=== PATIENT | female | born 1985 | race Caucasian/White ===

== ENCOUNTER 2020-10-17 14:13 | Outpatient (REF) | payer MEDICARE, MEDICAID, SELFPAY | END 2020-10-17 14:14 | disposition home or self-care (01) | LOC: HO.LNP 14:13 | PROVIDERS: Visit Provider Nurse Practitioner Family | DX: Z20.822 Contact with and (suspected) exposure to COVID-19 (principal); R52 Pain, unspecified | CPT/HCPCS: U0003 ==

== ENCOUNTER 2020-11-23 19:14 | Outpatient (REF) | payer MEDICARE, MEDICAID, SELFPAY | END 2020-11-23 19:15 | disposition home or self-care (01) | LOC: HO.LNP 19:14 | PROVIDERS: Visit Provider Hospitalist | DX: Z20.822 Contact with and (suspected) exposure to COVID-19 (principal) | CPT/HCPCS: U0003; U0005 ==

== ENCOUNTER 2021-01-07 14:53 | Emergency (ER) | payer MEDICARE, MEDICAID, SELFPAY ==
[2021-01-07 14:59] VITALS: BP 140/77; PULSE 83; RESP 20; TEMP 37.2; O2SAT 99; BMI 48.1
--- NOTE | 2021-01-07 15:54 | ED.GENADULT ---
HPI - General Adult General Chief complaint: General Medical <CHARU Ferreira Last Filed: 01/12/21 13:56> Stated complaint: REACTION TO COVID VACCINE <CHARU Ferreira Last Filed: 01/12/21 13:56> Time Seen by Provider: 01/07/21 15:54 <CHARU Ferreira Last Filed: 01/12/21 13:56> History of Present Illness HPI narrative: Patient complains of tingling in throat and mouth after getting COVID vaccine today, she never had difficulty breathing or swallowing never felt faint never had any throat swelling, and only complaint now is feeling a mild tingling in the back of her throat <CHARU Ferreira Last Filed: 01/12/21 13:56> Related Data Home medications: Home Medications Medication Instructions Recorded Confirmed cariprazine 3 mg capsule 3 mg PO BEDTIME 10/17/20 01/04/21 clonazepam 0.5 mg tablet 0.5 mg PO DAILY PRN 10/17/20 01/04/21 Previous Rx's Medication Instructions Recorded loratadine [Claritin] 10 mg PO DAILY PRN #5 tab 01/07/21 <CHARU Ferreira Last Filed: 01/12/21 13:56> Allergies/adverse reactions: Allergies Allergy/AdvReac Type Severity Reaction Status Date / Time carrot [Carrot] Allergy Mild INDUCES Verified 01/07/21 15:03 ASTHMA, HIVES Sulfa (Sulfonamide Allergy Mild INDUCES Verified 01/07/21 15:03 Antibiotics) ASTHMA, [Sulfa (Sulfonamides)] HIVES, blotchy, asthma flare up ciprofloxacin [Cipro] AdvReac Unknown joint Verified 08/24/20 14:26 swelling <CHARU Ferreira Last Filed: 01/12/21 13:56> Review of Systems Review of Systems: Positive for tingling sensation in the back of her throat negatives are no fever no chills no dizziness no weakness no fainting no feeling faint no confusion no difficulty breathing or swallowing no swelling in the throat no chest pain no abdominal pain no nausea no vomiting no numbness or weakness <CHARU Ferreira Last Filed: 01/12/21 13:56> [facility] Past Medical History Source: nursing notes reviewed <CHARU Ferreira Last Filed: 01/12/21 13:56> Medical History: Medical History (Updated 01/08/21 @ 00:01 by Zachary Daley) Asthma CPAP (continuous positive airway pressure) dependence Endometriosis <CHARU Ferreira - Last Filed: 01/12/21 13:56> Social History Social History: Social History Advance Directives: No Advance Directives Information Provided: Yes <CHARU Ferreira - Last Filed: 01/12/21 13:56> Physical Exam Vital Signs: Vital Signs: Last Vital Signs Temp 99.0 F 01/07/21 14:59 Pulse 83 01/07/21 14:59 Resp 20 01/07/21 14:59 BP 140/77 H 01/07/21 14:59 Pulse Ox 99 01/07/21 14:59 Body Mass Index 48.1 <CHARU Ferreira - Last Filed: 01/12/21 13:56> Vital Signs: Last Vital Signs Temp 99.0 F 01/07/21 14:59 Pulse 83 01/07/21 14:59 Resp 20 01/07/21 14:59 BP 140/77 H 01/07/21 14:59 Pulse Ox 99 01/07/21 14:59 Body Mass Index 48.1 <Javier Scott MD - Last Filed: 01/25/21 13:48> General appearance is comfortable relax no acute distress A&O x3 The eyes are clear no redness or discharge The skin of the face no rashes The pharynx there is no swelling of tongue and uvula pharynx or lips, mucous membranes are moist and pharynx exam is normal The voice is normal No impairment of breathing and swallowing The neck is supple without stridor The chest is clear to auscultation with full symmetrical equal breath sounds without adventitious sound The heart rate and rhythm regular no murmur Abdomen soft nontender Full range of motion x4 in the extremities The skin no rash Neuro motor is 5/5 x4, gait and balance are normal, verbal interaction speech and comprehension are normal, sensation is intact and normal <CHARU Ferreira - Last Filed: 01/12/21 13:56> Course Course Course Narrative: Patient with normal physical exam was comfortable and only symptom is some tingling in the back of the throat is observed for half an hour with no worsening and is given an antihistamine and discharged <CHARU Ferreira - Last Filed: 01/12/21 13:56> I have reviewed the chart <Javier Scott MD - Last Filed: 01/25/21 13:48> Discharge Plan Discharge Clinical Impression: Medication reaction <CHARU Ferreira - Last Filed: 01/12/21 13:56> Patient Disposition: Home, Self-Care <CHARU Ferreira - Last Filed: 01/12/21 13:56> Additional Instructions: This was a mild reaction to the vaccine which should be better very soon There is no sign of any dangerous or serious reaction If needed you can take a Claritin tomorrow but if you are back to normal no need for any further medication Return any concerns <CHARU Ferreira - Last Filed: 01/12/21 13:56> Prescriptions: New loratadine [Claritin] 10 mg tablet 10 mg PO DAILY PRN (Reason: allergy symptoms) Qty: 5 RF: 0 No Action clonazepam 0.5 mg tablet 0.5 mg PO DAILY PRN (Reason: anxiety) RF: 0 Vraylar 3 mg capsule 3 mg PO BEDTIME RF: 0 <CHARU Ferreira - Last Filed: 01/12/21 13:56> Interventions: ED Discharge Assessment Last Done: 01/07/21 16:32 <CHARU Ferreira - Last Filed: 01/12/21 13:56> Discharge Date/Time: 01/07/21 16:33 <CHARU Ferreira - Last Filed: 01/12/21 13:56>
[2021-01-07] MEDS: Loratadine 10 MG TABLET PO (16:25)
--- NOTE | 2021-01-07 16:30 | PC.NURSE ---
no diff breathing, no cp, steady gait, moving all extremities.
== END 2021-01-07 16:33 | disposition home or self-care (01) ==
PROVIDERS: Emergency Provider Emergency Medicine; PCP Internal Medicine
DX: R09.89 Other specified symptoms and signs involving the circulatory and respiratory systems (principal); T50.Z95A Adverse effect of other vaccines and biological substances, initial encounter; Y92.019 Unspecified place in single-family (private) house as the place of occurrence of the external cause
CPT/HCPCS: 99283

== ENCOUNTER 2021-03-16 09:42 | Outpatient (REF) | payer MEDICARE, MEDICAID, SELFPAY ==
[2021-03-16 14:10] LABS: MANUAL DIFF FLAG NO
[2021-03-16 14:13] LABS: Basophils Absolute Auto 0.1 X10*3/uL (0.0-0.2); Basophils Percent Auto 0.7 % (0-2); Eosinophils Absolute Auto 0.7 X10*3/uL (0.0-0.4); Hematocrit 39.1 % (37-47); Imm Gran Abs Auto 0.05 X10*3/uL (0.00-0.03); Imm Gran Pct Auto 0.5 % (0.0-0.4); Lymphocytes Absolute Auto 2.9 X10*3/uL (1.2-4.9); Lymphocytes Percent Auto 31.6 % (20-40); Mean Corpuscular HGB Conc 33.2 g/dl (31.0-35.0); Mean Corpuscular Volume 90.1 fL (80-98); Mean Platelet Volume 10.5 fL (9.4-12.3); Monocytes Absolute Auto 0.6 X10*3/uL (0.1-1.2); Monocytes Percent Auto 6.3 % (2-11); Neutrophils Percent Auto 53.9 % (45-73); Platelet Count 322 X10*3/uL (160-400); Red Blood Count 4.34 X10*6/uL (4.20-5.50); Red Cell Distribution Width 13.9 % (11.0-16.0); White Blood Count 9.2 X10*3/uL (4.8-10.8)
[2021-03-16 14:25] LABS: Iron 58 mcg/dL (30-160); Percent Iron Saturation 15 % (15-50); Total Iron Binding Capacity 387 mcg/dL (228-428); Unsaturated Iron Binding 329 ug/dL
== END 2021-03-16 09:43 | disposition home or self-care (01) ==
LOC: HO.HMGCLDS 09:42
PROVIDERS: PCP Internal Medicine; Visit Provider Physician Assistant
DX: D64.9 Anemia, unspecified (principal)
CPT/HCPCS: 36415; 83540; 85025

== ENCOUNTER 2021-08-28 09:39 | Outpatient (REF) | payer MEDICARE, MEDICAID, SELFPAY ==
[2021-08-28 11:28] LABS: MANUAL DIFF FLAG NO
[2021-08-28 11:42] LABS: Basophils Percent Auto 0.5 % (0-2); Eosinophils Absolute Auto 0.6 X10*3/uL (0.0-0.4); Eosinophils Percent Auto 6.7 % (0-4); Hematocrit 41.1 % (37.0-47.0); Hemoglobin 13.7 g/dl (12.0-16.0); Imm Gran Abs Auto 0.04 X10*3/uL (0.00-0.03); Imm Gran Pct Auto 0.5 % (0.0-0.4); Lymphocytes Absolute Auto 2.4 X10*3/uL (1.2-4.9); Lymphocytes Percent Auto 27.8 % (20-40); Mean Corpuscular HGB Conc 33.3 g/dl (31.0-35.0); Mean Corpuscular Hemoglobin 30.2 pg (27.0-33.0); Mean Corpuscular Volume 90.5 fL (80.0-98.0); Mean Platelet Volume 10.2 fL (9.4-12.3); Monocytes Absolute Auto 0.6 X10*3/uL (0.1-1.2); Monocytes Percent Auto 6.4 % (2-11); Neutrophils Percent Auto 58.1 % (45-73); Platelet Count 321 X10*3/uL (160-400); Red Blood Count 4.54 X10*6/uL (4.20-5.50); Red Cell Distribution Width 13.3 % (11.0-16.0); White Blood Count 8.7 X10*3/uL (4.8-10.8)
[2021-08-28 11:57] LABS: Alanine Aminotransferase 203 U/L (0-31); Albumin Level 4.9 g/dL (3.5-5.0); Alkaline Phosphatase 98 U/L (39-117); Anion Gap 15 (12-20); Aspartate Amino Transferase 121 U/L (5-31); Bilirubin Total 0.5 mg/dL (0.0-1.0); Blood Urea Nitrogen 10 mg/dL (9-16); Carbon Dioxide 25 mmol/L (22-29); Chloride 103 mmol/L (96-108); Estimated Glomerular Filt Rate > 60; Glucose Random 81 mg/dL (60-115); Potassium 4.6 mmol/L (3.3-5.1); Sodium 138 mmol/L (135-145)
[2021-08-28 12:20] LABS: TSH reflex Free T4 2.53 uIU/mL (0.32-4.0)
[2021-08-30 13:30] LABS: LDL Cholesterol Direct 159 mg/dL (<100)
== END 2021-08-28 09:40 | disposition home or self-care (01) ==
LOC: HO.HMGCLDS 09:39
PROVIDERS: PCP Internal Medicine; Visit Provider Internal Medicine
DX: E66.01 Morbid (severe) obesity due to excess calories (principal); Z68.41 Body mass index [BMI] 40.0-44.9, adult; J45.20 Mild intermittent asthma, uncomplicated; I10 Essential (primary) hypertension
CPT/HCPCS: 36415; 80053; 83721; 84443; 85025

== ENCOUNTER 2021-09-14 04:52 | Emergency (ER) | payer MEDICARE, MEDICAID, SELFPAY ==
--- NOTE | ~2021-09-14 | CT_ITS ---
EXAMINATION: CT ABDOMEN AND PELVIS WITHOUT CONTRAST CLINICAL INFORMATION: Right-sided pain COMPARISON: None TECHNIQUE: Multidetector volumetric imaging was performed from the superior aspect of the liver through the pubic symphysis. Sagittal and coronal reformatted images were obtained on the technologist's workstation. This CT examination was performed using dose optimization techniques as appropriate, variously including the following: *Automated exposure control *Adjustment of mA and/or kV according to patient size (this includes techniques or standardized protocols for targeted exams where dose is matched to indication/reason for exam; i.e. extremities or head) *Use of iterative reconstruction technique DLP: 997 mGy-cm FINDINGS: LUNG BASES: The visualized lung bases are unremarkable. LIVER, GALLBLADDER, AND BILIARY TREE: Liver is enlarged and shows severe diffuse hepatic steatosis. No focal liver lesions. No intra or extrahepatic biliary dilatation. Gallbladder unremarkable. PANCREAS: Unremarkable. SPLEEN: Unremarkable. ADRENAL GLANDS: Unremarkable. KIDNEYS AND URETERS: The kidneys are normal in size, shape, and attenuation. No hydronephrosis, hydroureter, or calculi seen. No perinephric stranding. BLADDER: Unremarkable. GASTROINTESTINAL TRACT: Scattered colonic diverticula. No evidence of diverticulitis. Normal appendix. Stomach and small bowel unremarkable. ABDOMINAL WALL: No significant hernia is appreciated. LYMPH NODES: Normal. VASCULAR: Unremarkable. PELVIC VISCERA: IUD present within the uterus. Ovaries unremarkable. OSSEOUS STRUCTURES: No acute or suspicious osseous abnormalities. CT/CT abdomen pelvis wo con IMPRESSION: No acute findings within the abdomen or pelvis. Hepatomegaly and diffuse hepatic steatosis.
[2021-09-14 05:02] VITALS: BP 134/83; PULSE 81; RESP 18; TEMP 36.6; O2SAT 96; BMI 49.1
--- NOTE | 2021-09-14 05:17 | ED.ABDPAIN ---
HPI - Abdominal Pain General Chief Complaint: Abdominal Pain Stated Complaint: ovary/cyst pain Time Seen by Provider: 09/14/21 04:59 Source: patient Mode of arrival: ambulatory Limitations: no limitations History of Present Illness MD elicited complaint: abdominal pain Pertinent past history: other (ovarian cyst dx 09/09 L ovary 2.7cm cyst simple, R ovary normal) Onset (ago): hour(s) (several) Pain Consistency: constant Location: RLQ and pelvis Severity: moderate Quality: stabbing Radiation: none Migration to: no migration Exacerbating factors: movement Relieving factors: nothing Associated symptoms: nausea and dysuria Related Data Home Medications Medication Instructions Recorded Confirmed clonazepam 0.5 mg tablet 0.5 mg PO DAILY PRN 10/17/20 09/04/21 ibuprofen 800 mg tablet 800 mg PO TID PRN 03/16/21 09/04/21 cariprazine 4.5 mg capsule 4.5 mg PO DAILY 08/28/21 09/04/21 (Vraylar) Previous Rx's Medication Instructions Recorded loratadine 10 mg tablet (Claritin) 10 mg PO DAILY PRN #5 tab 01/07/21 albuterol sulfate 90 mcg/actuation 1 inh INHALATION QID PRN 30 Days 08/28/21 aerosol inhaler (ProAir HFA) #18 g chlorthalidone 25 mg tablet 25 mg PO DAILY 90 Days #90 tab 09/04/21 nitrofurantoin 100 mg PO BID 7 Days #14 cap 09/14/21 monohydrate/macrocrystals 100 mg capsule (Macrobid) ondansetron 4 mg disintegrating 4 mg PO Q8H PRN #20 tab 09/14/21 tablet tramadol 50 mg tablet 50 mg PO TID PRN #12 tab 09/14/21 Allergies Allergy/AdvReac Type Severity Reaction Status Date / Time carrot [Carrot] Allergy Mild INDUCES Verified 09/14/21 05:24 ASTHMA, HIVES Sulfa (Sulfonamide Allergy Mild INDUCES Verified 09/14/21 05:24 Antibiotics) ASTHMA, [Sulfa (Sulfonamides)] HIVES, blotchy, asthma flare up ciprofloxacin [Cipro] AdvReac Unknown joint Verified 09/14/21 05:24 swelling Review of Systems Review of Systems Constitutional : No Weight loss, No Fever, No Chills ENT/Mouth : No sore throat, No Rhinorrhea Eyes: No Swelling, No Redness Cardiovascular : No Chest Pain, No SOB, NoEdema Respiratory : No Cough, No Sputum, No Wheezing Gastrointestinal : Positive Nausea, no Vomiting, no Diarrhea, positive abdominal Pain, No Hematochezia, No Melena Genitourinary : pos Dysuria, No Urinary Frequency, No Hematuria, No Urgency Musculoskeletal : No joint pain, No Myalgias, No Joint Swelling Skin : No Skin Lesions, No rash Neuro : No Weakness, No Numbness, No Dizziness, No Headache Psych : No Anxiety/Panic, No Depression Heme/Lymph: No Bruising, No Lymphadenopathy Endocrine : No Polyuria, No Polydipsia All other systems reviewed and are negative. Physical Exam Vital Signs: Vital Signs: Last Vital Signs Temp 97.8 F 09/14/21 05:02 Pulse 81 09/14/21 05:02 Resp 18 09/14/21 05:02 BP 134/83 09/14/21 05:02 Pulse Ox 96 09/14/21 05:02 BMI result Body Mass Index 49.1 Appearance: Alert. Oriented X3. No acute distress. Eyes: Pupils equal, round and reactive to light. ENT: Pharynx normal. Neck: Normal inspection. Neck supple. CVS: Normal heart rate and rhythm. Pulses normal. Respiratory: No respiratory distress. Breath sounds normal. Abdomen: Soft and mild RLQ pain no rebound Skin: Skin warm and dry. Normal skin color. Normal skin turgor. Extremities: No lower extremity edema. No calf ttp Neuro: Oriented X 3. No motor deficit. No sensory deficit. Course Course Course Narrative: feels better no acute findings at this time can be DC, normal WBC count, chronically elevated LFTs, no cyst, no appendicitis, no renal colic, has endometriosis could be related to that I attest that I have reviewed patients MassPAT, and at the time prescribing the patient a controlled substance is appropriate based off of patients diagnosis and treatment plan MDM - Abdominal Pain MDM Narrative Medical decision making narrative: 36 yo female with hx of endometriosis, dx with L ovarian cyst on 09/09 comes in with abrupt onset RLQ and pelvis pain with dysuria after urinating - at this time she has no hx of kidney stones. Will obtain basic labs, UA, CT scan for renal colic. IV toradol and IV morphine for pain. Had no R ovarian cyst on US and she has no LLQ pain to suggest L ovarian pathology. Dispo per results and findings. Lab Data Result diagrams: 09/14/21 05:31 09/14/21 05:32 Labs: Lab Results 09/14/21 09/14/21 09/14/21 Range/Units 05:31 05:32 05:32 WBC 9.2 (4.8-10.8) X10*3/uL RBC 4.53 (4.20-5.50) X10*6/uL Hgb 13.5 (12.0-16.0) g/dl Hct 40.9 (37.0-47.0) % MCV 90.3 (80.0-98.0) fL MCH 29.8 (27.0-33.0) pg MCHC 33.0 (31.0-35.0) g/dl RDW 13.3 (11.0-16.0) % Plt Count 291 (160-400) X10*3/uL MPV 10.1 (9.4-12.3) fL Immature Gran % (Auto) 0.5 H (0.0-0.4) % Neut % (Auto) 63.4 (45-73) % Lymph % (Auto) 24.5 (20-40) % Ada % (Auto) 5.5 (2-11) % Eos % (Auto) 5.8 H (0-4) % Baso % (Auto) 0.3 (0-2) % Lymph # (Auto) 2.3 (1.2-4.9) X10*3/uL Ada # (Auto) 0.5 (0.1-1.2) X10*3/uL Eos # (Auto) 0.5 H (0.0-0.4) X10*3/uL Baso # (Auto) 0.0 (0.0-0.2) X10*3/uL Abs Immat Gran (auto) 0.05 H (0.00-0.03) X10*3/uL Absolute Neuts (auto) 5.8 (2.0-8.3) x10*3/uL Absolute Nucleated RBC 0.000 (0.0-0.012) X10*3/uL Nucleated RBC % (auto) 0.0 (0.0-0.2) /100WBC Sodium 138 (135-145) mmol/L Potassium 4.0 (3.3-5.1) mmol/L Chloride 101 (96-108) mmol/L Carbon Dioxide 26 (22-29) mmol/L Anion Gap 15 (12-20) BUN 15 (9-16) mg/dL Creatinine 0.97 (0.5-1.4) mg/dL Estim Creat Clear Calc 94.1 Estimated GFR > 60 Random Glucose 144 H (60-115) mg/dL Calcium 9.9 (8.4-10.2) mg/dL Magnesium 2.1 (1.6-2.6) mg/dL Total Bilirubin 0.5 (0.0-1.0) mg/dL Direct Bilirubin 0.3 (0.0-0.5) mg/dL AST 93 H (5-31) U/L ALT 177 H (0-31) U/L Alkaline Phosphatase 111 (39-117) U/L Total Protein 7.9 (6.5-8.0) g/dL Albumin 4.7 (3.5-5.0) g/dL Lipase 59 (8-78) U/L Urine Color Urine Appearance Urine pH (5.0-8.0) Ur Specific [place] (1.005-1.025) Urine Protein (NEG-TRACE) MG/DL Urine Glucose (UA) (NEG) MG/DL Urine Ketones (NEG) MG/DL Urine Blood (NEG) Urine Nitrite (NEG) Ur Leukocyte Esterase (NEG) Urine RBC (0) /HPF Urine WBC (0-4) /HPF Ur Squamous Epith Cells /LPF Urine Bacteria /LPF Urine Mucus /LPF Urine Test (NEGATIVE) COVID-19 (MOSES) Negative (Negative) COVID-19 Clin Com See Note 09/14/21 09/14/21 Range/Units 05:32 05:32 WBC (4.8-10.8) X10*3/uL RBC (4.20-5.50) X10*6/uL Hgb (12.0-16.0) g/dl Hct (37.0-47.0) % MCV (80.0-98.0) fL MCH (27.0-33.0) pg MCHC (31.0-35.0) g/dl RDW (11.0-16.0) % Plt Count (160-400) X10*3/uL MPV (9.4-12.3) fL Immature Gran % (Auto) (0.0-0.4) % Neut % (Auto) (45-73) % Lymph % (Auto) (20-40) % Ada % (Auto) (2-11) % Eos % (Auto) (0-4) % Baso % (Auto) (0-2) % Lymph # (Auto) (1.2-4.9) X10*3/uL Ada # (Auto) (0.1-1.2) X10*3/uL Eos # (Auto) (0.0-0.4) X10*3/uL Baso # (Auto) (0.0-0.2) X10*3/uL Abs Immat Gran (auto) (0.00-0.03) X10*3/uL Absolute Neuts (auto) (2.0-8.3) x10*3/uL Absolute Nucleated RBC (0.0-0.012) X10*3/uL Nucleated RBC % (auto) (0.0-0.2) /100WBC Sodium (135-145) mmol/L Potassium (3.3-5.1) mmol/L Chloride (96-108) mmol/L Carbon Dioxide (22-29) mmol/L Anion Gap (12-20) BUN (9-16) mg/dL Creatinine (0.5-1.4) mg/dL Estim Creat Clear Calc Estimated GFR Random Glucose (60-115) mg/dL Calcium (8.4-10.2) mg/dL Magnesium (1.6-2.6) mg/dL Total Bilirubin (0.0-1.0) mg/dL Direct Bilirubin (0.0-0.5) mg/dL AST (5-31) U/L ALT (0-31) U/L Alkaline Phosphatase (39-117) U/L Total Protein (6.5-8.0) g/dL Albumin (3.5-5.0) g/dL Lipase (8-78) U/L Urine Color YELLOW Urine Appearance CLOUDY Urine pH 6.0 (5.0-8.0) Ur Specific [place] 1.015 (1.005-1.025) Urine Protein NEG (NEG-TRACE) MG/DL Urine Glucose (UA) NEG (NEG) MG/DL Urine Ketones NEG (NEG) MG/DL Urine Blood NEG (NEG) Urine Nitrite NEG (NEG) Ur Leukocyte Esterase 1+ H (NEG) Urine RBC 0-2 (0) /HPF Urine WBC 5-9 H (0-4) /HPF Ur Squamous Epith Cells 3+ /LPF Urine Bacteria 1+ /LPF Urine Mucus 2+ /LPF Urine Test NEGATIVE (NEGATIVE) COVID-19 (MOSES) (Negative) COVID-19 Clin Com Discharge Plan Discharge Clinical Impression: Abdominal pain Qualifiers: Abdominal location: right lower quadrant Qualified Code(s): R10.31 - Right lower quadrant pain UTI (urinary tract infection) Qualifiers: Urinary tract infection type: acute cystitis Hematuria presence: without hematuria Qualified Code(s): N30.00 - Acute cystitis without hematuria Patient Disposition: Home, Self-Care Instructions: Urinary Tract Infection in Women (ED), Abdominal Pain (ED) Additional Instructions: return to ED for any worsening symptoms or concerns Prescriptions: New nitrofurantoin monohyd/m-cryst [Macrobid] 100 mg capsule 100 mg PO BID 7 Days Qty: 14 RF: 0 ondansetron 4 mg tablet,disintegrating 4 mg PO Q8H PRN (Reason: nausea and vomiting) Qty: 20 RF: 0 tramadol 50 mg tablet 50 mg PO TID PRN (Reason: pain) Qty: 12 RF: 0 No Action loratadine [Claritin] 10 mg tablet 10 mg PO DAILY PRN (Reason: allergy symptoms) Qty: 5 RF: 0 clonazepam 0.5 mg tablet 0.5 mg PO DAILY PRN (Reason: anxiety) RF: 0 ibuprofen 800 mg tablet 800 mg PO TID PRN (Reason: pain) RF: 0 chlorthalidone 25 mg tablet 25 mg PO DAILY 90 Days Qty: 90 RF: 1 Vraylar 4.5 mg capsule 4.5 mg PO DAILY RF: 0 albuterol sulfate [ProAir HFA] 90 mcg/actuation HFA aerosol inhaler 1 inh inhalation QID PRN (Reason: shortness of breath or wheezing) 30 Days Qty: 18 RF: 0 Referrals: Physician,Unknown J [Primary Care Provider] - 2 days (if not better) Stand Alone Forms: Work/School Release [facility] Past Medical History Attestation statement: The following information was validated with the patient. Medical History (Updated 09/14/21 @ 06:48 by Apurva Chase DO) Anemia Asthma CPAP (continuous positive airway pressure) dependence Endometriosis Surgical History History of delivery Family History Family History Other Mental health disorder Substance use disorder Social History Social History Housing: Condominium Patient Tobacco Use Status: Never used Tobacco Advance Directives: No Advance Directives Information Provided: Yes Patient : No Current occupational status: disabled
--- NOTE | 2021-09-14 05:23 | PC.NURSE ---
at bedside for primary eval.
[2021-09-14] MEDS: ondansetron HCL 4 MG/2 ML VIAL IVPUSH (05:40)
[2021-09-14] MEDS: 0.9 % Sodium Chloride 1,000 ML 999 ML IVCONT (05:40)
[2021-09-14] MEDS: Morphine Sulfate 4 MG/ML CARTRIDGE IVPUSH (05:40)
[2021-09-14] MEDS: Ketorolac Tromethamine 15 MG/ML VIAL 30 MG IVPUSH (05:40)
[2021-09-14 05:41] LABS: MANUAL DIFF FLAG NO
[2021-09-14 05:42] LABS: Basophils Percent Auto 0.3 % (0-2); Eosinophils Absolute Auto 0.5 X10*3/uL (0.0-0.4); Eosinophils Percent Auto 5.8 % (0-4); Hematocrit 40.9 % (37.0-47.0); Hemoglobin 13.5 g/dl (12.0-16.0); Imm Gran Abs Auto 0.05 X10*3/uL (0.00-0.03); Imm Gran Pct Auto 0.5 % (0.0-0.4); Lymphocytes Absolute Auto 2.3 X10*3/uL (1.2-4.9); Lymphocytes Percent Auto 24.5 % (20-40); Mean Corpuscular Hemoglobin 29.8 pg (27.0-33.0); Mean Corpuscular Volume 90.3 fL (80.0-98.0); Mean Platelet Volume 10.1 fL (9.4-12.3); Monocytes Absolute Auto 0.5 X10*3/uL (0.1-1.2); Monocytes Percent Auto 5.5 % (2-11); Neutrophils Absolute Auto 5.8 x10*3/uL (2.0-8.3); Neutrophils Percent Auto 63.4 % (45-73); Platelet Count 291 X10*3/uL (160-400); Red Blood Count 4.53 X10*6/uL (4.20-5.50); Red Cell Distribution Width 13.3 % (11.0-16.0); White Blood Count 9.2 X10*3/uL (4.8-10.8)
[2021-09-14 05:43] LABS: Appearance Urine CLOUDY; Color Urine YELLOW; Glucose Urine UA NEG (NEG); Leukocyte Esterase Urine 1+ (NEG); Nitrite Urine NEG (NEG); Specific Gravity - Urine 1.015 (1.005-1.025); UACC Culture Trigger YES; Urine Blood NEG (NEG); Urine Ketones NEG (NEG); Urine Protein NEG (NEG-TRACE)
--- NOTE | 2021-09-14 05:43 | PC.NURSE ---
IV established, labs and UA obtained. IVF infusing. Pt medicated per MAR. Awaiting CT.
[2021-09-14 05:45] LABS: UPreg QC Valid YES; Urine Pregnancy NEGATIVE (NEGATIVE)
[2021-09-14 05:56] LABS: Bacteria Urine 1+ /LPF; Mucus Urine 2+ /LPF; RBC Urine 0-2 /HPF (0); Squamous Epithelial Cell Urine 3+ /LPF
[2021-09-14 05:57] LABS: COVID-19 Test Negative (Negative)
[2021-09-14 06:00] LABS: Alanine Aminotransferase 177 U/L (0-31); Albumin Level 4.7 g/dL (3.5-5.0); Alkaline Phosphatase 111 U/L (39-117); Anion Gap 15 (12-20); Aspartate Amino Transferase 93 U/L (5-31); Bilirubin Direct 0.3 mg/dL (0.0-0.5); Bilirubin Total 0.5 mg/dL (0.0-1.0); Blood Urea Nitrogen 15 mg/dL (9-16); Calcium 9.9 mg/dL (8.4-10.2); Carbon Dioxide 26 mmol/L (22-29); Chloride 101 mmol/L (96-108); Creatinine Clr Calc Pharmacy 94.1; Estimated Glomerular Filt Rate > 60; Glucose Random 144 mg/dL (60-115); Lipase 59 U/L (8-78); Magnesium 2.1 mg/dL (1.6-2.6); Sodium 138 mmol/L (135-145); Total Protein 7.9 g/dL (6.5-8.0)
--- NOTE | 2021-09-14 06:43 | PC.NURSE ---
MD at bedside discussing results and plan for discharge.
[2021-09-14] MEDS: Nitrofurantoin Monohyd/M-Cryst 100 MG CAPSULE PO (06:46)
== END 2021-09-14 06:56 | disposition home or self-care (01) ==
PROVIDERS: Emergency Provider Emergency Medicine
DX: N30.00 Acute cystitis without hematuria (principal); R10.31 Right lower quadrant pain; Z20.822 Contact with and (suspected) exposure to COVID-19; R11.0 Nausea
CPT/HCPCS: 36415; 74176; 80048; 80076; 81001; 81025; 83690; 83735; 85025; 87086; 87635; 96361; 96374; 96375; 99284; J1885; J2270; J2405

== ENCOUNTER 2021-09-26 15:16 | Outpatient (REF) | payer MEDICARE, MEDICAID, SELFPAY | END 2021-09-26 15:17 | disposition home or self-care (01) | LOC: HO.HMGCX 15:16 | PROVIDERS: PCP Internal Medicine; Visit Provider Internal Medicine | DX: Z13.89 Encounter for screening for other disorder (principal) ==

== ENCOUNTER 2022-02-05 07:59 | Outpatient (RCR) | payer MEDICARE, MEDICAID, SELFPAY ==
--- NOTE | 2022-02-05 08:55 | MHC.PT.EP ---
[facility] [place] [facility] [place] Office [place] Office [address] Gopal Concepcion [address] [phone] F: [phone] F: [phone] F: [phone] F: [phone] Physical Therapy Plan of Care Date of Evaluation: Date of Surgery: n/a Diagnosis: cervicalgia Assessment: Patient is a 36 year old female presenting to PT with complaints of pain in her neck extending down her R arm. Pt reports onset of pain began 1 month ago due to either lifting her son wrong or sleeping wrong. She presents today with impairments in pain, shoulder strength, and posture. 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 Clinical presentation today is most consistent with signs and sx associated with neck and shoulder pain that is likely myofascial in nature with possible contribution from RC and pt will benefit from skilled PT to address the following problems and impairments noted upon evaluation: pain, shoulder strength, and posture. 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 The prescribed treatment plan of care is medically necessary. Co-morbidities of none were identified and taken into considerations of plan of care. Pt was educated on HEP, role of PT, prognosis, POC. Frequency and Duration: The patient will be seen 2 x week x 4 weeks Short Term Goals: Pt will demonstrate improved postural awareness by sitting with biomechanically correct posture without cues throughout session to improve overall postural function in 2 weeks. Pt will demonstrate pain at rest <4/10 in 2 weeks for improved QOL. Pt will demonstrate improved shoulder strength on R by 1/3 MMT for improved ability to lift her son. 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 Pt will demonstrate self reports of being able to pull with min to no pain in 4 weeks for improved ability to do laundry. Pt will demonstrate ability to lift with min to no pain in 4 weeks for improved ability to care for her son. Treatment Plan: Modalities to reduce pain, spasms and effusion. Manual therapy to restore motion and function. Therapeutic exercise to improve strength and flexibility. Neuromuscular re-education for posture and balance. Therapeutic activities to return to functional activities of daily living. Electronically signed by: Alisha Cisneros, PT, DPT, ATC Please sign and return to therapist. Thank you for your referral.
--- NOTE | 2022-02-19 09:47 | MHC.PT.DC ---
[facility] [place] Office [place] Office [place] Office [address] [phone] F: [phone] F: [phone] F: [phone] F: [phone] Physical Therapy Discharge Report Diagnosis: cervicalgia Date of Surgery: n/a Date of Evaluation: 02/05/22 Date of Discharge: 02/19/22 Treatments to Date: 1 Cancellations to Date: 0 No Shows to Date: 3 Discharge Status: Visit Non-compliance Discharge Summary: Pt has failed to comply with [facility] [place] and no showed her first 3 PT follow ups. Pt status unknown at this time. Electronically signed by: Alisha Cisneros, PT, DPT, ATC Please sign and return to therapist. Thank you for your referral.
== END 2022-02-19 09:47 | disposition home or self-care (01) ==
LOC: HO.PTCHIC 07:59
PROVIDERS: PCP Internal Medicine; Visit Provider Internal Medicine
DX: M54.2 Cervicalgia (principal)
CPT/HCPCS: 97110; 97161

== ENCOUNTER 2022-02-11 13:05 | Emergency (ER) | payer MEDICARE, MEDICAID, SELFPAY ==
[2022-02-11 13:49] VITALS: BP 132/93; PULSE 87; RESP 18; TEMP 36.8; O2SAT 100; BMI 49.3
[2022-02-11 14:01] LABS: MANUAL DIFF FLAG NO
[2022-02-11 14:04] LABS: Basophils Absolute Auto 0.1 X10*3/uL (0.0-0.2); Basophils Percent Auto 0.6 % (0-2); Eosinophils Absolute Auto 0.4 X10*3/uL (0.0-0.4); Eosinophils Percent Auto 3.7 % (0-4); Hemoglobin 13.7 g/dl (12.0-16.0); Imm Gran Abs Auto 0.08 X10*3/uL (0.00-0.03); Imm Gran Pct Auto 0.7 % (0.0-0.4); Lymphocytes Absolute Auto 2.9 X10*3/uL (1.2-4.9); Lymphocytes Percent Auto 26.6 % (20-40); Mean Corpuscular HGB Conc 33.4 g/dl (31.0-35.0); Mean Corpuscular Hemoglobin 30.1 pg (27.0-33.0); Mean Corpuscular Volume 90.1 fL (80.0-98.0); Mean Platelet Volume 9.7 fL (9.4-12.3); Monocytes Absolute Auto 0.4 X10*3/uL (0.1-1.2); Monocytes Percent Auto 3.5 % (2-11); Neutrophils Percent Auto 64.9 % (45-73); Platelet Count 297 X10*3/uL (160-400); Red Blood Count 4.55 X10*6/uL (4.20-5.50); Red Cell Distribution Width 13.3 % (11.0-16.0); White Blood Count 10.8 X10*3/uL (4.8-10.8)
[2022-02-11 14:20] LABS: Anion Gap 16 (12-20); Blood Urea Nitrogen 17 mg/dL (9-16); Calcium 10.7 mg/dL (8.4-10.2); Carbon Dioxide 28 mmol/L (22-29); Chloride 97 mmol/L (96-108); Creatinine Clr Calc Pharmacy 85.5; Estimated Glomerular Filt Rate 57; Glucose Random 128 mg/dL (60-115); Potassium 3.9 mmol/L (3.3-5.1); Sodium 137 mmol/L (135-145)
[2022-02-11 21:13] VITALS: BP 131/78; PULSE 88; RESP 20; TEMP 37.2; O2SAT 96
[2022-02-11 21:43] LABS: HCG Quantitative < 2 mIU/mL
--- NOTE | 2022-02-11 21:48 | ED.GENADULT ---
HPI - General Adult General Chief complaint: Headache Stated complaint: HBP/Headache Time Seen by Provider: 02/11/22 18:28 Source: patient Mode of arrival: ambulatory History of Present Illness HPI narrative: 36-year-old female with history of hypertension and is currently on chlorthalidone presents with complaints of headaches intermittently since yesterday as well as facial redness, she called her PCP who wanted to see patient again today for possible medication adjustment but patient states that as she was driving at 12:30 her face became red, she has a headache that wraps around the forehead area and is squeezing in nature she also described transient bilateral blurred vision. Patient states that pretty much everything is resolved except headache would still remains around the forehead is squeezing in nature. She denies any speech/auditory/unilateral numbness/tingling/weakness. Patient denies any fever, chills, shortness of breath, chest pain/palpitations. Related Data Home Medications Medication Instructions Recorded Confirmed clonazepam 0.5 mg tablet 0.5 mg PO DAILY PRN 10/17/20 01/31/22 cariprazine 4.5 mg capsule 4.5 mg PO DAILY 08/28/21 01/31/22 (Vraylar) milk thistle 150 mg capsule 300 mg PO DAILY 10/19/21 Previous Rx's Medication Instructions Recorded albuterol sulfate 90 mcg/actuation 1 inh INHALATION QID PRN 30 Days 08/28/21 aerosol inhaler (ProAir HFA) #18 g chlorthalidone 25 mg tablet 25 mg PO DAILY 90 Days #90 tab 09/04/21 ibuprofen 800 mg tablet 800 mg PO TID PRN #30 tab 10/19/21 Allergies Allergy/AdvReac Type Severity Reaction Status Date / Time carrot [Carrot] Allergy Mild INDUCES Verified 02/11/22 13:48 ASTHMA, HIVES Sulfa (Sulfonamide Allergy Mild INDUCES Verified 02/11/22 13:48 Antibiotics) ASTHMA, [Sulfa (Sulfonamides)] HIVES, blotchy, asthma flare up ciprofloxacin [Cipro] AdvReac Unknown joint Verified 02/11/22 13:48 swelling Review of Systems Review of Systems: Pertinent positives and negatives as stated in HPI 10 point review of systems is otherwise negative. PMFSH Past Medical History Source: nursing notes reviewed Medical History Anemia Asthma CPAP (continuous positive airway pressure) dependence Endometriosis Surgical History History of delivery Family History Family History Other Mental health disorder Substance use disorder Social History Social History Housing: Condominium Patient Tobacco Use Status: Never used Tobacco Advance Directives: No Advance Directives Information Provided: No Patient : No Current occupational status: disabled Cognitive needs: No Hearing needs: No Vision needs: No Physical Exam ED Vital Signs: Vital Signs - 24 hr 02/11/22 13:49 02/11/22 21:13 Temperature 98.2 F 99.0 F Pulse Rate 87 88 Respiratory Rate 18 20 Blood Pressure 132/93 H 131/78 Pulse Oximetry 100 96 BMI result Body Mass Index 49.3 VITAL SIGNS: Reviewed. GENERAL: Well developed, well nourished, in no acute distress. HEAD: Normocephalic/atraumatic EYES: PERRLA, EOMI, no nystagmus EARS: Ext canals without abnormality, TMs non-bulging and non-erythematous NOSE: Nares patent bilateral OROPHARYNX: no oral lesions noted, posterior pharynx clear LUNGS: Normal breath sounds. No adventitious sounds or accessory muscle use. SpO2<100> CARDIOVASCULAR: Regular rate and rhythm without noted murmurs, no JVD or lower extremity edema. ABDOMEN: Soft, non-tender, non-distended with bowel sounds. MUSCULOSKELETAL: No tenderness, deformities, or effusions noted on gross inspection. EXTREMITIES: No cyanosis, clubbing or edema. SKIN: Inspection of the skin reveals no rashes NEUROLOGIC: Alert and oriented x 4. Strength and sensation to light touch were grossly intact x 4, no facial asymmetry, no pronator drift, cranial nerves 2-12 grossly intact. Course Course Course Narrative: 36-year-old female with history and clinical presentation consistent with hypertension with associated headache, but patient still has headache and has been taking ibuprofen for a cervical radiculopathy that she is currently undergoing physical therapy for. In addition, patient describes stress with a small child at home. Review of all investigations otherwise negative for acute findings in after patient received lidocaine patch to the shoulder as well as combination analgesics for headache she reports complete resolution of the headache and has not had any further blurry vision. Low clinical suspicion for any intracranial abnormalities. Blood pressure has significantly improved and patient is otherwise discharged home in stable condition. Medical Decision Making Lab Data Result diagrams: 02/11/22 13:57 02/11/22 13:57 Labs: Lab Results 02/11/22 02/11/22 02/11/22 Range/Units 13:57 13:57 22:16 WBC 10.8 (4.8-10.8) X10*3/uL RBC 4.55 (4.20-5.50) X10*6/uL Hgb 13.7 (12.0-16.0) g/dl Hct 41.0 (37.0-47.0) % MCV 90.1 (80.0-98.0) fL MCH 30.1 (27.0-33.0) pg MCHC 33.4 (31.0-35.0) g/dl RDW 13.3 (11.0-16.0) % Plt Count 297 (160-400) X10*3/uL MPV 9.7 (9.4-12.3) fL Immature Gran % (Auto) 0.7 H (0.0-0.4) % Neut % (Auto) 64.9 (45-73) % Lymph % (Auto) 26.6 (20-40) % [place] % (Auto) 3.5 (2-11) % Eos % (Auto) 3.7 (0-4) % Baso % (Auto) 0.6 (0-2) % Lymph # (Auto) 2.9 (1.2-4.9) X10*3/uL [place] # (Auto) 0.4 (0.1-1.2) X10*3/uL Eos # (Auto) 0.4 (0.0-0.4) X10*3/uL Baso # (Auto) 0.1 (0.0-0.2) X10*3/uL Abs Immat Gran (auto) 0.08 H (0.00-0.03) X10*3/uL Absolute Neuts (auto) 7.0 (2.0-8.3) x10*3/uL Absolute Nucleated RBC 0.000 (0.0-0.012) X10*3/uL Nucleated RBC % (auto) 0.0 (0.0-0.2) /100WBC Sodium 137 (135-145) mmol/L Potassium 3.9 (3.3-5.1) mmol/L Chloride 97 (96-108) mmol/L Carbon Dioxide 28 (22-29) mmol/L Anion Gap 16 (12-20) BUN 17 H (9-16) mg/dL Creatinine 1.07 (0.5-1.4) mg/dL Estim Creat Clear Calc 85.5 Estimated GFR 57 Random Glucose 128 H (60-115) mg/dL Calcium 10.7 H D (8.4-10.2) mg/dL Beta HCG, Quant < 2 mIU/mL Urine Color YELLOW Urine Appearance CLEAR Urine pH 6.0 (5.0-8.0) Ur Specific [place] 1.020 (1.005-1.025) Urine Protein NEG (NEG-TRACE) MG/DL Urine Glucose (UA) NEG (NEG) MG/DL Urine Ketones NEG (NEG) MG/DL Urine Blood NEG (NEG) Urine Nitrite NEG (NEG) Ur Leukocyte Esterase TRACE H (NEG) Urine RBC 0 (0) /HPF Urine WBC 0-2 (0-4) /HPF Ur Squamous Epith Cells 1+ /LPF Urine Bacteria 1+ /LPF Discharge Plan Discharge Clinical Impression: Hypertension, Headache Patient Disposition: Home, Self-Care Instructions: Tension Headache (ED), DASH Eating Plan (ED), General Headache (ED) Additional Instructions: 1. Resume your home blood pressure medication and follow-up with your primary care provider for adjustment. 2. Recommend that you stop taking ibuprofen/Motrin products as this can additionally increase your blood pressure. 3. Recommend that you monitor your sodium intake as and additional blood pressure control measure. Recommend [id number] lidocaine patch for your musculoskeletal pain on the right shoulder. Also, recommend [id number] Voltaren or other anti-inflammatory cream instead of using oral anti-inflammatories such as ibuprofen/Motrin. Return to the ER for worsening symptoms. Prescriptions: No Action clonazepam 0.5 mg tablet 0.5 mg PO DAILY PRN (Reason: anxiety) 0RF chlorthalidone 25 mg tablet 25 mg PO DAILY 90 Days Qty: 90 1RF milk thistle 150 mg capsule 300 mg PO DAILY 0RF Rx Instructions: give with meal/snack ibuprofen 800 mg tablet 800 mg PO TID PRN (Reason: pain) Qty: 30 0RF Vraylar 4.5 mg capsule 4.5 mg PO DAILY 0RF albuterol sulfate [ProAir HFA] 90 mcg/actuation HFA aerosol inhaler 1 inh inhalation QID PRN (Reason: shortness of breath or wheezing) 30 Days Qty: 18 0RF
[2022-02-11] MEDS: Acetaminophen 325 MG TABLET 975 MG PO (22:07)
[2022-02-11] MEDS: Lidocaine 4 % Patch ADH..PATCH 1 PATCH TRANSDERMA (22:07)
[2022-02-11 22:22] LABS: Appearance Urine CLEAR; Color Urine YELLOW; Glucose Urine UA NEG (NEG); Leukocyte Esterase Urine TRACE (NEG); Nitrite Urine NEG (NEG); Urine Blood NEG (NEG); Urine Ketones NEG (NEG); Urine Protein NEG (NEG-TRACE)
[2022-02-11 22:35] LABS: Bacteria Urine 1+ /LPF; RBC Urine 0 /HPF (0); Squamous Epithelial Cell Urine 1+ /LPF; WBC Urine 0-2 /HPF (0-4)
[2022-02-11] MEDS: Ketorolac Tromethamine 15 MG/ML VIAL IM (23:00)
== END 2022-02-12 00:01 | disposition home or self-care (01) ==
PROVIDERS: Emergency Provider Student in an Organized Health Care Education/Training Program
DX: R51.9 Headache, unspecified (principal); I10 Essential (primary) hypertension; Z79.899 Other long term (current) drug therapy
CPT/HCPCS: 36415; 80048; 81001; 84702; 85025; 96372; 99283; 99284; J1885

== ENCOUNTER 2022-07-19 16:49 | Emergency (ER) | payer OTHER, SELFPAY ==
[2022-07-19 17:23] VITALS: BP 133/87; PULSE 76; RESP 18; TEMP 36.8; O2SAT 100; BMI 45.9
== END 2022-07-19 18:54 | disposition left against medical advice (07) ==
PROVIDERS: Emergency Provider Emergency Medicine
DX: U07.1 COVID-19 (principal)
CPT/HCPCS: 99281

== ENCOUNTER 2022-10-21 08:51 | Outpatient (REF) | payer OTHER, SELFPAY ==
[2022-10-21 11:19] LABS: MANUAL DIFF FLAG NO
[2022-10-21 11:32] LABS: Basophils Absolute Auto 0.1 X10*3/uL (0.0-0.2); Basophils Percent Auto 0.8 % (0-2); Eosinophils Absolute Auto 0.7 X10*3/uL (0.0-0.4); Eosinophils Percent Auto 6.6 % (0-4); Hemoglobin 12.9 g/dl (12.0-16.0); Imm Gran Abs Auto 0.05 X10*3/uL (0.00-0.03); Imm Gran Pct Auto 0.5 % (0.0-0.4); Lymphocytes Absolute Auto 2.9 X10*3/uL (1.2-4.9); Mean Corpuscular HGB Conc 33.1 g/dl (31.0-35.0); Mean Corpuscular Hemoglobin 28.8 pg (27.0-33.0); Mean Corpuscular Volume 87.1 fL (80.0-98.0); Mean Platelet Volume 10.5 fL (9.4-12.3); Monocytes Absolute Auto 0.4 X10*3/uL (0.1-1.2); Monocytes Percent Auto 4.1 % (2-11); Neutrophils Absolute Auto 6.2 x10*3/uL (2.0-8.3); Platelet Count 357 X10*3/uL (160-400); Red Blood Count 4.48 X10*6/uL (4.20-5.50); Red Cell Distribution Width 13.4 % (11.0-16.0); White Blood Count 10.4 X10*3/uL (4.8-10.8)
[2022-10-21 11:48] LABS: Alanine Aminotransferase 60 U/L (0-31); Albumin Level 4.8 g/dL (3.5-5.0); Alkaline Phosphatase 102 U/L (39-117); Anion Gap 15 (12-20); Aspartate Amino Transferase 37 U/L (5-31); Bilirubin Total 0.8 mg/dL (0.0-1.0); Blood Urea Nitrogen 14 mg/dL (9-16); Calcium 10.1 mg/dL (8.4-10.2); Carbon Dioxide 28 mmol/L (22-29); Chloride 98 mmol/L (96-108); Cholesterol 205 mg/dL; Estimated Glomerular Filt Rate 54; Glucose Fasting 114 mg/dL (60-99); HDL Cholesterol 42 mg/dL; LDL Cholesterol Calculated 136 mg/dl; Potassium 3.5 mmol/L (3.3-5.1); Sodium 137 mmol/L (135-145); Triglycerides 136 mg/dL
[2022-10-21 12:09] LABS: TSH reflex Free T4 1.51 uIU/mL (0.32-4.0)
== END 2022-10-21 08:52 | disposition home or self-care (01) ==
LOC: HO.HMGCLDS 08:51
PROVIDERS: PCP Internal Medicine; Visit Provider Internal Medicine
DX: Z00.01 Encounter for general adult medical examination with abnormal findings (principal); E66.01 Morbid (severe) obesity due to excess calories; Z68.41 Body mass index [BMI] 40.0-44.9, adult; R79.89 Other specified abnormal findings of blood chemistry; J45.20 Mild intermittent asthma, uncomplicated; I10 Essential (primary) hypertension
CPT/HCPCS: 36415; 80053; 80061; 84443; 85025

== ENCOUNTER 2022-11-06 17:01 | Outpatient (REF) | payer OTHER, SELFPAY ==
[2022-11-06 17:43] LABS: Influenza A PCR NEGATIVE (Negative); Influenza B PCR NEGATIVE (Negative); Resp Syncy Virus RNA Qual PCR NEGATIVE (Negative); SARS COV2 PCR INHOUSE NEGATIVE (Negative)
== END 2022-11-06 17:02 | disposition home or self-care (01) ==
LOC: HO.LNP 17:01
PROVIDERS: Visit Provider Physician Assistant Medical
DX: Z20.822 Contact with and (suspected) exposure to COVID-19 (principal); R05.9 Cough, unspecified
CPT/HCPCS: 0241U

== ENCOUNTER 2022-11-06 17:17 | Emergency (ER) | payer OTHER, SELFPAY ==
--- NOTE | ~2022-11-06 | CT_ITS ---
EXAMINATION: CT HEAD WITHOUT CONTRAST CLINICAL INFORMATION: Severe headache. Blurred vision. COMPARISON: None. TECHNIQUE: Contiguous axial imaging was performed from the skull base to vertex without intravenous administration of contrast. Coronal and sagittal reformatted images are performed at the CT scanner. [This CT examination was performed using dose optimization techniques as appropriate, variously including the following: *Automated exposure control *Adjustment of mA and/or kV according to patient size (this includes techniques or standardized protocols for targeted exams where dose is matched to indication/reason for exam; i.e. extremities or head) *Use of iterative reconstruction technique] DLP: 720. mGy-cm. FINDINGS: There is no evidence of acute intracranial hemorrhage or territorial infarction. No abnormal mass-effect or midline shift is seen. Che to white matter differentiation is well preserved. No extra-axial fluid collections are identified. The ventricles are normal in size. There is no abnormal attenuation within the brain parenchyma. There is no osseous abnormality. The mastoid air cells and visualized portions of the paranasal sinuses are well-aerated. CT/CT head/brain wo IV con IMPRESSION: No acute intracranial pathology.
[2022-11-06 17:52] VITALS: BP 145/87; PULSE 77; RESP 16; TEMP 36.3; O2SAT 98; BMI 45.7
--- NOTE | 2022-11-06 17:52 | ED_ITS ---
HPI - General Adult General Chief complaint: Headache Stated complaint: elevated blood pressure,h/a sent from Time Seen by Provider: 11/06/22 21:29 Related Data Home Medications Medication Instructions Recorded Confirmed clonazepam 0.5 mg tablet 0.5 mg PO DAILY PRN anxiety 10/17/20 10/22/22 cariprazine 4.5 mg capsule 4.5 mg PO DAILY 08/28/21 10/22/22 (Vraylar) acetaminophen 500 mg tablet 500 mg PO Q6H PRN 02/18/22 10/22/22 (Tylenol Extra Strength) buspirone 5 mg tablet 5 mg PO TID 10/22/22 10/22/22 clonidine HCl 0.1 mg tablet 0.1 mg PO TID PRN 10/22/22 10/22/22 Previous Rx's Medication Instructions Recorded albuterol sulfate 90 mcg/actuation 1 inh inhalation QID PRN shortness 08/28/21 aerosol inhaler (ProAir HFA) of breath or wheezing 30 days #18 grams chlorthalidone 25 mg tablet 25 mg PO DAILY 90 days #90 tabs 09/16/22 amoxicillin 875 mg-potassium 1 tab PO BID #14 tabs 11/06/22 clavulanate 125 mg tablet amoxicillin 875 mg-potassium 1 tab PO BID 10 days #20 tabs 11/06/22 clavulanate 125 mg tablet ketorolac 10 mg tablet 10 mg PO TID PRN pain 5 days #15 11/06/22 tabs prednisone 20 mg tablet 40 mg PO DAILY 5 days #10 tabs 11/06/22 Allergies Allergy/AdvReac Type Severity Reaction Status Date / Time carrot [Carrot] Allergy Mild INDUCES Verified 10/22/22 11:17 ASTHMA, HIVES Sulfa (Sulfonamide Allergy Mild INDUCES Verified 10/22/22 11:17 Antibiotics) ASTHMA, [Sulfa (Sulfonamides)] HIVES, blotchy, asthma flare up ciprofloxacin [Cipro] AdvReac Unknown joint Verified 10/22/22 11:17 swelling PMFSH Past Medical History Medical History Anemia Asthma CPAP (continuous positive airway pressure) dependence Endometriosis Surgical History History of delivery Family History Family History Other Mental health disorder Substance use disorder Social History Social History Housing: Condominium Patient Tobacco Use Status: Never used Tobacco e-Cigarette/Vaping Use: Never Used Advance Directives: No Advance Directives Information Provided: Yes service: No Current occupational status: disabled Cognitive needs: No Hearing needs: No Vision needs: No Physical Exam ED Vital Signs: Vital Signs - 24 hr 11/06/22 17:52 11/06/22 19:12 11/06/22 22:26 Temperature 97.4 F 97.8 F 97.9 F Pulse Rate 77 81 71 Respiratory Rate 16 16 22 H Blood Pressure 145/87 H 145/84 H 139/72 Pulse Oximetry 98 97 98 Oxygen Delivery Method Room Air Room Air Room Air BMI result Body Mass Index 45.7 Course Course Course Narrative: This is rapid medical exam. Deferred additional HPI, ROS, PE to primary provide r. 37 yo female with history of HTN, bipolar disorder here with complaints of sinus pain, headache, body aches. Went to walk in clinic and diagnosed with sinusitis and started on augmentin. Patient reports her blood pressures have been labile today and she was recommended by walk in clinic to seek care in the ER today for worsening symptoms (patient feels BROWN is worse). VSS. Medications Administered Discontinued Medications Generic Name Dose Route Start Last Admin Trade Name Freq PRN Reason Stop Dose Admin Ketorolac Tromethamine 30 mg 11/06/22 21:31 11/06/22 21:54 Ketorolac Tromethamine 30 Mg/Ml Vial IM 11/06/22 21:32 30 mg ONCE ONE Administration Potassium Chloride 20 meq 11/06/22 21:29 11/06/22 21:55 Potassium Chloride Packet 20 Meq Packet PO 11/06/22 21:30 20 meq ONCE ONE Administration Medical Decision Making Lab Data 11/06/22 19:46 11/06/22 19:46 Labs: Lab Results 11/06/22 11/06/22 11/06/22 Range/Units 19:46 19:46 19:46 WBC 9.6 (4.8-10.8) X10*3/uL RBC 4.50 (4.20-5.50) X10*6/uL Hgb 12.7 (12.0-16.0) g/dl Hct 38.4 (37.0-47.0) % MCV 85.3 (80.0-98.0) fL MCH 28.2 (27.0-33.0) pg MCHC 33.1 (31.0-35.0) g/dl RDW 13.7 (11.0-16.0) % Plt Count 333 (160-400) X10*3/uL MPV 9.3 L (9.4-12.3) fL Immature Gran % (Auto) 0.3 (0.0-0.4) % Neut % (Auto) 49.8 (45-73) % Lymph % (Auto) 37.0 (20-40) % [place] % (Auto) 4.5 (2-11) % Eos % (Auto) 7.8 H (0-4) % Baso % (Auto) 0.6 (0-2) % Lymph # (Auto) 3.6 (1.2-4.9) X10*3/uL [place] # (Auto) 0.4 (0.1-1.2) X10*3/uL Eos # (Auto) 0.8 H (0.0-0.4) X10*3/uL Baso # (Auto) 0.1 (0.0-0.2) X10*3/uL Abs Immat Gran (auto) 0.03 (0.00-0.03) X10*3/uL Absolute Neuts (auto) 4.8 (2.0-8.3) x10*3/uL Absolute Nucleated RBC 0.000 (0.0-0.012) X10*3/uL Nucleated RBC % (auto) 0.0 (0.0-0.2) /100WBC ESR (0-20) MM/HR Sodium 140 (135-145) mmol/L Potassium 3.2 L (3.3-5.1) mmol/L Chloride 101 (96-108) mmol/L Carbon Dioxide 28 (22-29) mmol/L Anion Gap 14 (12-20) BUN 17 H (9-16) mg/dL Creatinine 1.16 (0.5-1.4) mg/dL Estim Creat Clear Calc 74.5 Estimated GFR 52 Random Glucose 89 (60-115) mg/dL Calcium 9.5 (8.4-10.2) mg/dL Troponin I High Sens (<3.5-17.0) ng/L C-Reactive Protein 1.80 H (< or = 0.50) mg/dL Influenza Type A (PCR) NEGATIVE (Negative) Influenza Type B (PCR) NEGATIVE (Negative) RSV RNA Qual (PCR) NEGATIVE (Negative) SARS-CoV-2 RNA (RT-PCR) NEGATIVE (Negative) 11/06/22 11/06/22 Range/Units 19:46 22:16 WBC (4.8-10.8) X10*3/uL RBC (4.20-5.50) X10*6/uL Hgb (12.0-16.0) g/dl Hct (37.0-47.0) % MCV (80.0-98.0) fL MCH (27.0-33.0) pg MCHC (31.0-35.0) g/dl RDW (11.0-16.0) % Plt Count (160-400) X10*3/uL MPV (9.4-12.3) fL Immature Gran % (Auto) (0.0-0.4) % Neut % (Auto) (45-73) % Lymph % (Auto) (20-40) % [place] % (Auto) (2-11) % Eos % (Auto) (0-4) % Baso % (Auto) (0-2) % Lymph # (Auto) (1.2-4.9) X10*3/uL [place] # (Auto) (0.1-1.2) X10*3/uL Eos # (Auto) (0.0-0.4) X10*3/uL Baso # (Auto) (0.0-0.2) X10*3/uL Abs Immat Gran (auto) (0.00-0.03) X10*3/uL Absolute Neuts (auto) (2.0-8.3) x10*3/uL Absolute Nucleated RBC (0.0-0.012) X10*3/uL Nucleated RBC % (auto) (0.0-0.2) /100WBC ESR 28 H (0-20) MM/HR Sodium (135-145) mmol/L Potassium (3.3-5.1) mmol/L Chloride (96-108) mmol/L Carbon Dioxide (22-29) mmol/L Anion Gap (12-20) BUN (9-16) mg/dL Creatinine (0.5-1.4) mg/dL Estim Creat Clear Calc Estimated GFR Random Glucose (60-115) mg/dL Calcium (8.4-10.2) mg/dL Troponin I High Sens < 3.5 (<3.5-17.0) ng/L C-Reactive Protein (< or = 0.50) mg/dL Influenza Type A (PCR) (Negative) Influenza Type B (PCR) (Negative) RSV RNA Qual (PCR) (Negative) SARS-CoV-2 RNA (RT-PCR) (Negative) Discharge Plan Discharge Clinical Impression: Sinusitis, Hypokalemia, Headache Patient Disposition: Home, Self-Care Instructions: Sinusitis (ED), Hypokalemia (ED), Acute Headache (ED), General Headache (ED) Additional Instructions: Take your medications as prescribed. If you were prescribed antibiotics today, it is important that you take your medication to their entirety, do not skip any doses, do not finish them early. Follow-up with your primary care provider this week. Return to the emergency department with new or worsening symptoms. Such as fevers, chills, chest pain, shortness of breath, nausea, vomiting, dizziness, headache, vision changes, lethargy In case of emergency call 911 Toradol has been sent to your pharmacy, you tolerated this well in the department. Please take this as prescribed do not take this with ibuprofen, or other NSAIDs, do not mix this with alcohol. Side effects of this medication including increased risk for bleeding and possible kidney injury. Your potassium is slightly low today, your given oral potassium, please follow- up with your PCP for repeat laboratory studies to ensure your potassium has normalized. Your laboratory studies were unremarkable. CT/CT head/brain wo IV con IMPRESSION: No acute intracranial pathology. ? ? Prescriptions: New prednisone 20 mg tablet 40 mg PO DAILY 5 Days Qty: 10 0RF amoxicillin-pot clavulanate 875-125 mg tablet 1 tab PO BID 10 Days Qty: 20 0RF ketorolac 10 mg tablet 10 mg PO TID PRN (Reason: pain) 5 Days Qty: 15 0RF Rx Instructions: Tolerated IM in the department No Action chlorthalidone 25 mg tablet 25 mg PO DAILY 90 Days Qty: 90 0RF clonazepam 0.5 mg tablet 0.5 mg PO DAILY PRN (Reason: anxiety) buspirone 5 mg tablet 5 mg PO TID clonidine HCl 0.1 mg tablet 0.1 mg PO TID PRN Vraylar 4.5 mg capsule 4.5 mg PO DAILY albuterol sulfate [ProAir HFA] 90 mcg/actuation HFA aerosol inhaler 1 inh inhalation QID PRN (Reason: shortness of breath or wheezing) 30 Days Qty: 18 0RF acetaminophen [Tylenol Extra Strength] 500 mg tablet 500 mg PO Q6H PRN amoxicillin-pot clavulanate 875-125 mg tablet 1 tab PO BID Qty: 14 0RF Referrals: Adrianne Steward MD [Primary Care Provider] - 2 days Interventions: ED Discharge Assessment Last Done: 11/06/22 23:47 Discharge Date/Time: 11/06/22 23:48
--- OUTSIDE RECORDS SUMMARY | 2022-11-06 19:02 | XMS_ITS | Continuity of Care Document ---
:1985 Author Organization [facility] Address [address] [place] [id number]- Care Team Providers Name Role Phone Leonardo Mullen III, MD Primary Care Physician Encounter [facility] [place] Date(s): 01/31/20 - 03/07/[address] [address]- [facility] Attending Physician: Yudelka Saenz MD Admitting Physician: Yudelka Saenz MD Referring Physician: Yudelka Saenz MD Allergies, Adverse Reactions, Alerts Substance Reaction Severity Status sulfa drugs asthma attacks, hives, rash Acti ve Cipro swelling Active Immunizations Given and Recorded Vaccine Date Status Refusal Reason Measles/Mumps/Rubella Virus Vaccine 02/05/20 Given Medications cariprazine By Mouth, Daily, 0 Refills, Maintenance, 08/25/19 23:14:38 EST Start Date: 08/25/19 Status: OrderedColace sodium 100 mg oral capsule 100 mg, 1, capsule, By Mouth, 2 times a day, PRN, # 20 capsule, Refills 0, Tot. Refills 0, Maintenance, for constipation, 02/08/20 9:19:00 EDT, Route to Pharmacy Electronically, [facility]/pharmacy #[id number], 154, cm, 02/08/20 9:12:00 EDT, Height, 114.4, kg, ... Start Date: 02/08/20 Status: OrderedFerrous Sulfate EC Refills 0, Maintenance, 01/30/20 15:07:00 EDT Start Date: 01/30/20 Status: Orderedibuprofen 800 mg oral tablet See Instructions, TAKE 1 TABLET BY MOUTH EVERY 8 HOURS NEEDED FOR PAIN, # 60 tablet, Refills 0, Acute, Instructions Replace Required Details, Route to Pharmacy Electronically, [facility] ST[id number], 154, cm, 02/09/20 11:35:00 EDT, Height, 114.4, kg, 01/11... Start Date: 03/02/20 Status: OrderedoxyCODONE 5 mg oral tablet 5 mg, 1, tablet, By Mouth, Every 6 hours, PRN, # 10 tablet, Refills 0, Tot. Refills 0, Maintenance, Pain , Severe, 02/08/20 9:19:00 EDT, Route to Pharmacy Electronically, [facility]/pharmacy #[id number], Partial fill upon patient request, 154, cm, 02/08/20 9:12:00... Start Date: 02/08/20 Status: OrderedPrenatal Multivitamin Tablet 0 Refills, Maintenance, 08/25/19 22:45:02 EST Start Date: 08/25/19 Status: Orderedsenna - oral tablet 2 tablet, By Mouth, Daily at bedtime, PRN for constipation, # 60 tablet, 0 Refills, Maintenance, 02/08/20 9:23:00 EDT, Tablet, [facility]/pharmacy #[id number], 154, cm, 02/08/20 9:12:00 EDT, Height, 114.4, kg, 02/04/20 11:52:00 EDT, Dry Weight Start Date: 02/08/20 Status: OrderedTylenol 325 mg oral capsule 2 capsule = 650 mg, By Mouth, Every 6 hours, PRN Pain , Mild, # 60 capsule, 0 Refills, Maintenance, 02/08/20 9:19:00 EDT, [facility]/pharmacy #[id number], 154, cm, 02/08/20 9:12:00 EDT, Height, 114.4, kg, 02/04/20 11:52:00 EDT, Dry Weight Start Date: 02/08/20 Status: Ordered Problem List Condition Effective Dates Status Health Status Informant Anemia(Confirmed) Active Anxiety(Confirmed) Active Arthritis(Confirmed) Active Bipolar disorder(Confirmed) Active Heart murmur(Confirmed) Active 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
--- OUTSIDE RECORDS SUMMARY | 2022-11-06 19:02 | XMS_ITS | Continuity of Care Document ---
:1985 Author Organization [facility] Address [address] [place] [id number]- Care Team Providers Name Role Phone Sebas VACA MD, Leonardo Naranjo Primary Care Physician Encounter [place] Date(s): 12/07/19 - 12/07/[address] [address]- [facility] Discharge Disposition: A-D/C Home Attending Physician: Kulwant Hough MD Admitting Physician: Kulwant Hough MD Referring Physician: Not on Staff, Referring MD Allergies, Adverse Reactions, Alerts Substance Reaction Severity Status sulfa drugs asthma attacks, hives, rash Acti ve Cipro swelling Active Medications cariprazine By Mouth, Daily, 0 Refills, Maintenance, 08/25/19 23:14:38 EST Start Date: 08/25/19 Status: Orderedibuprofen 600 mg oral tablet 1 tablet = 600 mg, By Mouth, 4 times a day, PRN as needed for pain, # 30 tablet, 0 Refills, Maintenance Start Date: 07/19/10 Status: Orderedibuprofen 600 mg oral tablet 1 tablet = 600 mg, By Mouth, 4 times a day, PRN Pain, # 40 tablet, 0 Refills, Maintenance, Tablet Start Date: 11/08/10 Status: OrderedPercocet-5/325 325 mg-5 mg oral tablet 2 tablet, By Mouth, Every 6 hours, PRN Pain, # 12 tablet, 0 Refills, Maintenance, Tablet Start Date: 11/08/10 Status: OrderedPrenatal Multivitamin Tablet 0 Refills, Maintenance, 08/25/19 22:45:02 EST Start Date: 08/25/19 Status: Ordered Problem List Condition Effective Dates Status Health Status Informant Anxiety(Confirmed) Active Arthritis(Confirmed) Active Bipolar disorder(Confirmed) Active Heart murmur(Confirmed) Active 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 Rubella non-immune(Confirmed) Active Results Radiology Reports Exam Date Time Procedure Performing Provider Status 12/07/19 7:07 PM Chest 2 Views Frontal and Lat Rhina White; Bridgett (Verified) Notes:(Chest 2 Views Frontal and Lat) Reason For Exam: Shortness of Breath, Fever;Other:RESULT: Chest 2 Views Frontal and Lat Chest 2 Views Frontal and Lat Refer to EMR; Reason: Other:; Shortness of Breath, Fever; Clinical Question(s): Pneumonia; Special Instructions: ; Hx of Present Illness: pt reprot being 6 months reprot SOB when bending over and walking pt called OB sent to urgent call; Other Objective Findings: A+ O x 3 sepkaing in full sentences LS clear skin W D P unable to ausctate FHR but babay is active per PT A+ O x COMPARISON: None. FINDINGS: LINES AND TUBES: None. LUNGS AND PLEURA: Clear lungs. Normal pulmonary vascularity. No pleural effusion. No pneumothorax. HEART, MEDIASTINUM AND SANGITA: Heart is normal in size. Normal mediastinal and hilar contour. BONES AND SOFT TISSUES: No acute abnormality. IMPRESSION: Normal chest. WSN: [id number] Dictated By: Frandy Griffiths MD Dictated Date/Time: 12/07/19 7:11 pm Reviewed By: Frandy Griffiths MD Signed By: Frandy Griffiths MD Signed Date/Time: 12/07/19 7:11 pm Transcribed By: SOLIS Transcribed Date/Time: 12/07/19 7:11 pm Vital Signs Most recent to oldest 1 2 3 [Reference Range]: Oxygen Saturation [94-100 %] 98 % 99 % 100 % (12/07/19 6:00 PM) (12/07/19 5:17 PM) (12/07/19 5:0 7 PM) Pulse Rate [55-90 bpm] 90 bpm 93 bpm 102 bpm (12/07/19 6:00 PM) *H* *H* (12/07/19 5:17 PM) (12/07/19 5:07 PM) Blood Pressure [90-138/55-84 mm 122/60 mm Hg 125/67 mm Hg Hg] (2/26/20 6:00 PM) (12/07/19 5:17 PM) Respiratory Rate [16-30 br/min] 19 br/min 20 br/min 16 br/min (12/07/19 6:00 PM) (12/07/19 5:17 PM) (12/07/19 5:0 7 PM) Temperature [96.8-100.4 DegF] 98 DegF (12/07/19 5:17 PM) Mode of Delivery (Oxygen) Room air (12/07/19 6:00 PM) Temperature Route Oral (12/07/19 5:17 PM)
--- OUTSIDE RECORDS SUMMARY | 2022-11-06 19:02 | XMS_ITS | Continuity of Care Document ---
:1985 Author Organization [facility] Address [address] [place] [id number]- Care Team Providers Name Role Phone eLonardo Mullen III, MD Primary Care Physician Encounter [facility] [place] Date(s): 09/14/21 - 09/14/[address] [address]- Discharge Disposition: A-D/C Walkout Attending Physician: Not on Staff, Attending MD Admitting Physician: Not on Staff, Admitting MD Referring Physician: Not on Staff, Referring MD Allergies, Adverse Reactions, Alerts Substance Reaction Severity Status sulfa drugs asthma attacks, hives, rash Acti ve Cipro swelling Active Immunizations Given and Recorded Vaccine Date Status Refusal Reason SARS-CoV-2 (COVID-19) mRNA BNT-162b2 vac1 01/07/21 Record ed Measles/Mumps/Rubella Virus Vaccine 02/05/20 Given 1Result Comment: Records from [facility] pharmacy Medications cariprazine By Mouth, Daily, 0 Refills, Maintenance, 08/25/19 23:14:38 EST Start Date: 08/25/19 Status: OrderedColace sodium 100 mg oral capsule 100 mg, 1, capsule, By Mouth, 2 times a day, PRN, # 20 capsule, Refills 0, Tot. Refills 0, Maintenance, for constipation, 02/08/20 9:19:00 EDT, Route to Pharmacy Electronically, [facility]/pharmacy #[id number], 154, cm, 02/08/20 9:12:00 EDT, Height, 114.4, kg, 04/... Start Date: 02/08/20 Status: OrderedFerrous Sulfate EC Refills 0, Maintenance, 01/30/20 15:07:00 EDT Start Date: 01/30/20 Status: Orderedibuprofen 800 mg oral tablet See Instructions, TAKE 1 TABLET BY MOUTH EVERY 8 HOURS NEEDED FOR PAIN, # 60 tablet, Refills 0, Acute, Instructions Replace Required Details, Route to Pharmacy Electronically, [id number], 154, cm, 02/09/20 11:35:00 EDT, Height, 114.4, kg, 01/11... Start Date: 03/02/20 Status: Orderedibuprofen 800 mg oral tablet 1, tablet, By Mouth, Every 8 hours, PRN, # 30 tablet, Refills 0, Tot. Refills 0, Maintenance, NEEDED FOR PAIN, 03/26/20 12:09:00 EDT, Route to Pharmacy Electronically, [facility]/pharmacy #[id number], 154, cm, 02/09/20 11:35:00 EDT, Height, 114.4, kg, 02/04/20... Start Date: 03/26/20 Status: OrderedoxyCODONE 5 mg oral tablet 5 mg, 1, tablet, By Mouth, Every 6 hours, PRN, # 10 tablet, Refills 0, Tot. Refills 0, Maintenance, Pain , Severe, 02/08/20 9:19:00 EDT, [id number] fill upon patient request, 154, cm, 02/08/20 9:12:00... Start Date: 02/08/20 Status: OrderedPrenatal Multivitamin Tablet 0 Refills, Maintenance, 08/25/19 22:45:02 EST Start Date: 08/25/19 Status: Orderedsenna - oral tablet 2 tablet, By Mouth, Daily at bedtime, PRN for constipation, # 60 tablet, 0 Refills, Maintenance, 02/08/20 9:23:00 EDT, Tablet, [facility]/pharmacy #[id number], 154, cm, 02/08/20 9:12:00 EDT, Height, 114.4, kg, 02/04/20 11:52:00 EDT, Dry Weight Start Date: 02/08/20 Status: OrderedTylenol 325 mg oral capsule 2 capsule = 650 mg, By Mouth, Every 6 hours, PRN Pain , Mild, # 60 capsule, 0 Refills, Maintenance, 02/08/20 9:19:00 EDT, [facility]/pharmacy #[id number], 154, cm, 02/08/20 9:12:00 EDT, Height, 114.4, kg, 02/04/20 11:52:00 EDT, Dry Weight Start Date: 02/08/20 Status: Ordered Problem List Condition Effective Dates Status Health Status Informant Anemia(Confirmed) Active Anxiety(Confirmed) Active Arthritis(Confirmed) Active Bipolar disorder(Confirmed) Active Heart murmur(Confirmed) Active 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 Rubella non-immune(Confirmed) Active Vital Signs Most recent to oldest [Reference Range]: 1 Oxygen Saturation [94-100 %] 98 % (09/14/21 3:56 AM) Pulse Rate [55-90 bpm] 87 bpm (09/14/21 3:56 AM) Blood Pressure [90-138/55-84 mm Hg] 141/89 mm Hg *H* (09/14/21 3:56 AM) Respiratory Rate [16-30 br/min] 16 br/min (09/14/21 3:56 AM) Temperature [96.8-100.4 DegF] 97.4 DegF (09/14/21 3:56 AM) Mode of Delivery (Oxygen) Room air (09/14/21 3:56 AM) Temperature Route Oral (09/14/21 3:56 AM) Social History Social History Type Response Smoking Status Never (less than 100 in life time) entered on: 02/04/20 Sex
--- OUTSIDE RECORDS SUMMARY | 2022-11-06 19:02 | XMS_ITS | Continuity of Care Document ---
:1985 Author Organization [facility] Address [address] [place] [id number]- Care Team Providers Name Role Phone Sebas VACA MD, Leonardo Naranjo Primary Care Physician Encounter [facility] [place] Date(s): 11/30/19 - 11/30/[address] [address]- [facility] Attending Physician: Geneva Washington MD Allergies, Adverse Reactions, Alerts Substance Reaction [...]
--- OUTSIDE RECORDS SUMMARY | 2022-11-06 19:02 | XMS_ITS | Continuity of Care Document ---
:1985 Author Organization [facility] Address [address] [place] [id number]- Care Team Providers Name Role Phone Sebas VACA MD, Leonardo Naranjo Primary Care Physician Encounter [facility] [place] Date(s): 01/03/20 - 02/08/[address] [address]- [facility] Attending Physician: Yudelka Saenz MD Admitting Physician: Yudelka Saenz MD Referring Physician: Maggie Cope MD Allergies, Adverse Reactions, Alerts Substance Reaction Severity Status sulfa drugs asthma attacks, hives, rash Acti ve Cipro swelling Active Immunizations Given and Recorded Vaccine Date Status Refusal Reason Measles/Mumps/Rubella Virus Vaccine 02/05/20 Given Medications Acetaminophen 0 Refills, Maintenance, 02/04/20 10:15:00 EDT Start Date: 02/04/20 Status: Orderedcariprazine By Mouth, Daily, 0 Refills, Maintenance, 08/25/19 23:14:38 EST Start Date: 08/25/19 Status: OrderedColace sodium 100 mg oral capsule 100 mg, 1, capsule, By Mouth, 2 times a day, PRN, # 20 capsule, Refills 0, Tot. Refills 0, Maintenance, for constipation, 02/08/20 9:19:00 EDT, Route to Pharmacy Electronically, [facility]/pharmacy #[id number], 154, cm, 02/08/20 9:12:00 EDT, Height, 114.4, kg, 04/... Start Date: 02/08/20 Status: OrderedFerrous Sulfate EC Refills 0, Maintenance, 01/30/20 15:07:00 EDT Start Date: 01/30/20 Status: Orderedibuprofen 600 mg oral tablet 1 tablet = 600 mg, By Mouth, 4 times a day, PRN as needed for pain, # 30 tablet, 0 Refills, Maintenance Start Date: 07/19/10 Status: Orderedibuprofen 600 mg oral tablet 1 tablet = 600 mg, By Mouth, 4 times a day, PRN Pain, # 40 tablet, 0 Refills, Maintenance, Tablet Start Date: 11/08/10 Status: Orderedibuprofen 800 mg oral tablet 800 mg, 1, tablet, By Mouth, Every 8 hours, PRN, # 60 tablet, Refills 0, Tot. Refills 0, Maintenance, Pain , Mild, 02/08/20 9:19:00 EDT, Route to Pharmacy Electronically, [facility]/pharmacy #[id number], 154, cm, 02/08/20 9:12:00 EDT, Height, 114.4, kg, 02/04/20 1... Start Date: 02/08/20 Status: OrderedoxyCODONE 5 mg oral tablet 5 mg, 1, tablet, By Mouth, Every 6 hours, PRN, # 10 tablet, Refills 0, Tot. Refills 0, Maintenance, Pain , Severe, 02/08/20 9:19:00 EDT, Route to Pharmacy Electronically, [facility]/pharmacy #[id number], Partial fill upon patient request, 154, cm, 02/08/20 9:12:00... Start Date: 02/08/20 Status: OrderedPercocet-5/325 325 mg-5 mg oral tablet [...] 0 Refills, Maintenance, 02/08/20 9:23:00 EDT, Tablet, [facility]/pharmacy #[id number], 154, cm, 02/08/20 9:12:00 EDT, Height, 114.4, kg, 02/04/20 11:52:00 EDT, Dry Weight Start Date: 02/08/20 Status: OrderedTums 500 = 500 mg, Daily, 0 Refills, Maintenance, 02/04/20 10:15:00 EDT Start Date: 02/04/20 Status: OrderedTylenol 325 mg oral capsule 2 capsule = 650 mg, By Mouth, Every 6 hours, PRN Pain , Mild, # 60 capsule, 0 Refills, Maintenance, 02/08/20 9:19:00 EDT, [facility]/pharmacy #[id number], 154, cm, 02/08/20 9:12:00 EDT, Height, [...]
--- OUTSIDE RECORDS SUMMARY | 2022-11-06 19:02 | XMS_ITS | Continuity of Care Document ---
:1985 Author Organization [facility] Address [address] [place] [id number]- Care Team Providers Name Role Phone Leonardo Mullen III, MD Primary Care Physician Encounter [facility] [place] Date(s): 01/30/20 - 01/30/[address] [address]- [facility] Discharge Disposition: A-D/C Home Attending Physician: Geneva Washington MD Admitting Physician: Geneva Washington MD Referring Physician: Geneva Washington MD Allergies, Adverse Reactions, Alerts Substance Reaction Severity Status sulfa drugs asthma attacks, hives, rash Acti ve Cipro swelling Active Medications cariprazine By Mouth, Daily, 0 Refills, Maintenance, 08/25/19 23:14:38 EST Start Date: 08/25/19 Status: OrderedFerrous Sulfate EC Refills 0, Maintenance, [...] 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 Rubella non-immune(Confirmed) Active Procedures Procedure Date Related Diagnosis Body Site Status Diagnostic laparoscopy Compl eted History of nasal sinus surgery Completed Laser cervix lesion therapy Completed Laser cervix lesion therapy Completed Vital Signs Most recent to oldest [Reference Range]: 1 Height 154.94 cm (01/30/20 2:58 PM) Weight 114.4 kg (01/30/20 2:58 PM) Oxygen Saturation [94-100 %] 100 % (01/30/20 2:58 PM) Pulse Rate [55-90 bpm] 109 bpm *H* (01/30/20 2:58 PM) Body Mass Index [18.5-24.99] 47.65 *>HHI* (01/30/20 2:58 PM) Blood Pressure [90-138/55-84 mm Hg] 136/70 mm Hg (01/30/20 2:58 PM) Respiratory Rate [16-30 br/min] 20 br/min (01/30/20 2:58 PM) Temperature [96.8-100.4 DegF] 97.8 DegF (01/30/20 2:58 PM) Mode of Delivery (Oxygen) Room air (01/30/20 2:58 PM) Blood pressure sites Arm, right (01/30/20 2:58 PM) Temperature Route Oral (01/30/20 2:58 PM) Dry Weight 114.4 kg (01/30/20 2:58 PM)
--- OUTSIDE RECORDS SUMMARY | 2022-11-06 19:02 | XMS_ITS | Continuity of Care Document ---
:1985 Author Organization [facility] Address [address] [place] [address]- Care Team Providers Name Role Phone Sebas VACA MD, Leonardo Naranjo Primary Care Physician Encounter [facility] [place] Date(s): 09/22/19 - 09/22/[address] [address]- [facility] Attending Physician: Geneva Washington MD Allergies, Adverse [...]
--- OUTSIDE RECORDS SUMMARY | 2022-11-06 19:02 | XMS_ITS | Continuity of Care Document ---
:1985 Author Organization [facility] Address [address] [place] [address]- Care Team Providers Name Role Phone Sebas VACA MD, Leonardo Naranjo Primary Care Physician Encounter [facility] [place] Date(s): 11/30/19 - 11/30/[address] [address]- [facility] Attending Physician: Yudelka Saenz MD Allergies, Adverse Reactions, [...]
--- OUTSIDE RECORDS SUMMARY | 2022-11-06 19:02 | XMS_ITS | Continuity of Care Document ---
:1985 Author Organization [facility] Address [address] [place] [phone]- Care Team Providers Name Role Phone Leonardo Mullen III, MD Primary Care Physician Encounter [facility] Date(s): 02/04/20 - 02/09/[address] [address]- [facility] Discharge Disposition: A-D/C Home Attending Physician: Geneva [...] 02/08/20 9:19:00 EDT, Route to Pharmacy Electronically, [facility]/pharmacy #[id number], 154, cm, 02/08/20 9:12:00 EDT, Height, 114.4, kg, 04/... Start Date: 02/08/20 Status: OrderedFerrous Sulfate EC Refills 0, Maintenance, 01/30/20 15:07:00 EDT Start Date: 01/30/20 Status: Orderedibuprofen 800 mg oral tablet 800 mg, 1, tablet, By Mouth, Every 8 hours, PRN, # 60 tablet, Refills 0, Tot. Refills 0, Maintenance, Pain , Mild, 02/08/20 9:19:00 EDT, Route to Pharmacy Electronically, [facility]/pharmacy #[id number], 154, cm, 02/08/20 9:12:00 EDT, Height, 114.4, kg, 02/04/20 1... Start Date: 02/08/20 Status: OrderedoxyCODONE 5 mg oral tablet 5 mg, 1, tablet, By Mouth, Every 6 hours, PRN, # 10 tablet, Refills 0, Tot. Refills 0, Maintenance, Pain , Severe, 02/08/20 9:19:00 EDT, Route to Pharmacy Electronically, [facility]/pharmacy #[id number], Partial fill upon patient request, 154, cm, 02/08/20 9:12:00... Start Date: 02/08/20 Status: OrderedPrenatal Multivitamin Tablet 0 Refills, Maintenance, 08/25/19 22:45:02 EST Start Date: 08/25/19 Status: Orderedsenna - oral tablet 2 tablet, By Mouth, Daily at bedtime, PRN for constipation, # 60 tablet, 0 Refills, Maintenance, 02/08/20 9:23:00 EDT, Tablet, [facility]/pharmacy #[id number], 154, cm, 02/08/20 9:12:00 EDT, Height, 114.4, kg, 02/04/20 11:52:00 EDT, Dry Weight Start Date: 02/08/20 Status: OrderedTylenol 325 mg oral capsule 2 capsule = 650 mg, By Mouth, Every 6 hours, PRN Pain , Mild, # 60 capsule, 0 Refills, Maintenance, 02/08/20 9:19:00 EDT, [facility]/pharmacy #[id number], 154, cm, 02/08/20 9:12:00 EDT, Height, 114.4, kg, 02/04/20 11:52:00 EDT, Dry Weight Start Date: 02/08/20 Status: Ordered Problem List Condition Effective Dates Status Health Status Informant Anemia(Confirmed) Active Anxiety(Confirmed) Active Arthritis(Confirmed) Active Bipolar disorder(Confirmed) Active Heart murmur(Confirmed) Active 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 REPORT STATUS : FINAL 02/05/2020 Vital Signs Most recent to oldest 1 2 3 [Reference Range]: Height 154 cm 154 cm 154 cm (02/09/20 9:12 AM) (02/09/20 12:42 AM) (02/08/20 8: 00 AM) Weight 114.4 kg 113.7 kg (02/04/20 11:52 AM) (02/04/20 10:02 AM) Oxygen Saturation [94-100 %] 98 % 95 % 98 % (02/09/20 9:12 AM) (02/09/20 12:42 AM) (02/08/20 8: 00 AM) Pulse Rate [55-90 bpm] 90 bpm 95 bpm 77 bpm (02/09/20 9:12 AM) *H* (02/08/20 8:00 AM) (02/09/20 12:42 AM) Body Mass Index [18.5-24.99] 48.24 *>HHI* (02/04/20 11:52 AM) Blood Pressure [90-138/55-84 141/83 mm Hg 134/65 mm Hg 135 /78 mm Hg mm Hg] *H* (02/09/20 12:42 AM) (02/08/20 8:00 AM) (02/09/20 9:12 AM) Respiratory Rate [16-30 16 br/min 20 br/min 18 br/mi n br/min] (02/09/20 10:10 AM) (02/09/20 9:12 AM) (02/09/20 6: 35 AM) Temperature [96.8-100.4 97.5 DegF 98.1 DegF 99.4 Deg F DegF] (02/09/20 9:12 AM) (02/09/20 12:42 AM) (02/08/20 8: 00 AM) Mode of Delivery (Oxygen) Room air Room air Room a ir (02/09/20 12:42 AM) (02/08/20 8:00 AM) (02/08/20 12 :26 AM) Blood pressure sites Arm, right Arm, right Arm, right (02/09/20 12:42 AM) (02/08/20 8:00 AM) (02/08/20 12 :26 AM) Temperature Route Oral Oral Oral (02/09/20 9:12 AM) (02/09/20 12:42 AM) (02/08/20 8: 00 AM) Dry Weight 114.4 kg (02/04/20 11:52 AM) Weight Obtained Via Standing scale (02/04/20 10:02 AM) Social History Social History Type Response Smoking Status Never (less than 100 in life time) entered on: 02/04/20 Sex
[2022-11-06 19:12] VITALS: BP 145/84; PULSE 81; RESP 16; TEMP 36.6; O2SAT 97
[2022-11-06 19:50] LABS: MANUAL DIFF FLAG NO
[2022-11-06 19:52] LABS: Basophils Absolute Auto 0.1 X10*3/uL (0.0-0.2); Basophils Percent Auto 0.6 % (0-2); Eosinophils Absolute Auto 0.8 X10*3/uL (0.0-0.4); Eosinophils Percent Auto 7.8 % (0-4); Hematocrit 38.4 % (37.0-47.0); Hemoglobin 12.7 g/dl (12.0-16.0); Imm Gran Abs Auto 0.03 X10*3/uL (0.00-0.03); Imm Gran Pct Auto 0.3 % (0.0-0.4); Lymphocytes Absolute Auto 3.6 X10*3/uL (1.2-4.9); Mean Corpuscular HGB Conc 33.1 g/dl (31.0-35.0); Mean Corpuscular Hemoglobin 28.2 pg (27.0-33.0); Mean Corpuscular Volume 85.3 fL (80.0-98.0); Mean Platelet Volume 9.3 fL (9.4-12.3); Monocytes Absolute Auto 0.4 X10*3/uL (0.1-1.2); Monocytes Percent Auto 4.5 % (2-11); Neutrophils Absolute Auto 4.8 x10*3/uL (2.0-8.3); Neutrophils Percent Auto 49.8 % (45-73); Platelet Count 333 X10*3/uL (160-400); Red Cell Distribution Width 13.7 % (11.0-16.0); White Blood Count 9.6 X10*3/uL (4.8-10.8)
[2022-11-06 20:04] LABS: Anion Gap 14 (12-20); Blood Urea Nitrogen 17 mg/dL (9-16); Calcium 9.5 mg/dL (8.4-10.2); Carbon Dioxide 28 mmol/L (22-29); Chloride 101 mmol/L (96-108); Creatinine Clr Calc Pharmacy 74.5; Estimated Glomerular Filt Rate 52; Glucose Random 89 mg/dL (60-115); Potassium 3.2 mmol/L (3.3-5.1); Sodium 140 mmol/L (135-145)
[2022-11-06 20:28] LABS: Influenza A PCR NEGATIVE (Negative); Influenza B PCR NEGATIVE (Negative); Resp Syncy Virus RNA Qual PCR NEGATIVE (Negative); SARS COV2 PCR INHOUSE NEGATIVE (Negative)
--- NOTE | 2022-11-06 21:29 | ECG_ITS ---
Test Reason : HEADACHE Blood Pressure : / mmHG Vent. Rate : 072 BPM Atrial Rate : 072 BPM P-R Int : 182 ms QRS Dur : 088 ms QT Int : 374 ms P-R-T Axes : 051 027 019 degrees QTc Int : 409 ms Normal sinus rhythm Normal ECG When compared with ECG of 23-MAY-2020 22:38, T wave amplitude has decreased in Anterior leads Referred By: Misbah Rueda Electronically Signed By:ALE CERRATO
[2022-11-06] MEDS: Ketorolac Tromethamine 30 MG/ML VIAL IM (21:54)
[2022-11-06] MEDS: Potassium Chloride Packet 20 MEQ PACKET PO (21:55)
[2022-11-06 22:26] VITALS: BP 139/72; PULSE 71; RESP 22; TEMP 36.6; O2SAT 98
[2022-11-06 22:45] LABS: Troponin-I High Sensitivity < 3.5 ng/L (<3.5-17.0)
--- NOTE | 2022-11-06 22:46 | ED.HA ---
HPI - Headache General Chief Complaint: Headache Stated Complaint: elevated blood pressure,h/a sent from Time Seen by Provider: 11/06/22 21:29 Source: patient Mode of arrival: ambulatory Limitations: no limitations History of Present Illness HPI Narrative: This is a 37-year-old female history cervicalgia, obesity, nephropathy presenting to the emergency department with complaints of headache, facial pressure, left ear pain, fatigue, malaise since this morning. Patient tells me she went to urgent care earlier today was told she has otitis media to her left ear, and a viral infection, they were not able to explain to her why she had a headache and they told her she should come to the emergency department for further evaluation. Patient tells me her headache is more of a frontal pressure, she tells me she feels pain overlying her sinuses, she tells me she is not congested, she does report constant left ear pain, fatigue, malaise. Denies any recent sick contacts. Patient denies fevers, chills, chest pain, shortness of breath, nausea, vomiting, vision changes, weakness. Urgent care was requesting the patient got a CT scan. Related Data Home Medications Medication Instructions Recorded Confirmed clonazepam 0.5 mg tablet 0.5 mg PO DAILY PRN anxiety 10/17/20 10/22/22 cariprazine 4.5 mg capsule 4.5 mg PO DAILY 08/28/21 10/22/22 (Vraylar) acetaminophen 500 mg tablet 500 mg PO Q6H PRN 02/18/22 10/22/22 (Tylenol Extra Strength) buspirone 5 mg tablet 5 mg PO TID 10/22/22 10/22/22 clonidine HCl 0.1 mg tablet 0.1 mg PO TID PRN 10/22/22 10/22/22 Previous Rx's Medication Instructions Recorded albuterol sulfate 90 mcg/actuation 1 inh inhalation QID PRN shortness 08/28/21 aerosol inhaler (ProAir HFA) of breath or wheezing 30 days #18 grams chlorthalidone 25 mg tablet 25 mg PO DAILY 90 days #90 tabs 09/16/22 amoxicillin 875 mg-potassium 1 tab PO BID #14 tabs 11/06/22 clavulanate 125 mg tablet amoxicillin 875 mg-potassium 1 tab PO BID 10 days #20 tabs 01/26/23 clavulanate 125 mg tablet prednisone 20 mg tablet 40 mg PO DAILY 5 days #10 tabs 11/06/22 Allergies Allergy/AdvReac Type Severity Reaction Status Date / Time carrot [Carrot] Allergy Mild INDUCES Verified 10/22/22 11:17 ASTHMA, HIVES Sulfa (Sulfonamide Allergy Mild INDUCES Verified 10/22/22 11:17 Antibiotics) ASTHMA, [Sulfa (Sulfonamides)] HIVES, blotchy, asthma flare up ciprofloxacin [Cipro] AdvReac Unknown joint Verified 10/22/22 11:17 swelling Review of Systems Review of Systems: Constitutional : No Weight loss, No Fever, No Chills, + Fatigue, + Malaise ENT/Mouth : No sore throat, No Rhinorrhea, + ear pain Eyes: No Eye Pain, No Swelling, No Redness Cardiovascular : No Chest Pain, No SOB, No Dyspnea on Exertion, No Orthopnea, No Edema, No Palpitations Respiratory : No Cough, No Sputum, No Wheezing Gastrointestinal : No Nausea, No Vomiting, No Diarrhea, No Constipation, No abdominal Pain, No Hematochezia, No Melena Genitourinary : No Dysuria, No Urinary Frequency, No Hematuria, Musculoskeletal : No joint pain, No Myalgias, No Joint Swelling Skin : No Skin Lesions, No rash Neuro : No Weakness, No Numbness, No Dizziness, + Headache Psych : No Anxiety/Panic, No Depression All other systems reviewed and are negative Yes all other systems are reviewed and are negative [facility] Past Medical History Attestation statement: The following information was validated with the patient. Source: old records reviewed and nursing notes reviewed Medical History Anemia Asthma CPAP (continuous positive airway pressure) dependence Endometriosis Surgical History History of delivery Family History Family History Other Mental health disorder Substance use disorder Social History Social History Housing: Condominium Patient Tobacco Use Status: Never used Tobacco e-Cigarette/Vaping Use: Never Used Advance Directives: No Advance Directives Information Provided: Yes service: No Current occupational status: disabled Cognitive needs: No Hearing needs: No Vision needs: No Physical Exam Vital Signs: Vital Signs: Last Vital Signs Temp 97.9 F 11/06/22 22:26 Pulse 71 11/06/22 22:26 Resp 22 H 11/06/22 22:26 BP 139/72 11/06/22 22:26 Pulse Ox 98 11/06/22 22:26 O2 Del Method 11/06/22 22:26 BMI result Body Mass Index 45.7 vss Appearance: Alert.? Oriented X3.? No acute distress.? Head: Normocephalic, atraumatic, no step-offs or deformities. Facial pressure with forward bending. Discomfort with palpation of facial sinuses. Eyes: Pupils equal, round and reactive to light.? ENT: Pharynx normal.? Bilateral tympanic membranes and ear canals within normal limits. No mastoid tenderness. Neck: Normal inspection.? Neck supple.? Negative Kernig and Brudzinski. CVS: Normal heart rate and rhythm.? Pulses normal.? Respiratory: No respiratory distress.? Breath sounds normal.? Abdomen: Soft and nontender.? Skin: Skin warm and dry.? Normal skin color.? Normal skin turgor.? Extremities: No lower extremity edema.? No calf ttp. 5/5 strength to bilateral upper and lower extremities Neuro: Oriented X 3.? No motor deficit.? No sensory deficit. CN 2-12 intact . Normal [id number]-qa-gwoo, xysl-vh-ltoc, steady tandem gait with normal coordination. Course Reevaluation(s) Reevaluation #1: CBC appears to be within normal limits. Chemistry with slightly low potassium 3.2 will give oral potassium. Troponin negative, EKG nonischemic. CT of head with no acute intracranial pathology. Patient also complaining of back pain now, tells me it is to the lumbar region, to the midline she has had this kind of pain before, unsure with causing the pain she tells me. Denies saddle paresthesias, weakness, urinary/bowel incontinence/retention, fevers, chills, changes in gait. Unlikely that this is cauda equina, likely chronic back pain. Will have her follow up with PCP in regards to lower back pain. No need for emergent imaging at this time I do not suspect cauda equina or epidural abscess. Time: 22:35 Reevaluation #2: Plan at this time is for patient to be discharged home feeling slightly better. Will discharge her on Augmentin. I was not able to appreciate otitis media asked her to discontinue medications from Urgent Care will treat for sinusitis with antibiotics and prednisone. Educated patient on diagnosis and treatment plan, answered all question, patient verbalizes understanding. At this time patient will be discharged home, advised to return with new or worsening symptoms. Educated on worrisome signs and symptoms and when to return. At this time I feel comfortable discharge home. Time: 23:32 Medications Administered Discontinued Medications Generic Name Dose Route Start Last Admin Trade Name Freq PRN Reason Stop Dose Admin Ketorolac Tromethamine 30 mg 11/06/22 21:31 11/06/22 21:54 Ketorolac Tromethamine 30 Mg/Ml Vial IM 11/06/22 21:32 30 mg ONCE ONE Administration Potassium Chloride 20 meq 11/06/22 21:29 11/06/22 21:55 Potassium Chloride Packet 20 Meq Packet PO 11/06/22 21:30 20 meq ONCE ONE Administration Medical Decision Making Medical Decision Making [facility] Narrative: [id number] 37-year-old female presents with left ear pain, fatigue, malaise, frontal headache, sinus pressure was told to come in for evaluation of headache from urgent care they requested she get CT scan. Physical examination benign. History and physical exam likely sinusitis, unlikely intracranial hemorrhage, stroke, posterior stroke, cervical fracture dislocation, malignant otitis, meningitis, encephalitis, epidural abscess, aseptic meningitis. Plan at this time basic labs, imaging. Differential Diagnosis Differential Diagnoses: The differential diagnosis associated with the presentation includes History and physical exam likely sinusitis, unlikely intracranial hemorrhage, stroke, posterior stroke, cervical fracture dislocation, malignant otitis, meningitis, encephalitis, epidural abscess, aseptic meningitis. Admission/Observation Consideration of admission/observation: Escalation of care including admission/observation considered Lab Data [facility] Lab Attestation statement: I reviewed the patient's lab results. 11/06/22 19:46 11/06/22 19:46 Labs: Lab Results 11/06/22 11/06/22 11/06/22 Range/Units 19:46 19:46 19:46 WBC 9.6 (4.8-10.8) X10*3/uL RBC 4.50 (4.20-5.50) X10*6/uL Hgb 12.7 (12.0-16.0) g/dl Hct 38.4 (37.0-47.0) % MCV 85.3 (80.0-98.0) fL MCH 28.2 (27.0-33.0) pg MCHC 33.1 (31.0-35.0) g/dl RDW 13.7 (11.0-16.0) % Plt Count 333 (160-400) X10*3/uL MPV 9.3 L (9.4-12.3) fL Immature Gran % (Auto) 0.3 (0.0-0.4) % Neut % (Auto) 49.8 (45-73) % Lymph % (Auto) 37.0 (20-40) % Carter % (Auto) 4.5 (2-11) % Eos % (Auto) 7.8 H (0-4) % Baso % (Auto) 0.6 (0-2) % Lymph # (Auto) 3.6 (1.2-4.9) X10*3/uL Carter # (Auto) 0.4 (0.1-1.2) X10*3/uL Eos # (Auto) 0.8 H (0.0-0.4) X10*3/uL Baso # (Auto) 0.1 (0.0-0.2) X10*3/uL Abs Immat Gran (auto) 0.03 (0.00-0.03) X10*3/uL Absolute Neuts (auto) 4.8 (2.0-8.3) x10*3/uL Absolute Nucleated RBC 0.000 (0.0-0.012) X10*3/uL Nucleated RBC % (auto) 0.0 (0.0-0.2) /100WBC Sodium 140 (135-145) mmol/L Potassium 3.2 L (3.3-5.1) mmol/L Chloride 101 (96-108) mmol/L Carbon Dioxide 28 (22-29) mmol/L Anion Gap 14 (12-20) BUN 17 H (9-16) mg/dL Creatinine 1.16 (0.5-1.4) mg/dL Estim Creat Clear Calc 74.5 Estimated GFR 52 Random Glucose 89 (60-115) mg/dL Calcium 9.5 (8.4-10.2) mg/dL Troponin I High Sens (<3.5-17.0) ng/L Influenza Type A (PCR) NEGATIVE (Negative) Influenza Type B (PCR) NEGATIVE (Negative) RSV RNA Qual (PCR) NEGATIVE (Negative) SARS-CoV-2 RNA (RT-PCR) NEGATIVE (Negative) 11/06/22 Range/Units 22:16 WBC (4.8-10.8) X10*3/uL RBC (4.20-5.50) X10*6/uL Hgb (12.0-16.0) g/dl Hct (37.0-47.0) % MCV (80.0-98.0) fL MCH (27.0-33.0) pg MCHC (31.0-35.0) g/dl RDW (11.0-16.0) % Plt Count (160-400) X10*3/uL MPV (9.4-12.3) fL Immature Gran % (Auto) (0.0-0.4) % Neut % (Auto) (45-73) % Lymph % (Auto) (20-40) % Carter % (Auto) (2-11) % Eos % (Auto) (0-4) % Baso % (Auto) (0-2) % Lymph # (Auto) (1.2-4.9) X10*3/uL Carter # (Auto) (0.1-1.2) X10*3/uL Eos # (Auto) (0.0-0.4) X10*3/uL Baso # (Auto) (0.0-0.2) X10*3/uL Abs Immat Gran (auto) (0.00-0.03) X10*3/uL Absolute Neuts (auto) (2.0-8.3) x10*3/uL Absolute Nucleated RBC (0.0-0.012) X10*3/uL Nucleated RBC % (auto) (0.0-0.2) /100WBC Sodium (135-145) mmol/L Potassium (3.3-5.1) mmol/L Chloride (96-108) mmol/L Carbon Dioxide (22-29) mmol/L Anion Gap (12-20) BUN (9-16) mg/dL Creatinine (0.5-1.4) mg/dL Estim Creat Clear Calc Estimated GFR Random Glucose (60-115) mg/dL Calcium (8.4-10.2) mg/dL Troponin I High Sens < 3.5 (<3.5-17.0) ng/L Influenza Type A (PCR) (Negative) Influenza Type B (PCR) (Negative) RSV RNA Qual (PCR) (Negative) SARS-CoV-2 RNA (RT-PCR) (Negative) Prescription Management I considered prescription management with: Pain Medication Core Measures AMI core measures followed: Yes Measure exclusions: not indicated Discharge Plan Discharge Clinical Impression: Sinusitis, Hypokalemia, Headache Patient Disposition: Home, Self-Care Instructions: Sinusitis (ED), Hypokalemia (ED), Acute Headache (ED), General Headache (ED) Additional Instructions: Take your medications as prescribed. If you were prescribed antibiotics today, it is important that you take your medication to their entirety, do not skip any doses, do not finish them early. Follow-up with your primary care provider this week. Return to the emergency department with new or worsening symptoms. Such as fevers, chills, chest pain, shortness of breath, nausea, vomiting, dizziness, headache, vision changes, lethargy In case of emergency call 911 Toradol has been sent to your pharmacy, you tolerated this well in the department. Please take this as prescribed do not take this with ibuprofen, or other NSAIDs, do not mix this with alcohol. Side effects of this medication including increased risk for bleeding and possible kidney injury. Your potassium is slightly low today, your given oral potassium, please follow-up with your PCP for repeat laboratory studies to ensure your potassium has normalized. Your laboratory studies were unremarkable. CT/CT head/brain wo IV con IMPRESSION: No acute intracranial pathology. ? ? Prescriptions: New prednisone 20 mg tablet 40 mg PO DAILY 5 Days Qty: 10 0RF amoxicillin-pot clavulanate 875-125 mg tablet 1 tab PO BID 10 Days Qty: 20 0RF No Action chlorthalidone 25 mg tablet 25 mg PO DAILY 90 Days Qty: 90 0RF clonazepam 0.5 mg tablet 0.5 mg PO DAILY PRN (Reason: anxiety) buspirone 5 mg tablet 5 mg PO TID clonidine HCl 0.1 mg tablet 0.1 mg PO TID PRN Vraylar 4.5 mg capsule 4.5 mg PO DAILY albuterol sulfate [ProAir HFA] 90 mcg/actuation HFA aerosol inhaler 1 inh inhalation QID PRN (Reason: shortness of breath or wheezing) 30 Days Qty: 18 0RF acetaminophen [Tylenol Extra Strength] 500 mg tablet 500 mg PO Q6H PRN amoxicillin-pot clavulanate 875-125 mg tablet 1 tab PO BID Qty: 14 0RF Referrals: Adrianne Steward MD [Primary Care Provider] - 2 days
[2022-11-07 00:09] LABS: Erythrocyte Sedimentation Rate 28 MM/HR (0-20)
== END 2022-11-06 23:48 | disposition home or self-care (01) ==
PROVIDERS: Physician Assistant; Emergency Provider Internal Medicine; PCP Internal Medicine
DX: R51.9 Headache, unspecified (principal); J32.9 Chronic sinusitis, unspecified; E87.6 Hypokalemia; R07.89 Other chest pain; Z20.822 Contact with and (suspected) exposure to COVID-19; Z20.828 Contact with and (suspected) exposure to other viral communicable diseases; Z79.899 Other long term (current) drug therapy
CPT/HCPCS: 0241U; 36415; 70450; 80048; 84484; 85025; 85652; 86140; 93005; 96372; 99284; J1885

== ENCOUNTER 2023-01-21 17:11 | Outpatient (REF) | payer OTHER, SELFPAY ==
[2023-01-21 18:00] LABS: Influenza A PCR NEGATIVE (Negative); Influenza B PCR NEGATIVE (Negative); Resp Syncy Virus RNA Qual PCR NEGATIVE (Negative); SARS COV2 PCR INHOUSE NEGATIVE (Negative)
== END 2023-01-21 17:12 | disposition home or self-care (01) ==
LOC: HO.LNP 17:11
PROVIDERS: Visit Provider Internal Medicine
DX: R09.89 Other specified symptoms and signs involving the circulatory and respiratory systems (principal); Z20.822 Contact with and (suspected) exposure to COVID-19
CPT/HCPCS: 0241U

== ENCOUNTER 2023-04-17 14:17 | Outpatient (REF) | payer OTHER, SELFPAY ==
--- NOTE | ~2023-04-17 | XR_ITS ---
EXAMINATION: XR LUMBOSACRAL SPINE CLINICAL INFORMATION: Reason for Exam M54.16 - Radiculopathy, lumbar region COMPARISON: Lumbar spine radiographs 07/21/2007 TECHNIQUE: 3 views of the lumbar spine FINDINGS: 5 nonrib-bearing lumbar-type vertebral bodies. Vertebral body heights are maintained. Alignment is maintained. Mild degenerative disc disease at L1-L2 with small disc osteophyte complex new from prior. L5-S1 facet arthropathy. Intrauterine device in the central pelvis. XR/XR lumbar spine 2-3V IMPRESSION: 1. Mild degenerative disc disease at L1-L2 with small disc osteophyte complex. 2. L5-S1 facet arthropathy.
== END 2023-04-17 14:18 | disposition home or self-care (01) ==
LOC: HO.HMGCX 14:17
PROVIDERS: PCP Internal Medicine; Visit Provider Internal Medicine
DX: D64.9 Anemia, unspecified (principal); I10 Essential (primary) hypertension; N28.9 Disorder of kidney and ureter, unspecified; R73.01 Impaired fasting glucose; R79.89 Other specified abnormal findings of blood chemistry; M54.16 Radiculopathy, lumbar region
CPT/HCPCS: 36415; 72100; 80053; 83036; 85025

== ENCOUNTER 2023-06-04 13:19 | Outpatient (AMB) | payer OTHER, SELFPAY ==
--- NOTE | 2023-06-04 13:25 | AM.OFFWIN_ITS ---
Intake Vital Signs 06/04/23 13:27 Weight 246 lb BP 118/82 Blood Pressure Location Rt brachial Position Sitting Pulse 88 Pulse Source Pulse Oximeter Temp 97.4 F Temp Source Temporal Artery Scan Pulse Oximetry (%) 97 Oxygen Delivery Method Room Air Intake Visit Reasons: EP, Low back pain Intake Note: Patient here for lower spine pain which has been present for about 4 days. pt has arthritis pain and suppose to get a injection today and had to reschedule it because she is on antibiotics for an ear infection. Patient Tobacco Use Status: Never used Tobacco Allergies carrot [Carrot] Allergy (Mild, Verified 06/04/23 13:27) INDUCES ASTHMA, HIVES Sulfa (Sulfonamide Antibiotics) [Sulfa (Sulfonamides)] Allergy (Mild, Verified 06/04/23 13:27) INDUCES ASTHMA, HIVES, blotchy, asthma flare up ciprofloxacin [Cipro] Adverse Reaction (Unknown, Verified 06/04/23 13:27) joint swelling Medication List - Last Reconciled 06/04/23 by Denise Ayala PA-C acetaminophen (Tylenol Extra Strength) 500 mg PO Q6H PRN albuterol sulfate 90 mcg/actuation (ProAir HFA) 1 inh inhalation QID PRN 30 days buspirone 5 mg PO TID cariprazine (Vraylar) 4.5 mg PO DAILY chlorthalidone 25 mg PO DAILY 90 days clonazepam 0.5 mg PO DAILY PRN clonidine HCl 0.1 mg PO TID PRN meloxicam 15 mg PO DAILY 14 days methocarbamol 750 mg PO QID naproxen 500 mg PO BID prednisone 50 mg PO DAILY 5 days Do you need a note to return to daycare/school/sports/work: No HPI HPI Comments History of Present Illness Details This is a 37-year-old female with a past medical history of hypertension and obstructive sleep apnea presenting for evaluation of low back pain that she has had for the past 4 days. Patient states that she is followed by the [facility] pain management clinic for arthritis in her back however this is a new pain that she has never experienced before. Patient states 4 days ago her 3-year-old son kicked on the right side of her low back. Since that time the patient has had a constant 8/10 sharp pain in her central and left lower back that does not radiate. The pain in her right low back resolved 2 days ago and it is now in her left low back. Patient has used Voltaren gel, ibuprofen and lidocaine patches without relief her discomfort. [facility] Medical History Anemia Asthma CPAP (continuous positive airway pressure) dependence Endometriosis Surgical History History of delivery Family History Other Mental health disorder Substance use disorder Social History Housing: Condominium Patient Tobacco Use Status: Never used Tobacco e-Cigarette/Vaping Use: Never Used service: No Current occupational status: disabled Cognitive needs: No Hearing needs: No Vision needs: No Review of Systems Const All systems reviewed & are unremarkable except as noted in HPI and below Denies fatigue, Denies malaise and Denies weakness GI Denies abdominal pain Musc Reports as per HPI, Reports back pain (low back), Denies joint swelling, Denies numbness and Denies radiating pain into limb Neuro Reports no additional complaints, Denies numbness, Denies radicular pain and Denies weakness Psych Reports no additional complaints Endo Denies fatigue Physical Exam Vital Signs: Last Vital Signs Temp 97.4 F 06/04/23 13:27 Pulse 88 06/04/23 13:27 BP 118/82 06/04/23 13:27 Pulse Ox 97 06/04/23 13:27 Oxygen Delivery Method Room Air 06/04/23 13:27 Const General: cooperative, no acute distress and well developed Nutritional Appearance: overweight Orientation/consciousness: patient oriented x3 Limitations: no limitations and No physical limitations General: Yes no CVA tenderness Back/Spine/Pelvis Back: no CVA tenderness Thoracic/Lumbar Spine: thoracic and lumbar spine normal to inspection, thoraco- lumbar ROM normal, straight leg raise negative bilaterally, paraspinal muscle tenderness on the left (lumbar) in the mid lumbar, No thoracic spinal tenderness and No lumbar spinal tenderness Pelvis: no sciatic notch tenderness Skin General skin exam: no rashes or lesions noted Neuro General: patient oriented x3 Cognition (Neuro): normal cognition Gait exam (Neuro): Normal gait present Motor exam (neuro): 5/5 motor strength present throughout (lower extremities bilaterally), Normal motor muscle tone present throughout and Motor ab normalities not present Extrem General: Yes normal to inspection Psych Appearance: grossly normal Mental Status: mental status grossly normal Speech and movement: Normal speech and movement present Attitude: cooperative Thought process: Normal thought process present Insight: Good insight present (Psych) Judgement: Good judgement present (Psych) Assessment & Plan Assessment & Plan (1) Acute low back pain: Code(s): M54.50 - Low back pain, unspecified Plan Patient seen and evaluated.. Her medical history is reviewed. The patient's symptoms are not consistent with sciatic pain or a radiculopathy. Patient will be discharged home with Naprosyn and Robaxin for initial management of this acute low back pain. Patient is instructed to follow up with her primary care provider within 7-10 days if her symptoms do not resolve. Medications: New methocarbamol 750 mg PO QID 20 tabs 0RF Z09 - Encounter for follow-up examination after completed treatment for conditions other than malignant neoplasm naproxen 500 mg PO BID 20 tabs 0RF Z09 - Encounter for follow-up examination after completed treatment for conditions other than malignant neoplasm Coding Level of Care Code Est Pt Level 3 (68222) History Problem Focused Exam Problem Focused Medical Decision Making Moderate Complexity Diagnoses Acute low back pain M54.50
[2023-06-04 13:27] VITALS: BP 118/82; PULSE 88; TEMP 36.3; O2SAT 97
== END 2023-06-04 14:10 | disposition home or self-care (01) ==
PROVIDERS: PCP Internal Medicine; Visit Provider Physician Assistant
DX: M54.50 Low back pain, unspecified (principal)
CPT/HCPCS: 99213

== ENCOUNTER 2023-07-09 12:38 | Emergency (ER) | payer OTHER, SELFPAY ==
--- NOTE | ~2023-07-09 | XR_ITS ---
EXAMINATION: XR CHEST CLINICAL INFORMATION: Cough. COMPARISON: None available. TECHNIQUE: Frontal view of the chest was obtained. FINDINGS: The cardiomediastinal silhouette is within normal limits. There is right lower lung field consolidation. The left lung is clear. There is no evidence for significant pleural effusion. The bony structures and soft tissues are unremarkable. XR/XR chest 1V IMPRESSION: Right lower lung field opacity likely pneumonia. Consider follow-up posttreatment.
[2023-07-09 13:54] VITALS: BP 137/88; PULSE 76; RESP 16; TEMP 36.3; O2SAT 95; BMI 44.8
--- NOTE | 2023-07-09 13:57 | ED_ITS ---
HPI - General Adult General Chief complaint: General Medical Stated complaint: kidney pain/ fever Time Seen by Provider: 07/09/23 16:16 Source: patient Limitations: no limitations History of Present Illness HPI narrative: 37-year-old female with no major med with sore throat and cough. The symptoms are getting worse over the last week. She describes's the cough has been productive of yellow mucus. There is no blood in her mucus. She has had fever and chills and sweats. She denies any nausea, vomiting or diet [place]. She does also have a sore throat which is recently occurred over the past week. She has difficulty swelling. She admits to having some weight loss. She has tried Tylenol and ibuprofen without relief. She has tried addition [id number] remedies without improvement. She also complains of left lower thoracic back pain. This is worse with coughing movement. It does not radiate. She denies any urinary frequency, urgency or dysuria Related Data Home Medications Medication Instructions Recorded Confirmed clonazepam 0.5 mg tablet 0.5 mg PO DAILY PRN anxiety 10/17/20 04/17/23 cariprazine 4.5 mg capsule 4.5 mg PO DAILY 08/28/21 04/17/23 (Vraylar) acetaminophen 500 mg tablet 500 mg PO Q6H PRN 02/18/22 04/17/23 (Tylenol Extra Strength) buspirone 5 mg tablet 5 mg PO TID 10/22/22 04/17/23 clonidine HCl 0.1 mg tablet 0.1 mg PO TID PRN 10/22/22 04/17/23 Previous Rx's Medication Instructions Recorded albuterol sulfate 90 mcg/actuation 1 inh inhalation QID PRN shortness 08/28/21 aerosol inhaler (ProAir HFA) of breath or wheezing 30 days #18 grams meloxicam 15 mg tablet 15 mg PO DAILY 14 days #14 tabs 04/17/23 prednisone 50 mg tablet 50 mg PO DAILY 5 days #5 tabs 04/17/23 chlorthalidone 25 mg tablet 25 mg PO DAILY 90 days #90 tabs 06/03/23 methocarbamol 750 mg tablet 750 mg PO QID #20 tabs 06/04/23 naproxen 500 mg tablet 500 mg PO BID #20 tabs 06/04/23 amoxicillin 875 mg-potassium 1 tab PO BID #20 tabs 07/09/23 clavulanate 125 mg tablet benzonatate 200 mg capsule 200 mg PO TID PRN cough #14 caps 07/09/23 dextromethorphan-guaifenesin 10 10 ml PO Q4-6H PRN cough #500 mL 07/09/23 mg-100 mg/5 mL oral liquid potassium chloride 20 mEq 20 meq PO DAILY #7 tabs 07/09/23 tablet,extended release Allergies Allergy/AdvReac Type Severity Reaction Status Date / Time carrot [Carrot] Allergy Mild INDUCES Verified 07/09/23 13:53 ASTHMA, HIVES Sulfa (Sulfonamide Allergy Mild INDUCES Verified 07/09/23 13:53 Antibiotics) ASTHMA, [Sulfa (Sulfonamides)] HIVES, blotchy, asthma flare up ciprofloxacin [Cipro] AdvReac Unknown joint Verified 07/09/23 13:53 swelling Review of Systems 2 Review of Systems: CONSTITUTIONAL: + weight loss, fever and chills. HEENT: Denies changes in vision and hearing. RESPIRATORY: + SOB and cough. CV: Denies palpitations + CP. GI: Denies abdominal pain, nausea, vomiting and diarrhea. : Denies dysuria and urinary frequency. MSK: Denies myalgia and joint pain. SKIN: Denies rash and pruritus. NEUROLOGICAL: Denies headache and syncope. PSYCHIATRIC: Denies recent changes in mood. Denies anxiety and depression. All other ROS are negative unless in HPI PMFSH Past Medical History Medical History Anemia Asthma CPAP (continuous positive airway pressure) dependence Endometriosis Surgical History History of delivery Family History Family History Other Mental health disorder Substance use disorder Social History Social History Housing: Condominium Alcohol intake: current Alcohol intake frequency: a few times a month Patient Tobacco Use Status: Never used Tobacco Smoked in Last 30 Days: No e-Cigarette/Vaping Use: Never Used Use of substances other than those prescribed or required for medical reasons: No Advance Directives: No Advance Directives Information Provided: No service: No Current occupational status: disabled Cognitive needs: No Hearing needs: No Vision needs: No Physical Exam ED Vital Signs: Vital Signs - 24 hr 07/09/23 13:54 07/09/23 15:56 Temperature 97.4 F 98.0 F Pulse Rate 76 79 Respiratory Rate 16 18 Blood Pressure 137/88 144/85 H Pulse Oximetry 95 100 Oxygen Delivery Method Room Air Room Air BMI result Body Mass Index 44.8 GEN: Well developed, no acute distress, alert, oriented HEENT: Normocephalic, atraumatic, normal external ears, nose appears normal, no oropharyngeal erythema and enlarged tonsils, no exudate Eyes: Normal to appearance Neck: Supple, no lymphadenopathy Respiratory: Bibasilar crackles, no wheezes or prolonged expiration Cardiovascular: Regular rate and rhythm, no murmurs rubs or gallops Abdomen: Soft, nontender, nondistended, no guarding, no rebound Back: No CVA tenderness Extremities: No clubbing cyanosis or edema Neurologic: No focal neurologic deficits, cranial nerves 2-12 intact, strength is 5/5 bilaterally Skin: No rash Course Course Course Narrative: RME: 37 yold female presents to the ED coughing for one month, sore throat, kidney pain, increase urinary frequeqncy and weight loss. patient states she has been sick since coming off a cruise on june 12. labs and chest xray, and swabs ordered Reevaluation(s) Reevaluation #1: The patient's workup is complete at this time. She has right lower lobe pneumonia. She has musculoskeletal lower thoracic left back pain. She also has an erythematous throat and positive strep test consistent with acute strep pharyngitis. Patient will start Augmentin. I will give her a dose of dexamethasone orally prior to discharge. I do not believe additional steroids will be helpful at this time. I will prescribe the patient additional cough medications. Patient also has an elevated blood pressure reading. She has been recommended follow-up with her primary care doctor when feeling better in order to recheck. Additional findings identified no elevated white blood cell count which will need to be rechecked in a week to 2 weeks. And finally, patient has low potassium levels which were repleted orally. Will prescribe approximately 1 week of potassium 20 mEq orally. Per review of the records, her potassium levels have been low in the past and does not appear that they have been treated Time: 16:46 Medications Administered Discontinued Medications Generic Name Dose Route Start Last Admin Trade Name Shivam PRN Reason Stop Dose Admin Amoxicillin/Clavulanate Potassium 875 mg 07/09/23 16:34 07/09/23 16:46 Amoxicillin/Potassium Clav 875 Mg Tablet PO 07/09/23 16:35 875 mg ONCE ONE Administration Dexamethasone 10 mg 07/09/23 16:34 07/09/23 16:46 Dexamethasone 2 Mg Tablet PO 07/09/23 16:35 10 mg ONCE ONE Administration Potassium Chloride 40 meq 07/09/23 16:34 07/09/23 16:46 Potassium Chloride Er 20 Meq Tab.Er.Prt PO 07/09/23 16:35 40 meq ONCE ONE Administration Medical Decision Making Medical Decision Making MDM Narrative: Patient presents with sore throat, cough, fever, chills over the past 3 weeks. Examination revealed bibasilar crackles. She also has an erythematous oropharynx. She has no wheezing or stridor. Differential diagnosis includes viral syndrome, COVID, flu, strep throat, pneumonia, bronchitis, other bacterial infection. My plan will be to obtain an chest x-ray, laboratory analysis re- evaluate the patient. Differential Diagnosis Differential Diagnoses: The differential diagnosis associated with the presentation includes (See above) Admission/Observation Consideration of admission/observation: Escalation of care including admission/observation considered Lab Data [facility] Lab Attestation statement: I reviewed the patient's lab results. 07/09/23 14:04 07/09/23 14:04 Labs: Lab Results 07/09/23 07/09/23 Range/Units 14:04 14:15 WBC 24.2 H (4.8-10.8) X10*3/uL RBC 4.13 L (4.20-5.50) X10*6/uL Hgb 11.9 L (12.0-16.0) g/dl Hct 34.7 L (37.0-47.0) % MCV 84.0 (80.0-98.0) fL MCH 28.8 (27.0-33.0) pg MCHC 34.3 (31.0-35.0) g/dl RDW 13.4 (11.0-16.0) % Plt Count 408 H D (160-400) X10*3/uL MPV 9.7 (9.4-12.3) fL Immature Gran % (Auto) 2.0 H (0.0-0.4) % Neut % (Auto) 79.4 H (45-73) % Lymph % (Auto) 12.7 L (20-40) % [place] % (Auto) 3.4 (2-11) % Eos % (Auto) 2.1 (0-4) % Baso % (Auto) 0.4 (0-2) % Lymph # (Auto) 3.1 (1.2-4.9) X10*3/uL [place] # (Auto) 0.8 (0.1-1.2) X10*3/uL Eos # (Auto) 0.5 H (0.0-0.4) X10*3/uL Baso # (Auto) 0.1 (0.0-0.2) X10*3/uL Abs Immat Gran (auto) 0.49 H (0.00-0.03) X10*3/uL Absolute Neuts (auto) 19.2 H (2.0-8.3) x10*3/uL Absolute Nucleated RBC 0.000 (0.0-0.012) X10*3/uL Nucleated RBC % (auto) 0.0 (0.0-0.2) /100WBC Sodium 134 L (135-145) mmol/L Potassium 2.7 L (3.3-5.1) mmol/L Chloride 92 L (96-108) mmol/L Carbon Dioxide 25 (22-29) mmol/L Anion Gap 20 (12-20) BUN 13 (9-16) mg/dL Creatinine 0.95 (0.5-1.4) mg/dL Estim Creat Clear Calc 89.9 Estimated GFR > 60 Random Glucose 118 H (60-115) mg/dL Calcium 10.2 D (8.4-10.2) mg/dL Total Bilirubin 0.5 (0.0-1.0) mg/dL AST 32 H (5-31) U/L ALT 57 H (0-31) U/L Alkaline Phosphatase 151 H (39-117) U/L Total Protein 8.8 H (6.5-8.0) g/dL Albumin 4.1 (3.5-5.0) g/dL Urine Color Yellow Urine Appearance Cloudy Urine pH 6.0 (5.0-9.0) Ur Specific [place] 1.010 (1.005-1.025) Urine Protein Negative (Neg-Trace) mg/dL Urine Glucose (UA) Negative (Negative) mg/dL Urine Ketones Negative (Negative) mg/dL Urine Blood Negative (Negative) Urine Nitrite Negative (Negative) Ur Leukocyte Esterase Trace H (Negative) Urine RBC 0-2 (0-2) /HPF Urine WBC 0-5 (0-5) /HPF Ur Squamous Epith Cells 11-20 (0-2) /HPF Urine Bacteria Trace (None Seen) Hyaline Casts 0-2 (0-2) /LPF Urine Yeast Present Urine Test NEGATIVE (NEGATIVE) Influenza Type A (PCR) NEGATIVE (Negative) Influenza Type B (PCR) NEGATIVE (Negative) RSV RNA Qual (PCR) NEGATIVE (Negative) SARS-CoV-2 RNA (RT-PCR) NEGATIVE (Negative) S. pyogenes GrpA BERNICE Positive A (Negative) Independent Interpretation I performed an independent interpretation of an: Plain X-Ray (Chest: Right lower lobe infiltrate) Radiology Impression Discussion of test interpretation with radiology: I have reviewed the radiologist's reading. External Record Review External record reviewed: Outpatient record and Prior outpatient labs Prescription Management I considered prescription management with: Pain Medication, Antiviral and Antibiotic Discharge Plan Discharge Clinical Impression: Community acquired pneumonia, Strep throat, Hypokalemia, Elevated blood pressure reading, Leukocytosis Patient Disposition: Home, Self-Care Instructions: Strep Throat (DC), Hypokalemia (ED), Community Acquired Pneumonia (DC), Leukocytosis (ED) Additional Instructions: Take augmentin twice a day for 10 days Follow up with your PMD in 1 week for repeat BP check, potassium lab test and a CBC to make sure your white blood cell count improves You received steroids today your potassium level was low and you should supplement for a few days which was prescribed for you Prescriptions: New amoxicillin-pot clavulanate 875-125 mg tablet 1 tab PO BID Qty: 20 0RF potassium chloride 20 mEq tablet extended release 20 meq PO DAILY Qty: 7 0RF benzonatate 200 mg capsule 200 mg PO TID PRN (Reason: cough) Qty: 14 0RF dextromethorphan-guaifenesin 10-100 mg/5 mL liquid 10 ml PO Q4-6H PRN (Reason: cough) Qty: 500 0RF No Action chlorthalidone 25 mg tablet 25 mg PO DAILY 90 Days Qty: 90 0RF clonazepam 0.5 mg tablet 0.5 mg PO DAILY PRN (Reason: anxiety) buspirone 5 mg tablet 5 mg PO TID clonidine HCl 0.1 mg tablet 0.1 mg PO TID PRN meloxicam 15 mg tablet 15 mg PO DAILY 14 Days Qty: 14 0RF prednisone 50 mg tablet 50 mg PO DAILY 5 Days Qty: 5 0RF methocarbamol 750 mg tablet 750 mg PO QID Qty: 20 0RF naproxen 500 mg tablet 500 mg PO BID Qty: 20 0RF Vraylar 4.5 mg capsule 4.5 mg PO DAILY albuterol sulfate [ProAir HFA] 90 mcg/actuation HFA aerosol inhaler 1 inh inhalation QID PRN (Reason: shortness of breath or wheezing) 30 Days Qty: 18 0RF acetaminophen [Tylenol Extra Strength] 500 mg tablet 500 mg PO Q6H PRN Referrals: Adrianne Steward MD [Primary Care Provider] - 5 days Stand Alone Forms: Work/School Release Interventions: ED Discharge Assessment Last Done: 07/09/23 16:55 Discharge Date/Time: 07/09/23 16:55
[2023-07-09 14:11] LABS: MANUAL DIFF FLAG NO
[2023-07-09 14:13] LABS: Basophils Absolute Auto 0.1 X10*3/uL (0.0-0.2); Basophils Percent Auto 0.4 % (0-2); Eosinophils Absolute Auto 0.5 X10*3/uL (0.0-0.4); Eosinophils Percent Auto 2.1 % (0-4); Hematocrit 34.7 % (37.0-47.0); Hemoglobin 11.9 g/dl (12.0-16.0); Imm Gran Abs Auto 0.49 X10*3/uL (0.00-0.03); Lymphocytes Absolute Auto 3.1 X10*3/uL (1.2-4.9); Lymphocytes Percent Auto 12.7 % (20-40); Mean Corpuscular HGB Conc 34.3 g/dl (31.0-35.0); Mean Corpuscular Hemoglobin 28.8 pg (27.0-33.0); Mean Platelet Volume 9.7 fL (9.4-12.3); Monocytes Absolute Auto 0.8 X10*3/uL (0.1-1.2); Monocytes Percent Auto 3.4 % (2-11); Neutrophils Absolute Auto 19.2 x10*3/uL (2.0-8.3); Neutrophils Percent Auto 79.4 % (45-73); Platelet Count 408 X10*3/uL (160-400); Red Blood Count 4.13 X10*6/uL (4.20-5.50); Red Cell Distribution Width 13.4 % (11.0-16.0); White Blood Count 24.2 X10*3/uL (4.8-10.8)
[2023-07-09 14:26] LABS: Appearance Urine Cloudy; Color Urine Yellow; Glucose Urine UA Negative (Negative); Leukocyte Esterase Urine Trace (Negative); Nitrite Urine Negative (Negative); UMIC TRIGGER UACC YES; Urine Blood Negative (Negative); Urine Ketones Negative (Negative); Urine Protein Negative (Neg-Trace)
[2023-07-09 14:30] LABS: UPreg QC Valid YES; Urine Pregnancy NEGATIVE (NEGATIVE)
[2023-07-09 14:33] LABS: Alanine Aminotransferase 57 U/L (0-31); Albumin Level 4.1 g/dL (3.5-5.0); Alkaline Phosphatase 151 U/L (39-117); Anion Gap 20 (12-20); Aspartate Amino Transferase 32 U/L (5-31); Bilirubin Total 0.5 mg/dL (0.0-1.0); Blood Urea Nitrogen 13 mg/dL (9-16); Calcium 10.2 mg/dL (8.4-10.2); Carbon Dioxide 25 mmol/L (22-29); Chloride 92 mmol/L (96-108); Creatinine Clr Calc Pharmacy 89.9; Estimated Glomerular Filt Rate > 60; Glucose Random 118 mg/dL (60-115); Potassium 2.7 mmol/L (3.3-5.1); Sodium 134 mmol/L (135-145); Total Protein 8.8 g/dL (6.5-8.0)
[2023-07-09 14:35] LABS: IDNOW Serial# 08D9AD1C; Strep A Nucleic Acid Positive (Negative)
[2023-07-09 14:38] LABS: Bacteria Urine Trace (None Seen); Hyaline Casts Urine 0-2 /LPF (0-2); RBC Urine 0-2 /HPF (0-2); WBC Urine 0-5 /HPF (0-5)
[2023-07-09 14:52] LABS: Influenza A PCR NEGATIVE (Negative); Influenza B PCR NEGATIVE (Negative); Resp Syncy Virus RNA Qual PCR NEGATIVE (Negative); SARS COV2 PCR INHOUSE NEGATIVE (Negative)
[2023-07-09 15:56] VITALS: BP 144/85; PULSE 79; RESP 18; TEMP 36.7; O2SAT 100
--- NOTE | 2023-07-09 16:08 | PC.NURSE ---
pt a&ox3. respirations even and unlabored, pt has bilateral expiratory wheezes noted. pt reports not feeling well for one month, reports a cough that has not subsided. pt reports a sore throat for 3 days. pt throat red with white patches noted. pt has productive cough noted. pt denies nausea, vomiting, SOB and chest pain.
[2023-07-09] MEDS: Potassium Chloride ER 20 MEQ TAB.ER.PRT 40 MEQ PO (16:46)
[2023-07-09] MEDS: Amoxicillin/Potassium Clav 875 MG TABLET PO (16:46)
[2023-07-09] MEDS: dexAMETHasone 2 MG TABLET 10 MG PO (16:46)
== END 2023-07-09 16:55 | disposition home or self-care (01) ==
PROVIDERS: Physician Assistant; Emergency Provider Emergency Medicine; PCP Internal Medicine
DX: J18.8 Other pneumonia, unspecified organism (principal); J02.0 Streptococcal pharyngitis; E87.6 Hypokalemia; R06.02 Shortness of breath; R03.0 Elevated blood-pressure reading, without diagnosis of hypertension; Z20.822 Contact with and (suspected) exposure to COVID-19; Z20.828 Contact with and (suspected) exposure to other viral communicable diseases
CPT/HCPCS: 0241U; 36415; 71045; 80053; 81001; 81025; 85025; 87651; 99283; 99284; J8540

== ENCOUNTER 2023-07-22 13:51 | Outpatient (AMB) | payer OTHER, SELFPAY ==
[2023-07-22 13:52] VITALS: BP 124/68; PULSE 68; O2SAT 96; BMI 43.3
--- NOTE | 2023-07-22 13:52 | MHC.PC.OV ---
Vital Signs 07/22/23 13:52 Height 5 ft 1 in Weight 229 lb 6 oz BMI 43.3 BP 124/68 Blood Pressure Location Rt brachial Position Sitting Pulse 68 Pulse Source Pulse Oximeter Pulse Oximetry (%) 96 Oxygen Delivery Method Room Air Intake Visit Reasons: Discuss Sap Basis Referral Allergies carrot [Carrot] Allergy (Mild, Verified 07/22/23 13:52) INDUCES ASTHMA, HIVES Sulfa (Sulfonamide Antibiotics) [Sulfa (Sulfonamides)] Allergy (Mild, Verified 07/22/23 13:52) INDUCES ASTHMA, HIVES, blotchy, asthma flare up ciprofloxacin [Cipro] Adverse Reaction (Unknown, Verified 07/22/23 13:52) joint swelling Medication List - Last Reconciled 07/22/23 by Adrianne Steward MD acetaminophen (Tylenol Extra Strength) 500 mg PO Q6H PRN albuterol sulfate 90 mcg/actuation (ProAir HFA) 1 inh inhalation QID PRN 30 days cariprazine (Vraylar) 4.5 mg PO DAILY chlorthalidone 25 mg PO DAILY 90 days clonidine HCl 0.1 mg PO TID PRN naproxen 500 mg PO BID potassium chloride ER 20 mEq PO DAILY Tobacco use date assessed: 07/22/23 Dental Screening Dental Screen Date: 07/22/23 Did you have a dental visit in the last 12 months?: Yes Did you have a dental problem in the last 6 months where you did not have access to dental care?: No Was dental information given to patient?: Patient has dentist HPI Discuss Sap Basis Referral HPI Details Patient is 37-year-old female came in today for hospital discharge follow-up Patient was at [facility] July 09 with cough and congestion and was diagnosed with pneumonia right side She was treated with antibiotic and is feeling better However she is still wheezing both side of her lungs Patient albuterol inhaler at home I have told her to start using that every 8 hour it will help her cough up the mucus. Labs done in emergency room showed potassium of 2.9 and slightly low sodium She was given supplement for low potassium that she finished 4 days ago new Patient need repeated labs. I also noticed that her LFTs for worse we will monitor that. Patient have a sleep apnea and is in need of new equipment, she has not seen net application support specialist in 3 years Patient says that she saw Dr. Canada 3 years ago and she need of new referral. Patient is also on a blood pressure medication blood pressure is stable We will be repeating chest x-ray again end of this month She will come in for follow-up mid August PENDING SALE TO [facility] Medical History Anemia CPAP (continuous positive airway pressure) dependence Endometriosis Asthma Surgical History History of delivery Family History Other Mental health disorder Substance use disorder Social History Housing: Condominium Alcohol intake: current Alcohol intake frequency: a few times a month Patient Tobacco Use Status: Never used Tobacco e-Cigarette/Vaping Use: Never Used service: No Current occupational status: disabled Cognitive needs: No Hearing needs: No Vision needs: No Questionnaire PHQ-9 Over the last 2 weeks, how often have you been bothered by any of the following problems? 1. Little interest or pleasure in doing things: nearly every day 2. Feeling down, depressed, or hopeless: not at all 3. Trouble falling or staying asleep, or sleeping too much: not at all 4. Feeling tired or having little energy: several days 5. Poor appetite or overeating: not at all 6. Feeling bad about yourself - or that you are a failure or have let yourself or your family down: several days 7. Trouble concentrating on things, such as reading the newspaper or watching television: not at all 8. Moving or speaking so slowly that other people could have noticed. Or the opposite - being so fidgety or restless that you have been moving around a lot more than usual: not at all 9. Thoughts that you would be better off or of hurting yourself in some way: not at all Total score: 5 Depression Screening Interpretation: Negative Depression Screening Done: Yes 98322 - PHQ-9 Billing: Yes Source: Developed by Drs. Deshaun Hassan, Lucie Hinkle, Mart Carlson and colleagues, with an educational jesus from [employer]. Thrive Questionnaire Date Thrive assessed: 07/22/23 I am a: Patient What is your living situation today?: I have a steady place to live Within the past 12 months, did the food you bought not last and you didn't have the money to get more?: Never true Within the past 12 months, did you worry whether your food would run out before you got money to buy more?: Never true Do you have trouble paying for medicines?: No Do you have trouble getting transportation to medical appointments?: No Do you have trouble paying your heating and electricity bill?: No Do you have trouble taking care of your child, family member or friend?: No Do you have trouble with day-to-day activities such as bathing, preparing meals, shopping, managing finances, etc.?: Yes Are you currently unemployed and looking for a job?: No Are you interested in more education?: No AUDIT C Alcohol Use Questionnaire (AUDIT-C) 1. How often do you have a drink containing alcohol?: Never 3. How often do you have six or more drinks on one occasion?: Never Total Score: 0 Score Reviewed/Action Taken: Yes ELLIS-7 AMB Questionnaire ELLIS-7 Date ELLIS - 7 assessed: 07/22/23 Feeling nervous, anxious, or on edge: 2 = More than half the days Not being able to stop or control worryin = Several days Worrying too much about different things: 0 = Not at all Trouble relaxin = Not at all Being so restless that it is hard to sit still: 0 = Not at all Becoming easily annoyed or irritable: 1 = Several days Feeling afraid as if something awful might happen: 0 = Not at all Total ELLIS-7 score (0-4 normal; 5-9 mild; 10-14 moderate; 15-21 severe): 4 Source: Developed by Drs. Deshaun Hassan, Lucie Hinkle, Mart Carlson and colleagues, with an educational jesus from [employer]. ELLIS-7 Assessment Billing ELLIS-7 Assessment Tool: ELLIS-7 Assessment 39918 Review of Systems Const Denies chills and Denies fever(s) ENT Denies epistaxis and Denies nasal discharge Card Denies chest pain Resp Denies hemoptysis GI Denies diarrhea and Denies nausea Skin/Breast Denies rash Neuro Reports no additional complaints Psych Reports no additional complaints Endo Reports no additional complaints Physical exam (Primary Care) Vital Signs: Last Vital Signs Pulse 68 07/22/23 13:52 BP 124/68 07/22/23 13:52 Pulse Ox 96 07/22/23 13:52 Oxygen Delivery Method Room Air 07/22/23 13:52 BMI result Body Mass Index 43.3 Tobacco/Smoking Status: Tobacco use Status Tobacco use date assessed 07/22/23 07/22/23 13:58 Patient Tobacco Use Status Never used Tobacco 07/22/23 13:58 e-Cigarette/Vaping Use Never Used 07/22/23 13:58 PHQ-9: PHQ-9 Score PHQ-9: Total score 5 07/22/23 14:24 Depression Screening Interpretation: Negative Thrive Assessment: Date of Thrive Assessment Date Thrive assessed 07/22/23 07/22/23 14:24 Const General: cooperative, comfortable and no acute distress Orientation/consciousness: patient oriented x3 HENMT Head: Yes normocephalic Eyes General: appearance normal, both eyes and all related structures Neck Neck: Yes supple Resp Other: Wheezing bilateral basal posterior Effort & Inspection: normal respiratory effort, able to speak in complete sentences and no stridor Cardio Rhythm: regular rhythm Heart sounds: S1 normal heart sound present and S2 normal heart sound present Skin General skin exam: turgor normal Neuro General: patient oriented x3, tone normal and moves all extremities Extrem Right lower extremity: no edema Left lower extremity: no edema Assessment and Plan Assessment & Plan (1) Hospital discharge follow-up: Code(s): Z09 - Encounter for follow-up examination after completed treatment for conditions other than malignant neoplasm (2) Pneumonia: Code(s): J18.9 - Pneumonia, unspecified organism Qualifiers: Pneumonia type: due to unspecified organism Laterality: right Lung location: lower lobe of lung Qualified Code(s): J18.9 - Pneumonia, unspecified organism (3) Hypokalemia: Code(s): E87.6 - Hypokalemia (4) LFT elevation: Code(s): R79.89 - Other specified abnormal findings of blood chemistry (5) Obstructive sleep apnea on CPAP: Code(s): G47.33 - Obstructive sleep apnea (adult) (pediatric) (6) Low sodium levels: Code(s): E87.1 - Hypo-osmolality and hyponatremia (7) Hypertension, essential: Code(s): I10 - Essential (primary) hypertension (8) Wheezing on both sides of chest: Code(s): R06.2 - Wheezing Plan Patient is 37-year-old female came in today for hospital discharge follow-up Patient was at [facility] July 09 with cough and congestion and was diagnosed with pneumonia right side She was treated with antibiotic and is feeling better However she is still wheezing both side of her lungs Patient albuterol inhaler at home I have told her to start using that every 8 hour it will help her cough up the mucus. Labs done in emergency room showed potassium of 2.9 and slightly low sodium She was given supplement for low potassium that she finished 4 days ago new Patient need repeated labs. I also noticed that her LFTs for worse we will monitor that. Patient have a sleep apnea and is in need of new equipment, she has not seen net application support specialist in 3 years Patient says that she saw Dr. [place] 3 years ago and she need of new referral. Patient is also on a blood pressure medication blood pressure is stable We will be repeating chest x-ray again end of this month She will come in for follow-up mid August Orders: Orders Comprehensive Met. Panel Today E87.1 - Hypo-osmolality and hyponatremia, E87.6 - Hypokalemia, R79.89 - Other specified abnormal findings of blood chemistry Complete Blood Count Auto Diff Today E87.1 - Hypo-osmolality and hyponatremia, E87.6 - Hypokalemia, R79.89 - Other specified abnormal findings of blood chemistry XR chest 2V Today J18.9 - Pneumonia, unspecified organism Referrals Pulmonary Medicine Referral G47.33 - Obstructive sleep apnea (adult) (pediatric) Coding Level of Care Code Est Pt Level 4 (41363) Diagnoses Hospital discharge follow-up Z09 Pneumonia of right lower lobe due to infectious organism J18.9 Pneumonia type: due to unspecified organism Laterality: right Lung location: lower lobe of lung Hypokalemia E87.6 LFT elevation R79.89 Obstructive sleep apnea on CPAP G47.33 Low sodium levels E87.1 Hypertension, essential I10 Wheezing on both sides of chest R06.2 Additional Codes ELLIS-7 Assessment Billing - ELLIS-7 Assessment Tool: ELLIS-7 Assessment 22161 ([id number])
== END 2023-07-22 15:34 | disposition home or self-care (01) ==
PROVIDERS: PCP Internal Medicine; Visit Provider Internal Medicine
DX: Z09 Encounter for follow-up examination after completed treatment for conditions other than malignant neoplasm (principal); J18.9 Pneumonia, unspecified organism; E87.6 Hypokalemia; R79.89 Other specified abnormal findings of blood chemistry; G47.33 Obstructive sleep apnea (adult) (pediatric); E87.1 Hypo-osmolality and hyponatremia; I10 Essential (primary) hypertension; R06.2 Wheezing
CPT/HCPCS: 99214

== ENCOUNTER 2023-07-22 14:18 | Outpatient (REF) | payer OTHER, SELFPAY ==
[2023-07-22 17:14] LABS: Alanine Aminotransferase 49 U/L (0-31); Albumin Level 4.4 g/dL (3.5-5.0); Alkaline Phosphatase 96 U/L (39-117); Anion Gap 18 (12-20); Aspartate Amino Transferase 34 U/L (5-31); Bilirubin Total 0.7 mg/dL (0.0-1.0); Blood Urea Nitrogen 15 mg/dL (9-16); Calcium 10.6 mg/dL (8.4-10.2); Carbon Dioxide 26 mmol/L (22-29); Chloride 98 mmol/L (96-108); Estimated Glomerular Filt Rate 54; Glucose Random 101 mg/dL (60-115); Potassium 3.5 mmol/L (3.3-5.1); Sodium 138 mmol/L (135-145); Total Protein 8.6 g/dL (6.5-8.0)
== END 2023-07-22 14:19 | disposition home or self-care (01) ==
LOC: HO.HMGCLDS 14:18
PROVIDERS: PCP Internal Medicine; Visit Provider Internal Medicine
DX: E87.6 Hypokalemia (principal); E87.1 Hypo-osmolality and hyponatremia; R79.89 Other specified abnormal findings of blood chemistry
CPT/HCPCS: 36415; 80053; 85025

== ENCOUNTER 2023-08-18 13:56 | Outpatient (AMB) | payer OTHER, SELFPAY ==
--- NOTE | 2023-08-18 14:33 | MHC.OFFVIS ---
Intake Vital Signs 08/18/23 14:34 Height 5 ft 1 in Weight 231 lb BMI 43.6 BP 120/82 Blood Pressure Location Lt brachial Position Sitting Pulse 90 Pulse Source Pulse Oximeter Pulse Oximetry (%) 98 Oxygen Delivery Method Room Air Intake Visit Reasons: Obstructive sleep apnea Intake Note: pt is here for lisbet, and her machine is saying end of life, and water chamber is not working correctly, new DME is requested due to [employer] not in area, her breathing is also not good, she has had double pneumonia a few months ago, (here at ). and still coughing, and son was just dx with RSV last week. Allergies carrot [Carrot] Allergy (Mild, Verified 08/18/23 14:58) INDUCES ASTHMA, HIVES Sulfa (Sulfonamide Antibiotics) [Sulfa (Sulfonamides)] Allergy (Mild, Verified 08/18/23 14:58) INDUCES ASTHMA, HIVES, blotchy, asthma flare up ciprofloxacin [Cipro] Adverse Reaction (Unknown, Verified 08/18/23 14:58) joint swelling Medication List - Last Reconciled 08/18/23 by Darek Canada MD acetaminophen (Tylenol Extra Strength) 500 mg PO Q6H PRN albuterol sulfate 90 mcg/actuation (ProAir HFA) 1 inh inhalation QID PRN 30 days cariprazine (Vraylar) 4.5 mg PO DAILY chlorthalidone 25 mg PO DAILY 90 days clonidine HCl 0.1 mg PO TID PRN naproxen 500 mg PO BID potassium chloride ER 20 mEq PO DAILY Do you need a note to return to daycare/school/sports/work: No HPI Obstructive sleep apnea HPI Details Jody is 37 years old very pleasant female, who is morbidly obese, and is a known case of obstructive sleep apnea since her sleep study in 2017. She she had a polysomnogram study in the sleep lab, and found to have rather severe degree of obstructive sleep apnea, She had CPAP titration on the same night and, was started on CPAP with pressure of 12 cm using full face mask. This patient has been using the CPAP regularly, and the his machine is indicating that it is at the end of life. So she has come back for follow-up here with us. Her weight. Has not changed She has only mild shortness of breath when she walks around which is more likely due to restrictive lung disease. She denies any wheezing attacks. A few weeks ago seen in the emergency room because of acute respiratory infection, and found to have a patch of pneumonia in the right lower lobe. She was treated with a course of Augmentin. He she still has minimal residual cough and still gets short of breath on walking around. [facility] Medical History (Updated 08/18/23 @ 15:23 by Darek Canada MD) Pneumonia Dyspnea on exertion Anemia CPAP (continuous positive airway pressure) dependence Endometriosis Asthma Surgical History History of delivery Family History Other Mental health disorder Substance use disorder Social [facility] Alcohol intake: current Alcohol intake frequency: a few times a month Patient Tobacco Use Status: Never used Tobacco e-Cigarette/Vaping Use: Never Used service: No Current occupational status: disabled Cognitive needs: No Hearing needs: No Vision needs: No Review of Systems Const All systems reviewed & are unremarkable except as noted in HPI and below Denies body aches, Denies chills, Denies fatigue, Denies fever(s) and Denies headache(s) Eyes Denies blurry vision, Denies irritation, Denies itchy eyes and Denies loss of vision ENT Denies dysphagia, Denies vertigo, Denies headache(s), Denies epistaxis, Reports nasal congestion (Mild intermittent), Denies nasal discharge, Denies nasal obstruction and Denies sinus pain Card Denies chest pain, Denies rapid heart rate, Denies irregular heart rhythm and Reports dyspnea on exertion (Mild to moderate) Resp Reports as per HPI and Reports dyspnea on exertion (Mild to moderate) GI Denies bloating, Denies change in bowel habits, Denies change in stool character, Denies dysphagia, Denies heartburn, Denies nausea and Denies vomiting Denies difficulty voiding and Denies urinary incontinence Musc Denies abnormal gait, Denies back pain, Denies myalgias, Denies arthralgias, Denies muscle weakness and Denies stiffness Neuro Denies abnormal gait, Denies vertigo, Denies headache(s), Denies focal weakness, Denies loss of vision, Denies memory loss, Denies restless legs and Denies tremor(s) Psych Denies anxiety, Denies depression, Denies difficulty concentrating, Denies irritability, Denies memory loss and Denies mood swings Endo Reports no additional complaints and Denies fatigue [place]/Lymph Reports no additional complaints Aller/Immun Reports no additional complaints and Denies itchy eyes Physical Exam Vital Signs: Last Vital Signs Pulse 90 08/18/23 14:34 BP 120/82 08/18/23 14:34 Pulse Ox 98 08/18/23 14:34 Oxygen Delivery Method Room Air 08/18/23 14:34 BMI result Body Mass Index 43.6 This 37 years old female is grossly obese, with a round face, short and obese neck, Physical features are typical of a patient with obstructive sleep apnea. Const General: comfortable, no acute distress, alert and awake Orientation/consciousness: patient oriented x3 HEENT Head: Yes normal to inspection General nose exam: No nasal polyps present and No nasal discharge present Face and sinus: Yes sinuses nontender Mouth: oropharynx abnormals (Oropharynx is narrow and crowded, Mallampati scale 4) Throat: Yes posterior oropharynx normal Eyes General: appearance normal, both eyes and all related structures Neck Neck: Yes normal visual inspection, Yes no lymphadenopathy, Yes trachea midline, Yes no JVD and Yes other (Neck circumference 19 in) Thyroid: Thyroid normal Chest Chest palpation & inspection: normal inspection of the chest, normal palpation of entire chest wall and no tenderness Resp Other: Percussion nose is not perceivable because of the thick chest wall. Breath sounds are somewhat decreased over. The basilar areas But no wheezes rhonchi or crepitations are heard. Especially the right base is clear. Cardio Palpation: PMI not normal (Not palpable) Rate: regular rate Rhythm: regular rhythm Heart sounds: no gallops and no murmurs Peripheral pulses: Peripheral pulses 2+ throughout GI Palpation (GI): Soft to palpation, Tenderness to palpation present (GI), No hepatosplenomegaly present, Palpable mass present and Other GI palpation findings present (Abdomen is obese and protuberant) Auscultation: normal bowel sounds Back/Spine/Pelvis Thoracic/Lumbar Spine: thoracic and lumbar spine normal to inspection Skin General skin exam: no rashes or lesions noted Neuro General: patient oriented x3 and no focal motor deficits Cranial nerves: Yes CN's II-XII intact bilaterally Extrem General: Yes normal to inspection, Yes no clubbing, cyanosis or edema and Yes no calf tenderness Psych Appearance: grossly normal and well kempt Speech and movement: Normal speech and movement present Results Reviewed Results Reviewed: REVIEWED THE RESULTS OF HER SLEEP STUDY IN 2017 SHE HAD VERY SEVERE OBSTRUCTIVE SLEEP APNEA WITH TOTAL SLEEP TIME RDI 124. SHE RESPONDED TO CPAP TITRATION WELL WITH AND NEEDED PRESSURE OF 12 CM Assessment & Plan Assessment & Plan (1) Morbid obesity with BMI of 40.0-44.9, adult: Comment: THE PATIENT REMAINS MORBIDLY OBESE, SHE DOES NEED TO LOSE SOME WEIGHT, SHE IS NOT IN ANY ACTIVE WEIGHT REDUCTION PROGRAM. I TALKED TO HER ABOUT REDUCING THE CALORIES INTAKE AND DOING SOME EXERCISE DAILY. Code(s): E66.01 - Morbid (severe) obesity due to excess calories; Z68.41 - Body mass index [BMI] 40.0-44.9, adult (2) Obstructive sleep apnea on CPAP: Comment: PATIENT IS KNOWN CASE OF RATHER SEVERE DEGREE OF OBSTRUCTIVE SLEEP APNEA. SHE DOES NEED TO CONTINUE USING THE CPAP. I AM GOING TO ORDER FOR A NEW CPAP MACHINE, WITH FULL FACE MASK AND PRESSURE SETTING OF 12 CMs. Code(s): G47.33 - Obstructive sleep apnea (adult) (pediatric) (3) Dyspnea on exertion: Comment: DYSPNEA ON EXERTION, IS PROBABLY DUE TO GROSS OBESITY AND RESTRICTIVE LUNG DISORDER. SHE MAY HAVE A MILD DEGREE OF BRONCHIAL ASTHMA. SHE NEEDS COMPLETE PULMONARY FUNCTION TEST FOR EVALUATION. Code(s): R06.09 - Other forms of dyspnea (4) Pneumonia: Comment: PATIENT WAS SEEN IN THE EMERGENCY ROOM 2 WEEKS AGO AND DIAGNOSED TO CA PE RIGHT LOWER LOBE. HAS BEEN TREATED WITH A COURSE OF AUGMENTIN. . CLINICALLY PNEUMONIA HAS RESOLVED SHE NEEDS A REPEAT CHEST X-RAY FOR FOLLOW-UP, WHICH HAS BEEN ORDERED BY HER PCP. Code(s): J18.9 - Pneumonia, unspecified organism Orders: Orders PFT pulmonary function test Today E66.01 - Morbid (severe) obesity due to excess calories, G47.33 - Obstructive sleep apnea (adult) (pediatric), R06.09 - Other forms of dyspnea, Z68.41 - Body mass index [BMI] 40.0-44.9, adult Coding Level of Care Code Est Pt Level 4 (39502) Diagnoses Morbid obesity with BMI of 40.0-44.9, adult E66.01; Z68.41 Obstructive sleep apnea on CPAP G47.33 Dyspnea on exertion R06.09 Pneumonia J18.9
[2023-08-18 14:34] VITALS: BP 120/82; PULSE 90; O2SAT 98; BMI 43.6
== END 2023-08-18 15:09 | disposition home or self-care (01) ==
PROVIDERS: PCP Internal Medicine; Referring Provider Internal Medicine; Visit Provider Internal Medicine
DX: E66.01 Morbid (severe) obesity due to excess calories (principal); Z68.41 Body mass index [BMI] 40.0-44.9, adult; G47.33 Obstructive sleep apnea (adult) (pediatric); R06.09 Other forms of dyspnea; J18.9 Pneumonia, unspecified organism
CPT/HCPCS: 99214

== ENCOUNTER → 2023-08-18 13:56 | Outpatient (BNVA) | payer OTHER, SELFPAY | PROVIDERS: PCP Internal Medicine; Referring Provider Internal Medicine; Visit Provider Internal Medicine | DX: G47.33 Obstructive sleep apnea (adult) (pediatric) (principal); R06.09 Other forms of dyspnea; J18.9 Pneumonia, unspecified organism; E66.01 Morbid (severe) obesity due to excess calories; Z68.41 Body mass index [BMI] 40.0-44.9, adult | CPT/HCPCS: 99212 ==

== ENCOUNTER 2023-09-02 09:42 | Outpatient (AMB) | payer OTHER, SELFPAY ==
[2023-09-02 09:51] VITALS: BP 116/66; PULSE 73; O2SAT 97; BMI 43.3
--- NOTE | 2023-09-02 09:51 | MHC.PC.OV ---
Vital Signs 09/02/23 09:51 Height 5 ft 1 in Weight 229 lb BMI 43.3 BP 116/66 Blood Pressure Location Rt brachial Position Sitting Pulse 73 Pulse Source Pulse Oximeter Pulse Oximetry (%) 97 Oxygen Delivery Method Room Air Intake Visit Reasons: one month fu Allergies carrot [Carrot] Allergy (Mild, Verified 09/02/23 09:52) INDUCES ASTHMA, HIVES Sulfa (Sulfonamide Antibiotics) [Sulfa (Sulfonamides)] Allergy (Mild, Verified 09/02/23 09:52) INDUCES ASTHMA, HIVES, blotchy, asthma flare up ciprofloxacin [Cipro] Adverse Reaction (Unknown, Verified 09/02/23 09:52) joint swelling Medication List - Last Reconciled 09/02/23 by Adrianne Steward MD acetaminophen (Tylenol Extra Strength) 500 mg PO Q6H PRN albuterol sulfate 90 mcg/actuation (ProAir HFA) 1 inh inhalation QID PRN 30 days cariprazine (Vraylar) 4.5 mg PO DAILY chlorthalidone 25 mg PO DAILY 90 days clonidine HCl 0.1 mg PO TID PRN naproxen 500 mg PO BID potassium chloride ER 20 mEq PO DAILY Tobacco use date assessed: 09/02/23 Dental Screening Dental Screen Date: 09/02/23 Did you have a dental visit in the last 12 months?: Yes Did you have a dental problem in the last 6 months where you did not have access to dental care?: No Was dental information given to patient?: Patient has dentist HPI one month fu HPI Details Patient is 37-year-old female came in today for follow-up appointment Patient had right lower lobe pneumonia in June, and need a repeat chest x-ray She has seen Dr. [place] insurance law specialist this month and pulmonary function test were ordered She has no cough or shortness of breath today She is also complaining of dark yellow urine, on examination she has slight discomfort suprapubic I have ordered urinalysis Patient continued to drop potassium, last potassium was normal, however it need to be monitored she will have labs done today. Patient will return in 3 months to have follow-up on LFTs, she will have labs done before visit. [facility] Medical History (Updated 09/02/23 @ 10:07 by Adrianne Steward MD) Pneumonia Dyspnea on exertion Anemia CPAP (continuous positive airway pressure) dependence Endometriosis Asthma Surgical History History of delivery Family History Other Mental health disorder Substance use disorder [facility] Alcohol intake: current Alcohol intake frequency: a few times a month Patient Tobacco Use Status: Never used Tobacco e-Cigarette/Vaping Use: Never Used service: No Current occupational status: disabled Cognitive needs: No Hearing needs: No Vision needs: No Questionnaire PHQ-9 Over the last 2 weeks, how often have you been bothered by any of the following problems? 1. Little interest or pleasure in doing things: not at all 2. Feeling down, depressed, or hopeless: not at all 3. Trouble falling or staying asleep, or sleeping too much: several days 4. Feeling tired or having little energy: several days 5. Poor appetite or overeating: not at all 6. Feeling bad about yourself - or that you are a failure or have let yourself or your family down: not at all 7. Trouble concentrating on things, such as reading the newspaper or watching television: not at all 8. Moving or speaking so slowly that other people could have noticed. Or the opposite - being so fidgety or restless that you have been moving around a lot more than usual: not at all 9. Thoughts that you would be better off or of hurting yourself in some way: not at all Total score: 2 Depression Screening Interpretation: Negative Depression Screening Done: Yes 27059 - PHQ-9 Billing: Yes Source: Developed by Drs. Deshaun Hassan, Lucie Hinkle, Mart Carlson and colleagues, with an educational jesus from [employer]. Thrive Questionnaire Date Thrive assessed: 07/22/23 AUDIT C Alcohol Use Questionnaire (AUDIT-C) 1. How often do you have a drink containing alcohol?: Never 3. How often do you have six or more drinks on one occasion?: Never Total Score: 0 Score Reviewed/Action Taken: No ELLIS-7 AMB Questionnaire ELLIS-7 Date ELLIS - 7 assessed: 07/22/23 Source: Developed by Drs. Deshaun Hassan, Lucie Hinkle, Mart Carlson and colleagues, with an educational jesus from [employer]. ACT Questionnaire In the past 4 weeks, how much of the time did your asthma keep you from getting as much done at work, school or at home?: None of the time During the past 4 weeks, how often have you had shortness of breath?: 3-6 times a week During the past 4 weeks, how often did your asthma symptoms wake you up at night or earlier than usual in the morning?: Once or twice per week During the past 4 weeks, how often have you had to use your rescue inhaler or nebulizer medication?: Not at all How would you rate your asthma control during the past 4 weeks?: Well controlled ACT Interpretation: Negative Score: 21 Review of Systems Const Denies chills and Denies fever(s) ENT Denies epistaxis and Denies nasal discharge Card Denies chest pain Resp Denies chest congestion, Denies cough and Denies hemoptysis GI Denies diarrhea and Denies nausea Skin/Breast Denies rash Neuro Reports no additional complaints Psych Reports no additional complaints Endo Reports no additional complaints Physical exam (Primary Care) Vital Signs: Last Vital Signs Pulse 73 09/02/23 09:51 BP 116/66 09/02/23 09:51 Pulse Ox 97 09/02/23 09:51 Oxygen Delivery Method Room Air 09/02/23 09:51 BMI result Body Mass Index 43.3 Tobacco/Smoking Status: Tobacco use Status Tobacco use date assessed 09/02/23 09/02/23 09:52 Patient Tobacco Use Status Never used Tobacco 09/02/23 09:52 e-Cigarette/Vaping Use Never Used 09/02/23 09:52 PHQ-9: PHQ-9 Score PHQ-9: Total score 2 09/02/23 10:16 Depression Screening Interpretation: Negative Thrive Assessment: Date of Thrive Assessment Date Thrive assessed 07/22/23 09/02/23 09:52 Const General: cooperative, comfortable and no acute distress Orientation/consciousness: patient oriented x3 HENMT Head: Yes normocephalic Eyes General: appearance normal, both eyes and all related structures Neck Neck: Yes supple Resp Other: No wheezing, no rhonchi, no rales, however breath sounds slightly dull right lower lobe on auscultation Effort & Inspection: normal respiratory effort, no cough and no stridor Cardio Rhythm: regular rhythm Heart sounds: S1 normal heart sound present and S2 normal heart sound present Skin General skin exam: turgor normal Neuro General: patient oriented x3, tone normal and moves all extremities Extrem Right lower extremity: no edema Left lower extremity: no edema Office Procedures Flu Questionnaire Does the patient have a severe egg allergy?: No Does the patient have severe life threatening allergies?: No Does the patient have a fever or illness today?: No Has the patient ever had Guillain-Grifton Syndrome?: No Has the patient ever had any past reaction to a flu shot?: No Immunizations flu vacc [id number] 6mos up(PF) 60 mcg(15 mcgx4)/0.5 mL IM syringe Performing Provider: Adrianne Steward MD Performing Location: [facility] Administered by: Mary Ewing CMA on 09/02/23 10:13 Dose Route Admin Location Dispensed Lot Number Expiration Date NDC Imaging Manager 0.5 mL IM Right Deltoid 0.5 mL [id number] 04/10/24 60276-933-09 [employer]anno VIS Given Date VIS Provided VIS Publication Date 09/02/23 Single Vaccine 21 Eligibility Eligibility Date Funding Source Not [facility] Eligible 09/02/23 Private Assessment and Plan Assessment & Plan (1) Pneumonia: Comment: PATIENT WAS SEEN IN THE EMERGENCY ROOM 2 WEEKS AGO AND DIAGNOSED TO CA PE RIGHT LOWER LOBE. HAS BEEN TREATED WITH A COURSE OF AUGMENTIN. . CLINICALLY PNEUMONIA HAS RESOLVED SHE NEEDS A REPEAT CHEST X-RAY FOR FOLLOW-UP, WHICH HAS BEEN ORDERED BY HER PCP. Code(s): J18.9 - Pneumonia, unspecified organism Qualifiers: Laterality: right Lung location: lower lobe of lung Pneumonia type: due to unspecified organism Qualified Code(s): J18.9 - Pneumonia, unspecified organism (2) Dark yellow-colored urine: Code(s): R39.89 - Other symptoms and signs involving the genitourinary system (3) Electrolyte abnormality: Code(s): E87.8 - Other disorders of electrolyte and fluid balance, not elsewhere classified (4) LFT elevation: Code(s): R79.89 - Other specified abnormal findings of blood chemistry (5) Hypertension, essential: Code(s): I10 - Essential (primary) hypertension Plan Patient is 37-year-old female came in today for follow-up appointment Patient had right lower lobe pneumonia in June, and need a repeat chest x-ray She has seen Dr. [place] insurance law specialist this month and pulmonary function test were ordered She has no cough or shortness of breath today She is also complaining of dark yellow urine, on examination she has slight discomfort suprapubic I have ordered urinalysis Patient continued to drop potassium, last potassium was normal, however it need to be monitored she will have labs done today. Patient will return in 3 months to have follow-up on LFTs, she will have labs done before visit. Orders: Orders XR chest 2V Today J18.9 - Pneumonia, unspecified organism Complete Blood Count Auto Diff 3 Months I10 - Essential (primary) hypertension, R79.89 - Other specified abnormal findings of blood chemistry UA CC w/rflx Micro + Cult Today R39.89 - Other symptoms and signs involving the genitourinary system Comprehensive Met. Panel Today E87.8 - Other disorders of electrolyte and fluid balance, not elsewhere classified Comprehensive Met. Panel 3 Months I10 - Essential (primary) hypertension, R79.89 - Other specified abnormal findings of blood chemistry Influenza [id number] Immunization Today Z23 - Encounter for immunization Coding Level of Care Code Est Pt Level 4 (38460) Diagnoses Pneumonia of right lower lobe due to infectious organism J18.9 Laterality: right Lung location: lower lobe of lung Pneumonia type: due to unspecified organism Dark yellow-colored urine R39.89 Electrolyte abnormality E87.8 LFT elevation R79.89 Hypertension, essential I10
== END 2023-09-02 11:53 | disposition home or self-care (01) ==
PROVIDERS: PCP Internal Medicine; Visit Provider Internal Medicine
DX: J18.9 Pneumonia, unspecified organism (principal); R39.89 Other symptoms and signs involving the genitourinary system; E87.8 Other disorders of electrolyte and fluid balance, not elsewhere classified; R79.89 Other specified abnormal findings of blood chemistry; I10 Essential (primary) hypertension; Z23 Encounter for immunization
CPT/HCPCS: 90471; 90686; 99214

== ENCOUNTER 2023-12-09 08:44 | Outpatient (AMB) | payer OTHER, SELFPAY ==
[2023-12-09 08:47] VITALS: BP 132/86; PULSE 77; TEMP 36.5; O2SAT 97; BMI 44.1
--- NOTE | 2023-12-09 08:47 | MHC.PC.OV ---
Vital Signs 12/09/23 08:47 Height 5 ft 1 in Weight 233 lb 8 oz BMI 44.1 BP 132/86 Blood Pressure Location Rt brachial Position Sitting Pulse 77 Pulse Source Pulse Oximeter Temp 97.7 F Temp Source Oral Pulse Oximetry (%) 97 Oxygen Delivery Method Room Air Intake Visit Reasons: 3 month follow up Allergies carrot [Carrot] Allergy (Mild, Verified 12/09/23 08:48) INDUCES ASTHMA, HIVES Sulfa (Sulfonamide Antibiotics) [Sulfa (Sulfonamides)] Allergy (Mild, Verified 12/09/23 08:48) INDUCES ASTHMA, HIVES, blotchy, asthma flare up ciprofloxacin [Cipro] Adverse Reaction (Unknown, Verified 12/09/23 08:48) joint swelling Medication List - Last Reviewed 12/09/23 by Dasia Oliveira MA albuterol sulfate 90 mcg/actuation (ProAir HFA) 1 inh inhalation QID PRN 30 days cariprazine (Vraylar) 4.5 mg PO DAILY chlorthalidone 25 mg PO DAILY 90 days clonidine HCl 0.1 mg PO TID PRN ibuprofen 600 mg PO Q8H PRN Tobacco use date assessed: 12/09/23 Dental Screening Dental Screen Date: 12/09/23 Did you have a dental visit in the last 12 months?: No Did you have a dental problem in the last 6 months where you did not have access to dental care?: No Was dental information given to patient?: Patient has dentist HPI 3 month follow up HPI Details Patient is a 38-year-old female came in today for her regular follow-up appointment Patient is not feeling well today, patient says that she is feeling pressure over her sinuses and have a clear nasal discharge She also have mild sore throat and is feeling tired Patient is taking ibuprofen regularly for her back pain and last dose was this morning She is afebrile but that also can be because of ibuprofen Blood pressure is stable patient is on chlorthalidone She is due for labs order is already in the system patient notified to do it by the end of next month I have taken RSV COVID and flu test Meanwhile patient is to continue with symptomatic treatment She will give me a call if her symptoms get worse. Patient is morbidly obese and is trying to lose weight She also suffers from bipolar disorder, managed by Psychiatry Follow-up 3 months PFSH Medical History Pneumonia Dyspnea on exertion Anemia CPAP (continuous positive airway pressure) dependence Endometriosis Asthma Surgical History History of delivery Family History Other Mental health disorder Substance use disorder Social History Housing: Condominium Alcohol intake: current Alcohol intake frequency: a few times a month Patient Tobacco Use Status: Never used Tobacco e-Cigarette/Vaping Use: Never Used service: No Current occupational status: disabled Cognitive needs: No Hearing needs: No Vision needs: No Questionnaire Thrive Questionnaire Date Thrive assessed: 07/22/23 AUDIT C Alcohol Use Questionnaire (AUDIT-C) 1. How often do you have a drink containing alcohol?: Never 3. How often do you have six or more drinks on one occasion?: Never Total Score: 0 Score Reviewed/Action Taken: Yes ELLIS-7 AMB Questionnaire ELLIS-7 Date ELLIS - 7 assessed: 07/22/23 Source: Developed by Drs. Deshaun Hassan, Lucie Hinkle, Mart Carlson and colleagues, with an educational jesus from [employer]. Review of Systems Const Denies fever(s) ENT Denies epistaxis and Denies nasal discharge Card Denies chest pain Resp Denies chest congestion and Denies hemoptysis GI Denies diarrhea and Denies nausea Skin/Breast Denies rash Neuro Reports no additional complaints Psych Reports no additional complaints Endo Reports no additional complaints Physical exam (Primary Care) Vital Signs: Last Vital Signs Temp 97.7 F 12/09/23 08:47 Pulse 77 12/09/23 08:47 BP 132/86 12/09/23 08:47 Pulse Ox 97 12/09/23 08:47 Oxygen Delivery Method Room Air 12/09/23 08:47 BMI result Body Mass Index 44.1 Tobacco/Smoking Status: Tobacco use Status Tobacco use date assessed 12/09/23 12/09/23 08:49 Patient Tobacco Use Status Never used Tobacco 12/09/23 08:49 e-Cigarette/Vaping Use Never Used 12/09/23 08:49 Thrive Assessment: Date of Thrive Assessment Date Thrive assessed 07/22/23 12/09/23 08:49 Const General: cooperative, comfortable and no acute distress Orientation/consciousness: patient oriented x3 HENMT Head: Yes normocephalic Eyes General: appearance normal, both eyes and all related structures Neck Neck: Yes supple Resp Effort & Inspection: normal respiratory effort, no cough and no stridor Cardio Rhythm: regular rhythm Heart sounds: S1 normal heart sound present and S2 normal heart sound present Skin General skin exam: turgor normal Neuro General: patient oriented x3, tone normal and moves all extremities Extrem Right lower extremity: no edema Left lower extremity: no edema Assessment and Plan Assessment & Plan (1) Hypertension, essential: Code(s): I10 - Essential (primary) hypertension (2) Sinus pressure: Code(s): J34.89 - Other specified disorders of nose and nasal sinuses (3) Impaired fasting blood sugar: Code(s): R73.01 - Impaired fasting glucose (4) Shortness of breath: Code(s): R06.02 - Shortness of breath (5) Morbid obesity with BMI of 40.0-44.9, adult: Comment: THE PATIENT REMAINS MORBIDLY OBESE, SHE DOES NEED TO LOSE SOME WEIGHT, SHE IS NOT IN ANY ACTIVE WEIGHT REDUCTION PROGRAM. I TALKED TO HER ABOUT REDUCING THE CALORIES INTAKE AND DOING SOME EXERCISE DAILY. Code(s): E66.01 - Morbid (severe) obesity due to excess calories; Z68.41 - Body mass index [BMI] 40.0-44.9, adult (6) LFT elevation: Code(s): R79.89 - Other specified abnormal findings of blood chemistry Plan Patient is a 38-year-old female came in today for her regular follow-up appointment Patient is not feeling well today, patient says that she is feeling pressure over her sinuses and have a clear nasal discharge She also have mild sore throat and is feeling tired Patient is taking ibuprofen regularly for her back pain and last dose was this morning She is afebrile but that also can be because of ibuprofen Complaining of shortness a breath off and on, currently patient is only taking albuterol inhaler I have sent Symbicort patient is to start taking that 1 or 2 puffs b.i.d. Blood pressure is stable patient is on chlorthalidone She is due for labs order is already in the system patient notified to do it by the end of next month I have taken RSV COVID and flu test Meanwhile patient is to continue with symptomatic treatment She will give me a call if her symptoms get worse. Patient is morbidly obese and is trying to lose weight She also suffers from bipolar disorder, managed by Psychiatry Follow-up 3 months Orders: Orders SARS-CoV2/FLU/RSV Today R09.89 - Other specified symptoms and signs involving the circulatory and respiratory systems Medications: New budesonide-formoterol 160-4.5 mcg/actuation (Symbicort) 2 puffs inhalation BID 10.2 grams 3RF 30 days J45.909 - Unspecified asthma, uncomplicated Coding Level of Care Code Est Pt Level 4 (61340) Diagnoses Hypertension, essential I10 Sinus pressure J34.89 Impaired fasting blood sugar R73.01 Shortness of breath R06.02 Morbid obesity with BMI of 40.0-44.9, adult E66.01; Z68.41 LFT elevation R79.89
== END 2023-12-09 09:15 | disposition home or self-care (01) ==
PROVIDERS: PCP Internal Medicine; Visit Provider Internal Medicine
DX: I10 Essential (primary) hypertension (principal); E66.01 Morbid (severe) obesity due to excess calories; Z68.41 Body mass index [BMI] 40.0-44.9, adult; J34.89 Other specified disorders of nose and nasal sinuses; R73.01 Impaired fasting glucose; R06.02 Shortness of breath; R79.89 Other specified abnormal findings of blood chemistry
CPT/HCPCS: 99214

== ENCOUNTER 2023-12-09 11:06 | Outpatient (REF) | payer OTHER, SELFPAY ==
[2023-12-09 12:20] LABS: Influenza A PCR NEGATIVE (Negative); Influenza B PCR NEGATIVE (Negative); Resp Syncy Virus RNA Qual PCR NEGATIVE (Negative); SARS COV2 PCR INHOUSE NEGATIVE (Negative)
== END 2023-12-09 11:07 | disposition home or self-care (01) ==
LOC: HO.HMGCLNP 11:06
PROVIDERS: Visit Provider Internal Medicine
DX: R09.89 Other specified symptoms and signs involving the circulatory and respiratory systems (principal); Z11.52 Encounter for screening for COVID-19; Z20.828 Contact with and (suspected) exposure to other viral communicable diseases
CPT/HCPCS: 0241U

== ENCOUNTER 2023-12-12 13:16 | Outpatient (AMB) | payer OTHER, SELFPAY ==
[2023-12-12 13:17] VITALS: BP 132/80; PULSE 86; TEMP 36.4; O2SAT 96; BMI 44.4
--- NOTE | 2023-12-12 13:17 | AM.OFFWIN_ITS ---
Intake Vital Signs 12/12/23 13:17 Height 5 ft 1 in Weight 235 lb BMI 44.4 BP 132/80 Blood Pressure Location Lt brachial Position Sitting Pulse 86 Pulse Source Pulse Oximeter Temp 97.5 F Temp Source Oral Pulse Oximetry (%) 96 Oxygen Delivery Method Room Air Intake Visit Reasons: EP Sinus Stuffy, diff breathing Intake Note: Pt is here today for Sinus, stuffy nose and also difficulty breathing, Pt states started Thursday. Patient Tobacco Use Status: Never used Tobacco Allergies carrot [Carrot] Allergy (Mild, Verified 12/12/23 13:18) INDUCES ASTHMA, HIVES Sulfa (Sulfonamide Antibiotics) [Sulfa (Sulfonamides)] Allergy (Mild, Verified 12/12/23 13:18) INDUCES ASTHMA, HIVES, blotchy, asthma flare up ciprofloxacin [Cipro] Adverse Reaction (Unknown, Verified 12/12/23 13:18) joint swelling HPI HPI Comments History of Present Illness Details This is a 38-year-old female with a past medical history of hypertension, bipolar disorder, asthma and obstructive sleep apnea presenting for evaluation of sinus congestion and cough that she has had for the past 4 days. Patient does report some shortness of breath exertion as well as rhinorrhea. Patient states that she tested negative for COVID-19 on . She denies having any fevers or chills, chest pain, hemoptysis or wheezing and has not taken any medication for treatment of her symptoms. [facility] Medical History Pneumonia Dyspnea on exertion Anemia CPAP (continuous positive airway pressure) dependence Endometriosis Asthma Surgical History History of delivery Family History Other Mental health disorder Substance use disorder Social History Housing: Condominium Alcohol intake: current Alcohol intake frequency: a few times a month Patient Tobacco Use Status: Never used Tobacco e-Cigarette/Vaping Use: Never Used service: No Current occupational status: disabled Cognitive needs: No Hearing needs: No Vision needs: No Review of Systems Const All systems reviewed & are unremarkable except as noted in HPI and below Denies headache(s) Eyes Reports no additional complaints ENT Denies otalgia, Denies headache(s), Reports nasal congestion, Reports nasal discharge, Reports sinus pressure and Denies sore throat Card Reports no additional complaints and Reports dyspnea on exertion Resp Denies cough, Denies hemoptysis, Denies pain with cough, Reports dyspnea on exertion and Denies wheezing Skin/Breast Reports system reviewed and no additional complaints, except as documented Neuro Denies headache(s) Aller/Immun Denies wheezing Physical Exam Const General: cooperative, no acute distress, well developed, alert, awake and tired appearing Nutritional Appearance: obese Orientation/consciousness: patient oriented x3 Limitations: no limitations HEENT Head: Yes normal to inspection and Yes atraumatic Ears: hearing grossly normal bilaterally, external ears normal, TM's normal bilaterally and EAC's normal General nose exam: Normal external nose present and Normal nares present Face and sinus: Yes normal facial exam and Yes sinuses nontender Mouth: Normal oral and palatal mucosa present and moist mucous membranes Teeth and gingiva: dentition normal Throat: Yes posterior oropharynx normal (There is no edema, erythema or exudates of the posterior oropharynx) and Yes postnasal drainage Eyes Eyelids: Yes eyelids normal Conjunctivae: conjunctival abnormal (Injected bilaterally) Sclerae: sclerae normal Pupils: Equal, round and reactive pupils present EOM: EOMs intact bilaterally Neck Lymphatic: no lymphadenopathy noted Resp Effort & Inspection: normal respiratory effort, able to speak in complete sentences, no audible wheezes, no cough, no respiratory distress, not tachypneic and no tripod positioning Auscultation: clear to auscultation bilaterally, no crackles, no wheezes and diminished lung sounds Cardio Rate: regular rate and not tachycardic Rhythm: regular rhythm Skin General skin exam: no rashes or lesions noted Neuro General: patient oriented x3 Cranial nerves: Yes Equal, round and reactive pupils present Psych Appearance: grossly normal Mental Status: mental status grossly normal Insight: Good insight present (Psych) Judgement: Good judgement present (Psych) Assessment & Plan Assessment & Plan (1) Cough: Comment: There is no clinical evidence of a bacterial sinusitis; SARS panel is ordered and pending. Code(s): R05.9 - Cough, unspecified Qualifiers: Cough type: acute Qualified Code(s): R05.1 - Acute cough Plan: Mucinex OTC with increase clear fluids daily; respiratory panel is pending. Patient will follow up with her primary care provider or go to the emergency department if her dyspnea on exertion worsens. Orders: Orders SARS-CoV2/FLU/RSV Today R05.9 - Cough, unspecified Coding Level of Care Code Est Pt Level 3 (28390) Diagnoses Acute cough R05.1 Cough type: acute Time Spent (min) 20
== END 2023-12-12 14:07 | disposition home or self-care (01) ==
PROVIDERS: PCP Internal Medicine; Visit Provider Physician Assistant
DX: R05.1 Acute cough (principal)
CPT/HCPCS: 99213

== ENCOUNTER 2023-12-12 15:26 | Outpatient (REF) | payer OTHER, SELFPAY ==
[2023-12-12 16:53] LABS: Influenza A PCR NEGATIVE (Negative); Influenza B PCR NEGATIVE (Negative); Resp Syncy Virus RNA Qual PCR NEGATIVE (Negative); SARS COV2 PCR INHOUSE NEGATIVE (Negative)
== END 2023-12-12 15:27 | disposition home or self-care (01) ==
LOC: HO.LNP 15:26
PROVIDERS: Visit Provider Physician Assistant
DX: Z11.52 Encounter for screening for COVID-19 (principal); Z20.822 Contact with and (suspected) exposure to COVID-19; R05.9 Cough, unspecified
CPT/HCPCS: 0241U

== ENCOUNTER 2024-02-26 09:11 | Outpatient (AMB) | payer OTHER, SELFPAY ==
--- NOTE | 2024-02-26 09:16 | A.OFFPC_ITS ---
Vital Signs 02/26/24 09:17 Height 5 ft 1 in Weight 228 lb 4 oz BMI 43.1 BP 120/84 Blood Pressure Location Rt brachial Position Sitting Pulse 71 Pulse Source Pulse Oximeter Pulse Oximetry (%) 96 Oxygen Delivery Method Room Air Intake Visit Reasons: follow up on weight Allergies carrot [Carrot] Allergy (Mild, Verified 02/26/24 09:17) INDUCES ASTHMA, HIVES Sulfa (Sulfonamide Antibiotics) [Sulfa (Sulfonamides)] Allergy (Mild, Verified 02/26/24 09:17) INDUCES ASTHMA, HIVES, blotchy, asthma flare up ciprofloxacin [Cipro] Adverse Reaction (Unknown, Verified 02/26/24 09:17) joint swelling Medication List - Last Reconciled 02/26/24 by Adrianne Steward MD albuterol sulfate 90 mcg/actuation (ProAir HFA) 1 inh inhalation QID PRN 30 days budesonide-formoterol 160-4.5 mcg/actuation (Symbicort) 2 puffs inhalation BID 30 days cariprazine (Vraylar) 4.5 mg PO DAILY chlorthalidone 25 mg PO DAILY 90 days clonidine HCl 0.1 mg PO TID PRN ibuprofen 600 mg PO Q8H PRN Tobacco use date assessed: 02/26/24 Dental Screening Dental Screen Date: 02/26/24 Did you have a dental visit in the last 12 months?: Yes Did you have a dental problem in the last 6 months where you did not have access to dental care?: No Was dental information given to patient?: Patient has dentist HPI follow up on weight HPI Details Patient is a 38-year-old female Came in today to have her weight checked, patient says that she is trying to lose weight eating healthy She does now have a weighing scale at home so she wanted to come in and see if she is losing any weight Patient has lost 6 lb since December Her weight does fluctuate up and down. Her blood pressure is stable, she is on chlorthalidone 25 mg and clonidine 0.1 mg t.i.d. Asthma is stable with Symbicort Patient have an appointment coming up for physical examination end of this month Order placed for labs to be done before visit [facility] Medical History Pneumonia Dyspnea on exertion Anemia CPAP (continuous positive airway pressure) dependence Endometriosis Asthma Surgical History History of delivery Family History Other Mental health disorder Substance use disorder Social History [facility] Alcohol intake: current Alcohol intake frequency: a few times a month Patient Tobacco Use Status: Never used Tobacco e-Cigarette/Vaping Use: Never Used service: No Current occupational status: disabled Cognitive needs: No Hearing needs: No Vision needs: No Questionnaire Thrive Questionnaire Date Thrive assessed: 07/22/23 AUDIT C Alcohol Use Questionnaire (AUDIT-C) 1. How often do you have a drink containing alcohol?: Never 3. How often do you have six or more drinks on one occasion?: Never Total Score: 0 Score Reviewed/Action Taken: Yes ELLIS-7 AMB Questionnaire ELLIS-7 Date ELLIS - 7 assessed: 07/22/23 Source: Developed by Drs. Deshaun Hassan, Lucie Hinkle, Mart Carlson and colleagues, with an educational jesus from [employer]. Review of Systems Const Denies chills and Denies fever(s) ENT Denies epistaxis and Denies nasal discharge Card Denies chest pain Resp Denies chest congestion, Denies cough and Denies hemoptysis GI Denies diarrhea and Denies nausea Skin/Breast Denies rash Neuro Reports no additional complaints Psych Reports no additional complaints Endo Reports no additional complaints Physical exam (Primary Care) Vital Signs: Last Vital Signs Pulse 71 02/26/24 09:17 BP 120/84 02/26/24 09:17 Pulse Ox 96 02/26/24 09:17 Oxygen Delivery Method Room Air 02/26/24 09:17 BMI result Body Mass Index 43.1 Tobacco/Smoking Status: Tobacco use Status Tobacco use date assessed 02/26/24 02/26/24 09:18 Patient Tobacco Use Status Never used Tobacco 02/26/24 09:18 e-Cigarette/Vaping Use Never Used 02/26/24 09:18 Thrive Assessment: Date of Thrive Assessment Date Thrive assessed 07/22/23 02/26/24 09:18 Const General: cooperative, comfortable and no acute distress Orientation/consciousness: patient oriented x3 HENMT Head: Yes normocephalic Eyes General: appearance normal, both eyes and all related structures Neck Neck: Yes supple Resp Effort & Inspection: normal respiratory effort, no cough and no stridor Cardio Rhythm: regular rhythm Heart sounds: S1 normal heart sound present and S2 normal heart sound present Skin General skin exam: turgor normal Neuro General: patient oriented x3, tone normal and moves all extremities Extrem Right lower extremity: no edema Left lower extremity: no edema Assessment and Plan Assessment & Plan (1) Hypertension, essential: Code(s): I10 - Essential (primary) hypertension (2) Morbid obesity with BMI of 40.0-44.9, adult: Comment: THE PATIENT REMAINS MORBIDLY OBESE, SHE DOES NEED TO LOSE SOME WEIGHT, SHE IS NOT IN ANY ACTIVE WEIGHT REDUCTION PROGRAM. I TALKED TO HER ABOUT REDUCING THE CALORIES INTAKE AND DOING SOME EXERCISE DAILY. Code(s): E66.01 - Morbid (severe) obesity due to excess calories; Z68.41 - Body mass index [BMI] 40.0-44.9, adult (3) Asthma, moderate persistent: Code(s): J45.40 - Moderate persistent asthma, uncomplicated Qualifiers: Asthma complication type: uncomplicated Qualified Code(s): J45.40 - Moderate persistent asthma, uncomplicated (4) Impaired fasting blood sugar: Code(s): R73.01 - Impaired fasting glucose (5) Nephropathy: Code(s): N28.9 - Disorder of kidney and ureter, unspecified Plan Patient is a 38-year-old female , with a history of hypertension, asthma, impaired fasting sugar, nephropathy and morbid obesity Came in today to have her weight checked, patient says that she is trying to lose weight eating healthy She does now have a weighing scale at home so she wanted to come in and see if she is losing any weight Patient has lost 6 lb since December Her weight does fluctuate up and down. Her blood pressure is stable, she is on chlorthalidone 25 mg and clonidine 0.1 mg t.i.d. Asthma is stable with Symbicort Patient have an appointment coming up for physical examination end of this month Order placed for labs to be done before visit Orders: Orders Complete Blood Count Auto Diff Today E66.01 - Morbid (severe) obesity due to excess calories, I10 - Essential (primary) hypertension, J45.40 - Moderate persistent asthma, uncomplicated, N28.9 - Disorder of kidney and ureter, unspecified, R73.01 - Impaired fasting glucose, Z68.41 - Body mass index [BMI] 40.0-44.9, adult Comprehensive Met. Panel Today E66.01 - Morbid (severe) obesity due to excess calories, I10 - Essential (primary) hypertension, J45.40 - Moderate persistent asthma, uncomplicated, N28.9 - Disorder of kidney and ureter, unspecified, R73.01 - Impaired fasting glucose, Z68.41 - Body mass index [BMI] 40.0-44.9, adult TSH reflex Free T4 Today E66.01 - Morbid (severe) obesity due to excess calories, I10 - Essential (primary) hypertension, J45.40 - Moderate persistent asthma, uncomplicated, N28.9 - Disorder of kidney and ureter, unspecified, R73.01 - Impaired fasting glucose, Z68.41 - Body mass index [BMI] 40.0-44.9, adult Hemoglobin A1c Today E66.01 - Morbid (severe) obesity due to excess calories, I10 - Essential (primary) hypertension, J45.40 - Moderate persistent asthma, uncomplicated, N28.9 - Disorder of kidney and ureter, unspecified, R73.01 - Impaired fasting glucose, Z68.41 - Body mass index [BMI] 40.0-44.9, adult LDL Cholesterol Direct Today E66.01 - Morbid (severe) obesity due to excess calories, I10 - Essential (primary) hypertension, J45.40 - Moderate persistent asthma, uncomplicated, N28.9 - Disorder of kidney and ureter, unspecified, R73.01 - Impaired fasting glucose, Z68.41 - Body mass index [BMI] 40.0-44.9, adult Coding Level of Care Code Est Pt Level 4 (11595) Diagnoses Hypertension, essential I10 Morbid obesity with BMI of 40.0-44.9, adult E66.01; Z68.41 Moderate persistent asthma without complication J45.40 Asthma complication type: uncomplicated Impaired fasting blood sugar R73.01 Nephropathy N28.9
[2024-02-26 09:17] VITALS: BP 120/84; PULSE 71; O2SAT 96; BMI 43.1
== END 2024-02-26 09:49 | disposition home or self-care (01) ==
PROVIDERS: PCP Internal Medicine; Visit Provider Internal Medicine
DX: I10 Essential (primary) hypertension (principal); E66.01 Morbid (severe) obesity due to excess calories; Z68.41 Body mass index [BMI] 40.0-44.9, adult; J45.40 Moderate persistent asthma, uncomplicated; R73.01 Impaired fasting glucose; N28.9 Disorder of kidney and ureter, unspecified
CPT/HCPCS: 99214

== ENCOUNTER 2024-03-01 13:09 | Outpatient (AMB) | payer OTHER, SELFPAY ==
[2024-03-01 13:15] VITALS: BP 128/80; PULSE 82; O2SAT 96; BMI 44.2
--- NOTE | 2024-03-01 13:15 | MHC.PC.OV ---
Vital Signs 03/01/24 13:15 Height 5 ft 1 in Weight 234 lb 2 oz BMI 44.2 BP 128/80 Blood Pressure Location Lt brachial Position Sitting Pulse 82 Pulse Source Pulse Oximeter Pulse Oximetry (%) 96 Oxygen Delivery Method Room Air Intake [place] Re[place] [facility] [place] Allergies carrot [Carrot] Allergy (Mild, Verified 03/01/24 13:18) INDUCES ASTHMA, HIVES Sulfa (Sulfonamide Antibiotics) [Sulfa (Sulfonamides)] Allergy (Mild, Verified 03/01/24 13:18) INDUCES ASTHMA, HIVES, blotchy, asthma flare up ciprofloxacin [Cipro] Adverse Reaction (Unknown, Verified 03/01/24 13:18) joint swelling Medication List - Last Reconciled 03/01/24 by Adrianne Steward MD albuterol sulfate 90 mcg/actuation (ProAir HFA) 1 inh inhalation QID PRN 30 days budesonide-formoterol 160-4.5 mcg/actuation (Symbicort) 2 puffs inhalation BID 30 days cariprazine (Vraylar) 4.5 mg PO DAILY chlorthalidone 25 mg PO DAILY 90 days clonidine HCl 0.1 mg PO TID PRN ibuprofen 600 mg PO Q8H PRN Tobacco use date assessed: 03/01/24 Dental Screening Dental Screen Date: 03/01/24 Did you have a dental visit in the last 12 months?: Yes Did you have a dental problem in the last 6 months where you did not have access to dental care?: No Was dental information given to patient?: Patient has dentist [place] [facility] [place] HPI Details Patient is a 38-year-old female came in today to have a visit after been evaluated in emergency room [facility] She presented on 02/29/2024 with a chief complaint of pain left foot Patient had ultrasound of her lower leg to rule out DVT Which was negative Patient says that she is having pain since Thursday that is since 4 days Before she started having pain patient fell from treadmill and bend her left foot Her pain is located dorsum of foot in the middle going up the ankle Active flexion foot elicit pain, she is having putting pressure on the foot while walking Patient says that she was only given ibuprofen 600 which is not helping We have provided ankle boot for the patient, I have sent Percocet 1 tablet Q 8 p.r.n. 21 tablets Patient is to return in 1 week for follow-up appointment [facility] Medical History Pneumonia Dyspnea on exertion Anemia CPAP (continuous positive airway pressure) dependence Endometriosis Asthma Surgical History History of delivery Family History Other Mental health disorder Substance use disorder Social History [facility] Alcohol intake: current Alcohol intake frequency: a few times a month Patient Tobacco Use Status: Never used Tobacco e-Cigarette/Vaping Use: Never Used service: No Current occupational status: disabled Cognitive needs: No Hearing needs: No Vision needs: No Questionnaire Thrive Questionnaire Date Thrive assessed: 07/22/23 AUDIT C Alcohol Use Questionnaire (AUDIT-C) 1. How often do you have a drink containing alcohol?: Never 3. How often do you have six or more drinks on one occasion?: Never Total Score: 0 Score Reviewed/Action Taken: Yes ELLIS-7 AMB Questionnaire ELLIS-7 Date ELLIS - 7 assessed: 07/22/23 Source: Developed by Drs. Deshaun Hassan, Lucie Hinkle, Mart Carlson and colleagues, with an educational jesus from [employer]. Review of Systems Const Denies chills and Denies fever(s) ENT Denies epistaxis and Denies nasal discharge Card Denies chest pain Resp Denies chest congestion, Denies cough and Denies hemoptysis GI Denies diarrhea and Denies nausea Skin/Breast Denies rash Neuro Reports no additional complaints Psych Reports no additional complaints Endo Reports no additional complaints Physical exam (Primary Care) Vital Signs: Last Vital Signs Pulse 82 03/01/24 13:15 BP 128/80 03/01/24 13:15 Pulse Ox 96 03/01/24 13:15 Oxygen Delivery Method Room Air 03/01/24 13:15 BMI result Body Mass Index 44.2 Tobacco/Smoking Status: Tobacco use Status Tobacco use date assessed 03/01/24 03/01/24 13:18 Patient Tobacco Use Status Never used Tobacco 03/01/24 13:18 e-Cigarette/Vaping Use Never Used 03/01/24 13:18 Thrive Assessment: Date of Thrive Assessment Date Thrive assessed 07/22/23 03/01/24 13:18 Const General: cooperative, comfortable and no acute distress Orientation/consciousness: patient oriented x3 HENMT Head: Yes normocephalic Eyes General: appearance normal, both eyes and all related structures Neck Neck: Yes supple Resp Effort & Inspection: normal respiratory effort, no cough and no stridor Skin General skin exam: turgor normal Neuro General: patient oriented x3, tone normal and moves all extremities Extrem Right lower extremity: no edema Left lower extremity: no edema Ankle/foot/toe images: 1. Site of pain with active flexion, dorsalis pedis pulse 2 +, no pain around ankle with palpation, patient is able to move all toes, sensory intact Assessment and Plan Assessment & Plan (1) Injury of foot, left: Code(s): S99.922A - Unspecified injury of left foot, initial encounter Qualifiers: Encounter type: initial encounter Qualified Code(s): S99.922A - Unspecified injury of left foot, initial encounter (2) Difficulty walking: Code(s): R26.2 - Difficulty in walking, not elsewhere classified (3) Lower leg pain: Code(s): M79.669 - Pain in unspecified lower leg Qualifiers: Laterality: left Qualified Code(s): M79.662 - Pain in left lower leg Plan Patient is a 38-year-old female came in today to have a visit after been evaluated in emergency room [facility] She presented on 02/29/2024 with a chief complaint of pain left foot Patient had ultrasound of her lower leg to rule out DVT Which was negative Patient says that she is having pain since Thursday that is since 4 days Before she started having pain patient fell from treadmill and bend her left foot Her pain is located dorsum of foot in the middle going up the ankle Active flexion foot elicit pain, she is having putting pressure on the foot while walking Patient says that she was only given ibuprofen 600 which is not helping We have provided ankle boot for the patient, I have sent Percocet 1 tablet Q 8 p.r.n. 21 tablets Patient is to return in 1 week for follow-up appointment Medications: New oxycodone-acetaminophen 5-325 mg (Percocet) Partial Fill upon patient request. 1 tab PO Q8H PRN 21 tabs 0RF pain 7 days Coding Level of Care Code Est Pt Level 4 (06186) Diagnoses Injury of left foot, initial encounter S99.922A Encounter type: initial encounter Difficulty walking R26.2 Pain of left lower leg M79.662 Laterality: left
== END 2024-03-01 14:51 | disposition home or self-care (01) ==
PROVIDERS: PCP Internal Medicine; Visit Provider Internal Medicine
DX: S99.922A Unspecified injury of left foot, initial encounter (principal); R26.2 Difficulty in walking, not elsewhere classified; M79.662 Pain in left lower leg
CPT/HCPCS: 99214

== ENCOUNTER 2024-03-08 10:02 | Outpatient (AMB) | payer OTHER, SELFPAY ==
[2024-03-08 10:10] VITALS: BP 128/78; PULSE 90; O2SAT 96
--- NOTE | 2024-03-08 10:10 | A.OFFPC_ITS ---
Vital Signs 3 03/08/24 10:10 Height 5 ft 1 in BMI Reason not done Patient refused/unable BP 128/78 Blood Pressure Location Rt brachial Position Sitting Pulse 90 Pulse Source Pulse Oximeter Pulse Oximetry (%) 96 Oxygen Delivery Method Room Air Intake Visit Reasons: 1 wk F/u~ Allergies carrot [Carrot] Allergy (Mild, Verified 03/08/24 10:11) INDUCES ASTHMA, HIVES Sulfa (Sulfonamide Antibiotics) [Sulfa (Sulfonamides)] Allergy (Mild, Verified 03/08/24 10:11) INDUCES ASTHMA, HIVES, blotchy, asthma flare up ciprofloxacin [Cipro] Adverse Reaction (Unknown, Verified 03/08/24 10:11) joint swelling Medication List - Last Reconciled 03/08/24 by Adrianne Steward MD albuterol sulfate 90 mcg/actuation (ProAir HFA) 1 inh inhalation QID PRN 30 days budesonide-formoterol 160-4.5 mcg/actuation (Symbicort) 2 puffs inhalation BID 30 days cariprazine (Vraylar) 4.5 mg PO DAILY chlorthalidone 25 mg PO DAILY 90 days clonidine HCl 0.1 mg PO TID PRN ibuprofen 600 mg PO Q8H PRN oxycodone-acetaminophen 5-325 mg (Percocet) 1 tab PO Q8H PRN 7 days Tobacco use date assessed: 03/08/24 Dental Screening Dental Screen Date: 03/08/24 Did you have a dental visit in the last 12 months?: Yes Did you have a dental problem in the last 6 months where you did not have access to dental care?: No Was dental information given to patient?: Patient has dentist HPI 1 wk F/u~ 2 HPI0 Details Patient is a 38-year-old female came in today for 1 week follow-up on left foot injury Patient fell off treadmill 1 week ago She was having difficulty walking and was evaluated in emergency room as well She still have pain dorsal aspect of left foot Plantar aspect pain has resolved lower leg pain has resolved She continued to wear the orthopedic boot which helps with ambulation I have sent another week of Percocet After that patient may start physical therapy order placed [facility] Medical History Pneumonia Dyspnea on exertion Anemia CPAP (continuous positive airway pressure) dependence Endometriosis Asthma Surgical History History of delivery Family History Other Mental health disorder Substance use disorder [facility] Alcohol intake: current Alcohol intake frequency: a few times a month Patient Tobacco Use Status: Never used Tobacco e-Cigarette/Vaping Use: Never Used service: No Current occupational status: disabled Cognitive needs: No Hearing needs: No Vision needs: No Questionnaire Thrive Questionnaire Date Thrive assessed: 07/22/23 AUDIT C Alcohol Use Questionnaire (AUDIT-C) 1. How often do you have a drink containing alcohol?: Never 3. How often do you have six or more drinks on one occasion?: Never Total Score: 0 Score Reviewed/Action Taken: Yes ELLIS-7 AMB Questionnaire ELLIS-7 Date ELLIS - 7 assessed: 07/22/23 Source: Developed by Drs. Deshaun Hassan, Lucie Hinkle, Mart Carlson and colleagues, with an educational jesus from [employer]. Review of Systems Const All systems reviewed & are unremarkable except as noted in HPI and below Denies chills and Denies fever(s) ENT Denies epistaxis and Denies nasal discharge Card Denies chest pain Resp Denies chest congestion, Denies cough and Denies hemoptysis GI Denies diarrhea and Denies nausea Skin/Breast Denies rash Neuro Reports no additional complaints Psych Reports no additional complaints Endo Reports no additional complaints Physical exam (Primary Care) Vital Signs: Last Vital Signs Pulse 90 03/08/24 10:10 BP 128/78 03/08/24 10:10 Pulse Ox 96 03/08/24 10:10 Oxygen Delivery Method Room Air 03/08/24 10:10 Tobacco/Smoking Status: Tobacco use Status Tobacco use date assessed 03/08/24 03/08/24 10:12 Patient Tobacco Use Status Never used Tobacco 03/08/24 10:12 e-Cigarette/Vaping Use Never Used 03/08/24 10:12 Thrive Assessment: Date of Thrive Assessment Date Thrive assessed 07/22/23 03/08/24 10:12 Const General: no acute distress Orientation/consciousness: patient oriented x3 Eyes General: appearance normal, both eyes and all related structures Resp Effort & Inspection: normal respiratory effort and able to speak in complete sentences Neuro General: patient oriented x3 Extrem Ankle/foot/toe images: 2 1. Tender to pressure, pain with active flexion Psych Mental Status: mental status grossly normal Assessment and Plan Assessment & Plan (1) Tendinitis of left foot: Code(s): M77.52 - Other enthesopathy of left foot and ankle (2) Injury of foot, left: Code(s): S99.922A - Unspecified injury of left foot, initial encounter Qualifiers: Encounter type: initial encounter Qualified Code(s): S99.922A - Unspecified injury of left foot, initial encounter (3) Difficulty walking: Code(s): R26.2 - Difficulty in walking, not elsewhere classified Plan Patient is a 38-year-old female came in today for 1 week follow-up on left foot injury Patient fell off treadmill 1 week ago She was having difficulty walking and was evaluated in emergency room as well She still have pain dorsal aspect of left foot Plantar aspect pain has resolved lower leg pain has resolved She continued to wear the orthopedic boot which helps with ambulation I have sent another week of Percocet After that patient may start physical therapy order placed Orders: Orders 2 PT Evaluation and Treatment Today M77.52 - Other enthesopathy of left foot and ankle Medications: Refilled 2 oxycodone-acetaminophen 5-325 mg (Percocet) Partial Fill upon patient request. 1 tab PO Q8H PRN 21 tabs 0RF pain 7 days Coding Level of Care Code Est Pt Level 3 (20379) Diagnoses Tendinitis of left foot M77.52 Injury of left foot, initial encounter S99.922A Encounter type: initial encounter Difficulty walking R26.2
== END 2024-03-08 12:01 | disposition home or self-care (01) ==
PROVIDERS: PCP Internal Medicine; Visit Provider Internal Medicine
DX: M77.52 Other enthesopathy of left foot and ankle (principal); S99.922A Unspecified injury of left foot, initial encounter; R26.2 Difficulty in walking, not elsewhere classified
CPT/HCPCS: 99213

== ENCOUNTER 2024-03-23 10:48 | Emergency (ER) | payer OTHER, SELFPAY ==
--- NOTE | ~2024-03-23 | XR_ITS ---
EXAMINATION: XR ANKLE, LEFT XR FOOT, LEFT CLINICAL INFORMATION: Injury 1 month ago. Swelling. COMPARISON: None TECHNIQUE: AP, lateral, and mortise views of the left ankle and AP, lateral, and oblique views of the left foot. FINDINGS: Left ANKLE: Soft tissues are swollen. No fracture or malalignment. Ankle mortise is symmetric. Bone mineralization is normal. There are no appreciable talar osteochondral injuries. No appreciable interval joint effusion. Small enthesopathic spur is present at the Achilles tendon insertion on the calcaneus. Left FOOT: Soft tissues are swollen. No fracture or malalignment. Bone mineralization is normal. Joint spaces well-preserved. No erosions. No paraspinous or soft tissue calcifications. No radiodense foreign bodies or subcutaneous gas. XR/XR ankle LT 2V IMPRESSION: Soft tissue swelling at the left ankle and foot. No acute osseous findings.
--- NOTE | ~2024-03-23 | XR_ITS ---
EXAMINATION: XR ANKLE, LEFT XR FOOT, LEFT CLINICAL INFORMATION: Injury 1 month ago. Swelling. COMPARISON: None TECHNIQUE: AP, lateral, and mortise views of the left ankle and AP, lateral, and oblique views of the left foot. FINDINGS: Left ANKLE: Soft tissues are swollen. No fracture or malalignment. Ankle mortise is symmetric. Bone mineralization is normal. There are no appreciable talar osteochondral injuries. No appreciable interval joint effusion. Small enthesopathic spur is present at the Achilles tendon insertion on the calcaneus. Left FOOT: Soft tissues are swollen. No fracture or malalignment. Bone mineralization is normal. Joint spaces well-preserved. No erosions. No paraspinous or soft tissue calcifications. No radiodense foreign bodies or subcutaneous gas. XR/XR foot LT min 3V IMPRESSION: Soft tissue swelling at the left ankle and foot. No acute osseous findings.
[2024-03-23 11:25] VITALS: BP 132/78; PULSE 79; RESP 16; TEMP 36.4; O2SAT 99; BMI 42.5
--- NOTE | 2024-03-23 11:27 | ED.GENADULT ---
HPI - General Adult General Chief complaint: Extremity Injury, Lower Stated complaint: L foot injury 1 month ago Time Seen by Provider: 03/23/24 14:39 Source: patient, RN notes reviewed and old records reviewed Mode of arrival: ambulatory History of Present Illness ED Provider: María Elena Davidson PA-C HPI narrative: 38-year-old female with a past medical history of RAMYA, HTN, anemia, presenting to the ED complaining persistent left foot/ankle pain and swelling s/p fall off treadmill 1 month ago. is seen at [facility] had x-rays and ultrasound which were unremarkable, followed up with PCP referred her to physical therapy. Patient has been prescribed Percocet 2x by PCP with some relief. Denies more recent injury/trauma or fall. States was wearing boot with some relief. Denies numbness, tingling, weakness Related Data Home Medications ?Medication ?Instructions ?Recorded ?Confirmed cariprazine 4.5 mg capsule 4.5 mg PO DAILY 08/28/21 03/08/24 (Vraylar) clonidine HCl 0.1 mg tablet 0.1 mg PO TID PRN 10/22/22 03/08/24 ibuprofen 600 mg tablet 600 mg PO Q8H PRN 12/09/23 03/08/24 Previous Rx's ?Medication ?Instructions ?Recorded albuterol sulfate 90 mcg/actuation 1 inh inhalation QID PRN shortness 08/28/21 aerosol inhaler (ProAir HFA) of breath or wheezing 30 days #18 grams budesonide-formoterol HFA 160 2 puff inhalation BID 30 days 12/09/23 mcg-4.5 mcg/actuation aerosol #10.2 grams inhaler (Symbicort) oxycodone-acetaminophen 5 mg-325 1 tab PO Q8H PRN pain 7 days #21 03/08/24 mg tablet (Percocet) tabs chlorthalidone 25 mg tablet 25 mg PO DAILY 90 days #90 tabs 03/09/24 Allergies Allergy/AdvReac Type Severity Reaction Status Date / Time carrot [Carrot] Allergy Mild INDUCES Verified 03/23/24 11:27 ASTHMA, HIVES Sulfa (Sulfonamide Allergy Mild INDUCES Verified 03/23/24 11:27 Antibiotics) ASTHMA, [Sulfa (Sulfonamides)] HIVES, blotchy, asthma flare up ciprofloxacin [Cipro] AdvReac Unknown joint Verified 03/23/24 11:27 swelling Review of Systems Review of Systems: Constitutional: No Fever, No Chills ENT/Mouth: No Ear Pain, No Nasal Congestion, No sore throat, No Rhinorrhea, No Swallowing Difficulty Cardiovascular: No Chest Pain, No SOB Respiratory: No Cough, No Sputum, No Wheezing Musculoskeletal: + joint pain, No Myalgias, + Joint Swelling Skin: No Skin Lesions, No rash Neuro: No Weakness, No Numbness, No Paresthesias Yes all other systems are reviewed and are negative Constitutional: Constitutional: Reports as per [facility] Past Medical History Attestation statement: The following information was validated with the patient. Source: old records reviewed Medical History Pneumonia Dyspnea on exertion Anemia CPAP (continuous positive airway pressure) dependence Endometriosis Asthma Surgical History History of delivery Family History Family History Other Mental health disorder Substance use disorder Social History Social History Housing: Condominium Alcohol intake: current Alcohol intake frequency: a few times a month Patient Tobacco Use Status: Never used Tobacco e-Cigarette/Vaping Use: Never Used Advance Directives: No Advance Directives Information Provided: Yes service: No Current occupational status: disabled Cognitive needs: No Hearing needs: No Vision needs: No Physical Exam ED Vital Signs: Vital Signs - 24 hr 03/23/24 11:25 03/23/24 14:38 03/23/24 16:00 Temperature 97.5 F 97.7 F 97.8 F Pulse Rate 79 81 75 Respiratory Rate 16 16 Blood Pressure 132/78 147/90 H 132/83 Pulse Oximetry 99 99 100 Oxygen Delivery Method Room Air Room Air Room Air BMI result Body Mass Index 42.5 Const General: cooperative, healthy appearing and no acute distress Orientation/consciousness: patient oriented x3 Limitations: no limitations HENMT Head: Yes normal to inspection and Yes atraumatic Ears: hearing grossly normal bilaterally General nose exam: Normal external nose present Face and sinus: Yes normal facial exam Eyes General: appearance normal, both eyes and all related structures EOM: EOMs intact bilaterally Neck Neck: Yes normal visual inspection and Yes no meningeal signs Resp Effort & Inspection: normal respiratory effort and no respiratory distress Cardio Rate: regular rate Skin Rashes: no rashes Wounds: no wounds Neuro General: patient oriented x3, tone normal and no meningeal signs Cranial nerves: Yes CN's II-XII intact bilaterally Gait exam (Neuro): Normal gait present Extrem Other: Left foot and ankle with noted swelling. Diffusely tender to palpation. No erythema/warmth or crepitus. No ecchymosis. Neurovascularly intact. No LE pitting edema. No calf tenderness. Cope test negative Course Course Course Narrative: This is a rapid medical exam performed by Mojgan Graham NP: Additional HPI, ROS, PE not included below will be deferred to primary provider. Patient is a 38-year-old female presenting to the ED with complaint of ongoing L foot and ankle pain after injuring it on a treadmill a month ago. Ongoing swelling. Has had xrays, ultrasound, was referred to PT by PCP. Has not yet been referred to orthopedics. Plan: xray XR ankle LT 2V/XR foot LT min 3V IMPRESSION: Soft tissue swelling at the left ankle and foot. No acute osseous findings. > discussed results with patient. Patient likely needs MRI. Recommend she follow back up with PCP/Orthopedics and Podiatry. Offered crutches however patient declined. Will apply Marcelo wrap in the ED. Patient has boot at home Results discussed with patient including worrisome signs and symptoms and strict return precautions, and when to return to the emergency department. They verbalized understanding and feel safe for discharge at this time. Medical Decision Making Medical Decision Making [facility] Narrative: 38-year-old female with a past medical history of RAMYA, HTN, anemia, presenting to the ED complaining persistent left foot/ankle pain and swelling s/p fall off treadmill 1 month ago. On exam vital signs stable, NAD, nontoxic appearing, physical exam as noted above. Concern for occult fracture vs sprain vs tendinopathy. Low suspicion for Achilles tendon rupture, DVT, compartment syndrome, cellulitis Plan: X-rays Please refer to course for remaining clinical decision making, interpretation of labs/imaging results, and discussions with consultants and/or family members. Differential Diagnosis Differential Diagnoses: The differential diagnosis associated with the presentation includes As above Lab Data [facility] Lab Attestation statement: I reviewed the patient's lab results. Radiology Impression Discussion of test interpretation with radiology: I have reviewed the radiologist's reading. External Record Review External record reviewed: Inpatient record, Office record, Outpatient record, Prior outpatient labs, Prior outpatient radiology, Primary care record and Outside ED record Tests considered The following testing was considered but not selected: As above Prescription Management I considered prescription management with: Pain Medication Discharge Plan Discharge Clinical Impression: Foot and ankle pain Patient Disposition: Home, Self-Care Instructions: Arthralgia (ED) Additional Instructions: Your x-rays do not show a fracture or break. Please follow back up with your primary care doctor as well as Orthopedics/Podiatry Wear boot Ice and elevate Continue previously prescribed pain medication including ibuprofen/Tylenol If pain persists or worsens/becomes unbearable return to the ED Prescriptions: No Action chlorthalidone 25 mg tablet 25 mg PO DAILY 90 Days Qty: 90 0RF clonidine HCl 0.1 mg tablet 0.1 mg PO TID PRN Vraylar 4.5 mg capsule 4.5 mg PO DAILY albuterol sulfate [ProAir HFA] 90 mcg/actuation HFA aerosol inhaler 1 inh inhalation QID PRN (Reason: shortness of breath or wheezing) 30 Days Qty: 18 0RF ibuprofen 600 mg tablet 600 mg PO Q8H PRN budesonide-formoterol [Symbicort] 160-4.5 mcg/actuation HFA aerosol inhaler 2 puff inhalation BID 30 Days Qty: 10.2 3RF oxycodone-acetaminophen [Percocet] 5-325 mg tablet 1 tab PO Q8H PRN (Reason: pain) 7 Days Qty: 21 0RF Rx Instructions: Partial Fill upon patient request. Referrals: [facility] [place] [place] [facility] [Provider Group] - 5 days Adrianne Steward MD [Primary Care Provider] - Saroj Aly MD [Physician] - Print Language: Kyrgyz
[2024-03-23 14:38] VITALS: BP 147/90; PULSE 81; RESP 16; TEMP 36.5; O2SAT 99
[2024-03-23 16:00] VITALS: BP 132/83; PULSE 75; TEMP 36.6; O2SAT 100
[2024-03-23 17:16] VITALS: BP 132/83; PULSE 75; RESP 14; TEMP 36.6; O2SAT 100
== END 2024-03-23 17:16 | disposition home or self-care (01) ==
PROVIDERS: Emergency Provider Internal Medicine; PCP Internal Medicine
DX: M25.572 Pain in left ankle and joints of left foot (principal); I10 Essential (primary) hypertension; D64.9 Anemia, unspecified
CPT/HCPCS: 73600; 73630; 99283; 99284

== ENCOUNTER 2024-04-26 08:31 | Outpatient (AMB) | payer OTHER, SELFPAY ==
[2024-04-26 08:32] VITALS: BP 132/80; PULSE 86; O2SAT 97; BMI 43.6
--- NOTE | 2024-04-26 08:32 | MHC.PC.OV ---
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 Suspension Coordinator Required: No Accompanied by: Self / Same As Patient Allergies carrot [Carrot] Allergy (Mild, Verified 04/26/24 08:32) INDUCES ASTHMA, HIVES Sulfa (Sulfonamide Antibiotics) [Sulfa (Sulfonamides)] Allergy (Mild, Verified 04/26/24 08:32) INDUCES ASTHMA, HIVES, blotchy, asthma flare up ciprofloxacin [Cipro] Adverse Reaction (Unknown, Verified 04/26/24 08:32) joint swelling Medication List - Last Reconciled 04/26/24 by Adrianne Steward MD albuterol sulfate 90 mcg/actuation (ProAir HFA) 1 inh inhalation QID PRN 30 days budesonide-formoterol 160-4.5 mcg/actuation (Symbicort) 2 puffs inhalation BID 30 days cariprazine (Vraylar) 4.5 mg PO DAILY chlorthalidone 25 mg PO DAILY 90 days clonidine HCl 0.1 mg PO TID PRN hydroxyzine HCl 10 mg PO TID ibuprofen 600 mg PO Q8H PRN Tobacco use date assessed: 03/08/24 Dental Screening Dental Screen Date: 03/08/24 HPI 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 She also have peripheral vascular disease and get ankle swelling when it is warm outside She was on chlorthalidone for blood pressure control, however patient has been holding it and her blood pressure has been running in 130s systolic I have sent frusemide for the patient she may take that as needed for ankle swelling She is also due for labs, patient was advised to have that done today. [facility] Medical History Pneumonia Dyspnea on exertion Anemia CPAP (continuous positive airway pressure) dependence Endometriosis Asthma Surgical History History of delivery Family History Other Mental health disorder Substance use disorder Social History Housing: Condominium Alcohol intake: current Alcohol intake frequency: a few times a month Patient Tobacco Use Status: Never used Tobacco e-Cigarette/Vaping Use: Never Used service: No Current occupational status: disabled Cognitive needs: No Hearing needs: No Vision needs: No Questionnaire PHQ-9 Over the last 2 weeks, how often have you been bothered by any of the following problems? 18353 - PHQ-9 Billing: Patient declined-do not bill Source: Developed by Drs. Deshaun Hassan, Lucie Hinkle, Mart Carlson and colleagues, with an educational jesus from [employer]. Thrive Questionnaire Date Thrive assessed: 04/26/24 I am a: Patient What is your living situation today?: I have a steady place to live Within the past 12 months, did the food you bought not last and you didn't have the money to get more?: I choose not to answer this question Within the past 12 months, did you worry whether your food would run out before you got money to buy more?: I choose not to answer this question Do you have trouble paying for medicines?: I choose not to answer this question Do you have trouble getting transportation to medical appointments?: I choose not to answer this question Do you have trouble paying your heating and electricity bill?: I choose not to answer this question Do you have trouble taking care of your child, family member or friend?: I choose not to answer this question Do you have trouble with day-to-day activities such as bathing, preparing meals, shopping, managing finances, etc.?: I choose not to answer this question Are you currently unemployed and looking for a job?: I choose not to answer this question Are you interested in more education?: I choose not to answer this question Please select the resources that you would like help with: Housing/Alf and Transportation Currently or been in a relationship where the following occur: I choose not to answer THRIVE Score: 0 AUDIT C Alcohol Use Questionnaire (AUDIT-C) 1. How often do you have a drink containing alcohol?: Never Total Score: 0 Score Reviewed/Action Taken: Yes ELLIS-7 AMB Questionnaire ELLIS-7 Date ELLIS - 7 assessed: 04/26/24 Feeling nervous, anxious, or on edge: 3 = Nearly every day Not being able to stop or control worryin = Nearly every day Worrying too much about different things: 0 = Not at all Trouble relaxin = Not at all Being so restless that it is hard to sit still: 0 = Not at all Becoming easily annoyed or irritable: 0 = Not at all Feeling afraid as if something awful might happen: 0 = Not at all Total ELLIS-7 score (0-4 normal; 5-9 mild; 10-14 moderate; 15-21 severe): 6 Source: Developed by Drs. Deshaun Hassan, Lucie Hinkle, Mart Carlson and colleagues, with an educational jesus from [employer]. ELLIS-7 Assessment Billing ELLIS-7 Assessment Tool: ELLIS-7 Assessment 33284 Review of Systems Const All systems reviewed & are unremarkable except as noted in HPI and below Physical exam (Primary Care) Vital Signs: Last Vital Signs Pulse 86 04/26/24 08:32 BP 132/80 04/26/24 08:32 Pulse Ox 97 04/26/24 08:32 BMI result Body Mass Index 43.6 Tobacco/Smoking Status: Tobacco use Status Tobacco use date assessed 03/08/24 04/26/24 08:34 Patient Tobacco Use Status Never used Tobacco 04/26/24 08:34 e-Cigarette/Vaping Use Never Used 04/26/24 08:34 Thrive Assessment: Date of Thrive Assessment Date Thrive assessed 04/26/24 04/26/24 08:34 Currently or been in a relationship where the following occur: I choose not to answer Const General: no acute distress Orientation/consciousness: patient oriented x3 Eyes General: appearance normal, both eyes and all related structures Resp Effort & Inspection: normal respiratory effort and able to speak in complete sentences Neuro General: patient oriented x3 Extrem Other: Mild ankle swelling bilateral Psych Mental Status: mental status grossly normal Assessment and Plan Assessment & Plan (1) Dysfunctional uterine bleeding: Code(s): N93.8 - Other specified abnormal uterine and vaginal bleeding (2) IUD (intrauterine device) in place: Code(s): Z97.5 - Presence of (intrauterine) contraceptive device (3) Ankle swelling: Code(s): M25.473 - Effusion, unspecified ankle (4) Peripheral vascular disease: Code(s): I73.9 - Peripheral vascular disease, unspecified Plan Patient is a 38-year-old female came in today to request an OBGYN referral Patient says that her own OBGYN has retired She have Mirena IUD which was placed 4 years ago Patient says that she keep having heavy bleeding and would like that checked. She also have peripheral vascular disease and get ankle swelling when it is warm outside She was on chlorthalidone for blood pressure control, however patient has been holding it and her blood pressure has been running in 130s systolic I have sent frusemide for the patient she may take that as needed for ankle swelling She is also due for labs, patient was advised to have that done today. 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
== END 2024-04-26 10:46 | disposition home or self-care (01) ==
PROVIDERS: PCP Internal Medicine; Visit Provider Internal Medicine
DX: I73.9 Peripheral vascular disease, unspecified (principal); N93.8 Other specified abnormal uterine and vaginal bleeding; M25.471 Effusion, right ankle; M25.472 Effusion, left ankle; Z97.5 Presence of (intrauterine) contraceptive device
CPT/HCPCS: 99213

== ENCOUNTER 2024-04-26 08:45 | Outpatient (REF) | payer OTHER, SELFPAY ==
[2024-04-26 10:12] LABS: MANUAL DIFF FLAG NO
[2024-04-26 10:29] LABS: Basophils Absolute Auto 0.1 X10*3/uL (0.0-0.2); Basophils Percent Auto 0.8 % (0-2); Eosinophils Absolute Auto 0.5 X10*3/uL (0.0-0.4); Eosinophils Percent Auto 5.5 % (0-4); Hematocrit 38.7 % (37.0-47.0); Hemoglobin 12.9 g/dl (12.0-16.0); Imm Gran Abs Auto 0.03 X10*3/uL (0.00-0.03); Imm Gran Pct Auto 0.3 % (0.0-0.4); Lymphocytes Absolute Auto 2.8 X10*3/uL (1.2-4.9); Lymphocytes Percent Auto 32.5 % (20-40); Mean Corpuscular HGB Conc 33.3 g/dl (31.0-35.0); Mean Corpuscular Hemoglobin 29.3 pg (27.0-33.0); Mean Corpuscular Volume 87.8 fL (80.0-98.0); Mean Platelet Volume 9.7 fL (9.4-12.3); Monocytes Absolute Auto 0.4 X10*3/uL (0.1-1.2); Monocytes Percent Auto 4.1 % (2-11); Neutrophils Percent Auto 56.8 % (45-73); Platelet Count 352 X10*3/uL (160-400); Red Blood Count 4.41 X10*6/uL (4.20-5.50); Red Cell Distribution Width 13.9 % (11.0-16.0); White Blood Count 8.7 X10*3/uL (4.8-10.8)
[2024-04-26 10:45] LABS: Estimated Average Glucose 111 mg/dL; Hemoglobin A1c % 5.5 % (<6.0)
[2024-04-26 10:59] LABS: Alanine Aminotransferase 39 U/L (0-31); Albumin Level 4.5 g/dL (3.5-5.0); Alkaline Phosphatase 97 U/L (39-117); Anion Gap 14 (12-20); Aspartate Amino Transferase 20 U/L (5-31); Bilirubin Total 0.6 mg/dL (0.0-1.0); Blood Urea Nitrogen 13 mg/dL (9-16); Carbon Dioxide 26 mmol/L (22-29); Chloride 103 mmol/L (96-108); Estimated Glomerular Filt Rate > 60; Glucose Random 91 mg/dL (60-115); Sodium 139 mmol/L (135-145); Total Protein 7.9 g/dL (6.5-8.0)
[2024-04-26 11:14] LABS: TSH reflex Free T4 1.59 uIU/mL (0.32-4.0)
[2024-04-29 06:12] LABS: LDL Cholesterol Direct 125 mg/dL (<100)
== END 2024-04-26 08:46 | disposition home or self-care (01) ==
LOC: HO.HMGCLDS 08:45
PROVIDERS: PCP Internal Medicine; Visit Provider Internal Medicine
DX: E66.01 Morbid (severe) obesity due to excess calories (principal); I10 Essential (primary) hypertension; R73.01 Impaired fasting glucose; N28.9 Disorder of kidney and ureter, unspecified; J45.40 Moderate persistent asthma, uncomplicated; R79.89 Other specified abnormal findings of blood chemistry; Z68.41 Body mass index [BMI] 40.0-44.9, adult
CPT/HCPCS: 36415; 80053; 83036; 83721; 84443; 85025

== ENCOUNTER 2024-06-14 14:22 | Outpatient (AMB) | payer OTHER, SELFPAY ==
--- NOTE | 2024-06-14 14:32 | MHC.OFFVIS ---
Vital Signs 06/14/24 14:33 Height 5 ft 1 in Weight 236 lb BMI 44.6 BP 122/70 Intake Visit Reasons: New patient Heavy menses Information Interpreted: clinical only Allergies carrot [Carrot] Allergy (Mild, Verified 06/14/24 14:34) INDUCES ASTHMA, HIVES Sulfa (Sulfonamide Antibiotics) [Sulfa (Sulfonamides)] Allergy (Mild, Verified 06/14/24 14:34) INDUCES ASTHMA, HIVES, blotchy, asthma flare up ciprofloxacin [Cipro] Adverse Reaction (Unknown, Verified 06/14/24 14:34) joint swelling Medication List - Last Reconciled 06/14/24 by Mary Pinon CNM albuterol sulfate 90 mcg/actuation (ProAir HFA) 1 inh inhalation QID PRN 30 days budesonide-formoterol 160-4.5 mcg/actuation (Symbicort) 2 puffs inhalation BID 30 days cariprazine (Vraylar) 4.5 mg PO DAILY Is last menstrual period known: Yes Last menstrual period: 06/14/24 HPI HPI New patient Heavy menses: Details: Patient is here because she says she has been bleeding almost every other week for the last 4 months she has a Mirena IU S she is sexually active with someone that she does not want to have a baby with. She is upset at the beginning of the meeting because she says that she was told she would have her IUD removed today and she wanted that. She does not want to get . She reports bleeding as having started today previous to this bled for 3 days on she bled for 3 days on05/16/24 that, 05/07/2024 she cannot recreate previous dates but says is this for 4 months. She says she had a 4 years ago after being in labor for 24 hour as she has a history of leaps x2 and says her Paps were normal since but her last 1 was at least 3 years ago. She is having a problem with swelling but says her blood pressures been okay so she is not on the blood pressure medicine anymore but she is taking a water pill and she loses 7 lb after she takes it and she took it this morning. She is extremely edematous in appearance. She says she has lung issues as well she says the last time her IUD was checked they could not find the string. ------ After the exam, she asked I could not be could I? , [facility] Medical History Pneumonia Dyspnea on exertion Anemia CPAP (continuous positive airway pressure) dependence Endometriosis Asthma Surgical History History of delivery Family History Other Mental health disorder Substance use disorder Social History Housing: Condominium Alcohol intake: current Alcohol intake frequency: a few times a month Patient Tobacco Use Status: Never used Tobacco e-Cigarette/Vaping Use: Never Used service: No Current occupational status: disabled Cognitive needs: No Hearing needs: No Vision needs: No Female Reproductive History Menstrual Age of Menarche: 10 Duration of menses: >10 days Date of last menstrual period: 06/14/24 control method: progestin IUCD Total pregnancies: 1 History of abnormal pap smear: Yes (Leep done unsure day?) Physical Exam Vital Signs: Last Vital Signs BP 122/70 06/14/24 14:33 BMI result Body Mass Index 44.6 Const Nutritional Appearance: obese and Edematous Other: Speculum exam done. light clotty bleeding consistent with Mirena use. Or end of menses. Cervix visualized nulliparous. NO IUD string visible, or palpable on bimanual exam. nontender but challenging secondary to extreme adipose. Results Reviewed Results Reviewed: urine hcg is negative Assessment & Plan Assessment & Plan (1) IUD (intrauterine device) in place: Comment: Needs to be verified with ultrasound strings not visible./recommend no UTI until presence is verified. Code(s): Z97.5 - Presence of (intrauterine) contraceptive device Category: Medical (2) Dysfunctional uterine bleeding: Code(s): N93.8 - Other specified abnormal uterine and vaginal bleeding Category: Medical (3) Morbid obesity with BMI of 40.0-44.9, adult: Comment: THE PATIENT REMAINS MORBIDLY OBESE, SHE DOES NEED TO LOSE SOME WEIGHT, SHE IS NOT IN ANY ACTIVE WEIGHT REDUCTION PROGRAM. I TALKED TO HER ABOUT REDUCING THE CALORIES INTAKE AND DOING SOME EXERCISE DAILY. Code(s): E66.01 - Morbid (severe) obesity due to excess calories; Z68.41 - Body mass index [BMI] 40.0-44.9, adult Category: Medical Plan Discussed with the patient that I would only be able to remove the IUD if it was sitting in her cervix which it was not the strings are not visible so in fact if it is not serving her and needs to be removed I would not be able to remove it it would have to be done after consultation with mechanical service specialist as the hospital. test done today was negative. Will send patient for ultrasound and have a tele visit to review the results but in any case, after that, for management of the dysfunctional bleeding and or removal of the IUD that will need to be with mechanical service specialist at hospital. I informed the patient of this. Additionally since it is uncertain about the status of her Mirena IU S she should not have unprotected intercourse until she is assured of the Mirena is presence and functioning. I told her the visit with me after the ultrasound with the by a tele visit and future visits for any management of bleeding were the IUD will be up at the hospital with mechanical service specialist, after that,. Orders: Orders US pelvic and transvaginal Today N93.8 - Other specified abnormal uterine and vaginal bleeding, Z97.5 - Presence of (intrauterine) contraceptive device Coding Level of Care Code New Pt Level 3 (32090) Diagnoses IUD (intrauterine device) in place Z97.5 Dysfunctional uterine bleeding N93.8 Morbid obesity with BMI of 40.0-44.9, adult E66.01; Z68.41
[2024-06-14 14:33] VITALS: BP 122/70; BMI 44.6
== END 2024-06-14 15:23 | disposition home or self-care (01) ==
LOC: HO.HWSM 14:22
PROVIDERS: PCP Internal Medicine; Visit Provider Advanced Practice Midwife
DX: Z97.5 Presence of (intrauterine) contraceptive device (principal); N93.8 Other specified abnormal uterine and vaginal bleeding; E66.01 Morbid (severe) obesity due to excess calories; Z68.41 Body mass index [BMI] 40.0-44.9, adult; Z32.02 Encounter for pregnancy test, result negative
CPT/HCPCS: 99203

== ENCOUNTER 2024-06-14 14:22 | Outpatient (REF) | payer OTHER, SELFPAY ==
[2024-06-15 06:21] LABS: CT PCR NOT DETECTED (Not Detect.); NG PCR NOT DETECTED (Not Detect.)
[2024-06-15 10:39] LABS: Bacterial Vaginosis PCR NEGATIVE (Negative); Candida Group PCR NOT DETECTED (Not Detect); Candida glab krusei PCR NOT DETECTED (Not Detect); Trichomonas vaginalis PCR NOT DETECTED (Not Detect)
== END 2024-06-14 14:23 | disposition home or self-care (01) ==
LOC: HO.LAB 14:22
PROVIDERS: PCP Internal Medicine; Visit Provider Advanced Practice Midwife
DX: N89.8 Other specified noninflammatory disorders of vagina (principal); Z20.2 Contact with and (suspected) exposure to infections with a predominantly sexual mode of transmission; Z32.02 Encounter for pregnancy test, result negative; Z97.5 Presence of (intrauterine) contraceptive device; N93.8 Other specified abnormal uterine and vaginal bleeding; E66.01 Morbid (severe) obesity due to excess calories; Z68.41 Body mass index [BMI] 40.0-44.9, adult
CPT/HCPCS: 0352U; 81025; 87491; 87591; 99202

== ENCOUNTER 2024-06-16 12:42 | Outpatient (REF) | payer OTHER, SELFPAY ==
--- NOTE | ~2024-06-16 | US_ITS ---
EXAMINATION: US PELVIS CLINICAL INFORMATION: Verify location of IUD. LMP 06/12/2024. COMPARISON: CT abdomen/pelvis September 14, 2021 TECHNIQUE: Ultrasound of the pelvis is performed using both transabdominal and transvaginal transducers along with Doppler. Transvaginal imaging is performed due to inadequate visualization transabdominally. FINDINGS: Uterus: The uterus is anteverted and measures 8.6 x 4.1 x 4.2 cm. Uterine echotexture is heterogeneous. Intrauterine device is in satisfactory position within the endometrium. Cervical nabothian cysts are present. Cervical length measures 2.7 cm. Adnexa: Both ovaries are visualized. No significant free fluid in the pelvis. Right ovary measures 3.2 x 2.3 x 1.7 cm. Left ovary measures 3.5 x 2.3 x 2.2 cm. US/US pelvic and transvaginal IMPRESSION: Satisfactory position of IUD. Electronically signed by: Tono De La Vega MD 06/16/2024 03:40 PM EDT
== END 2024-06-16 12:43 | disposition home or self-care (01) ==
LOC: HO.HMGCX 12:42
PROVIDERS: PCP Internal Medicine; Visit Provider Advanced Practice Midwife
DX: N93.8 Other specified abnormal uterine and vaginal bleeding (principal); Z97.5 Presence of (intrauterine) contraceptive device
CPT/HCPCS: 76830; 76856

== ENCOUNTER 2024-06-23 10:35 | Outpatient (AMB) | payer OTHER, SELFPAY ==
--- NOTE | 2024-06-23 10:36 | MHC.OFFVIS ---
Vital Signs 06/23/24 10:36 Height 5 ft 1 in Intake Visit Reasons: TV US follow up Allergies carrot [Carrot] Allergy (Mild, Verified 06/23/24 10:36) INDUCES ASTHMA, HIVES Sulfa (Sulfonamide Antibiotics) [Sulfa (Sulfonamides)] Allergy (Mild, Verified 06/23/24 10:36) INDUCES ASTHMA, HIVES, blotchy, asthma flare up ciprofloxacin [Cipro] Adverse Reaction (Unknown, Verified 06/23/24 10:36) joint swelling Is last menstrual period known: Yes Last menstrual period: 06/14/24 HPI HPI TV US follow up: Details: This is a tele visit to review patient's ultrasound she had done to check on missing IUD strings. She had reported to me that the IUD was inserted 4 years ago after the of her 4-year-old. She reported that she was bleeding very irregularly and so she thought that it was not in the right place or something was wrong with it and she wanted it removed and replaced she was upset when that was not able to be done at that visit, as the visit was to discuss this, and not actually remove the IUD. Nevertheless I did not exam and STD screen and ordered an ultrasound to check on the location of the IUD. Strings were not visible at all to this provider despite looking for them so I did inform her that if it is in there I would not be able to replace her IUD for her in any event. The ultrasound was done on 06/14. I reviewed the findings with her today. the IUD is in satisfactory position and findings are within normal limits and there is no abnormality found, she still wants the IUD to be replaced. since there are no strings visible it can not be done by me. I recommended that her next visit be for discussion of this with the electro mechanical solar technician, but I was not guaranteeing that there would be a replacement done, as IUDs usually have a longer life. [facility] Medical History Pneumonia Dyspnea on exertion Anemia CPAP (continuous positive airway pressure) dependence Endometriosis Asthma Surgical History History of delivery Family History Other Mental health disorder Substance use disorder Social History Housing: Condominium Alcohol intake: current Alcohol intake frequency: a few times a month Patient Tobacco Use Status: Never used Tobacco e-Cigarette/Vaping Use: Never Used service: No Current occupational status: disabled Cognitive needs: No Hearing needs: No Vision needs: No Female Reproductive History Menstrual Age of Menarche: 10 Duration of menses: other Date of last menstrual period: 06/14/24 control method: progestin IUCD Total pregnancies: 1 Full term: 1 Date of last pap smear: 08/23/21 (negative) History of abnormal pap smear: Yes (HX,LEEP) Telehealth Telehealth Telehealth Platform: Telephone Location of provider rendering services: practice address Location of patient: address on file Patient Identification confirmed using: Name, : Yes Telehealth method: voice only Minutes spent on Phone/Video with Pt.: 5 (Five chart review, 5 speaking to patient about plan, 5 chart equals 15.) Results Reviewed Results Reviewed: Patient: Jody Souza MR#: [id number] : 1985 Acct:[id number] Age/Sex: 38 / F ADM Date: 06/16/24 Loc: HO.[email or web address] Attending Dr: Mary Pinon CNM Ordering Physician: Mary Pinon CNM Date of Service: 06/16/24 Procedure(s): US pelvic and transvaginal Accession Number(s): [id number] cc: Adrianne Steward MD; Mary Pinon CNM~ EXAMINATION: US PELVIS CLINICAL INFORMATION: Verify location of IUD. LMP 06/12/2024. COMPARISON: CT abdomen/pelvis September 14, 2021 TECHNIQUE: Ultrasound of the pelvis is performed using both transabdominal and transvaginal transducers along with Doppler. Transvaginal imaging is performed due to inadequate visualization transabdominally. FINDINGS: Uterus: The uterus is anteverted and measures 8.6 x 4.1 x 4.2 cm. Uterine echotexture is heterogeneous. Intrauterine device is in satisfactory position within the endometrium. Cervical nabothian cysts are present. Cervical length measures 2.7 cm. Adnexa: Both ovaries are visualized. No significant free fluid in the pelvis. Right ovary measures 3.2 x 2.3 x 1.7 cm. Left ovary measures 3.5 x 2.3 x 2.2 cm. US/US pelvic and transvaginal IMPRESSION: Satisfactory position of IUD. Electronically signed by: Tono De La Vega MD 06/16/2024 03:40 PM EDT RP Dictated By: Rodríguez De La Vega MD Signed By: <Electronically signed by Rodríguez De La Vega MD in OV> 06/16/24 1540 DD/ 1247 TD/TT: 06/16/24 1313 Rnfa: Assessment & Plan Assessment & Plan (1) IUD (intrauterine device) in place: Comment: Needs to be verified with ultrasound strings not visible./recommend no UPI until presence is verified. Code(s): Z97.5 - Presence of (intrauterine) contraceptive device Category: Medical Plan This is a tele visit to review patient's ultrasound she had done to check on missing IUD strings. She had reported to me that the IUD was inserted 4 years ago after the of her 4-year-old. She reported that she was bleeding very irregularly and so she thought that it was not in the right place or something was wrong with it and she wanted it removed and replaced she was upset when that was not able to be done at that visit, as the visit was to discuss this, and not actually remove the IUD. Nevertheless I did not exam and STD screen and ordered an ultrasound to check on the location of the IUD. Strings were not visible at all to this provider despite looking for them so I did inform her that if it is in there I would not be able to replace her IUD for her in any event. The ultrasound was done on 06/14. I reviewed the findings with her today. the IUD is in satisfactory position and findings are within normal limits and there is no abnormality found, she still wants the IUD to be replaced. since there are no strings visible it can not be done by me. I recommended that her next visit be for discussion of this with the electro mechanical solar technician, but I was not guaranteeing that there would be a replacement done, as IUDs usually have a longer life. Coding Level of Care Code Tele Est Pt Level 3 (78551) Diagnoses IUD (intrauterine device) in place Z97.5 Time Spent (min) 15
== END 2024-06-23 12:50 | disposition home or self-care (01) ==
LOC: HO.HWSM 10:35
PROVIDERS: PCP Internal Medicine; Visit Provider Advanced Practice Midwife
DX: Z97.5 Presence of (intrauterine) contraceptive device (principal)
CPT/HCPCS: 99442

== ENCOUNTER → 2024-06-23 10:35 | Outpatient (BNVA) | payer OTHER, SELFPAY | PROVIDERS: PCP Internal Medicine; Visit Provider Advanced Practice Midwife ==

== ENCOUNTER 2024-06-24 08:19 | Outpatient (REF) | payer OTHER, SELFPAY ==
[2024-06-29 15:24] LABS: HPV mRNA E6/E7 Not Detected (Not Detected)
== END 2024-06-24 08:20 | disposition home or self-care (01) ==
LOC: HO.LNP 08:19
PROVIDERS: PCP Internal Medicine; Visit Provider Obstetrics & Gynecology
DX: N93.9 Abnormal uterine and vaginal bleeding, unspecified (principal); N92.6 Irregular menstruation, unspecified; Z97.5 Presence of (intrauterine) contraceptive device; Z32.02 Encounter for pregnancy test, result negative
CPT/HCPCS: 58100; 81025; 87624; 88175; 88305; 99212; J7298

== ENCOUNTER 2024-06-24 08:19 | Outpatient (AMB) | payer OTHER, SELFPAY ==
[2024-06-24 08:22] VITALS: BMI 44.6
--- NOTE | 2024-06-24 08:22 | A.OFFVIS_ITS ---
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 Required: No Information Interpreted: non-clinical & clinical Supervisor Painting Department: Supervisor Painting Department Present (Yuly Wayne BRIANNA) Accompanied by: Self / Same As Patient Allergies carrot [Carrot] Allergy (Mild, Verified 06/24/24 08:23) INDUCES ASTHMA, HIVES Sulfa (Sulfonamide Antibiotics) [Sulfa (Sulfonamides)] Allergy (Mild, Verified 06/24/24 08:23) INDUCES ASTHMA, HIVES, blotchy, asthma flare up ciprofloxacin [Cipro] Adverse Reaction (Unknown, Verified 06/24/24 08:23) joint swelling Is last menstrual period known: No (mirena) HPI Comments Details: Presenting referred from Mary Pinon CNM. The patient is complaining of abnormal irregular menstrual cycles on Mirena IUD. Mirena IUD was inserted 4 years ago according to the patient. Last co testing was in 09/01 was negative, the patient has history of LEEP few years ago H&H was 12.9/38.7 TSH within normal GC/CT was negative PFSH Medical History Pneumonia Dyspnea on exertion Anemia CPAP (continuous positive airway pressure) dependence Endometriosis Asthma Surgical History History of delivery Family History Other Mental health disorder Substance use disorder Social History Housing: Condominium Alcohol intake: current Alcohol intake frequency: a few times a month Patient Tobacco Use Status: Never used Tobacco e-Cigarette/Vaping Use: Never Used service: No Current occupational status: disabled Cognitive needs: No Hearing needs: No Vision needs: No Female Reproductive History Menstrual Age of Menarche: 10 Review of Systems Const All systems reviewed & are unremarkable except as noted in HPI and below Card Reports as per HPI Resp Reports as per HPI GI Reports as per HPI and Reports no additional complaints Reports as per HPI Physical Exam Vital Signs: BMI result Body Mass Index 44.6 Const General: cooperative, healthy appearing and comfortable Chest Chest palpation & inspection: normal inspection of the chest and normal palpation of entire chest wall Breast/axilla inspection: normal inspection of the breasts and normal inspection of the axillae Breast/axilla palpation: normal palpation of the breasts, normal palpation of the axillae and no axillary lymphadenopathy Resp Effort & Inspection: normal respiratory effort Auscultation: clear to auscultation bilaterally Percussion: percussion normal Cardio Palpation: normal PMI Rate: regular rate Rhythm: regular rhythm Heart sounds: no murmurs and no rubs Peripheral pulses: Peripheral pulses 2+ throughout GI Inspection: Yes normal to inspection Palpation (GI): Soft to palpation, nontender, no guarding, not rigid and No hepatosplenomegaly present Percussion: Yes normal to percussion Auscultation: normal bowel sounds Rectal Exam - Female: deferred General: Yes bladder normal to palpation External Female Exam: No lesion Speculum Exam - Vagina: normal appearance of the vagina, normal palpation, normal vaginal discharge and not erythematous Speculum Exam - Cervix: normal appearance of the cervix and normal palpation Bimanual exam- vagina & uterus: normal bimanual exam, normal palpation, uterine size normal, bladder normal to palpation, consistency normal and normal palpation Bimanual Exam- Adnexa, other: normal adnexae, no masses and no tenderness Office Procedures Endometrial Biopsy Details: The patient was counseled regarding the indication and benefits of endometrial sampling to rule out endometrial pathology including not limited to endometrial hyperplasia or endometrial cancer and others; The alternatives (Either do nothing vs. hysteroscopy D&C) & the risks were discussed with the patient including but not limited: pain, uterine perforation, bleeding, infection, possible injury to bladder, bowel, ureter, possible need for blood transfusion with all its possible risks. The patient verbalized understanding all questions answered and signed consent. Urine test done in the office was negative The patient was placed into the dorsal lithotomy position; a speculum was inserted in the vagina. Using aseptic technique for the procedure, the cervix was cleansed with Betadine. The anterior lip of the cervix was grasped with a single tooth tenaculum. The uterus was sounded to 7 cm with a 4 mm Pipelle was used. Tissues samples were obtained and placed in formalin, in a patient labeled container and sent to the pathology department. At the end of the procedure, there was minimal bleeding noted The patient tolerated the procedure well and was discharged in good condition with the following instructions: Nothing in the vagina until the bleeding stops. No sex until the bleeding stops, to call if any of the following occurs: fever (>100.4), flu-like symptoms, abdominal pain, heavy bleeding, four smelling vaginal discharge. The patient was instructed to schedule a Follow up appointment in 2 weeks to discuss pathology results of the biopsy and treatment options. This note was generated with a voice recognition program. Some errors may have been overlooked during the review of this note. Sometimes these errors may affect the content or meaning of a given sentence. [id number] Biopsy Results AMB Test Urine AMB Test Urine Negative Last Edit by Yuly Wayne CMA on 08:31 Results Reviewed Results Reviewed: Laboratory Last Values Tst Clinic Negative 06/24/24 08:30 Assessment & Plan Assessment & Plan (1) Abnormal uterine bleeding: Comment: On Mirena IUD Code(s): N93.9 - Abnormal uterine and vaginal bleeding, unspecified Category: Medical Plan: Screening mammogram ordered. Co testing done. GC and chlamydia recently taken and were negative CBC, TSH done in 05/04 were within normal, and pelvic ultrasound done ordered was unremarkable within normal IUD position. Discussed with the patient the different causes of abnormal bleeding including thyroid disorders, uterine and ovarian pathology, endometrial hyperplasia, carcinoma and other potential causes. Discussed with the patient the work up including CBC (to r/o anemia), TSH, prolactin, pelvic Ultrasound, endometrial biopsy to r/o endometrial pathology. EMB done, see procedure note Orders: Orders 2 AMB HCG Urine Test Today Z32.02 - Encounter for test, result negative MM screening mammo BI Today Z12.31 - Encounter for screening mammogram for malignant neoplasm of breast AMB Endometrial Biopsy Today N93.9 - Abnormal uterine and vaginal bleeding, unspecified Coding Level of Care Code Est Pt Level 3 (82524) Procedure Only Diagnoses Abnormal uterine bleeding N93.9 CPT Codes Endometrial Biopsy - CPT: 10313-[id number] Biopsy ([id number])
== END 2024-06-24 09:20 | disposition home or self-care (01) ==
PROVIDERS: PCP Internal Medicine; Visit Provider Obstetrics & Gynecology
DX: N93.9 Abnormal uterine and vaginal bleeding, unspecified (principal); Z32.02 Encounter for pregnancy test, result negative
CPT/HCPCS: 58100; 99213

== ENCOUNTER 2024-07-06 08:56 | Outpatient (AMB) | payer OTHER, SELFPAY ==
[2024-07-06 09:21] VITALS: BP 124/76; PULSE 92; TEMP 38.1; O2SAT 98; BMI 45.0
--- NOTE | 2024-07-06 09:21 | MHC.OFFWIV ---
Intake Vital Signs 07/06/24 09:21 Height 5 ft 1 in Weight 238 lb BMI 45.0 BP 124/76 Blood Pressure Location Rt brachial Position Sitting Pulse 92 Pulse Source Pulse Oximeter Temp 100.5 F H Temp Source Oral Pulse Oximetry (%) 98 Oxygen Delivery Method Room Air Intake Visit Reasons: EP Cough, congestion, body ache, sob Intake Note: Pt c/o cough, congestion, body aches, SOB, earaches, fever. Started yesterday Patient Tobacco Use Status: Never used Tobacco Allergies carrot [Carrot] Allergy (Mild, Verified 07/06/24 09:31) INDUCES ASTHMA, HIVES Sulfa (Sulfonamide Antibiotics) [Sulfa (Sulfonamides)] Allergy (Mild, Verified 07/06/24 09:31) INDUCES ASTHMA, HIVES, blotchy, asthma flare up ciprofloxacin [Cipro] Adverse Reaction (Unknown, Verified 07/06/24 09:31) joint swelling Do you need a note to return to daycare/school/sports/work: Yes HPI EP Cough, congestion, body ache, sob HPI Details This note is constructed using voice recognition software. While every effort has been made to ensure accuracy, lab coordinator errors may have been included. The patient is a 38 year old female who presents to the clinic today with URI symptoms for 2 days. She reports cough, congestion, body aches, and shortness of breath with exertion, but none at rest. She has taken ibuprofen with little effect. She has not tried any additional medication. [facility] Medical History Pneumonia Dyspnea on exertion Anemia CPAP (continuous positive airway pressure) dependence Endometriosis Asthma Surgical History History of delivery Family History Other Mental health disorder Substance use disorder Social History Housing: Condominium Alcohol intake: current Alcohol intake frequency: a few times a month Patient Tobacco Use Status: Never used Tobacco e-Cigarette/Vaping Use: Never Used service: No Current occupational status: disabled Cognitive needs: No Hearing needs: No Vision needs: No Female Reproductive History Menstrual Age of Menarche: 10 Review of Systems Const All systems reviewed & are unremarkable except as noted in HPI and below Physical Exam Vital Signs: Last Vital Signs Temp 100.5 F H 07/06/24 09:21 Pulse 92 07/06/24 09:21 BP 124/76 07/06/24 09:21 Pulse Ox 98 07/06/24 09:21 Oxygen Delivery Method Room Air 07/06/24 09:21 BMI result Body Mass Index 45.0 Const General: cooperative, healthy appearing, comfortable and no acute distress Orientation/consciousness: patient oriented x3 Limitations: no limitations HEENT Head: Yes normal to inspection Ears: hearing grossly normal bilaterally, external ears normal and TM's normal bilaterally General nose exam: Normal external nose present, Normal nares present and No nasal discharge present Face and sinus: Yes normal facial exam and Yes sinus tenderness (Frontal and maxillary bilaterally) Mouth: Normal oral and palatal mucosa present and moist mucous membranes Throat: Yes tonsils normal, Yes uvula midline and Yes posterior oropharynx abnormal (Erythema) Eyes General: appearance normal, both eyes and all related structures Neck Neck: Yes normal visual inspection Resp Effort & Inspection: normal respiratory effort, able to speak in complete sentences, Actively coughing, no respiratory distress, not tachypneic, no tripod positioning and no use of accessory muscles Auscultation: clear to auscultation bilaterally Cardio Jugular venous distension: no JVD Rate: regular rate Rhythm: regular rhythm Heart sounds: S1 normal heart sound present, S2 normal heart sound present, no click, no gallops, no murmurs and no rubs Skin General skin exam: no rashes or lesions noted, elasticity normal and turgor normal Neuro General: patient oriented x3 Extrem General: Yes normal to inspection and Yes no clubbing, cyanosis or edema Assessment & Plan Assessment & Plan (1) URI (upper respiratory infection): Code(s): J06.9 - Acute upper respiratory infection, unspecified Qualifiers: URI type: unspecified URI Qualified Code(s): J06.9 - Acute upper respiratory infection, unspecified Plan: Viral swab obtained to rule out Covid based on symptoms. Advised mask wearing while symptomatic and quarantine per current CDC guidelines. Reviewed at home support methods including hydration, humidification, vix vapor rub, sinus rinse. Discussed treatment with antiviral therapy for covid with tashd including appropriate use and side effects, and need to start medication within 5 day of symptom onset, preferably within 48 hours of symptom onset. Patient wishes to decline paxlovid. Symptomatic management with prednisone burst for sinus pressure prescribed. Advised follow up with worsening symptoms such as dyspnea at rest, which would require emergent evaluation. Plan See above for full details and plan. Medications: New prednisone 40 mg (2 x 20 mg) PO DAILY 3 days 6 tabs 0RF Coding Level of Care Code Est Pt Level 3 (51483) Diagnoses Upper respiratory tract infection, unspecified type J06.9 URI type: unspecified URI
== END 2024-07-06 12:49 | disposition home or self-care (01) ==
PROVIDERS: PCP Internal Medicine; Visit Provider Registered Nurse
DX: J06.9 Acute upper respiratory infection, unspecified (principal)

== ENCOUNTER 2024-07-06 08:56 | Outpatient (REF) | payer OTHER, SELFPAY ==
[2024-07-06 14:34] LABS: Influenza A PCR NEGATIVE (Negative); Influenza B PCR NEGATIVE (Negative); Resp Syncy Virus RNA Qual PCR NEGATIVE (Negative); SARS COV2 PCR INHOUSE NEGATIVE (Negative)
== END 2024-07-06 08:57 | disposition home or self-care (01) ==
LOC: HO.LAB 08:56
PROVIDERS: PCP Internal Medicine; Visit Provider Registered Nurse
DX: J06.9 Acute upper respiratory infection, unspecified (principal)
CPT/HCPCS: 0241U; 99212

== ENCOUNTER 2024-08-19 14:17 | Outpatient (REF) | payer OTHER, SELFPAY ==
[2024-08-19 16:19] LABS: MANUAL DIFF FLAG NO
[2024-08-19 16:28] LABS: Basophils Absolute Auto 0.1 X10*3/uL (0.0-0.2); Basophils Percent Auto 0.9 % (0-2); Eosinophils Absolute Auto 0.5 X10*3/uL (0.0-0.4); Eosinophils Percent Auto 6.8 % (0-4); Hematocrit 37.4 % (37.0-47.0); Hemoglobin 12.4 g/dl (12.0-16.0); Imm Gran Abs Auto 0.04 X10*3/uL (0.00-0.03); Imm Gran Pct Auto 0.6 % (0.0-0.4); Lymphocytes Absolute Auto 1.9 X10*3/uL (1.2-4.9); Lymphocytes Percent Auto 27.5 % (20-40); Mean Corpuscular HGB Conc 33.2 g/dl (31.0-35.0); Mean Corpuscular Hemoglobin 28.8 pg (27.0-33.0); Mean Corpuscular Volume 86.8 fL (80.0-98.0); Monocytes Absolute Auto 0.3 X10*3/uL (0.1-1.2); Monocytes Percent Auto 4.8 % (2-11); Neutrophils Percent Auto 59.4 % (45-73); Platelet Count 246 X10*3/uL (160-400); Red Blood Count 4.31 X10*6/uL (4.20-5.50); Red Cell Distribution Width 13.4 % (11.0-16.0); White Blood Count 6.7 X10*3/uL (4.8-10.8)
[2024-08-19 16:41] LABS: Alanine Aminotransferase 99 U/L (0-31); Albumin Level 4.1 g/dL (3.5-5.0); Alkaline Phosphatase 127 U/L (39-117); Anion Gap 14 (12-20); Aspartate Amino Transferase 56 U/L (5-31); Bilirubin Total 0.5 mg/dL (0.0-1.0); Blood Urea Nitrogen 13 mg/dL (9-16); Calcium 9.5 mg/dL (8.4-10.2); Carbon Dioxide 26 mmol/L (22-29); Chloride 104 mmol/L (96-108); Estimated Glomerular Filt Rate 55; Glucose Random 94 mg/dL (60-115); Lipase 25 U/L (8-78); Potassium 4.2 mmol/L (3.3-5.1); Sodium 140 mmol/L (135-145); Total Protein 7.7 g/dL (6.5-8.0)
[2024-08-19 16:50] LABS: Amylase 36 U/L (28-100)
== END 2024-08-19 14:18 | disposition home or self-care (01) ==
LOC: HO.HMGCX 14:17
PROVIDERS: PCP Internal Medicine; Visit Provider Internal Medicine
DX: M79.671 Pain in right foot (principal); E66.01 Morbid (severe) obesity due to excess calories; Z68.41 Body mass index [BMI] 40.0-44.9, adult
CPT/HCPCS: 36415; 73630; 80053; 82150; 83690; 84443; 85025; 96127; 99212

== ENCOUNTER 2024-08-19 14:17 | Outpatient (AMB) | payer OTHER, SELFPAY ==
[2024-08-19 14:19] VITALS: BP 120/66; PULSE 90; O2SAT 98; BMI 45.2
--- NOTE | 2024-08-19 14:19 | MHC.PC.OV ---
Vital Signs 08/19/24 14:19 Height 5 ft 1 in Weight 239 lb 6 oz BMI 45.2 BP 120/66 Blood Pressure Location Rt brachial Position Sitting Pulse 90 Pulse Source Pulse Oximeter Pulse Oximetry (%) 98 Oxygen Delivery Method Room Air Intake Visit Reasons: Pain in leg - Can't walk Allergies carrot [Carrot] Allergy (Mild, Verified 08/19/24 14:20) INDUCES ASTHMA, HIVES Sulfa (Sulfonamide Antibiotics) [Sulfa (Sulfonamides)] Allergy (Mild, Verified 08/19/24 14:20) INDUCES ASTHMA, HIVES, blotchy, asthma flare up ciprofloxacin [Cipro] Adverse Reaction (Unknown, Verified 08/19/24 14:20) joint swelling Medication List - Last Reconciled 08/19/24 by Adrianne Steward MD albuterol sulfate 90 mcg/actuation (ProAir HFA) 1 inh inhalation QID PRN 30 days cariprazine (Vraylar) 4.5 mg PO DAILY levonorgestrel (Mirena) intrauterine Tobacco use date assessed: 08/19/24 Dental Screening Dental Screen Date: 08/19/24 Did you have a dental visit in the last 12 months?: Yes Did you have a dental problem in the last 6 months where you did not have access to dental care?: No Was dental information given to patient?: Patient has dentist HPI Pain in leg - Can't walk HPI Details Patient is a 38-year-old female came in today to be evaluated for pain right foot which has been happening for the past 7 days Patient says that she has gotten a Toradol injection which did take the pain away partly But then the pain came back On examination she has tenderness dorsal aspect of the foot without any skin changes she is able to move her toes neurovascular is intact I am ordering x-ray of her foot I have also sent prednisone and diclofenac to be taken with food for a week We will set up another time in a week to re-evaluate. There is no injury Patient is morbidly obese, she managed to lose 30 lb last year with the help of diet and exercise She would like to be started on semaglutide injection Patient does not have any history of thyroid disease or pancreatic problem I have sent semaglutide patient will call me to book appointment if it is covered under insurance and she was able to pick it up from pharmacy PFSH Medical History Pneumonia Dyspnea on exertion Anemia CPAP (continuous positive airway pressure) dependence Endometriosis Asthma Surgical History History of delivery Family History Other Mental health disorder Substance use disorder Social History Housing: Condominium Alcohol intake: current Alcohol intake frequency: a few times a month Patient Tobacco Use Status: Never used Tobacco e-Cigarette/Vaping Use: Never Used service: No Current occupational status: disabled Cognitive needs: No Hearing needs: No Vision needs: No Female Reproductive History Menstrual Age of Menarche: 10 Questionnaire PHQ-9 Over the last 2 weeks, how often have you been bothered by any of the following problems? 1. Little interest or pleasure in doing things: not at all 2. Feeling down, depressed, or hopeless: not at all 3. Trouble falling or staying asleep, or sleeping too much: not at all 4. Feeling tired or having little energy: not at all 5. Poor appetite or overeating: not at all 6. Feeling bad about yourself - or that you are a failure or have let yourself or your family down: not at all 7. Trouble concentrating on things, such as reading the newspaper or watching television: not at all 8. Moving or speaking so slowly that other people could have noticed. Or the opposite - being so fidgety or restless that you have been moving around a lot more than usual: not at all 9. Thoughts that you would be better off or of hurting yourself in some way: not at all Total score: 0 Source: Developed by Drs. Deshaun Hassan, Lucie Hinkle, Mart Carlson and colleagues, with an educational jesus from [employer]. Thrive Questionnaire Date Thrive assessed: 04/26/24 I am a: Patient What is your living situation today?: I have a steady place to live Within the past 12 months, did the food you bought not last and you didn't have the money to get more?: I choose not to answer this question Within the past 12 months, did you worry whether your food would run out before you got money to buy more?: I choose not to answer this question Do you have trouble paying for medicines?: I choose not to answer this question Do you have trouble getting transportation to medical appointments?: I choose not to answer this question Do you have trouble paying your heating and electricity bill?: I choose not to answer this question Do you have trouble taking care of your child, family member or friend?: I choose not to answer this question Do you have trouble with day-to-day activities such as bathing, preparing meals, shopping, managing finances, etc.?: I choose not to answer this question Are you currently unemployed and looking for a job?: I choose not to answer this question Are you interested in more education?: I choose not to answer this question Currently or been in a relationship where the following occur: I choose not to answer THRIVE Score: 0 AUDIT C Alcohol Use Questionnaire (AUDIT-C) 1. How often do you have a drink containing alcohol?: Never 3. How often do you have six or more drinks on one occasion?: Never Total Score: 0 Score Reviewed/Action Taken: Yes ELLIS-7 AMB Questionnaire ELLIS-7 Date ELLIS - 7 assessed: 04/26/24 Source: Developed by Drs. Deshaun Hassan, Lucie Hinkle, Mart Carlson and colleagues, with an educational jesus from [employer]. Review of Systems Const Denies chills and Denies fever(s) ENT Denies epistaxis and Denies nasal discharge Card Denies chest pain Resp Denies chest congestion, Denies cough and Denies hemoptysis GI Denies diarrhea and Denies nausea Skin/Breast Denies rash Neuro Reports no additional complaints Psych Reports no additional complaints Endo Reports no additional complaints Physical exam (Primary Care) Vital Signs: Last Vital Signs Pulse 90 08/19/24 14:19 BP 120/66 08/19/24 14:19 Pulse Ox 98 08/19/24 14:19 Oxygen Delivery Method Room Air 08/19/24 14:19 BMI result Body Mass Index 45.2 Tobacco/Smoking Status: Tobacco use Status Tobacco use date assessed 08/19/24 08/19/24 14:24 Patient Tobacco Use Status Never used Tobacco 08/19/24 14:24 e-Cigarette/Vaping Use Never Used 08/19/24 14:24 PHQ-9: PHQ-9 Score PHQ-9: Total score 0 08/19/24 14:24 Thrive Assessment: Date of Thrive Assessment Date Thrive assessed 04/26/24 08/19/24 14:24 Currently or been in a relationship where the following occur: I choose not to answer Const General: cooperative, comfortable and no acute distress Orientation/consciousness: patient oriented x3 HENMT Head: Yes normocephalic Eyes General: appearance normal, both eyes and all related structures Neck Neck: Yes supple Resp Effort & Inspection: normal respiratory effort, no cough and no stridor Cardio Rhythm: regular rhythm Heart sounds: S1 normal heart sound present and S2 normal heart sound present Skin General skin exam: turgor normal Neuro General: patient oriented x3, tone normal and moves all extremities Extrem Ankle/foot/toe images: 1. Tender to pressure, no skin changes, neurovascular intact Coding Level of Care Code Est Pt Level 3 (47911) Diagnoses Foot pain, right M79.671 Morbid obesity with BMI of 40.0-44.9, adult E66.01; Z68.41 Assessment & Plan Assessment & Plan (1) Foot pain, right: Code(s): M79.671 - Pain in right foot Category: Medical (2) Morbid obesity with BMI of 40.0-44.9, adult: Comment: THE PATIENT REMAINS MORBIDLY OBESE, SHE DOES NEED TO LOSE SOME WEIGHT, SHE IS NOT IN ANY ACTIVE WEIGHT REDUCTION PROGRAM. I TALKED TO HER ABOUT REDUCING THE CALORIES INTAKE AND DOING SOME EXERCISE DAILY. Code(s): E66.01 - Morbid (severe) obesity due to excess calories; Z68.41 - Body mass index [BMI] 40.0-44.9, adult Category: Medical Plan Patient is a 38-year-old female came in today to be evaluated for pain right foot which has been happening for the past 7 days Patient says that she has gotten a Toradol injection which did take the pain away partly But then the pain came back On examination she has tenderness dorsal aspect of the foot without any skin changes she is able to move her toes neurovascular is intact I am ordering x-ray of her foot I have also sent prednisone and diclofenac to be taken with food for a week We will set up another time in a week to re-evaluate. There is no injury Patient is morbidly obese, she managed to lose 30 lb last year with the help of diet and exercise She would like to be started on semaglutide injection Patient does not have any history of thyroid disease or pancreatic problem I have sent semaglutide patient will call me to book appointment if it is covered under insurance and she was able to pick it up from pharmacy Orders: Orders XR foot RT 2V Today M79.671 - Pain in right foot Comprehensive Met. Panel Today E66.01 - Morbid (severe) obesity due to excess calories, Z68.41 - Body mass index [BMI] 40.0-44.9, adult Lipase Today E66.01 - Morbid (severe) obesity due to excess calories, Z68.41 - Body mass index [BMI] 40.0-44.9, adult Amylase Today E66.01 - Morbid (severe) obesity due to excess calories, Z68.41 - Body mass index [BMI] 40.0-44.9, adult TSH reflex Free T4 Today E66.01 - Morbid (severe) obesity due to excess calories, Z68.41 - Body mass index [BMI] 40.0-44.9, adult Complete Blood Count Auto Diff Today E66.01 - Morbid (severe) obesity due to excess calories, Z68.41 - Body mass index [BMI] 40.0-44.9, adult
== END 2024-08-19 14:51 | disposition home or self-care (01) ==
PROVIDERS: PCP Internal Medicine; Visit Provider Internal Medicine
DX: M79.671 Pain in right foot (principal); E66.01 Morbid (severe) obesity due to excess calories; Z68.41 Body mass index [BMI] 40.0-44.9, adult

== ENCOUNTER 2024-08-23 09:55 | Outpatient (AMB) | payer OTHER, SELFPAY ==
--- NOTE | 2024-08-23 10:07 | A.OFFVIS_ITS ---
Vital Signs 08/23/24 10:09 BP 120/70 Intake Visit Reasons: EMB results/IUD removal consult Hvac Designer: Hvac Designer Present (Rhina ) Allergies carrot [Carrot] Allergy (Mild, Verified 08/23/24 10:07) INDUCES ASTHMA, HIVES Sulfa (Sulfonamide Antibiotics) [Sulfa (Sulfonamides)] Allergy (Mild, Verified 08/23/24 10:07) INDUCES ASTHMA, HIVES, blotchy, asthma flare up ciprofloxacin [Cipro] Adverse Reaction (Unknown, Verified 08/23/24 10:07) joint swelling HPI Comments Details: The patient is presenting for follow-up to discuss the results of her abnormal uterine bleeding workup and options of treatment. The following workup was done.: H&H= 12.9/38.7 TSH, GC and chlamydia were negative. Endometrial biopsy pathology showed the following: Benign endometrium with atrophic glands and decidual stromal change consistent with progestin effect, fibrin thrombi, necrotic tissue, and scant benign endocervical glandular epithelium; no atypia or carcinoma Co testing was done in 09/01 was negative. Mammogram ordered but not done yet Pelvic ultrasound showed the following: Uterus: The uterus is anteverted and measures 8.6 x 4.1 x 4.2 cm. Uterine echotexture is heterogeneous. Intrauterine device is in satisfactory position within the endometrium. Cervical nabothian cysts are present. Cervical length measures 2.7 cm. Adnexa: Both ovaries are visualized. No significant free fluid in the pelvis. Right ovary measures 3.2 x 2.3 x 1.7 cm. Left ovary measures 3.5 x 2.3 x 2.2 cm. [facility] Medical History Pneumonia Dyspnea on exertion Anemia CPAP (continuous positive airway pressure) dependence Endometriosis Asthma Surgical History History of delivery Family History Other Mental health disorder Substance use disorder Social History Housing: Condominium Alcohol intake: current Alcohol intake frequency: a few times a month Patient Tobacco Use Status: Never used Tobacco e-Cigarette/Vaping Use: Never Used service: No Current occupational status: disabled Cognitive needs: No Hearing needs: No Vision needs: No Female Reproductive History Menstrual Age of Menarche: 10 Date of last menstrual period: 08/12/24 (Lasting 2 days ) control method: progestin IUCD (Mirena) Review of Systems Const All systems reviewed & are unremarkable except as noted in HPI and below Reports as per HPI and Reports no additional complaints GI Reports no additional complaints Reports no additional complaints Assessment & Plan Assessment & Plan (1) Abnormal uterine bleeding: Comment: On Mirena IUD Code(s): N93.9 - Abnormal uterine and vaginal bleeding, unspecified Category: Medical Plan: Discussed with the patient the results of the work up done and options of treatment including continue control pills, Mirena IUD. All pros, cons, risks and benefits if each option was discussed with the patient and the patient decided to stay with Mirena IUD so a more detailed discussion about it was conducted including mechanism of action, risks (uterine perforation, infection, injury to bladder, bowel, displacement, and others) benefits (hypo menorrhea, amenorrhea, ...). Since the patient had Mirena IUD 4 years ago, she was instructed to schedule Mirena IUD insertion on day 1-5 of next cycle in the coming years since is FDA approved for 5 years for AUB . All questions answe red, the patient verbalized understanding and agreed with the plan. Coding Level of Care Code Est Pt Level 3 (66010) Diagnoses Abnormal uterine bleeding N93.9
[2024-08-23 10:09] VITALS: BP 120/70
== END 2024-08-23 10:19 | disposition home or self-care (01) ==
LOC: HO.HWS 09:55
PROVIDERS: PCP Internal Medicine; Visit Provider Obstetrics & Gynecology
DX: N93.9 Abnormal uterine and vaginal bleeding, unspecified (principal)
CPT/HCPCS: 99213

== ENCOUNTER → 2024-08-23 09:55 | Outpatient (BNVA) | payer OTHER, SELFPAY | PROVIDERS: PCP Internal Medicine; Visit Provider Obstetrics & Gynecology | DX: N93.9 Abnormal uterine and vaginal bleeding, unspecified (principal) | CPT/HCPCS: 99212 ==

== ENCOUNTER 2024-08-31 10:43 | Outpatient (AMB) | payer OTHER, SELFPAY ==
--- NOTE | 2024-08-31 10:50 | A.OFFPC_ITS ---
Vital Signs 08/31/24 10:52 Height 5 ft 1 in Weight 241 lb BMI 45.5 BP 118/72 Blood Pressure Location Rt brachial Position Sitting Pulse 97 Pulse Source Pulse Oximeter Pulse Oximetry (%) 100 Oxygen Delivery Method Room Air Intake Visit Reasons: Med Follow Up Allergies carrot [Carrot] Allergy (Mild, Verified 08/31/24 10:57) INDUCES ASTHMA, HIVES Sulfa (Sulfonamide Antibiotics) [Sulfa (Sulfonamides)] Allergy (Mild, Verified 08/31/24 10:57) INDUCES ASTHMA, HIVES, blotchy, asthma flare up ciprofloxacin [Cipro] Adverse Reaction (Unknown, Verified 08/31/24 10:57) joint swelling Medication List - Last Reconciled 08/31/24 by Adrianne Steward MD albuterol sulfate 90 mcg/actuation (ProAir HFA) 1 inh inhalation QID PRN 30 days cariprazine (Vraylar) 4.5 mg PO DAILY diclofenac sodium 75 mg PO BID 10 days levonorgestrel (Mirena) intrauterine prednisone 20 mg PO DAILY 5 days Wegovy (semaglutide (weight loss)) 0.25 mg (0.5 mL) subcut QWEEK NS Tobacco use date assessed: 08/19/24 Dental Screening Dental Screen Date: 08/19/24 HPI Med Follow Up HPI Details The patient is a 38 year old female presenting with right foot pain follow-up and for a discussion on weight management. Patient came in today with her sister who is a nurse but currently not working, she has medical knowledge on how to give injections right foot pain was noted at the last visit on the 8th of this month, at which time prednisone and diclofenac were prescribed for pain and inflammation. An X-ray was ordered but the report is still pending. The foot pain has improved without clear indication of the cause. Morbid obesity: The patient also requested to start semaglutide injections for weight loss. Historical lab work indicated slightly decreased kidney function and elevated liver enzymes that require monitoring. No anemia was observed and white blood cell count was normal. The kidney function has fluctuated; it was 60 in April, 54 in July last year, and currently 55. NSAIDs have been stopped to help manage kidney function. The patient reported history of elevated liver enzymes. Patient is currently taking Clonazepam and Brexpiprazole. The patient reports a family history of thyroid cancer in mother which presents a concern due to the association with semaglutide treatment. Social history The patient has a family history of thyroid cancer. - The patient reported joining a gym and is engaging in treadmill exercise. - The patient is aiming for weight loss and has an increased BMI of 45.5. - No employment status or housing situat ion was discussed. - Sister was mentioned to have been a nu rse. Labs Labs: No signs of anemia; normal white blood cell count; normal metabolic profile with slightly decreased kidney function (historical fluctuations cited); liver enzymes slightly elevated. Plan Right foot pain: Awaiting the pending X-ray report. Continue monitoring. - Obesity: Start semaglutide injections once per week with education provided on administration. Continue exercising at the gym. Monitor for side effects such as nausea and pancreatitis. - Slightly decreased kidney function: In crease fluid intake. Avoid NSAIDs to support kidney function. - Elevated liver enzymes: Monitor liver function with upcoming labs in one month. - Family history of thyroid cancer: Disc ussed risks related to semaglutide and the increased risk of thyroid cancer. - Use of Clonazepam and Brexpiprazole: C ontinue as prescribed by the psychiatric doctor. Monitor for depressive symptoms with semaglutide use. Patient is instructions Return for follow-up in one month with repeat lab tests. - Increase water intake to support kidne y function. - Discontinue use of NSAIDs such as ibup rofen and naproxen. - Monitor for and report any side effect s from semaglutide, including nausea. - Continue exercising at the gym, ensuri ng proper footwear is worn. - Self-administer semaglutide injections as instructed, once per week. - Maintain dietary restrictions and life style modifications as part of weight management. - Be vigilant for any symptoms of depres patricia and report if they occur. Discussion I discussed with the patient the importance of monitoring kidney and liver functions due to historical fluctuations and current laboratory findings. I explained the potential benefits and risks associated with starting semaglutide, particularly in relation to her BMI and family history of thyroid cancer. I advised stopping NSAID use to help stabilize kidney function and emphasized the need for hydration. We discussed the need for proper footwear to support her exercise regimen and help with foot pain. I educated the patient on the administration of semaglutide injections, and expressed the potential side effects and contraindications, including the risk of pancreatitis and its rare association with thyroid cancer. I emphasized the need for a comprehensive lifestyle approach, incorporating diet control and regular exercise, while using semaglutide. PFSH Medical History Pneumonia Dyspnea on exertion Anemia CPAP (continuous positive airway pressure) dependence Endometriosis Asthma Surgical History History of delivery Family History Other Mental health disorder Substance use disorder Social History Housing: Condominium Alcohol intake: current Alcohol intake frequency: a few times a month Patient Tobacco Use Status: Never used Tobacco e-Cigarette/Vaping Use: Never Used service: No Current occupational status: disabled Cognitive needs: No Hearing needs: No Vision needs: No Female Reproductive History Menstrual Age of Menarche: 10 Questionnaire Thrive Questionnaire Date Thrive assessed: 04/26/24 I am a: Patient What is your living situation today?: I have a steady place to live Within the past 12 months, did the food you bought not last and you didn't have the money to get more?: I choose not to answer this question Within the past 12 months, did you worry whether your food would run out before you got money to buy more?: I choose not to answer this question Do you have trouble paying for medicines?: I choose not to answer this question Do you have trouble getting transportation to medical appointments?: I choose not to answer this question Do you have trouble paying your heating and electricity bill?: I choose not to answer this question Do you have trouble taking care of your child, family member or friend?: I choose not to answer this question Do you have trouble with day-to-day activities such as bathing, preparing meals, shopping, managing finances, etc.?: I choose not to answer this question Are you currently unemployed and looking for a job?: I choose not to answer this question Are you interested in more education?: I choose not to answer this question Currently or been in a relationship where the following occur: I choose not to answer THRIVE Score: 0 ELLIS-7 AMB Questionnaire ELLIS-7 Date ELLIS - 7 assessed: 04/26/24 Source: Developed by Drs. Deshaun Hassan, Lucie Hinkle, Mart Carlson and colleagues, with an educational jesus from [employer]. Review of Systems Const Denies chills and Denies fever(s) ENT Denies epistaxis and Denies nasal discharge Card Denies chest pain Resp Denies chest congestion, Denies cough and Denies hemoptysis GI Denies diarrhea and Denies nausea Skin/Breast Denies rash Neuro Reports no additional complaints Psych Reports no additional complaints Endo Reports no additional complaints Physical exam (Primary Care) Vital Signs: Last Vital Signs Pulse 97 08/31/24 10:52 BP 118/72 08/31/24 10:52 Pulse Ox 100 08/31/24 10:52 Oxygen Delivery Method Room Air 08/31/24 10:52 BMI result Body Mass Index 45.5 Tobacco/Smoking Status: Tobacco use Status Tobacco use date assessed 08/19/24 08/31/24 10:50 Patient Tobacco Use Status Never used Tobacco 08/31/24 10:50 e-Cigarette/Vaping Use Never Used 08/31/24 10:50 Thrive Assessment: Date of Thrive Assessment Date Thrive assessed 04/26/24 08/31/24 10:50 Currently or been in a relationship where the following occur: I choose not to answer Const General: cooperative, comfortable and no acute distress Orientation/consciousness: patient oriented x3 HENMT Head: Yes normocephalic Eyes General: appearance normal, both eyes and all related structures Neck Neck: Yes supple Resp Effort & Inspection: normal respiratory effort, no cough and no stridor Cardio Rhythm: regular rhythm Heart sounds: S1 normal heart sound present and S2 normal heart sound present Skin General skin exam: turgor normal Neuro General: patient oriented x3, tone normal and moves all extremities Extrem Right lower extremity: no edema Left lower extremity: no edema Coding Level of Care Code Est Pt Level 4 (34541) Complex EM visit Add On G2211 Diagnoses Morbid obesity with BMI of 40.0-44.9, adult E66.01; Z68.41 LFT elevation R79.89 Decreased GFR R94.4 Assessment & Plan Assessment & Plan (1) Morbid obesity with BMI of 40.0-44.9, adult: Code(s): E66.01 - Morbid (severe) obesity due to excess calories; Z68.41 - Body mass index [BMI] 40.0-44.9, adult Category: Medical (2) LFT elevation: Code(s): R79.89 - Other specified abnormal findings of blood chemistry Category: Medical (3) Decreased GFR: Code(s): R94.4 - Abnormal results of kidney function studies Category: Medical Plan The patient is a 38 year old female presenting with right foot pain follow-up and for a discussion on weight management. Patient came in today with her sister who is a nurse but currently not working, she has medical knowledge on how to give injections right foot pain was noted at the last visit on the 8th of this month, at which time prednisone and diclofenac were prescribed for pain and inflammation. An X-ray was ordered but the report is still pending. The foot pain has improved without clear indication of the cause. Morbid obesity: The patient also requested to start semaglutide injections for weight loss. Historical lab work indicated slightly decreased kidney function and elevated liver enzymes that require monitoring. No anemia was observed and white blood cell count was normal. The kidney function has fluctuated; it was 60 in April, 54 in July last year, and currently 55. NSAIDs have been stopped to help manage kidney function. The patient reported history of elevated liver enzymes. Patient is currently taking Clonazepam and Brexpiprazole. The patient reports a family history of thyroid cancer in mother which presents a concern due to the association with semaglutide treatment. Social history The patient has a family history of thyroid cancer. - The patient reported joining a gym and is engaging in treadmill exercise. - The patient is aiming for weight loss and has an increased BMI of 45.5. - No employment status or housing situation was discussed. - Sister was mentioned to have been a nurse. Labs Labs: No signs of anemia; normal white blood cell count; normal metabolic profile with slightly decreased kidney function (historical fluctuations cited); liver enzymes slightly elevated. Plan Right foot pain: Awaiting the pending X-ray report. Continue monitoring. - Obesity: Start semaglutide injections once per week with education provided on administration. Continue exercising at the gym. Monitor for side effects such as nausea and pancreatitis. - Slightly decreased kidney function: Increase fluid intake. Avoid NSAIDs to support kidney function. - Elevated liver enzymes: Monitor liver function with upcoming labs in one month. - Family history of thyroid cancer: Discussed risks related to semaglutide and the increased risk of thyroid cancer. - Use of Clonazepam and Brexpiprazole: Continue as prescribed by the psychiatric doctor. Monitor for depressive symptoms with semaglutide use. Patient is instructions Return for follow-up in one month with repeat lab tests. - Increase water intake to support kidney function. - Discontinue use of NSAIDs such as ibuprofen and naproxen. - Monitor for and report any side effects from semaglutide, including nausea. - Continue exercising at the gym, ensuring proper footwear is worn. - Self-administer semaglutide injections as instructed, once per week. - Maintain dietary restrictions and lifestyle modifications as part of weight management. - Be vigilant for any symptoms of depression and report if they occur. Discussion I discussed with the patient the importance of monitoring kidney and liver functions due to historical fluctuations and current laboratory findings. I explained the potential benefits and risks associated with starting semaglutide, particularly in relation to her BMI and family history of thyroid cancer. I advised stopping NSAID use to help stabilize kidney function and emphasized the need for hydration. We discussed the need for proper footwear to support her exercise regimen and help with foot pain. I educated the patient on the administration of semaglutide injections, and expressed the potential side effects and contraindications, including the risk of pancreatitis and its rare association with thyroid cancer. I emphasized the need for a comprehensive lifestyle approach, incorporating diet control and regular exercise, while using semaglutide. Orders: Orders TSH reflex Free T4 Today E66.01 - Morbid (severe) obesity due to excess calories, R79.89 - Other specified abnormal findings of blood chemistry, Z68.41 - Body mass index [BMI] 40.0-44.9, adult Comprehensive Met. Panel Today E66.01 - Morbid (severe) obesity due to excess calories, R79.89 - Other specified abnormal findings of blood chemistry, Z68.41 - Body mass index [BMI] 40.0-44.9, adult
[2024-08-31 10:52] VITALS: BP 118/72; PULSE 97; O2SAT 100; BMI 45.5
== END 2024-08-31 12:17 | disposition home or self-care (01) ==
PROVIDERS: PCP Internal Medicine; Visit Provider Internal Medicine
DX: E66.01 Morbid (severe) obesity due to excess calories (principal); Z68.41 Body mass index [BMI] 40.0-44.9, adult; R79.89 Other specified abnormal findings of blood chemistry; R94.4 Abnormal results of kidney function studies

== ENCOUNTER → 2024-08-31 10:43 | Outpatient (BNVA) | payer OTHER, SELFPAY | PROVIDERS: PCP Internal Medicine; Visit Provider Internal Medicine | DX: E66.01 Morbid (severe) obesity due to excess calories (principal); R79.89 Other specified abnormal findings of blood chemistry; R94.4 Abnormal results of kidney function studies; Z71.3 Dietary counseling and surveillance | CPT/HCPCS: 99212 ==

== ENCOUNTER 2024-09-30 11:56 | Outpatient (AMB) | payer OTHER, SELFPAY ==
--- NOTE | 2024-09-30 12:49 | MHC.OFFWIV ---
Intake Vital Signs 09/30/24 12:50 Weight 227 lb BP 126/70 Blood Pressure Location Lt brachial Position Sitting Pulse 86 Pulse Source Pulse Oximeter Pulse Oximetry (%) 93 Oxygen Delivery Method Room Air Intake Visit Reasons: EP Rt foot swelling/pain Intake Note: Patient here for right foot swelling and pain and limited ROM. Denies any injuries. Patient Tobacco Use Status: Never used Tobacco Allergies carrot [Carrot] Allergy (Mild, Verified 09/30/24 12:52) INDUCES ASTHMA, HIVES Sulfa (Sulfonamide Antibiotics) [Sulfa (Sulfonamides)] Allergy (Mild, Verified 09/30/24 12:52) INDUCES ASTHMA, HIVES, blotchy, asthma flare up ciprofloxacin [Cipro] Adverse Reaction (Unknown, Verified 09/30/24 12:52) joint swelling Do you need a note to return to daycare/school/sports/work: No HPI HPI Comments History of Present Illness Details She presenta to [facility] with foot hooker; R foot Ongoing since Thursday Happened last month too and was seen in the office and had an xray completed No trauma or injury that she is aware Pain with movement is 10/10 She tried rest. No medicine taken for pain Xray R foot last time PFSH Medical History Pneumonia Dyspnea on exertion Anemia CPAP (continuous positive airway pressure) dependence Endometriosis Asthma Surgical History History of delivery Family History Other Mental health disorder Substance use disorder Social History Housing: Condominium Alcohol intake: current Alcohol intake frequency: a few times a month Patient Tobacco Use Status: Never used Tobacco e-Cigarette/Vaping Use: Never Used service: No Current occupational status: disabled Cognitive needs: No Hearing needs: No Vision needs: No Female Reproductive History Menstrual Age of Menarche: 10 Review of Systems Const Denies chills and Denies fever(s) Resp Denies cough Musc Denies numbness, Denies tingling and Reports other (R foot pain) Skin/Breast Denies skin pain and Reports skin swelling (R foot) Neuro Denies numbness and Denies tingling Physical Exam Vital Signs: Last Vital Signs Pulse 86 09/30/24 12:50 BP 126/70 09/30/24 12:50 Pulse Ox 93 09/30/24 12:50 Oxygen Delivery Method Room Air 09/30/24 12:50 General: Non-toxic, NAD. Speaking full sentences. Skin: Warm dry throughout R foot + edema along dorsal aspect near 1st MTP joint. No erythema or warmth/ecchymosis Respiratory: No respiratory distress Cardiac: R foot DP pulse intact MSK: + ttp dorsal aspect R foot near 1st/2nd MTP joints. + decreased plantar flexion digits R foot. No tenderness to palpation of digits on foot. No numbness Neurology: Alert. No aphasia or facial droop. Gait without abnormality Psych: Good mood and affect Assessment & Plan Assessment & Plan (1) Foot pain, right: Code(s): M79.671 - Pain in right foot Plan: No additional imaging warranted at this time Xray from last visit reviewed and ? pain caused by osteo-calcifications to that region. No fx noted I discussed podatry referral AMNA bandage given Rest, ice and elevate F/U with PCP Orders: Referrals Podiatry Referral M79.671 - Pain in right foot Coding Level of Care Code Est Pt Level 3 (16157) Diagnoses Foot pain, right M79.671
[2024-09-30 12:50] VITALS: BP 126/70; PULSE 86; O2SAT 93
== END 2024-09-30 13:05 | disposition home or self-care (01) ==
PROVIDERS: PCP Internal Medicine; Visit Provider Physician Assistant
DX: M79.671 Pain in right foot (principal)

== ENCOUNTER → 2024-09-30 11:56 | Outpatient (BNVA) | payer OTHER, SELFPAY | PROVIDERS: PCP Internal Medicine; Visit Provider Physician Assistant | DX: M79.671 Pain in right foot (principal) | CPT/HCPCS: 99212 ==

== ENCOUNTER 2024-10-18 08:39 | Outpatient (AMB) | payer OTHER, SELFPAY ==
[2024-10-18 08:42] VITALS: BP 118/76; PULSE 77; O2SAT 99; BMI 43.3
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
== END 2024-10-18 09:40 | disposition home or self-care (01) ==
PROVIDERS: PCP Internal Medicine; Visit Provider Internal Medicine
DX: E66.01 Morbid (severe) obesity due to excess calories (principal); Z68.41 Body mass index [BMI] 40.0-44.9, adult; K13.0 Diseases of lips; J00 Acute nasopharyngitis [common cold]; M54.50 Low back pain, unspecified; G89.29 Other chronic pain

== ENCOUNTER → 2024-10-18 08:39 | Outpatient (BNVA) | payer OTHER, SELFPAY | PROVIDERS: PCP Internal Medicine; Visit Provider Internal Medicine | DX: E66.01 Morbid (severe) obesity due to excess calories (principal); Z68.41 Body mass index [BMI] 40.0-44.9, adult; K13.0 Diseases of lips; J00 Acute nasopharyngitis [common cold]; M54.50 Low back pain, unspecified; G89.29 Other chronic pain | CPT/HCPCS: 96127; 99212 ==

== ENCOUNTER 2024-12-03 09:30 | Outpatient (REF) | payer OTHER, SELFPAY ==
--- OUTSIDE RECORDS SUMMARY | 2024-12-03 13:35 | XMS_ITS | Clinical Summary ---
Author Organization [facility] Address [address] [place] [address] Care Team Providers Care Reporter Anchor Name Role Phone Unavailable Primary Care Provider [...]
[2024-12-03 13:47] LABS: Appearance Urine Clear; Color Urine Yellow; Glucose Urine UA Negative (Negative); Leukocyte Esterase Urine Negative (Negative); Nitrite Urine Negative (Negative); Specific Gravity - Urine <= 1.005 (1.005-1.025); Urine Blood Negative (Negative); Urine Ketones Negative (Negative); Urine Protein Negative (Neg-Trace)
== END 2024-12-03 09:31 | disposition home or self-care (01) ==
LOC: HO.LNP 09:30
PROVIDERS: PCP Internal Medicine; Visit Provider Physician Assistant Medical
DX: R19.7 Diarrhea, unspecified (principal); R30.0 Dysuria; M54.50 Low back pain, unspecified
CPT/HCPCS: 81003; 99212

== ENCOUNTER 2024-12-03 09:30 | Outpatient (AMB) | payer OTHER, SELFPAY ==
--- OUTSIDE RECORDS SUMMARY | 2024-12-03 09:32 | XMS_ITS | Clinical Summary ---
Author Organization [facility] Address [address] [place] [address] Care Team Providers Care Metrology Engineer Name Role Phone Unavailable Primary Care Provider Unavailabl e Surgical History Surgery Date Site/Laterality Comments OTHER SURGICAL HISTORY PROCEDURE: NASAL ENDOSCOPY, SURGICAL; COMMENT: had septoplasty Medical History Medical History Date Comments Bipolar affective disorder (CMS/HCC) DX:Bipolar affective disorder (HCC); COMMENT: Dr. Ford Schizophrenia (CMS/HCC) DX:Schiz ophrenia (HCC) Unspecified asthma(493.90) DX:Un specified asthma(493.90) Iron deficiency anemia 01/29/2011 DX:Iron d eficiency anemia Chronic back pain 05/25/2013 DX:Chronic molly k pain Family History Medical History Relation Name Comments Heart attack Father at 62 yrs, heav y drinker, had quadruple CABG Stroke Father had back surger y Diabetes Maternal Grandmother Hypertension Maternal Grandmother Other cancer Mother's side 1 cervical can cer Relation Name Status Comments Father Maternal Grandmother Mother's side 1 Mother's side 2 Social History Tobacco Use Types Packs/Day Years Used Date Smoking Tobacco: Never Smokeless Tobacco: Never Alcohol Use Standard Drinks/Week Comments Yes 0 (1 standard drink = 0.6 oz pur e alcohol) Comments Unknown Sex and Gender Information Value Date Recorded Sex Assigned at Not on file Legal Sex Female 2:06 AM EST Gender Identity Not on file Sexual Orientation Not on file Obstetrics History Plan of Treatment Health Maintenance Due Date Last Done Comments Breast Cancer Screening 1985 Hepatitis B Vaccines (1 of 3 - 19+ 3-dose series) 2002 Cervical Cancer Screening: P ap Smear 2004 DTaP,Tdap,and Td Vaccines (2 - Td or Tdap) 06/18/2020 06/18/2010 COVID-19 Vaccine (2023-2 5 season) 2024 Influenza Vaccine (#1) 2024 07/15/2013 HIB Vaccines Aged Out No longer eligi ble based on patient's age to complete this topic HPV Vaccines Aged Out No longer eligi ble based on patient's age to complete this topic Hepatitis A Vaccines Aged Out No long er eligible based on patient's age to complete this topic IPV Vaccines Aged Out No longer eligi ble based on patient's age to complete this topic MMR Vaccines Aged Out No longer eligi ble based on patient's age to complete this topic Meningococcal ACWY Vaccine Aged Out N o longer eligible based on patient's age to complete this topic Meningococcal B Vacine Aged Out No lo nger eligible based on patient's age to complete this topic Pneumococcal Vaccine: Pediat rics (0 to 5 Years) and At-Risk Patients (6 to 64 Years) Aged Out No longer eligi ble based on patient's age to complete this topic RSV Immunization Patients Un ninfa 20 months Aged Out No longer eligible b ased on patient's age to complete this topic Varicella Vaccines Aged Out No longer eligible based on patient's age to complete this topic
--- OUTSIDE RECORDS SUMMARY | 2024-12-03 09:32 | XMS_ITS ---
Author Organization [facility] Address [address] [place] [address] Care Team Providers Care Button Clamper Name Role Phone Unknown, Unknown Primary Care Provider Unavailab NICHOLE Echeverria Unavailable [phone] REASON FOR VISIT WM Consult Encounters Encounter Location Date Provider Diagnosis [facility] [address] [place] [address] 08/18/2023 NICHOLE ELIAS Plan Of Treatment No Information Progress Notes * Jody SOUZADOB:[birth year] (39 yo F)Acc No.[id number]:08/18/2023 Progress Notes Patient:?Jody SOUZA Provider:?NICHOLE ELIAS MD :1985???Age:37 Y???Sex:Female D ate:08/18/2023 Address: [address] [id number] Pcp:Unknown Unknown Subjective: * Chief Complaints: * ???1. WM Consult. * ROS:?General/Constitutional:?Denies?Fatigue.?Denies?Fever.?Denies?Lightheadedness.?Weight gain?admits.?Denies?Weight loss.?Neurologic:?Denies?Dizziness.?Denies?Headache.?Denies?Memory loss.?Ophthalmologic:?Denies?Diminished visual acuity.?Denies?Eye problems.?ENT:?Nasal Congestion?Denies.?Denies?Difficulty swallowing.?Denies?Snoring.?Cardiovascular:?Denies?Chest pain at rest.?Denies?Chest pain with exertion.?Denies?Difficulty laying flat.?Denies?Fluid accumulation in the legs.?Denies?Palpitations.?Respiratory:?Denies?Cough.?Denies?Shortness of breath at rest.?Denies?Wheezing.?Gastrointestinal:?Denies?Abdominal pain.?Denies?Blood in stool.?Denies?Change in bowel habits.?Genitourinary:?Denies?Difficulty urinating.?Denies?Frequent urination.?Musculoskeletal:?myalgias?Denies.?Joint Swelling?Denies.?Endocrine:?Denies?Excessive thirst.?Denies?Frequent urination.?Skin:?Denies?Hives.?Denies?Mole(s),?no moles of concern.?Psychiatric:?Denies?Anxiety.?Denies?Depressed mood.?Denies?Difficulty sleeping.?Denies?Eating disorder.?Urology:?blood in urine?denies.?difficulty urinating?denies.? * Medical History:? Objective: * Vitals:? * Examination: ???general exam: ?GENERAL APPEARANCE:?alert, well hydrated, well nourished, in no distress.?HEAD:?normocephalic , atraumatic.?EYES:?pupils equal, round, reactive to light and accommodation , extraocular movement intact (EOMI).?EARS:?hearing intact.?NECK/THYROID:?normal , no thyromegaly, no palpable nodules, trachea midline, no carotid bruit , no cervical lymphadenopathy??.?LYMPH NODES:?no lymphadenopathy.?SKIN:?good turgor , no rashes , no suspicious lesions on exposed skin surfaces.?HEART:?S1, S2 , regular rate and rhythm, no murmurs, rubs, gallops, no jugular venous distention.?LUNGS:?clear to auscultation bilaterally , no wheezes, rales, rhonchi.?CHEST:?normal shape and expansion, , normal anteroposterior (AP) diameter.?ABDOMEN:?soft, nontender, nondistended, no guarding, rigidity or rebound tenderness?, no hepatosplenomegaly.?MUSCULOSKELETAL:?no physical limitations, gait normal.?EXTREMITIES:?good capillary refill in nail beds , no clubbing, cyanosis, or edema.?NEUROLOGIC:?cognitive exam grossly normal , alert and oriented , nonfocal.?Psychiatry?normal affect, engaged in conversation, good eye contact.?MALE GENITOURINARY:?circumcised , no penile lesions or discharge , no testicular mass , testes descended bilaterally.? Assessment: Plan: * Treatment: * * Electronic signature of BRIANNE ELIAS MD on 12/03/2024 at 09:32 AM EST Sign off status: Pending * Provider:?NICHOLE ELIAS MD Date:?08/18 Generated for Reyna porter/Marquis/eTransmitting on:?12/03/2024 09:32 AM EST History and Physical Notes * Examination Category Sub-Category Detail Notes Category Not es general exam GENERAL APPEARANCE: alert, well hydrated, well nourished, in no distress HEAD: normocephalic , atra umatic EYES: pupils equal, round, reactive to light and accommodation , extraocular movement intact (EOMI) EARS: hearing intact NECK/THYROID: normal , no thyromeg franc, no palpable nodules, trachea midline, no carotid bruit , no cervical lymphadenopathy HEART: S1, S2 , regular rat e and rhythm, no murmurs, rubs, gallops, no jugular venous distention CHEST: normal shape and exp ansion, , normal anteroposterior (AP) diameter LUNGS: clear to auscultatio n bilaterally , no wheezes, rales, rhonchi ABDOMEN: soft, nontender, non distended, no guarding, rigidity or rebound tenderness , no hepatosplenomegaly NEUROLOGIC: cognitive exam gross ly normal , alert and oriented , nonfocal SKIN: good turgor , no helga hes , no suspicious lesions on exposed skin surfaces EXTREMITIES: good capillary refil l in nail beds , no clubbing, cyanosis, or edema MUSCULOSKELETAL: no physical limitati ons, gait normal MALE GENITOURINARY: circumcised , no pen ile lesions or discharge , no testicular mass , testes descended bilaterally LYMPH NODES: no lymphadenopathy Psychiatry normal affect, engag ed in conversation, good eye contact
--- OUTSIDE RECORDS SUMMARY | 2024-12-03 09:32 | XMS_ITS | Patient Health Record ---
Author Organization [facility] Address [address] [place] [address] Care Team Providers Care Site Acquisition Manager Name Role Phone Bin RODRIGUEZ, [facility] Primary Care Provider Shan Cui Unavailable [phone] Allergies Allergen (clinical drug ingredient) Drug/Non Drug Allergy documented on EMR Reaction Allergy Type Onset Date Status ciprofloxacin Cipro Unknown Drug Allergy Act kati Substance with sulfonamide structure and antibacterial mechanism of action (substance) Sulfa Antibiotics Unknown Drug Allergy Active Reason For Referral No Information Medications Medication SIG (Take, Route, Frequency, Duration) Notes Start Date End Date Status Antibiotic for tooth Not-Takin g Amoxicillin 500 MG 1 tablet Orally Thre e times a day for 10 days 10/26/2020 Active Cyclobenzaprine HCl Not-Taking ibuprofen 1 tab Oral for 14 days PRN Active clonazePAM 0.5 MG 1 tablet at bedtime Orally Once a day Active Chlorthalidone 25 MG 1 tablet in the mor demario with food Orally Once a day Active Cephalexin 500 MG 1 capsule Orally messi ry 12 hrs for 5 day(s) Active Vraylar 3mg Active Immunizations Vaccine Route Administration Date Status Comme nts COVID-19 Pfizer BioNTech Vaccine Unknown 08/31/2021 Administered 1st 12/16/2020 2nd 01/07/2021 Social History Tobacco Use: Social History Observation Description Date Details (start date - stop date) Never Smoker NA - NA Tobacco Use/Smoking Question Answer Notes Are you a: nonsmoker Additional Findings: Tobacco Non-User Current no n-smoker Alcohol Screen Question Answer Notes Did you have a drink contain ing alcohol in the past year? Yes How often did you have a dri nk containing alcohol in the past year? Monthly or less (1 point) Points 1 Interpretation Negative Tobacco use other than smoking: Question Answer Notes Are you an other tobacco user? No Plan Of Treatment Pending Test Test Name Order Date 44841 I&D ABSCESS- SIMPLE,SINGLE 021 50246 I&D ABSCESS- SIMPLE,SINGLE 021 01962 I&D ABSCESS- SIMPLE,SINGLE 022 12959- I&D ABSCESS-COMPLICATED,MULTI 03/2020 04824- I&D ABSCESS-COMPLICATED,MULTI Insurance Providers Payer Name Payer Address Payer Phone Subscriber Number Group Number Insured Name Patient Relationship to Insured Coverage Start Date Coverage End Date Medicare [employer] [address] [place] [address] [id number] Jody Souza Self - patient is the insured Medical (General) History Medical History History ICD Code asthma back pain hip pain knee depression wheezing ingrown toe nail painful nails open sores Surgical History Surgery Date(Month/Year) section 01/29 polyp uteral surgery enmistoste nasal srugery
--- OUTSIDE RECORDS SUMMARY | 2024-12-03 09:32 | XMS_ITS | Patient Health Record ---
Author Organization [employer] [facility] Address [address] [facility] [address] [place] [address] Care Team Providers Care Grapple Skidder Operator Name Role Phone Unknown, Unknown Primary Care Provider Unavailab le Reason For Referral No Information Immunizations Vaccine Route Administration Date Status Comme nts COVID 19 Pfizer Unknown 12/16/2020 Administered COVID 19 Pfizer Unknown 01/07/2021 Administered COVID 19 Pfizer Unknown 08/31/2021 Administered Influenza, seasonal, injecta ble, 6-35 months Unknown 07/15/2013 Administered Tdap Unknown 12/10/2015 Administered Plan Of Treatment No Information Insurance Providers Payer Name Payer Address Payer Phone Subscriber Number Group Number Insured Name Patient Relationship to Insured Coverage Start Date Coverage End Date [facility] [address] [place] [id number] Jody Souza Self - patient is the insured
--- OUTSIDE RECORDS SUMMARY | 2024-12-03 09:32 | XMS_ITS | Data Portability ---
Author Organization [email or web address] [place] [facility] Address [address] [place] [phone] Care Team Providers Care Television Cable Installer Name Role Phone [facility] Referring Provider Assessment Encounter Date Assessment Date Assessment LastModified by Organization Details LastModified Time 11/06/2022 11/06/2022 I have reviewed and agree with the assessment and plan as documented by the rn endocrinology. I provided real time medical direction for this encounter and was immediately available to provide additional phone based assistance as needed. History as noted by rn endocrinology. Pt reports the onset of frontal headache this AM after waking up, described as throbbing . She reports associated nausea and had one episode of vomiting earlier today that was a little bloody . Pt not on AC. She denies any vision changes or fevers or any recent head injuries. She has been taking tylenol without any effect on the headache or nausea. Pt reports no history of similar headaches in the past. Pt went to an urgent care earlier today and was diagnosed with a possible L ear infection and prescribed an antibiotic that the pt has not yet started to take. She reports that the urgent care told her that she should have a CT scan of her head if her symptoms didn't improve to rule out a head bleed or a stroke . Pt is now reporting persistent headache and nausea, unchanged since this AM. On exam, pt appears comfortable. Vitals normal except for elevated BP 164/84. Neuro exam normal. Rapid Covid Ag and Flu swabs both negative. Impression: Persistent throbbing frontal BROWN since this AM with nausea and 1 episode of vomiting earlier today. Taking tylenol with no effect on the headache. Symptoms could be related to sinusitis but pt denies any congestion and nausea and vomiting is of concern. Given the persistent headache that the pt has not experienced in the past, I recommend that she go to the ED now for evaluation with imaging, Head CT to assess for ICH or other acute abnormality. The pt agrees and plans to drive to the [facility] ED for evaluation. I speak with the ED hand suture winder at [place] and give expect. [email or web address] Not available 11/06/2022 17:09:51 04/15/2023 04/15/2023 I provided real -time medical direction via phone for this encounter, and was available for additional phone based assistance as needed. I have reviewed and agree with the Assessment and Plan as documented by the Tamping Machine Operator. Patient given the opportunity to ask questions. Has per above, patient with sciatica. Has received Toradol in the past with good success. No red flags. No change in bowel bladder. Following up with PCP. Has not taking any nonsteroidals and no contraindication for today's dose. Red flags discussed as to when to seak a higher level of care. All questions answered. Not available 04/15/2023 20:53:40 08/12/2024 08/12/2024 I provided real -time medical direction via phone for this encounter and was available for additional phone-based assistance as needed. I have reviewed and agree with the Assessment and Plan as documented by the Tamping Machine Operator. Patient given the opportunity to ask questions. Our service contacted for an assessment of: sciatica As per above, patient with hx of chronic pain. No new or worsening red S&S. No new bowel/bladder symptoms. No new gait abnl. No new neurological signs, symptoms or deficits. Pain manifests primarily as foot pain Per rn endocrinology on the scene, VSS, non-toxic. Neuro grossly intact. No CKI and not on blood thinners. Has not taken NSAID today Impression: sciatica with foot pain Plan: Toradol 30 mg IM times one. F/u with PCP. Red flags to be discussed as to when to seek a higher level of care. Allergies reviewed We discussed the diagnostic uncertainty of home visits and the risk associated with this. In this case, the patient and I felt this to be an acceptable and reasonable amount of risk given the benefit of avoiding an ED visit. We discussed the need to seek care urgently/emergen tly in the setting of any new or worsening serious symptoms Not available 08/12/2024 10:42:58 Plan of Treatment Reminders Order Date Submit Date Provider Last Modified By Organization Details Last Modified Time Details Appointments None recorded. Lab rapid flu (A+B) 2022 023 [email or web address] [facility], [address] [place] [address], [phone], 3 17:00:43 rapid SARS CoV 2 Ag, QL IA, respiratory specimen [address] [address] [place] [address], [phone], 3 17:00:43 Referral None recorded. Procedures None recorded. Surgeries None recorded. Imaging None recorded. Medication Orders ketorolac 30 mg/mL (1 mL) injection solution 2023 024 [email or web address] Not available 10:41:21 ketorolac 60 mg/2 mL intramuscul ar solution 2022 023 [email or web address] Not available 20:52:36 Patient TargetsNo targets recorded. Patient InstructionsNo instructions recorded. Reason for Referral None Reported. Results Created Date Observation Date Name Description Value Unit Range Abnormal Flag Note LastModifiedBy Organization Detail LastModifiedTime 11/06/19 23 11/06/2022 rapid SARS CoV 2 Ag, QL IA, respi rator y speci men rapid SARS CoV 2 Ag, QL IA, respiratory specimen negati ve Not Available [facility] ed [address] [place] [address], [phone], 11/06/2022 17:00:19 11/06/19 23 11/06/2022 rapid flu (A+B) Flu negati ve Not Available [facility] ed [address] [place] [address], [phone], 11/06/2022 17:00:17 Result Notes None recorded. Medical Equipment None Reported. Allergies Allergen ID Allergen Name Allergen Category Reaction Reaction Severity Criticality Documentation Date Start Date Code Code System Note Provider Name and Address Organization Details Recorded Time 9021 ciproflox acin medicatio n Not available Not available Not available 08/09/2024 2551 RxNorm Not Available [facility] - production 4 03:48:55 Medications Name Sig Start Date Stop Date Status Note LastModified by Organization Details LastModified Time buspirone 5 mg tablet TAKE 1 TABLET BY MOUTH THREE TIMES A DAY active Not Available Not Available No t Available clonidine HCl 0.1 mg tablet TAKE 1 TABLET BY MOUTH THREE TIMES A DAY NEEDED active Not Available Not Available No t Available clonazepam 0.5 mg tablet TAKE 1 TABLET BY MOUTH TWICE A DAY AND NEEDED DAILY active Not Available Not Available No t Available chlorthalidone 25 mg tablet TAKE 1 TABLET BY MOUTH EVERY DAY FOR 90 DAYS active Not Available Not Available No t Available cephalexin 500 mg capsule TAKE 1 CAPSULE BY MOUTH TWICE A DAY FOR 5 DAYS active Not Available Not Available No t Available albuterol sulfate HFA 90 mcg/actuation aerosol inhaler TAKE 2 PUFFS EVERY 4 HOURS NEEDED active Not Available Not Available No t Available naproxen 500 mg tablet TAKE 1 TABLET BY MOUTH TWICE A DAY NEEDED FOR PAIN active Not Available Not Available No t Available Vraylar 4.5 mg capsule TAKE 1 CAPSULE BY MOUTH EVERYDAY AT BEDTIME active Not Available Not Available No t Available Paxlovid 300 mg (150 mg x 2)-100 mg tablets in a dose pack TAKE 3 TABLETS BY MOUTH 2 TIMES DAILY DIRECTED X5 DAYS active Not Available Not Available No t Available Vitals Date Recorded Body weight Body temperature Oxygen saturation Oxygen saturation in Arterial blood by Pulse oximetry Heart rate Respiratory rate Systolic blood pressure Diastolic blood pressure Provider Name and Address Organization Details Last Updated DateTime 3 398324. 488 g 98 [degF] 100 % 100 % 86 /min 18 /min 148 mm[Hg] 88 mm[Hg] Not Available [employer] 3 20:48:37 Date Recorded Heart rate Body temperature Respiratory rate Oxygen saturation Oxygen saturation in Arterial blood by Pulse oximetry Body weight Systolic blood pressure Diastolic blood pressure Provider Name and Address Organization Details Last Updated DateTime 4 84 /min 97.8 [degF] 16 /min 98 % 98 % 387337. 528 g 138 mm[Hg] 80 mm[Hg] Not Available [employer] 4 09:35:48 Date Recorded Body temperature Heart rate Oxygen saturation Oxygen saturation in Arterial blood by Pulse oximetry Respiratory rate Heart rate Body temperature Oxygen saturation Oxygen saturation in Arterial blood by Pulse oximetry Respiratory rate Systolic blood pressure Diastolic blood pressure Systolic blood pressure Diastolic blood pressure Provider Name and Address Organization Details Last Updated DateTime 98.8 [degF] 80 /min 97 % 97 % 18 /min 80 /min 98.8 [degF] 97 % 97 % 18 /min 164 mm[Hg] 84 mm[Hg] 164 mm[Hg] 84 mm[Hg] Not Available [facility] - production 17:10:53 Social History None recorded. Functional Status None recorded. Mental Status None recorded. Family History Nothing Reported. Medical History No medical history recorded. Gynecological HistoryNo gynecological history recorded. Obstetrics History GPAL:G 0 P 0 0 0 0 Past Encounters Encounter ID Performer Location Encounter Start Date Encounter Closed Date Diagnosis/Indication Diagnosis SNOMED-CT Code Diagnosis ICD10 Code Diagnosis Note [id number] Paulo Huber MD [facility] [address] [place] [id number] 11/06/2022 16:44:17 11/10/2022 16:54:50 Headache 37374797 R51.9 [id number] Carri Kerns MD [facility] [address] [place] [phone] 04/15/2023 20:48:35 04/16/2023 10:19:04 Sciatica 52699927 M54.30 [id number] Carri Kerns MD [facility] [address] [place] [phone] 08/12/2024 09:33:07 08/12/2024 12:26:43 Sciatica 85248126 M54.30 Health Concerns Section Related Observation LastModified by Organization Detai ls LastModified Time None Recorded Concern Status LastModified by Organization Details LastModified Time None Recorded Advance Directives Directive None Recorded Payers Encounter Date Sequence Insurance Name Policy Number Policy Padilla Covered Member ID Padilla Member ID Guarantor Name 11/06/2022 1 [facility] - DOS PRIOR TO 2023 - DUAL ELIGIBLE (MEDICARE REPLACEMENT/ADV ANTAGE - HMO) Jody Souza [id number] Jody Souza 04/15/2023 1 [facility]LY [facility] - DOS ON OR AFTER 2023 - DUAL ELIGIBLE - GROUP HOME OPTIONS AND ONE CARE (MEDICARE REPLACEMENT/ADV ANTAGE - HMO) Jody Souza [id number] Jody Souza 08/12/2024 1 [facility]LY [facility] - DOS ON OR AFTER 2023 - DUAL ELIGIBLE - GROUP HOME OPTIONS AND ONE CARE (MEDICARE REPLACEMENT/ADV ANTAGE - HMO) Jody Harley [id number] Jody Blackman Harley Notes Date Note Type Note Provider Name and Address Organization Details Recorded Time 11/06/2022 text/html This was a supervised home visit with rn endocrinology Brandon Sebastian. CRC Nursing Assessment: Reason For Request: URI Patient Reports: CoughDenies: Cough, fever greater than 2 days Lower extremity swelling History of asthma, increased use of inhaler COPD COVID Exposure Shortness of breath with exertion Pain with inspiration Chief Complaints: Cough, Nausea/Vomiting, PainPMH: Hypertension, OtherAllergies: UnknownComments: Member c/o throat pain/ N/v/denies loose stool, has back pain but has a h/o Arthritis . Member feels hot but does not have a thermometer. Member c/o bloody nose, no blood thinners. Member is on BP pills , clonidine / Member has RAMYA Identity verified by .................... .................... .................... .................... .................... .................... .................... . Tamping Machine Operator Note: PT complains of 10 out of 10 frontal lobe headache with nausea and one bout of vomiting x 12 hours. PT administered 1500 MG Tylenol and Dayquil with no reprieve. PT presented to an urgent care hours earlier and it was recommended that CT scan be performed for increasing headache. PT denies SOB and L/s were determined to be clear and equal bilaterally. Covid and Flu swabs were performed and were determined to be negative. PT denies chest or abdominal pain and no abdominal tenderness was noted. Fast ED stroke scale was performed and was determined to be negative and PT was alert and oriented x 4. PT denies any pain upon inspiration/ expiration and no pain in flanks was reported. PT denies cough or chills. PT reports no blurred vision or dizziness. contacted and advised that PT present to [facility] for a CT scan tonight, PT was appropriate to self present to ED. VG .................... .................... .................... .................... .................... .................... .................... . Disposition: Fulfilled Paulo Huber MD [address] [place] [address],[address], [place], [phone], [employer] - [employer] [place] 11/06/2022 18:58:55 04/15/2023 text/html HPI: Member calling in with c/o right hip and leg pain. Member states she woke up today and started having a shooting in the hip and travels down the leg. Member feels tingling and numbness in her buttocks. Member able to ambulate but its painful. Member taking ibuprofen with little effect. Member has also been icing the hip. Requesting [employer] for pain managment .................... .................... .................... .................... .................... .................... .................... . CRC Nursing Assessment: Comments: CRC RN DID NOT NEED FURTHE RINFO .................... .................... .................... .................... .................... .................... .................... . Tamping Machine Operator Note From Matthew Ventura: Pt presents A@Ox4 Tulsita warm and dry with clear airway and equal chest rise and fall. Pt c/o lower back/buttock pain going down her leg since this morning. Pt tried ibuprofen with no relief. Pt denies injury or falls/trauma, flank pain, abdominal pain, CP, SOB, fever, nausea, diarrhea or kidney pain or problems. Baseline vitals assessed and recorded. [facility] contacted and 30mg toradol ordered IM . Pt agreed to treatment. Pt educated on signs that would indicate the ER. Pt advised to follow up with PCP Tamping Machine Operator Allergies: Ciprofloxacin .................... .................... .................... .................... .................... .................... .................... . Disposition: Laurie Kerns MD [address] [facility],[address], [place], [phone], [email or web address] 04/15/2023 20:54:04 08/12/2024 text/html HPI: member called, reports foot pain started last night now pain also goes up her leg and into her hip. Typical of previous sciatica pain, usually gets Toradol injection for pain, Requesting [facility] visit. .................... .................... .................... .................... .................... .................... .................... . CRC Nurse Triage Notes (Sachi Oliva): Chief Complaints: Leg pain/swelling PMH: Hypertension, Asthma, Bipolar Disorder, Chronic Back Pain, Anxiety Disorder, Depression, Sleep Apnea, Osteoarthritis Comments: CRC RN did not require any additional information to process this visit. .................... .................... .................... .................... .................... .................... .................... . Tamping Machine Operator Note From Matthew Ventura: Pt co right foot pain on top of foot. Pt sts she feels its from sciatica. Pt sts she's had this pain in the past and was relieved with toradol. Pt denies injury or trauma. Pt denies hot to touch, edema, redness. Pt denies CP, SOB, NVD, headache, dizziness or abdominal pain. Pt denies CKD, stomach bleeds or blood thinners. Pt st allergy to Sulfa drugs. Baseline vitals assessed, WNL, Afebrile, right foot has full ROM. No pain on palpation. Neg redness, wounds, or edema. [facility] contacted and 30mg toradol in left deltoid with 25g needle.Right pt, date, drug, dose and route. Pt education on signs indicating the ER. Pt advised to follow up with PCP. Pt signed consent form via email during visit. .................... .................... .................... .................... .................... .................... .................... . [facility] Consulted: Carri Kerns .................... .................... .................... .................... .................... .................... .................... . Disposition: Fulfilled Carri Kerns MD [address] [facility],[address], [place], [phone], [email or web address] 08/12/2024 10:43:18 OBGyn Episode No OBEpisode recorded.
[2024-12-03 10:33] VITALS: BP 110/74; PULSE 78; RESP 17; TEMP 36.9; O2SAT 97; BMI 42.1
--- NOTE | 2024-12-03 10:33 | MHC.OFFWIV ---
Intake Vital Signs 12/03/24 10:33 Height 5 ft 1 in Weight 223 lb BMI 42.1 BP 110/74 Blood Pressure Location Rt brachial Position Sitting Respiration 17 Pulse 78 Pulse Source Pulse Oximeter Temp 98.4 F Temp Source Oral Pulse Oximetry (%) 97 Oxygen Delivery Method Room Air Intake Visit Reasons: EP- Liquid stool Intake Note: Pt is here today c/o liquid stool x4days Patient Tobacco Use Status: Never used Tobacco Allergies carrot [Carrot] Allergy (Mild, Verified 12/03/24 10:34) INDUCES ASTHMA, HIVES Sulfa (Sulfonamide Antibiotics) [Sulfa (Sulfonamides)] Allergy (Mild, Verified 12/03/24 10:34) INDUCES ASTHMA, HIVES, blotchy, asthma flare up ciprofloxacin [Cipro] Adverse Reaction (Unknown, Verified 12/03/24 10:34) joint swelling HPI EP- Liquid stool HPI Details Pt is here today c/o liquid stool x4days PFSH Medical History Pneumonia Dyspnea on exertion Anemia CPAP (continuous positive airway pressure) dependence Endometriosis Asthma Surgical History History of delivery Family History Other Mental health disorder Substance use disorder Social History Housing: Condominium Alcohol intake: current Alcohol intake frequency: a few times a month Patient Tobacco Use Status: Never used Tobacco e-Cigarette/Vaping Use: Never Used service: No Current occupational status: disabled Cognitive needs: No Hearing needs: No Vision needs: No Female Reproductive History Menstrual Age of Menarche: 10 Review of Systems Const All systems reviewed & are unremarkable except as noted in HPI and below Physical Exam Vital Signs: Last Vital Signs Temp 98.4 F 12/03/24 10:33 Pulse 78 12/03/24 10:33 Resp 17 12/03/24 10:33 BP 110/74 12/03/24 10:33 Pulse Ox 97 12/03/24 10:33 Oxygen Delivery Method Room Air 12/03/24 10:33 BMI result Body Mass Index 42.1 Results AMB Urinalysis, Automated UA Leukoctes 0 Monica/uL Last Edit by Mary Ewing, DENISA on 12/03/24 12:03 UA Nitrite Negative Last Edit by Mary Ewing, MINE UTILITY OPERATOR on 12/03/24 12:03 UA Urobilinogen 0.2 mg/dL Last Edit by Mary Ewing, DENISA on 12/03/24 12:03 UA Protein 0 mg/dL Last Edit by Mary Ewing, DENISA on 12/03/24 12:03 UA pH 6.0 Last Edit by Mary Ewing, MINE UTILITY OPERATOR on 12/03/24 12:03 UA Blood 0 Rodrigo/uL Last Edit by Mary Ewing, MINE UTILITY OPERATOR on 12/03/24 12:03 UA Specific Markesan 1.005 Last Edit by Mary Ewing, DENISA on 12/03/24 12:03 UA Ketone Negative Last Edit by Mary Ewing, DENISA on 12/03/24 12:03 UA Bilirubin 0 mg/dL Last Edit by Mary Ewing, MINE UTILITY OPERATOR on 12/03/24 12:03 UA Glucose 0 mg/dL Last Edit by Mary Ewing, MINE UTILITY OPERATOR on 12/03/24 12:03 Results Reviewed Results Reviewed: Laboratory Last Values Urine pH (Auto) 6.0 12/03/24 12:01 Specific Markesan (Auto) 1.005 12/03/24 12:01 Urine Protein (Auto) 0 mg/dL 12/03/24 12:01 Glucose (UA)(Auto) 0 mg/dL 12/03/24 12:01 Urine Ketones (Auto) Negative 12/03/24 12:01 Urine Blood (Auto) 0 Rodrigo/uL 12/03/24 12:01 Urine Nitrite (Auto) Negative 12/03/24 12:01 Urine Bilirubin (Auto) 0 mg/dL 12/03/24 12:01 Urine Urobilinogen (Auto) 0.2 mg/dL 12/03/24 12:01 Leukocyte Esterase (Auto) 0 Monica/uL 12/03/24 12:01 Assessment & Plan Assessment & Plan Plan Likely due to the antibiotics, if symptoms persist for another few days Orders: Orders AMB Urinalysis Automated Today M54.50 - Low back pain, unspecified UA CC w/rflx Micro + Cult Today R30.0 - Dysuria Medications: New diphenoxylate-atropine 2.5-0.025 mg 1 tab PO TID PRN 20 tabs 0RF diarrhea Coding Level of Care Code Est Pt Level 4 (56707)
== END 2024-12-03 11:40 | disposition home or self-care (01) ==
LOC: HO.HMCWIC 09:30
PROVIDERS: PCP Internal Medicine; Visit Provider Physician Assistant Medical
DX: M54.50 Low back pain, unspecified (principal)

== ENCOUNTER 2024-12-28 11:55 | Emergency (ER) | payer OTHER, SELFPAY ==
--- NOTE | ~2024-12-28 | XR_ITS ---
EXAMINATION: XR FOOT, LEFT CLINICAL INFORMATION: pain COMPARISON: March 23, 2024. TECHNIQUE: AP, lateral, and oblique views of the left foot. FINDINGS: No acute cortical disruption. No malalignment. No osteolysis. No lytic or blastic lesions. No subcutaneous emphysema. XR/XR foot LT min 3V IMPRESSION: No acute fracture or dislocation. Negative x-ray. Electronically signed by: Moisés De Jesus MD 12/28/2024 12:34 PM EDT
--- NOTE | ~2024-12-28 | XR_ITS ---
EXAMINATION: XR ANKLE, LEFT CLINICAL INFORMATION: pain COMPARISON: March 23, 2024. TECHNIQUE: 2 views of the left ankle. FINDINGS: No acute cortical disruption or malalignment. No lytic or blastic lesions. No subcutaneous emphysema. No gross joint effusion. XR/XR ankle LT min 3V IMPRESSION: No acute fracture or dislocation. Electronically signed by: Moisés De Jesus MD 12/28/2024 12:36 PM EDT
[2024-12-28 12:10] VITALS: BP 133/90; BP 135/76; PULSE 80; RESP 16; TEMP 36.7; O2SAT 100; O2SAT 80; BMI 41.6
--- NOTE | 2024-12-28 12:12 | ED.GENADULT ---
HPI - General Adult General Chief complaint: Extremity Injury, Lower Stated complaint: atraumatic L ankle injury, swelling, pain Time Seen by Provider: 12/28/24 16:05 Source: patient Mode of arrival: ambulatory Limitations: no limitations History of Present Illness ED Provider: HPI narrative: Patient with no known history of gout no trauma to the ankle pain in the left since yesterday has a throbbing pain in constant when she is not moving her foot no fever patient's father also had a history of got but patient never had any joint problems Related Data Home Medications ?Medication ?Instructions ?Recorded ?Confirmed cariprazine 4.5 mg capsule 4.5 mg PO DAILY 08/28/21 10/18/24 (Vraylar) levonorgestrel 21 mcg/24 hr (up to intrauterine 06/23/24 10/18/24 8 years) 52 mg intrauterine device (Mirena) clonidine HCl 0.1 mg tablet 0.1 mg PO BID 09/30/24 10/18/24 Previous Rx's ?Medication ?Instructions ?Recorded diphenoxylate-atropine 2.5 1 tab PO TID PRN diarrhea #20 tabs 12/03/24 mg-0.025 mg tablet (Lomotil) allopurinol 100 mg tablet 100 mg PO DAILY #90 tabs 12/28/24 colchicine 0.6 mg tablet 0.6 mg PO DAILY #30 tabs 12/28/24 ibuprofen 600 mg tablet 600 mg PO Q6H PRN fever or pain 12/28/24 #40 tabs prednisone 20 mg tablet 60 mg (3 x 20 mg) PO DAILY #21 tabs 12/28/24 Allergies Allergy/AdvReac Type Severity Reaction Status Date / Time carrot [Carrot] Allergy Mild INDUCES Verified 12/28/24 12:16 ASTHMA, HIVES Sulfa (Sulfonamide Allergy Mild INDUCES Verified 12/28/24 12:16 Antibiotics) ASTHMA, [Sulfa (Sulfonamides)] HIVES, blotchy, asthma flare up ciprofloxacin [Cipro] AdvReac Unknown joint Verified 12/28/24 12:16 swelling Review of Systems Review of Systems: Yes all other systems are reviewed and are negative PMFSH Past Medical History Medical History Pneumonia Dyspnea on exertion Anemia CPAP (continuous positive airway pressure) dependence Endometriosis Asthma Surgical History History of delivery Family History Family History Other Mental health disorder Substance use disorder Social History [facility] Alcohol intake: current Alcohol intake frequency: holidays/special occasions only Patient Tobacco Use Status: Never used Tobacco Smoked in Last 30 Days: No e-Cigarette/Vaping Use: Never Used Use of substances other than those prescribed or required for medical reasons: No Advance Directives: No Advance Directives Information Provided: No Patient : No service: No Current occupational status: disabled Cognitive needs: No Hearing needs: No Vision needs: No Physical Exam ED Vital Signs: Vital Signs - 24 hr 12/28/24 12:10 12/28/24 15:40 Temperature 98.1 F 98.1 F Pulse Rate 80 82 Respiratory Rate 16 20 Blood Pressure 135/76 128/64 Pulse Oximetry 100 100 Oxygen Delivery Method Room Air Room Air BMI result Body Mass Index 41.6 Appearance: Alert. Oriented X3. No acute distress. Eyes: no pallor or icterus ENT: Pharynx normal. Oral Mucosa moist Neck: Normal inspection. Neck supple. CVS: Normal heart rate and rhythm. Pulses normal. Respiratory: No respiratory distress. Equal air entry bilateral, no wheezing/rales/rhonchi Abd: soft, not tender Skin: Skin warm and dry. Normal skin color. Normal skin turgor. Extremities: Left foot diffuse swelling of the dorsum of the foot no local warmth neurovascular intact Neuro: Oriented X 3. Course Course Course Narrative: This is a rapid medical exam performed by Akua Ferreira PA-C. The patient is a 39-year-old female with a history of morbid obesity, chronic back pain who presents with a atraumatic left foot and ankle pain x1 day. Patient states she has had an old injury to the ankle, she woke yesterday with pain, redness and swelling. Denies fever. On exam she is able to subtly plantar flex and dorsiflex, the foot and ankle are mildly erythematous, swelling and edema noted. Plan to screen basic labs uric acid inflammatory markers and get imaging of the foot and ankle. The patient was stable and can return to the waiting room pending her full medical assessment. Medications Administered Discontinued Medications Generic Name Dose Route Start Last Admin Trade Name Shivam PRN Reason Stop Dose Admin Acetaminophen 975 mg 12/28/24 15:39 12/28/24 15:42 Acetaminophen 325 Mg Tablet PO 12/28/24 15:40 975 mg ONCE ONE Administration Colchicine 1.2 mg 12/28/24 16:09 12/28/24 16:38 Colchicine 0.6 Mg Tablet PO 12/28/24 16:10 1.2 mg ONCE ONE Administration Ibuprofen 600 mg 12/28/24 15:38 12/28/24 15:42 Ibuprofen 600 Mg Tablet PO 12/28/24 15:39 600 mg ONCE ONE Administration Morphine Sulfate 15 mg 12/28/24 17:33 12/28/24 17:44 Morphine Sulfate Immed Release 15 Mg Tablet PO 12/28/24 17:34 15 mg ONCE ONE Administration Prednisone 60 mg 12/28/24 16:05 12/28/24 16:25 Prednisone 20 Mg Tablet PO 12/28/24 16:06 60 mg ONCE ONE Administration Medical Decision Making Medical Decision Making [facility] Narrative: Clinically patient has has gouty arthritis ankle elevated CRP ESR uric acid will give her colchicine and prednisone see the response Patient felt better after prednisone colchicine able to ambulate discharge patient home on allopurinol colchicine prednisone Differential Diagnosis Differential Diagnoses: The differential diagnosis associated with the presentation includes Gouty arthritis/cellulitis/arthritis Lab Data MDM Lab Attestation statement: I reviewed the patient's lab results. 12/28/24 12:41 12/28/24 12:41 Labs: Lab Results 12/28/24 Range/Units 12:41 WBC 11.0 H (4.8-10.8) X10*3/uL RBC 4.14 L (4.20-5.50) X10*6/uL Hgb 12.1 (12.0-16.0) g/dl Hct 34.9 L (37.0-47.0) % MCV 84.3 (80.0-98.0) fL MCH 29.2 (27.0-33.0) pg MCHC 34.7 (31.0-35.0) g/dl RDW 13.4 (11.0-16.0) % Plt Count 242 (160-400) X10*3/uL MPV 9.1 L (9.4-12.3) fL Immature Gran % (Auto) 0.5 H (0.0-0.4) % Neut % (Auto) 72.0 (45-73) % Lymph % (Auto) 21.8 (20-40) % Tripp % (Auto) 4.6 (2-11) % Eos % (Auto) 0.8 (0-4) % Baso % (Auto) 0.3 (0-2) % Lymph # (Auto) 2.4 (1.2-4.9) X10*3/uL Tripp # (Auto) 0.5 (0.1-1.2) X10*3/uL Eos # (Auto) 0.1 (0.0-0.4) X10*3/uL Baso # (Auto) 0.0 (0.0-0.2) X10*3/uL Abs Immat Gran (auto) 0.05 H (0.00-0.03) X10*3/uL Absolute Neuts (auto) 7.9 (2.0-8.3) x10*3/uL Absolute Nucleated RBC 0.000 (0.0-0.012) X10*3/uL Nucleated RBC % (auto) 0.0 (0.0-0.2) /100WBC ESR 38 H (0-20) MM/HR Sodium 136 (135-145) mmol/L Potassium 3.4 (3.3-5.1) mmol/L Chloride 104 (96-108) mmol/L Carbon Dioxide 23 (22-29) mmol/L Anion Gap 12 (12-20) BUN 10 (9-16) mg/dL Creatinine 0.90 (0.5-1.4) mg/dL Estim Creat Clear Calc 103.3 Estimated GFR > 60 Random Glucose 101 (60-115) mg/dL Uric Acid 9.2 H (2.4-5.7) mg/dL Calcium 9.7 (8.4-10.2) mg/dL Magnesium 1.8 (1.6-2.6) mg/dL C-Reactive Protein 7.78 H (< or = 0.50) mg/dL Beta HCG, Quant < 2 mIU/mL Independent Interpretation I performed an independent interpretation of an: Plain X-Ray Interpretation: NAD Radiology Impression Discussion of test interpretation with radiology: I have reviewed the radiologist's reading. Discharge Plan Discharge Clinical Impression: Gout Patient Disposition: Home, Self-Care Instructions: Low Purine Diet (ED), Gout (ED) Additional Instructions: Your pain in left ankle is likely from the gouty attack Ibuprofen for pain Colchicine and prednisone for the gout as prescribed Start taking allopurinol daily Follow with your PCP Decreased red meat intake Prescriptions: New colchicine 0.6 mg tablet 0.6 mg PO DAILY Qty: 30 0RF allopurinol 100 mg tablet 100 mg PO DAILY Qty: 90 0RF ibuprofen 600 mg tablet 600 mg PO Q6H PRN (Reason: fever or pain) Qty: 40 0RF prednisone 20 mg tablet 60 mg PO DAILY Qty: 21 0RF No Action Vraylar 4.5 mg capsule 4.5 mg PO DAILY Mirena 21 mcg/24 hr (8 yrs) 52 mg intrauterine device intrauterine clonidine HCl 0.1 mg tablet 0.1 mg PO BID diphenoxylate-atropine [Lomotil] 2.5-0.025 mg tablet 1 tab PO TID PRN (Reason: diarrhea) Qty: 20 0RF Print Language: Azeri
[2024-12-28 12:47] LABS: MANUAL DIFF FLAG NO
[2024-12-28 12:48] LABS: Basophils Percent Auto 0.3 % (0-2); Eosinophils Absolute Auto 0.1 X10*3/uL (0.0-0.4); Eosinophils Percent Auto 0.8 % (0-4); Hematocrit 34.9 % (37.0-47.0); Hemoglobin 12.1 g/dl (12.0-16.0); Imm Gran Abs Auto 0.05 X10*3/uL (0.00-0.03); Imm Gran Pct Auto 0.5 % (0.0-0.4); Lymphocytes Absolute Auto 2.4 X10*3/uL (1.2-4.9); Lymphocytes Percent Auto 21.8 % (20-40); Mean Corpuscular HGB Conc 34.7 g/dl (31.0-35.0); Mean Corpuscular Hemoglobin 29.2 pg (27.0-33.0); Mean Corpuscular Volume 84.3 fL (80.0-98.0); Mean Platelet Volume 9.1 fL (9.4-12.3); Monocytes Absolute Auto 0.5 X10*3/uL (0.1-1.2); Monocytes Percent Auto 4.6 % (2-11); Neutrophils Absolute Auto 7.9 x10*3/uL (2.0-8.3); Platelet Count 242 X10*3/uL (160-400); Red Blood Count 4.14 X10*6/uL (4.20-5.50); Red Cell Distribution Width 13.4 % (11.0-16.0)
[2024-12-28 13:11] LABS: HCG Quantitative < 2 mIU/mL
[2024-12-28 13:17] LABS: Anion Gap 12 (12-20); Blood Urea Nitrogen 10 mg/dL (9-16); C Reactive Protein 7.78 mg/dL (< or = 0.50); Calcium 9.7 mg/dL (8.4-10.2); Carbon Dioxide 23 mmol/L (22-29); Chloride 104 mmol/L (96-108); Creatinine Clr Calc Pharmacy 103.3; Estimated Glomerular Filt Rate > 60; Glucose Random 101 mg/dL (60-115); Magnesium 1.8 mg/dL (1.6-2.6); Potassium 3.4 mmol/L (3.3-5.1); Sodium 136 mmol/L (135-145); Uric Acid 9.2 mg/dL (2.4-5.7)
[2024-12-28 13:32] LABS: Erythrocyte Sedimentation Rate 38 MM/HR (0-20)
[2024-12-28 15:40] VITALS: BP 128/64; PULSE 82; RESP 20; TEMP 36.7; O2SAT 100
[2024-12-28] MEDS: Ibuprofen 600 MG TABLET PO (15:42)
[2024-12-28] MEDS: Acetaminophen 325 MG TABLET 975 MG PO (15:42)
[2024-12-28] MEDS: predniSONE 20 MG TABLET 60 MG PO (16:25)
[2024-12-28] MEDS: Colchicine 0.6 MG TABLET 1.2 MG PO (16:38)
[2024-12-28] MEDS: Morphine Sulfate Immed Release 15 MG TABLET PO (17:44)
--- NOTE | 2024-12-28 17:54 | PC.NURSE ---
Pt ambulating slowly, face grimaced and limping; pt appears extremely uncomfortable; pt endorses 6/10 L foot pain; MD made aware and pt medicated per orders
== END 2024-12-28 18:35 | disposition home or self-care (01) ==
PROVIDERS: Physician Assistant Medical; Emergency Provider Internal Medicine; PCP Internal Medicine
DX: M10.072 Idiopathic gout, left ankle and foot (principal); M79.672 Pain in left foot; R10.2 Pelvic and perineal pain; M54.50 Low back pain, unspecified; Z79.899 Other long term (current) drug therapy
CPT/HCPCS: 36415; 73610; 73630; 80048; 83735; 84550; 84702; 85025; 85652; 86140; 99283; 99284

== ENCOUNTER → 2024-12-28 12:11 | Outpatient (BNV) | payer OTHER, SELFPAY | PROVIDERS: Visit Provider Radiology Diagnostic Radiology | DX: M25.572 Pain in left ankle and joints of left foot (principal); M79.672 Pain in left foot | CPT/HCPCS: 73610; 73630 ==

== ENCOUNTER 2025-01-11 08:50 | Outpatient (AMB) | payer OTHER, SELFPAY ==
[2025-01-11 08:54] VITALS: BP 118/74; PULSE 77; O2SAT 97; BMI 37.4
--- NOTE | 2025-01-11 08:54 | A.OFFPC_ITS ---
Vital Signs 01/11/25 08:54 Height 5 ft 5 in Weight 225 lb BMI 37.4 BP 118/74 Blood Pressure Location Lt brachial Position Sitting Pulse 77 Pulse Source Pulse Oximeter Pulse Oximetry (%) 97 Oxygen Delivery Method Room Air Intake Visit Reasons: Follow up Pain-select a pcp Allergies carrot [Carrot] Allergy (Mild, Verified 01/11/25 08:54) INDUCES ASTHMA, HIVES Sulfa (Sulfonamide Antibiotics) [Sulfa (Sulfonamides)] Allergy (Mild, Verified 01/11/25 08:54) INDUCES ASTHMA, HIVES, blotchy, asthma flare up ciprofloxacin [Cipro] Adverse Reaction (Unknown, Verified 01/11/25 08:54) joint swelling Medication List - Last Reconciled 01/11/25 by Adrianne Steward MD allopurinol 100 mg PO DAILY cariprazine (Vraylar) 4.5 mg PO DAILY clonidine HCl 0.1 mg PO BID colchicine 0.6 mg PO DAILY diphenoxylate-atropine 2.5-0.025 mg (Lomotil) 1 tab PO TID PRN ibuprofen 600 mg PO Q6H PRN levonorgestrel (Mirena) intrauterine Tobacco use date assessed: 01/11/25 Dental Screening Dental Screen Date: 01/11/25 Did you have a dental visit in the last 12 months?: Yes Did you have a dental problem in the last 6 months where you did not have access to dental care?: No Was dental information given to patient?: Patient has dentist HPI Follow up Pain-select a pcp HPI Details History The patient is a 39-year-old female for hospital discharge follow-up She was in [facility] in October for the flare-up of gout left foot, patient was treated with allopurinol and colchicine She did well In November she developed abdominal pain nausea vomiting, once noticed blood when she vomited so she went to [facility] Emergency room for evaluation Patient was admitted there and found to have a urinary tract infection Treated with antibiotics, patient felt better and was discharged home with oral antibiotic She developed a side effect of that medication causing diarrhea but she finished it I do not have all the notes from the emergency room and patient does not remember the name of antibiotic She had ultrasound pelvic which showed 3 cm hemorrhagic cyst on right ovary however patient had no pain on the right pelvic area She also had CT scan of abdomen and pelvis Which showed upper limit of normal liver and spleen no other findings , gallbladder within normal limit She is doing well and is back to baseline She also would like to talk about the weight loss medication, her BMI is 37.4 - On weight management, she has experien natividad effective results with Wegovy but not with Zepbound, patient would like to go back on Wegovy I have sent the script patient is to check with the pharmacy and her insurance company regarding coverage Medications - Allopurinol for hyperuricemia (current ly stopping) - Colchicine for gout (currently stoppin g) - Clonidine for bipolar disorder - Vraylar for bipolar disorder - patient have Mirena IUD Problem List - Gout - Urinary Tract Infection (UTI) - Hemorrhagic Ovarian Cyst - Bipolar Disorder - Hyperuricemia (likely due to Gout) - obesity Diagnostic results - Ultrasound: Normal IUD placement, 3 cm hemorrhagic cyst in the right ovary, no torsion observed. - CT Abdomen/Pelvis: Liver and spleen at the upper limit of normal size; kidneys and gallbladder unremarkable. Patient Instructions - Check with pharmacy for Wegovy prescri ption and start if approved by insurance. - Monitor for any recurrent gout attacks . - If experiencing more than four gout at tacks a year, future consideration for daily Allopurinol may be needed. - Follow-up on weight management through metabolic clinic or weight loss program if required for Wegovy approval. Review of Systems General: No fever no chills neurological: No headaches no dizziness ear nose throat: No sore throat no hearing difficulty no ear pain cardiovascular: No syncope, no chest pain, no palpitations gastrointestinal: No nausea vomiting or diarrhea endocrine: No polyuria polydipsia no heat intolerance genitourinary: No dysuria skin: No new complaints Physical Exam general: No acute distress HEENT: No acute findings neck: Supple respiratory system: Able to talk in full sentences, no audible wheeze no stridor cardiovascular: S1-S2 gastrointestinal: No pain, abdomen totally benign, no pain on palpation extremities: Gout in left foot, much better [employer]: Alert awake oriented x3 motor sensory intact skin: [facility] turgor [facility] Medical History Pneumonia Dyspnea on exertion Anemia CPAP (continuous positive airway pressure) dependence Endometriosis Asthma Surgical History History of delivery Family History Other Mental health disorder Substance use disorder Social History Housing: Condominium Alcohol intake: current Alcohol intake frequency: holidays/special occasions only Patient Tobacco Use Status: Never used Tobacco e-Cigarette/Vaping Use: Never Used service: No Current occupational status: disabled Cognitive needs: No Hearing needs: No Vision needs: No Female Reproductive History Menstrual Age of Menarche: 10 Questionnaire PHQ-9 Over the last 2 weeks, how often have you been bothered by any of the following problems? [id number] - PHQ-9 Billing: Patient declined-do not bill Source: Developed by Drs. Deshaun Hassan, Lucie Hinkle, Mart Carlson and colleagues, with an educational jesus from [employer]. Thrive Questionnaire Date Thrive assessed: 01/11/25 I am a: Patient What is your living situation today?: I have a steady place to live Within the past 12 months, did the food you bought not last and you didn't have the money to get more?: Never true Within the past 12 months, did you worry whether your food would run out before you got money to buy more?: Never true Do you have trouble paying for medicines?: No Do you have trouble getting transportation to medical appointments?: No Do you have trouble paying your heating and electricity bill?: No Do you have trouble taking care of your child, family member or friend?: No Do you have trouble with day-to-day activities such as bathing, preparing meals, shopping, managing finances, etc.?: No Are you currently unemployed and looking for a job?: No Are you interested in more education?: No Please select the resources that you would like help with: None Currently or been in a relationship where the following occur: I choose not to answer THRIVE Score: 0 AUDIT C Alcohol Use Questionnaire (AUDIT-C) 1. How often do you have a drink containing alcohol?: Never 3. How often do you have six or more drinks on one occasion?: Never Total Score: 0 Score Reviewed/Action Taken: Yes ELLIS-7 AMB Questionnaire ELLIS-7 Date ELLIS - 7 assessed: 10/18/24 Source: Developed by Drs. Deshaun Hassan, Lucie Hinkle, Mart Carlson and colleagues, with an educational jesus from [employer]. Physical exam (Primary Care) Vital Signs: Last Vital Signs Pulse 77 01/11/25 08:54 BP 118/74 01/11/25 08:54 Pulse Ox 97 01/11/25 08:54 Oxygen Delivery Method Room Air 01/11/25 08:54 BMI result Body Mass Index 37.4 Tobacco/Smoking Status: Tobacco use Status Tobacco use date assessed 01/11/25 01/11/25 08:55 Patient Tobacco Use Status Never used Tobacco 01/11/25 08:55 e-Cigarette/Vaping Use Never Used 01/11/25 08:55 Thrive Assessment: Date of Thrive Assessment Date Thrive assessed 01/11/25 01/11/25 08:55 Currently or been in a relationship where the following occur: I choose not to answer Coding Level of Care Code Est Pt Level 4 (86201) Diagnoses Hospital discharge follow-up Z09 Acute cystitis with hematuria N30.01 Hematuria presence: with hematuria History of gout Z87.39 Hemorrhagic cyst of right ovary N83.201 Class 2 obesity due to excess calories without serious comorbidity with body mass index (BMI) of 37.0 to 37.9 in adult E66.812; E66.09; Z68.37 Obesity classification: adult class 2 (BMI 35 - 39.9) Serious obesity comorbidity presence: without serious comorbidity Body mass index: BMI 37.0-37.9 Assessment & Plan Assessment & Plan (1) Hospital discharge follow-up: Code(s): Z09 - Encounter for follow-up examination after completed treatment for conditions other than malignant neoplasm Category: Medical (2) Acute cystitis: Code(s): N30.00 - Acute cystitis without hematuria Category: Medical Qualifiers: Hematuria presence: with hematuria Qualified Code(s): N30.01 - Acute cystitis with hematuria (3) History of gout: Code(s): Z87.39 - Personal history of other diseases of the musculoskeletal system and connective tissue Category: Medical (4) Hemorrhagic cyst of right ovary: Code(s): N83.201 - Unspecified ovarian cyst, right side Category: Medical (5) Obesity due to excess calories: Code(s): E66.09 - Other obesity due to excess calories Category: Medical Qualifiers: Obesity classification: adult class 2 (BMI 35 - 39.9) Serious obesity comorbidity presence: without serious comorbidity Body mass index: BMI 37.0- 37.9 Qualified Code(s): E66.812 - Obesity, class 2; E66.09 - Other obesity due to excess calories; Z68.37 - Body mass index [BMI] 37.0-37.9, adult Plan History The patient is a 39-year-old female for hospital discharge follow-up She was in [facility] in October for the flare-up of gout left foot, patient was treated with allopurinol and colchicine She did well In November she developed abdominal pain nausea vomiting, once noticed blood when she vomited so she went to [facility] Emergency room for evaluation Patient was admitted there and found to have a urinary tract infection Treated with antibiotics, patient felt better and was discharged home with oral antibiotic She developed a side effect of that medication causing diarrhea but she finished it I do not have all the notes from the emergency room and patient does not remember the name of antibiotic She had ultrasound pelvic which showed 3 cm hemorrhagic cyst on right ovary however patient had no pain on the right pelvic area She also had CT scan of abdomen and pelvis Which showed upper limit of normal liver and spleen no other findings , gallbladder within normal limit She is doing well and is back to baseline She also would like to talk about the weight loss medication, her BMI is 37.4 - On weight management, she has experienced effective results with Wegovy but not with Zepbound, patient would like to go back on Wegovy I have sent the script patient is to check with the pharmacy and her insurance company regarding coverage Medications - Allopurinol for hyperuricemia (currently stopping) - Colchicine for gout (currently stopping) - Clonidine for bipolar disorder - Vraylar for bipolar disorder - patient have Mirena IUD Problem List - Gout - Urinary Tract Infection (UTI) - Hemorrhagic Ovarian Cyst - Bipolar Disorder - Hyperuricemia (likely due to Gout) - obesity Diagnostic results - Ultrasound: Normal IUD placement, 3 cm hemorrhagic cyst in the right ovary, no torsion observed. - CT Abdomen/Pelvis: Liver and spleen at the upper limit of normal size; kidneys and gallbladder unremarkable. Patient Instructions - Check with pharmacy for Wegovy prescription and start if approved by insurance. - Monitor for any recurrent gout attacks. - If experiencing more than four gout attacks a year, future consideration for daily Allopurinol may be needed. - Follow-up on weight management through metabolic clinic or weight loss program if required for Wegovy approval. Medications: Refilled Wegovy (semaglutide (weight loss)) administer weeks 1 through 4 of therapy 0.25 mg (0.5 mL) subcut QWEEK 2 mL 1RF NS E66.01 - Morbid (severe) obesity due to excess calories, J45.40 - Moderate persistent asthma, uncomplicated, R26.2 - Difficulty in walking, not elsewhere classified, R73.01 - Impaired fasting glucose, Z68.41 - Body mass index [BMI] 40.0-44.9, adult Discontinued allopurinol Discontinued Reason: Doctor's Order 100 mg PO DAILY 90 tabs 0RF colchicine Discontinued Reason: Doctor's Order 0.6 mg PO DAILY 30 tabs 0RF
--- OUTSIDE RECORDS SUMMARY | 2025-01-11 09:29 | XMS_ITS | Patient Health Record ---
Author Organization [employer] [facility] Address [address] [place] [address] Care Team Providers Care Blueprint Processor Name Role Phone Unknown, Unknown Primary Care [...] Insured Coverage Start Date Coverage End Date [facility] [address] [place] [id number] Jody Souza Self - patient is the insured
--- OUTSIDE RECORDS SUMMARY | 2025-01-11 09:29 | XMS_ITS | Patient Health Record ---
[facility] Address [address] [place] [place] [address] Care Team Providers Care Site Foreman Name Role Phone Bin [facility]OD[facility]IG[facility] Primary [facility] Provider Shan Cui Unavailable [phone] Allergies Allergen (clinical drug ingredient) Drug/Non Drug [...] Treatment Pending Test Test Name Order Date [id number] I&D ABSCESS- SIMPLE,SINGLE 021 [id number] I&D ABSCESS- SIMPLE,SINGLE 021 [id number] I&D ABSCESS- SIMPLE,SINGLE 022 [id number]- I&D ABSCESS-COMPLICATED,MULTI 03/2020 90909- I&D ABSCESS-COMPLICATED,MULTI Insurance Providers Payer Name Payer Address Payer Phone Subscriber Number Group Number Insured Name Patient Relationship to Insured Coverage Start Date Coverage End Date [employer] [address] [place] [address] [id number] Jody Souza Self - patient is the insured Medical (General) History Medical History History ICD Code asthma back pain hip pain knee depression wheezing ingrown toe nail painful nails open sores Surgical History Surgery Date(Month/Year) section 01/29 polyp uteral surgery enmistoste nasal srugery
--- OUTSIDE RECORDS SUMMARY | 2025-01-11 09:29 | XMS_ITS | Data Portability ---
Author Organization [facility] [place] [facility] [employer] Address [address] [place] [address] Care Team Providers Care Retirement Consultant Name Role Phone [facility] Referring Provider BAKARI BURGESS Primary Care Provider [phone] [facility] OTHER Assessment Encounter Date Assessment Date Assessment LastModified by Organization Details LastModified Time 11/06/2022 11/06/2022 I have reviewed and agree with the assessment and plan as documented by the assistant professor of criminal justice. I provided real time medical direction for this encounter and was immediately available to provide additional phone based assistance as needed. History as noted by assistant professor of criminal justice. Pt reports the onset of frontal headache [...] agrees and plans to drive to the [facility] ED for evaluation. I speak with the ED propellant charge loader at [facility] and give expect. btils Not available 11/06/2022 17:09:51 04/15/2023 04/15/2023 I provided real -time medical direction via phone for this encounter, and was available for additional phone based assistance as needed. I have reviewed and agree with the Assessment and Plan as documented by the Claims Adjuster. Patient given the opportunity to ask questions. [...] Assessment and Plan as documented by the Claims Adjuster. Patient given the opportunity to ask questions. Our service contacted for an assessment of: sciatica As per above, patient with hx of chronic pain. No new or worsening red S&S. No new bowel/bladder symptoms. No new gait abnl. No new neurological signs, symptoms or deficits. Pain manifests primarily as foot pain Per assistant professor of criminal justice on the scene, VSS, non-toxic. Neuro grossly [...] recorded. [facility] [address] [place] [address], [id number], 3 17:00:43 rapid SARS CoV 2 Ag, QL IA, respiratory [facility] [address] [place] [address], [id number], 3 17:00:43 Referral None recorded. Procedures None recorded. Surgeries None recorded. Imaging None recorded. Medication Orders ketorolac 30 mg/mL (1 mL) injection solution 2023 024 [email or web address] Not available 4 10:41:21 ketorolac 60 mg/2 mL intramuscul ar solution 2022 023 [email or web address] Not available 3 20:52:36 Patient TargetsNo targets recorded. Patient InstructionsNo instructions recorded. Reason for Referral None Reported. Results Created Date Observation Date Name Description Value Unit Range Abnormal Flag Note LastModifiedBy Organization Detail LastModifiedTime 11/06/19 23 11/06/2022 rapid SARS CoV 2 Ag, QL IA, respi rator y speci men rapid SARS CoV 2 Ag, QL IA, respiratory specimen negati ve Not Available [facility] ed [address] [place] [address], [id number], 11/06/2022 17:00:19 11/06/19 23 11/06/2022 rapid flu (A+B) Flu negati ve Not Available [facility] ed [address] [place] [address], [phone], 11/06/2022 17:00:17 Result Notes None recorded. Medical Equipment None Reported. Allergies Allergen ID Allergen Name Allergen Category Reaction Reaction Severity Criticality Documentation Date Start Date Code Code System Note Provider Name and Address Organization Details Recorded Time 65666 sulfameth oxazole medicatio n Not available Not available Not available 12/28/2024 99363 RxNorm Not Available [facility] 08:44:40 9070 ciproflox acin medicatio n Not available Not available Not available 08/09/2024 2551 RxNorm Not Available [employer] [facility] 03:48:55 Medications Name Sig Start Date [...] Address Organization Details Last Updated DateTime 3 618250. 488 g 98 [degF] 100 % 100 % 86 /min 18 /min 148 mm[Hg] 88 mm[Hg] Not Available [employer] [facility] 20:48:37 Date Recorded Heart rate Body temperature Respiratory rate Oxygen saturation Oxygen saturation in Arterial blood by Pulse oximetry Body weight Systolic blood pressure Diastolic blood pressure Provider Name and Address Organization Details Last Updated DateTime 4 84 /min 97.8 [degF] 16 /min 98 % 98 % 984737. 528 g 138 mm[Hg] 80 mm[Hg] Not Available [facility] 4 09:35:48 Date Recorded Respiratory rate Body temperature Oxygen saturation Oxygen saturation in Arterial blood by Pulse oximetry Heart rate Systolic blood pressure Diastolic blood pressure Provider Name and Address Organization Details Last Updated DateTime 5 18 /min 98.1 [degF] 99 % 99 % 86 /min 134 mm[Hg] 86 mm[Hg] Not Available [facility] 5 11:08:49 Date Recorded Body temperature Heart rate Oxygen saturation Oxygen saturation in Arterial blood by Pulse oximetry Respiratory rate Heart rate Body temperature Oxygen saturation Oxygen saturation in Arterial blood by Pulse oximetry Respiratory rate Systolic blood pressure Diastolic blood pressure Systolic blood pressure Diastolic blood pressure Provider Name and Address Organization Details Last Updated DateTime 3 98.8 [degF] 80 /min 97 % 97 % 18 /min 80 /min 98.8 [degF] 97 % 97 % 18 /min 164 mm[Hg] 84 mm[Hg] 164 mm[Hg] 84 mm[Hg] Not Available [facility] 3 17:10:53 Social History None recorded. Functional Status [...] [id number] Paulo Huber MD [facility] - [facility] [address] [place] [phone] 11/06/2022 16:44:17 11/10/2022 16:54:50 Headache 56514340 R51.9 [id number] Carri Kerns MD Main - [facility] [address] [place] [phone] 04/15/2023 20:48:35 04/16/2023 10:19:04 Sciatica 63038656 M54.30 [id number] Carri Kerns MD Main - [facility] [address] [place] [phone] 08/12/2024 09:33:07 08/12/2024 12:26:43 Sciatica 22678703 M54.30 [id number] Kiya Garcia MD Main - [facility] [address] [place] [phone] 12/28/2024 11:08:42 12/28/2024 22:08:55 Pain of left ankle joint [id number] 6728683 M25.572 Evaluation in the field was performed by my assistant professor of criminal justice colleague, as noted above, I provided real-time direction and supervisio n for this visit.This is a 39yo F who is p/w 2d of severe atraumatic L ankle pain, swelling up to calf, and warmth to touch. Denies risk factors for septic joint, no hx gout. No fevers. Unable to bear weight 2/2 pain.VS: wnlParamed ic exam: edema and warmth from L calf down to top of foot, diffuse TTP, cannot fully ROM ankle 2/2 painPOC testing: none Impression : acute L ankle swelling, highest c/f septic joint or gout (despite young age), DDx includes occult fracture vs LLE DVTPlan: ED eval as pt reports inability to get PCP appt in coming 48 hoursRed flags reviewed, pt expressed understand ing For PCP: please f/up after ED visit We discussed the diagnostic uncertaint y of home visits and the risk associated with this. In this case, the patient and I felt this to be an acceptable and reasonable amount of risk given the benefit of avoiding an ED visit. We discussed the need to seek care urgently/e mergently in the setting of any new or worsening serious symptoms, shortness of breath, cough, chest pain, fever. Health Concerns Section Related Observation LastModified by Organization Detai ls LastModified Time None Recorded Concern Status LastModified by Organization Details LastModified Time None Recorded Advance Directives Directive None Recorded Payers Encounter Date Sequence Insurance Name Policy Number Policy Padilla Covered Member ID Padilla Member ID Guarantor Name 11/06/2022 1 [facility] - DOS PRIOR TO 2023 - DUAL ELIGIBLE (MEDICARE REPLACEMENT/ADV ANTAGE - HMO) Jody Souza [id number] Jody Souza 04/15/2023 1 [facility] - DOS ON OR AFTER 2023 - DUAL ELIGIBLE - ASSISTED OPTIONS AND ONE CARE (MEDICARE REPLACEMENT/ADV ANTAGE - HMO) Jody Souza [id number] Jody Souza 08/12/2024 1 [facility] - DOS ON OR AFTER 2023 - DUAL ELIGIBLE - ASSISTED OPTIONS AND ONE CARE (MEDICARE REPLACEMENT/ADV ANTAGE - HMO) Jody Goddardrome [id number] Jody Noejarz 12/28/2024 1 [facility] - DOS ON OR AFTER 2023 - DUAL ELIGIBLE - ASSISTED OPTIONS AND ONE CARE (MEDICARE REPLACEMENT/ADV ANTAGE - HMO) Jody Noeshana [id number] Jody Blackman Britniz Notes Date Note Type Note Provider Name and Address Organization Details Recorded Time 11/06/2022 text/html This was a super vised home visit with assistant professor of criminal justice Brandon Sebastian. CRC Nursing Assessment: Reason For [...] / Member has RAMYA Identity verified by ..................... ..................... ..................... ..................... ..................... ..................... ............... Claims Adjuster Note: PT complains of 10 out of [...] advised that PT present to [facility] scan tonight, PT was appropriate to self present to ED. VG ..................... ..................... ..................... ..................... ..................... ..................... ............... Disposition: Fulfilled Paulo Huber MD [address] [place] [address],[address] [facility], [place], [phone], [facility] 11/06/2022 18:58:55 04/15/2023 text/html HPI: Member calling in with c/o right hip and leg pain. Member states she woke up today and started having a shooting in the hip and travels down the leg. Member feels tingling and numbness in her buttocks. Member able to ambulate but its painful. Member taking ibuprofen with little effect. Member has also been icing the hip. Requesting [facility] for pain managment ..................... ..................... ..................... ..................... ..................... ..................... ............... CRC Nursing Assessment: Comments: CRC RN DID NOT NEED FURTHE RINFO ..................... ..................... ..................... ..................... ..................... ..................... ............... Claims Adjuster Note From Matthew Ventura: Pt presents [place] [place] warm and dry with clear airway and equal chest rise and fall. Pt c/o lower back/buttock pain going down her leg since this morning. Pt tried ibuprofen with no relief. Pt denies injury or falls/trauma, flank pain, abdominal pain, CP, SOB, fever, nausea, diarrhea or kidney pain or problems. Baseline vitals assessed and recorded. [facility] contacted and 30mg toradol ordered IM . Pt agreed to treatment. Pt educated on signs that would indicate the ER. Pt advised to follow up with PCP Claims Adjuster Allergies: Ciprofloxacin ..................... ..................... ..................... ..................... ..................... ..................... ............... Disposition: Fulfilled Carri Kerns MD [address] [facility],[address], [place], [phone], [employer] [facility] [employer] 04/15/2023 20:54:04 08/12/2024 text/html HPI: member called, reports foot pain started last night now pain also goes up her leg and into her hip. Typical of previous sciatica pain, usually gets Toradol injection for pain, [facility] ..................... ..................... ..................... ..................... ..................... ..................... ............... CRC Nurse Triage Notes (Sachi Oliva): Chief Complaints: Leg pain/swelling PMH: Hypertension, Asthma, Bipolar Disorder, Chronic Back Pain, Anxiety Disorder, Depression, Sleep Apnea, Osteoarthritis Comments: CRC RN did not require any additional information to process this visit. ..................... ..................... ..................... ..................... ..................... ..................... ............... Claims Adjuster Note From Matthew Ventura: Pt co right [...] on palpation. Neg redness, wounds, or edema. [facility] Saumya contacted and 30mg toradol in left deltoid with 25g needle.Right pt, date, drug, dose and route. Pt education on signs indicating the ER. Pt advised to follow up with PCP. Pt signed consent form via email during visit. ..................... ..................... ..................... ..................... ..................... ..................... ............... [facility] Consulted: Carri Kerns ..................... ..................... ..................... ..................... ..................... ..................... ............... Disposition: Laurie Kerns MD [address] [place] [address],[address], [place], [address], [facility] 08/12/2024 10:43:18 12/28/2024 text/html CRC Nurse Triage Notes (Maggie Dowell): Reason For Request: Left foot swollen to double the size, pt cannot walk Denies: Colon ? Flash, circumferential colon Colon reported with black tissue to the area Open skin area after a fall with uncontrolled bleeding Abscess/infection with streaking noted, presence of fever or without Chief Complaints: Extremity Swelling PMH: Hypertension, Asthma, Bipolar Disorder, Chronic Back Pain, Anxiety Disorder, Depression, Sleep Apnea, Osteoarthritis PMH Reviewed at 12/28/2024:44 Allergies Reviewed at 12/28/2024:44 Comments: Patient reports left foot swelling since yesterday. No known falls or injuries. Increased pain and redness. Skin intact. No fever/chills. Right foot slightly swollen. Education provided on the response time and the member was advised to monitor reported s/s and seek emergency treatment if needed. ..................... ..................... ..................... ..................... ..................... ..................... ............... Claims Adjuster Note From Darwin Aguilera: Dispatched to the call address for the female with a swelling and foot pain. Pt states she noticed yesterday her left ankle was swollen and painful and over the course of time it has become more painful and swollen. She states she has had bone spurs before but it was not exactly like this. She advises it is painful all the time but the pain increases when attempting to ambulate. Pt denies being a smoker, taking blood thinners or any trauma to area including insect bites. Pt was found opening door, CAOx4, airway open and patent, breathing non labored, able to speak in full sentences, -JVD, -HEENT, skin PWD with good turgor, mucous membranes pink and moist, lungs CTA, abd soft non tender/distended, pupils PERRL,-JVD, -HEENT, +swelling and tenderness to left ankle/foot with +homans sign, afebrile. [facility] consulted. Pt advised that if she cannot get into the doctors within a day or two she should be seen in the ED for imaging. Pt advised the pain was too bad to wait a couple of days. 911 called on behalf of the Pt. Pt transported to [facility] per her request. ALL times are approx. ..................... ..................... ..................... ..................... ..................... ..................... ............... [facility] Consulted: Kiya Garcia ..................... ..................... ..................... ..................... ..................... ..................... ............... Disposition: Fulfilled Kiya Garcia MD [address] [facility],[address], [place], [address], [facility] 12/28/2024 14:00:16 OBGyn Episode No OBEpisode recorded.
--- OUTSIDE RECORDS SUMMARY | 2025-01-11 09:30 | XMS_ITS ---
Author Organization [facility] Address [address] [facility] [address] [place] [address] Care Team Providers Care Coach Professional Athletes Name Role Phone Unknown, Unknown Primary Care Provider Unavailab NICHOLE Echeverria Unavailable [phone] REASON FOR VISIT WM Consult Encounters Encounter Location Date Provider Diagnosis [facility] [address] [facility] [address] [place] [address] 08/18/2023 NICHOLE ELIAS Plan Of Treatment No Information Progress Notes * Jody SOUZADOB:[birth year] (39 yo F)Acc No.[id number]:08/18/2023 Progress Notes Patient:?Jody SOUZA Provider:?NICHOLE ELIAS MD :1985???Age:37 Y???Sex:Female D ate:08/18/2023 Address: [address] [place]-[id number] Pcp:Unknown Unknown Subjective: * Chief Complaints: * [...] descended bilaterally.? Assessment: Plan: * Treatment: * Images: * Electronic signature of BRIANNE ELIAS MD on 01/11/2025 at 09:29 AM EDT Sign off status: Pending * Provider:?NICHOLE ELIAS MD Date:?08/18 Generated for Reyna porter/Marquis/eTransmitting on:?01/11/2025 09:29 AM EDT History and Physical Notes * Examination Category [...]
--- OUTSIDE RECORDS SUMMARY | 2025-01-11 09:30 | XMS_ITS | Clinical Summary ---
Author Organization [facility] it[facility] Address [address] [place] [address] Care Team Providers Care Metal Tester Name Role Phone Unavailable Primary Care Provider Unavailabl e Surgical History Surgery Date Site/Laterality Comments OTHER SURGICAL HISTORY PROCEDURE: NASAL ENDOSCOPY, SURGICAL; COMMENT: had septoplasty Medical History Medical History Date Comments Bipolar affective disorder (CMS/HCC) DX:Bipolar affective disorder (HCC); COMMENT: Dr. Ford Schizophrenia DX:Schizophrenia (HCC) Unspecified asthma(493.90) DX:Un specified asthma(493.90) Iron [...] Td or Tdap) 06/18/2020 06/18/2010 COVID-19 Vaccine ( - 2023-2 5 season) 2024 Influenza Vaccine (#1) 2024 [...]
== END 2025-01-11 09:34 | disposition home or self-care (01) ==
PROVIDERS: PCP Internal Medicine; Visit Provider Internal Medicine
DX: Z09 Encounter for follow-up examination after completed treatment for conditions other than malignant neoplasm (principal); N30.01 Acute cystitis with hematuria; Z87.39 Personal history of other diseases of the musculoskeletal system and connective tissue; N83.201 Unspecified ovarian cyst, right side; E66.812 Obesity, class 2; E66.09 Other obesity due to excess calories; Z68.37 Body mass index [BMI] 37.0-37.9, adult

== ENCOUNTER → 2025-01-11 08:50 | Outpatient (BNVA) | payer OTHER, SELFPAY | PROVIDERS: PCP Internal Medicine; Visit Provider Internal Medicine | DX: Z09 Encounter for follow-up examination after completed treatment for conditions other than malignant neoplasm (principal); N30.01 Acute cystitis with hematuria; N83.201 Unspecified ovarian cyst, right side; E66.812 Obesity, class 2; E66.09 Other obesity due to excess calories; Z68.37 Body mass index [BMI] 37.0-37.9, adult; Z71.3 Dietary counseling and surveillance; Z87.39 Personal history of other diseases of the musculoskeletal system and connective tissue | CPT/HCPCS: 99212 ==

== ENCOUNTER 2025-03-27 16:24 | Emergency (ER) | payer OTHER, SELFPAY ==
--- NOTE | 2025-03-27 | ECG_ITS ---
Test Reason : cp Blood Pressure : */* mmHG Vent. Rate : 62 BPM Atrial Rate : 62 BPM P-R Int : 172 ms QRS Dur : 82 ms QT Int : 410 ms P-R-T Axes : 46 26 8 degrees QTcB Int : 416 ms Normal sinus rhythm Normal ECG When compared with ECG of 06-Nov-2022 21:41, No significant change was found Referred By: Generic ED Physician Electronically Signed By: Renato Schneider
[2025-03-27 16:33] VITALS: BP 111/68; PULSE 61; RESP 16; O2SAT 98
[2025-03-27 16:48] VITALS: BP 111/68; BP 140/80; PULSE 61; PULSE 70; RESP 16; TEMP 36.6; O2SAT 97; O2SAT 98; BMI 44.4
[2025-03-27 17:09] LABS: MANUAL DIFF FLAG NO
[2025-03-27 17:11] LABS: Basophils Absolute Auto 0.1 X10*3/uL (0.0-0.2); Basophils Percent Auto 0.7 % (0-2); Eosinophils Absolute Auto 0.3 X10*3/uL (0.0-0.4); Eosinophils Percent Auto 4.7 % (0-4); Hematocrit 29.7 % (37.0-47.0); Hemoglobin 9.7 g/dl (12.0-16.0); Imm Gran Abs Auto 0.02 X10*3/uL (0.00-0.03); Imm Gran Pct Auto 0.3 % (0.0-0.4); Lymphocytes Absolute Auto 2.6 X10*3/uL (1.2-4.9); Lymphocytes Percent Auto 36.4 % (20-40); Mean Corpuscular HGB Conc 32.7 g/dl (31.0-35.0); Mean Corpuscular Hemoglobin 29.2 pg (27.0-33.0); Mean Corpuscular Volume 89.5 fL (80.0-98.0); Mean Platelet Volume 9.8 fL (9.4-12.3); Monocytes Absolute Auto 0.4 X10*3/uL (0.1-1.2); Neutrophils Absolute Auto 3.8 x10*3/uL (2.0-8.3); Neutrophils Percent Auto 52.9 % (45-73); Platelet Count 285 X10*3/uL (160-400); Red Blood Count 3.32 X10*6/uL (4.20-5.50); Red Cell Distribution Width 13.2 % (11.0-16.0); White Blood Count 7.2 X10*3/uL (4.8-10.8)
--- NOTE | 2025-03-27 17:20 | ED_ITS ---
HPI - Chest Pain General Chief Complaint: Chest Pain Stated Complaint: chest pain,dizzy Time Seen by Provider: 03/27/25 17:19 Source: patient Mode of arrival: ambulatory Limitations: no limitations History of Present Illness ED Provider: HPI narrative: Patient's history of hypertension anxiety comes here with episode of sweating for last 3 days and just 1 hour prior to arrival patient noticed chest discomfort difficulty in breathing pain gets worse on taking deep Related Data Home Medications ?Medication ?Instructions ?Recorded ?Confirmed cariprazine 4.5 mg capsule 4.5 mg PO DAILY 08/28/21 01/11/25 (Vraylar) levonorgestrel 21 mcg/24 hr (up to intrauterine 06/23/24 01/11/25 8 years) 52 mg intrauterine device (Mirena) clonidine HCl 0.1 mg tablet 0.1 mg PO BID 09/30/24 01/11/25 Previous Rx's ?Medication ?Instructions ?Recorded diphenoxylate-atropine 2.5 1 tab PO TID PRN diarrhea #20 tabs 12/03/24 mg-0.025 mg tablet (Lomotil) ibuprofen 600 mg tablet 600 mg PO Q6H PRN fever or pain 12/28/24 #40 tabs Wegovy 0.25 mg/0.5 mL subcutaneous 0.25 mg (0.5 mL) subcut QWEEK #2 mL 01/11/25 pen injector (semaglutide (weight loss)) Allergies Allergy/AdvReac Type Severity Reaction Status Date / Time carrot [Carrot] Allergy Mild INDUCES Verified 03/27/25 16:51 ASTHMA, HIVES Sulfa (Sulfonamide Allergy Mild INDUCES Verified 03/27/25 16:51 Antibiotics) ASTHMA, [Sulfa (Sulfonamides)] HIVES, blotchy, asthma flare up ciprofloxacin [Cipro] AdvReac Unknown joint Verified 03/27/25 16:51 swelling Review of Systems 2 Review of Systems: Yes all other systems are reviewed and are negative PMFSH Past Medical History Medical History Pneumonia Dyspnea on exertion Anemia CPAP (continuous positive airway pressure) dependence Endometriosis Asthma Surgical History History of delivery Family History Family History Other Mental health disorder Substance use disorder Social History Social History Housing: Condominium Alcohol intake: current Alcohol intake frequency: a few times a month Patient Tobacco Use Status: Never used Tobacco Smoked in Last 30 Days: No e-Cigarette/Vaping Use: Never Used Use of substances other than those prescribed or required for medical reasons: No Advance Directives: No Advance Directives Information Provided: No Do you have a plan to hurt others: No Plan Patient : No service: No Current occupational status: disabled Cognitive needs: No Hearing needs: No Vision needs: No Physical Exam 2 Vital Signs: Vital Signs: Last Vital Signs Temp 97.9 F 03/27/25 19:04 Pulse 63 03/27/25 19:04 Resp 14 03/27/25 19:04 BP 113/65 03/27/25 19:04 Pulse Ox 98 03/27/25 19:04 O2 Del Method Room Air 03/27/25 19:04 BMI result Body Mass Index 44.4 Appearance: Alert. Oriented X3. No acute distress. Eyes: PERRLA, No Nystagmus ENT: Pharynx normal. Oral Mucosa moist Neck: Normal inspection. Neck supple. CVS: Normal heart rate and rhythm. Pulses normal. Respiratory: No respiratory distress. Equal air entry bilateral, no wheezing/rales/rhonchi Abdomen: Soft and nontender. Bowel sounds are present, no mass palpable, no CVA tenderness Skin: Skin warm and dry. Normal skin color. Normal skin turgor. Extremities: No lower extremity edema. No calf tenderness Neuro: Oriented X 3. No motor deficit. No sensory deficit.No cerebellar signs , cranial nerves II-XII intact Medical Decision Making Medical Decision Making MDM Narrative: Patient with a history of anxiety hypotension with atypical chest pain workup essentially negative normal EKG patient's feels anxiety likely the cause for the pain D-dimer also negative Differential Diagnosis Differential Diagnoses: The differential diagnosis associated with the presentation includes ACS/PE/costochondritis/anxiety Lab Data [facility] Lab Attestation statement: I reviewed the patient's lab results. 03/27/25 17:06 03/27/25 17:06 Labs: Lab Results 03/27/25 03/27/2503/27/25 Range/Units 17:06 17:48 18:07 WBC 7.2 (4.8-10.8) X10*3/uL RBC 3.32 L (4.20-5.50) X10*6/uL Hgb 9.7 L (12.0-16.0) g/dl Hct 29.7 L (37.0-47.0) % MCV 89.5 (80.0-98.0) fL MCH 29.2 (27.0-33.0) pg MCHC 32.7 (31.0-35.0) g/dl RDW 13.2 (11.0-16.0) % Plt Count 285 (160-400) X10*3/uL MPV 9.8 (9.4-12.3) fL Immature Gran % (Auto) 0.3 (0.0-0.4) % Neut % (Auto) 52.9 (45-73) % Lymph % (Auto) 36.4 (20-40) % Emmons % (Auto) 5.0 (2-11) % Eos % (Auto) 4.7 H (0-4) % Baso % (Auto) 0.7 (0-2) % Lymph # (Auto) 2.6 (1.2-4.9) X10*3/uL Emmons # (Auto) 0.4 (0.1-1.2) X10*3/uL Eos # (Auto) 0.3 (0.0-0.4) X10*3/uL Baso # (Auto) 0.1 (0.0-0.2) X10*3/uL Abs Immat Gran (auto) 0.02 (0.00-0.03) X10*3/uL Absolute Neuts (auto) 3.8 (2.0-8.3) x10*3/uL Absolute Nucleated RBC 0.000 (0.0-0.012) X10*3/uL Nucleated RBC % (auto) 0.0 (0.0-0.2) /100WBC PT 12.1 (10.9-12.4) SEC INR 1.1 (0.9-1.1) APTT 27.5 (26.0-36.8) SEC D-Dimer High Sensitivty 184 NG/ML Sodium 141 (135-145) mmol/L Potassium 3.6 (3.3-5.1) mmol/L Chloride 105 (96-108) mmol/L Carbon Dioxide 27 (22-29) mmol/L Anion Gap 13 (12-20) BUN 9 (9-16) mg/dL Creatinine 0.82 (0.5-1.4) mg/dL Estim Creat Clear Calc 101.6 Estimated GFR > 60 Fasting Glucose 121 H (60-99) mg/dL Calcium 9.3 (8.4-10.2) mg/dL Troponin I High Sens < 2.7 (<3.5-17.0) ng/L Urine Color Yellow Urine Appearance Clear Urine pH 6.5 (5.0-9.0) Ur Specific [place] <= 1.005 (1.005-1.025) Urine Protein Negative (Neg-Trace) mg/dL Urine Glucose (UA) Negative (Negative) mg/dL Urine Ketones Negative (Negative) mg/dL Urine Blood Trace H (Negative) Urine Nitrite Negative (Negative) Ur Leukocyte Esterase Small (1+) H (Negative) Urine RBC 0-2 (0-2) /HPF Urine WBC 0-5 (0-5) /HPF Ur Squamous Epith Cells 0-2 (0-2) /HPF Urine Bacteria None Seen (None Seen) Hyaline Casts 0-2 (0-2) /LPF Urine Test NEGATIVE (NEGATIVE) Independent Interpretation I performed an independent interpretation of an: EKG Interpretation: Normal sinus rhythm heart rate 62 beats per minute normal intervals normal axis no acute ST-T changes no acute ischemia Discharge Plan Discharge Clinical Impression: Atypical chest pain, Anxiety Patient Disposition: Home, Self-Care Instructions: Chest Pain (ED), Anxiety (ED) Additional Instructions: Your chest pain is likely musculoskeletal/anxiety Follow up with your PCP When you take your medications Prescriptions: No Action ibuprofen 600 mg tablet 600 mg PO Q6H PRN (Reason: fever or pain) Qty: 40 0RF Vraylar 4.5 mg capsule 4.5 mg PO DAILY Mirena 21 mcg/24 hr (8 yrs) 52 mg intrauterine device intrauterine clonidine HCl 0.1 mg tablet 0.1 mg PO BID diphenoxylate-atropine [Lomotil] 2.5-0.025 mg tablet 1 tab PO TID PRN (Reason: diarrhea) Qty: 20 0RF Wegovy 0.25 mg/0.5 mL pen injector 0.25 mg subcut QWEEK Qty: 2 1RF Rx Instructions: administer weeks 1 through 4 of therapy Interventions: ED Discharge Assessment Last Done: 03/27/25 19:04 Discharge Date/Time: 03/27/25 19:18 Print Language: Belarusian
[2025-03-27 17:24] LABS: Anion Gap 13 (12-20); Blood Urea Nitrogen 9 mg/dL (9-16); Calcium 9.3 mg/dL (8.4-10.2); Carbon Dioxide 27 mmol/L (22-29); Chloride 105 mmol/L (96-108); Creatinine Clr Calc Pharmacy 101.6; Estimated Glomerular Filt Rate > 60; Glucose Fasting 121 mg/dL (60-99); Potassium 3.6 mmol/L (3.3-5.1); Sodium 141 mmol/L (135-145)
[2025-03-27 17:55] LABS: Appearance Urine Clear; Color Urine Yellow; Glucose Urine UA Negative (Negative); Leukocyte Esterase Urine Small (1+) (Negative); Nitrite Urine Negative (Negative); PH 6.5 (5.0-9.0); Specific Gravity - Urine <= 1.005 (1.005-1.025); UMIC TRIGGER UACC YES; Urine Blood Trace (Negative); Urine Ketones Negative (Negative); Urine Protein Negative (Neg-Trace)
[2025-03-27 17:56] LABS: UPreg QC Valid YES; Urine Pregnancy NEGATIVE (NEGATIVE)
[2025-03-27 18:10] LABS: Bacteria Urine None Seen (None Seen); Hyaline Casts Urine 0-2 /LPF (0-2); RBC Urine 0-2 /HPF (0-2); Squamous Epithelial Cell Urine 0-2 /HPF (0-2); UACC Culture Trigger YES; WBC Urine 0-5 /HPF (0-5)
[2025-03-27 18:10] LABS: Troponin-I High Sensitivity < 2.7 ng/L (<3.5-17.0)
--- OUTSIDE RECORDS SUMMARY | 2025-03-27 18:10 | XMS_ITS | Patient Health Record ---
Author Organization [facility] Address [address] [place] [address] Care Team Providers Care Adult And Pediatric Neurologist Name Role Phone Bin [facility] Primary Care Provider Shan Cui Unavailable [phone] Allergies Allergen (clinical drug ingredient) Drug/Non Drug [...] Treatment Pending Test Test Name Order Date [id number] I&D ABSCESS- SIMPLE,SINGLE 021 44034 I&D ABSCESS- SIMPLE,SINGLE 021 16125 I&D ABSCESS- SIMPLE,SINGLE 022 [id number]- I&D ABSCESS-COMPLICATED,MULTI 03/2020 71548- I&D ABSCESS-COMPLICATED,MULTI Insurance Providers Payer Name Payer Address Payer Phone Subscriber Number Group Number Insured Name Patient Relationship to Insured Coverage Start Date Coverage End Date Medicare National [employer] [address] [place] [address] [id number] Jody Souza Self - patient is the insured Medical (General) History Medical History History ICD Code asthma back pain hip pain knee depression wheezing ingrown toe nail painful nails open sores Surgical History Surgery Date(Month/Year) section 01/29 polyp uteral surgery enmistoste nasal srugery
[2025-03-27 18:21] LABS: INTERNATIONAL NORM RATIO 1.1 (0.9-1.1); Prothrombin Time 12.1 SEC (10.9-12.4)
[2025-03-27 18:23] LABS: D Dimer High Sensitivity 184 NG/ML
[2025-03-27 18:24] LABS: Partial Thromboplastin Time 27.5 SEC (26.0-36.8)
[2025-03-27 18:54] VITALS: BP 113/65; PULSE 63; RESP 14; TEMP 36.6; O2SAT 98
[2025-03-27 19:04] VITALS: BP 113/65; PULSE 63; RESP 14; TEMP 36.6; O2SAT 98
== END 2025-03-27 19:18 | disposition home or self-care (01) ==
PROVIDERS: Emergency Provider Internal Medicine; PCP Internal Medicine
DX: R07.89 Other chest pain (principal); F41.9 Anxiety disorder, unspecified; Z79.899 Other long term (current) drug therapy
CPT/HCPCS: 36415; 80048; 81001; 81025; 84484; 85025; 85379; 85610; 85730; 87086; 93005; 99283; 99285

== ENCOUNTER → 2025-03-27 16:53 | Outpatient (BNV) | payer OTHER, SELFPAY | PROVIDERS: Emergency Provider Internal Medicine; PCP Internal Medicine; Visit Provider Internal Medicine Cardiovascular Disease | DX: R07.9 Chest pain, unspecified (principal) | CPT/HCPCS: 93010 ==

== ENCOUNTER 2025-06-22 10:45 | Outpatient (AMB) | payer OTHER, SELFPAY ==
[2025-06-22 10:53] VITALS: BP 118/66; PULSE 74; TEMP 37.6; O2SAT 97; BMI 44.0
--- NOTE | 2025-06-22 10:53 | MHC.OFFWIV ---
Intake Vital Signs 06/22/25 10:53 Height 5 ft 1 in Weight 233 lb BMI 44.0 BP 118/66 Blood Pressure Location Lt brachial Position Sitting Pulse 74 Pulse Source Pulse Oximeter Temp 99.7 F Temp Source Oral Pulse Oximetry (%) 97 Oxygen Delivery Method Room Air Intake Visit Reasons: ep uti Intake Note: pt presents urge to void but urine output decreased- s/s 3 days. pt reports h/o UTI turning septic Patient Tobacco Use Status: Never used Tobacco Allergies carrot (Carrot) Allergy (Mild, Verified 06/22/25 10:56) INDUCES ASTHMA, HIVES Sulfa (Sulfonamide Antibiotics) (Sulfa (Sulfonamides)) Allergy (Mild, Verified 06/22/25 10:56) INDUCES ASTHMA, HIVES, blotchy, asthma flare up ciprofloxacin (Cipro) Adverse Reaction (Unknown, Verified 06/22/25 10:56) joint swelling Do you need a note to return to daycare/school/sports/work: Yes HPI HPI Comments History of Present Illness Details History - The patient is a 39-year-old female presenting with symptoms suggestive of a urinary tract infection. - She reports experiencing urinary urgency for the past two days without dysuria. - The urine appears cloudy. - The patient has a history of a urinary tract infection that progressed to sepsis a few months ago, requiring hospitalization and intravenous antibiotics. - She experienced severe diarrhea as a side effect of the antibiotics administered during her previous hospitalization. - She denies fever, chills, CP, SOB, abd pain, n/v/d, hematuria, vaginal discharge, or vaginal bleeding. Physical Exam General: Cooperative, healthy appearing, comfortable, no acute distress and well developed Cardiac: Normal S1 and S2. RRR, no M/R/G noted. Respiratory: Normal respiratory effort and able to speak in complete sentences. Clear to auscultation bilaterally. No w/r/r noted. Skin: No rashes or lesions noted. GI: Normal inspection. Normal BS noted. Soft, non-tender, non-distended. No TTP of all 4 quadrants. No guarding or rebound tenderness noted. Back: Negative CVA bilaterally. Reports back pain, but no radiation noted. Patient was informed and verbally consented to the use of an ambient scribe for clinic note documentation during this visit. [facility] Medical History Pneumonia Dyspnea on exertion Anemia CPAP (continuous positive airway pressure) dependence Endometriosis Asthma Surgical History History of delivery Family History Other Mental health disorder Substance use disorder Social History Housing: Condominium Alcohol intake: current Alcohol intake frequency: a few times a month Patient Tobacco Use Status: Never used Tobacco e-Cigarette/Vaping Use: Never Used service: No Current occupational status: disabled Cognitive needs: No Hearing needs: No Vision needs: No Female Reproductive History Menstrual Age of Menarche: 10 Review of Systems Const All systems reviewed & are unremarkable except as noted in HPI and below Physical Exam Vital Signs: Last Vital Signs Temp 99.7 F 06/22/25 10:53 Pulse 74 06/22/25 10:53 BP 118/66 06/22/25 10:53 Pulse Ox 97 06/22/25 10:53 Oxygen Delivery Method Room Air 06/22/25 10:53 BMI result Body Mass Index 44.0 Results AMB Urinalysis, Automated UA Leukoctes 70 Monica/uL Last Edit by Mary Ewing CMA on 06/22/25 11:08 UA Nitrite Negative Last Edit by Mary Ewing CMA on 06/22/25 11:08 UA Urobilinogen 0.2 mg/dL Last Edit by Mary Ewing CMA on 06/22/25 11:08 UA Protein 0 mg/dL Last Edit by Mary Ewing CMA on 06/22/25 11:08 UA pH 6.0 Last Edit by Mary Ewing CMA on 06/22/25 11:08 UA Blood 0 Rodrigo/uL Last Edit by Mary Ewing CMA on 06/22/25 11:08 UA Specific [place] 1.015 Last Edit by Mary Ewing CMA on 06/22/25 11:08 UA Ketone Negative Last Edit by Mary Ewing CMA on 06/22/25 11:08 UA Bilirubin 0 mg/dL Last Edit by Mary Ewing CMA on 06/22/25 11:08 UA Glucose 0 mg/dL Last Edit by Mary Ewing CMA on 06/22/25 11:08 Results Reviewed Results Reviewed: Laboratory Last Values Urine pH (Auto) 6.0 06/22/25 11:06 Specific [place] (Auto) 1.015 06/22/25 11:06 Urine Protein (Auto) 0 mg/dL 06/22/25 11:06 Glucose (UA)(Auto) 0 mg/dL 06/22/25 11:06 Urine Ketones (Auto) Negative 06/22/25 11:06 Urine Blood (Auto) 0 Rodrigo/uL 06/22/25 11:06 Urine Nitrite (Auto) Negative 06/22/25 11:06 Urine Bilirubin (Auto) 0 mg/dL 06/22/25 11:06 Urine Urobilinogen (Auto) 0.2 mg/dL 06/22/25 11:06 Leukocyte Esterase (Auto) 70 Monica/uL 06/22/25 11:06 Assessment & Plan Assessment & Plan (1) Urinary frequency: Code(s): R35.0 - Frequency of micturition Plan Most likely UTI UA 1+ leuko plan - will order urine culture and call her with results, if needed we can change her antibiotic or stop them if the culture does not grow any bacteria - drink lots of fluids - start antibiotics as prescribed - follow up with PCP Orders: Orders Urine Culture Today N39.0 - Urinary tract infection, site not specified AMB Urinalysis Automated Today Z13.9 - Encounter for screening, unspecified Medications: New cefuroxime axetil 500 mg PO Q12H 10 tabs 0RF Coding Level of Care Code Est Pt Level 3 (01352) Diagnoses Urinary frequency R35.0
--- OUTSIDE RECORDS SUMMARY | 2025-06-22 14:07 | XMS_ITS | Patient Health Record ---
Author Organization [facility] Address [address] [place] [address] Care Team Providers Care Windows Application Developer Name Role Phone Bin [facility] Primary Care Provider Shan Cui Unavailable [phone] Allergies Allergen (clinical drug ingredient) Drug/Non Drug [...] 1 tablet Orally Thre e times a day; Duration: 10 days 10/26/2020 Active Cyclobenzaprine HCl Not-Taking ibuprofen 1 tab Oral; Duration : 14 days PRN Active clonazePAM 0.5 MG 1 tablet at bedtime Orally Once a day Active Chlorthalidone 25 MG 1 tablet in the mor demario with food Orally Once a day Active Cephalexin 500 MG 1 capsule Orally messi ry 12 hrs; Duration: 5 day(s) Active Vraylar 3mg Active Immunizations [...] Treatment Pending Test Test Name Order Date [id number] I&D ABSCESS- SIMPLE,SINGLE 021 12573 I&D ABSCESS- SIMPLE,SINGLE 021 [id number] I&D ABSCESS- SIMPLE,SINGLE 022 [id number]- I&D ABSCESS-COMPLICATED,MULTI 03/2020 40461- I&D ABSCESS-COMPLICATED,MULTI Insurance Providers Payer Name Payer Address Payer Phone Subscriber Number Group Number Insured Name Patient Relationship to Insured Coverage Start Date Coverage End Date Medicare National Govt Sv[employer] [address] [place] [address] [id number] Jody Souza Self - patient is the insured Medical (General) History Medical History History ICD Code asthma back pain hip pain knee depression wheezing ingrown toe nail painful nails open sores Surgical History Surgery Date(Month/Year) section 01/29 polyp uteral surgery enmistoste nasal srugery
== END 2025-06-22 11:32 | disposition home or self-care (01) ==
PROVIDERS: PCP Internal Medicine; Visit Provider Physician Assistant Medical
DX: Z13.9 Encounter for screening, unspecified (principal); R35.0 Frequency of micturition

== ENCOUNTER 2025-06-22 10:45 | Outpatient (REF) | payer OTHER, SELFPAY | END 2025-06-22 10:46 | disposition home or self-care (01) | LOC: HO.LNP 10:45 | PROVIDERS: PCP Internal Medicine; Visit Provider Physician Assistant Medical | DX: N39.0 Urinary tract infection, site not specified (principal); Z13.89 Encounter for screening for other disorder; R35.0 Frequency of micturition | CPT/HCPCS: 81003; 87086; 87088; 87186; 99212 ==

== ENCOUNTER 2025-06-28 11:21 | Outpatient (REF) | payer OTHER, SELFPAY ==
[2025-06-28 17:12] LABS: CT PCR NOT DETECTED (Not Detect.); NG PCR NOT DETECTED (Not Detect.)
== END 2025-06-28 11:22 | disposition home or self-care (01) ==
LOC: HO.LNP 11:21
PROVIDERS: PCP Internal Medicine; Visit Provider Obstetrics & Gynecology
DX: Z30.433 Encounter for removal and reinsertion of intrauterine contraceptive device (principal); N93.9 Abnormal uterine and vaginal bleeding, unspecified
CPT/HCPCS: 58300; 58301; 87491; 87591; 87626; 88175; 99396; J7298

== ENCOUNTER 2025-06-28 11:21 | Outpatient (AMB) | payer OTHER, SELFPAY ==
[2025-06-28 11:23] VITALS: BP 114/70; BMI 44.0
--- NOTE | 2025-06-28 11:23 | MHC.OFFVIS ---
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 No complaints. The patient had Mirena IUD inserted 5 years ago would like it to be replaced Last Pap/HPV was negative in 09/01, at [facility] No previous screening Mammogram [facility] Medical History (Updated 06/28/25 @ 11:39 by Piotr Ware MD) History of LEEP (loop electrosurgical excision procedure) of cervix complicating Pneumonia Dyspnea on exertion Anemia CPAP (continuous positive airway pressure) dependence Endometriosis Asthma Surgical History History of delivery Family History Other Mental health disorder Substance use disorder Social History Housing: Condominium Alcohol intake: current Alcohol intake frequency: a few times a month Patient Tobacco Use Status: Never used Tobacco e-Cigarette/Vaping Use: Never Used service: No Current occupational status: disabled Cognitive needs: No Hearing needs: No Vision needs: No Female Reproductive History Menstrual Age of Menarche: 10 control method: progestin IUCD Date of last pap smear: 08/23/21 Review of Systems Const All systems reviewed & are unremarkable except as noted in HPI and below Card Reports as per HPI Resp Reports as per HPI GI Reports as per HPI and Reports no additional complaints Reports as per HPI Physical Exam Vital Signs: BMI result Body Mass Index 44.0 Const General: cooperative, healthy appearing and comfortable Chest Chest palpation & inspection: normal inspection of the chest and normal palpation of entire chest wall Breast/axilla inspection: normal inspection of the breasts and normal inspection of the axillae Breast/axilla palpation: normal palpation of the breasts, normal palpation of the axillae and no axillary lymphadenopathy Resp Effort & Inspection: normal respiratory effort Auscultation: clear to auscultation bilaterally Percussion: percussion normal Cardio Palpation: normal PMI Rate: regular rate Rhythm: regular rhythm Heart sounds: no murmurs and no rubs Peripheral pulses: Peripheral pulses 2+ throughout GI Inspection: Yes normal to inspection Palpation (GI): Soft to palpation, nontender, no guarding, not rigid and No hepatosplenomegaly present Percussion: Yes normal to percussion Auscultation: normal bowel sounds Rectal Exam - Female: deferred General: Yes bladder normal to palpation External Female Exam: No lesion Speculum Exam - Vagina: normal appearance of the vagina, normal palpation, normal vaginal discharge and not erythematous Speculum Exam - Cervix: normal appearance of the cervix and normal palpation Bimanual exam- vagina & uterus: normal bimanual exam, normal palpation, uterine size normal, bladder normal to palpation, consistency normal and normal palpation Bimanual Exam- Adnexa, other: normal adnexae, no masses and no tenderness Office Procedures IUD Insert/Removal Details Details: The patient is presenting for IUD removal and IUD reinsertion. Her last menstrual period was within the last 5 days, Urine test was done in the office and was negative; All the contraindications were excluded. The following possible complications were discussed with the patient: Intrauterine , Ectopic , Sepsis, Pelvic Infection, Irregular Bleeding and Amenorrhea, Perforation, Expulsion, Ovarian Cysts, Breast Cancer. The following adverse effects were discussed with the patient: alteration of menstrual bleeding pattern, including: unscheduled uterine bleeding decreased uterine bleeding increased scheduled uterine bleeding female genital tract bleeding ,amenorrhea , genital discharge , vulvovaginitis , breast pain , benign ovarian cyst and associated complications , dysmenorrhea , Gastrointestinal disorders abdominal/pelvic pain, headache/migraine , back pain , acne , depression Alternative options were discussed with the patient including but not limited: control pills, patch, NuvaRing, Depo-medroxyprogesterone acetate, Nexplanon, copper IUD, sterilization, vasectomy, others The procedure was explained in detail to patient , at the end patient signed the informed consent obtained. Alternative options were discussed with the patient The patient signed the consent and agreed with the plan; all questions answered. Urine test was done in the office and was negative Preop dx: Requesting IUD removal and Reinsertion Op: IUD removal and Mirena insertion Post op dx: same EBL= 10 cc Procedure: The patient was put in the dorsal lithotomy position a speculum was inserted in the vagina the IUD thread identified. Using a Selene clamp the thread was grasped and the IUD pulled out with no complications. A no touch technique was used throughout the procedure. A speculum was placed into vagina and cervix was cleaned with betadine). A tenaculum was placed. A plastic sound was advanced through the external and internal os until it reached the fundus of the uterus, the depth was 8 cm. The sound was then withdrawn. The IUD was loaded in a sterile manner and advanced into position. The string was visualized and cut to 3 cm. Tenaculum site hemostatic. All instruments removed from vagina. Patient tolerated the procedure well. NO complications were noted. Patient was instructed to call for fever over 100.4, significant pain unrelieved by Motrin, IUD expulsion, heavy bleeding, or abnormal discharge. In addition, the following clinical considerations were discussed with the patient to call for removal: A stroke or heart attack ,Very severe or migraine headaches ,Unexplained fever ,Yellowing of the skin or whites of the eyes, as these may be signs of serious liver problems , or suspected , Pelvic pain or pain during sex ,HIV positive seroconversion in herself or her partner , Possible exposure to sexually transmitted infections Unusual vaginal discharge or genital sores , severe vaginal bleeding or bleeding that lasts a long time, or if she misses a menstrual period, Inability to feel Mirena's threads Counseled the patient that the IUD does not protect against STI's, recommended use of condoms for the first 7 days post insertion and explained to the patient that condoms are recommended for patients at risk for sexually transmitted infections. Follow up appointment made for 4 weeks following insertion. Date of removal in no more than five years for DUB treatment and 8 years for contraception from today?s date was d/w patient. This note was generated with a voice recognition program. Some errors may have been overlooked during the review of this note. Sometimes these errors may affect the content or meaning of a given sentence. 75411-IHR Insertion 51758-MII Removal Procedure code (CPT) selection complete Office Meds Mirena 21 mcg/24 hr (up to 8 years) 52 mg intrauterine device Performing Provider: Piotr Ware MD Performing Location: [facility] Documented (not given) by: Piotr Wrae MD on 06/28/25 11:41 Dose Route Admin Location Dispensed Lot Number Expiration Date [facility] Electronics Utility Worker 1 device intrauterine ea Total Dispensed Waste n/a n/a Assessment & Plan Assessment & Plan (1) Well woman exam: Comment: History of LEEP for high-grade dysplasia Code(s): Z01.419 - Encounter for gynecological examination (general) (routine) without abnormal findings Category: Medical Plan: Cotesting done Mammogram ordered. Counseled the patient about the recommended dietary allowance of 1000 mg of Calcium & 600 IU of vitamin D. The patient was instructed to perform monthly self-breast exams and to schedule an annual exam in a year; All questions answered and the patient verbalized understanding. Instructed the patient to schedule annual exam in a year (2) Encounter for IUD removal and reinsertion: Code(s): Z30.433 - Encounter for removal and reinsertion of intrauterine contraceptive device Category: Medical Plan: UPT negative, GC/CT collected. Mirena IUD removed and reinserted, see procedure note The patient was asked to sign medical release form to get her records from [facility] Orders: Orders AMB IUD Insertion/Removal - Practice Supplied Today Z30.433 - Encounter for removal and reinsertion of intrauterine contraceptive device Medications: New Mirena (levonorgestrel) 1 device intrauterine ONCE 1 ea 0RF Mirena IUD removal and reinsertion NS Z30.433 - Encounter for removal and reinsertion of intrauterine contraceptive device Coding Level of Care Code New Pt Level 4 (21609) Procedure Only Diagnoses Well woman exam Z01.419 Encounter for IUD removal and reinsertion Z30.433 CPT Codes Details - CPT: 05857-VLY Insertion ([id number]) Details - CPT: 08687-WDG Removal ([id number])
--- OUTSIDE RECORDS SUMMARY | 2025-06-28 14:42 | XMS_ITS | Patient Health Record ---
[facility] Address [address] [place] [address] Care Team Providers Care Baker Name Role Phone Bin RODRIGUEZ, [facility] Primary Care Provider Shan Cui Unavailable [phone] Allergies Allergen (clinical drug ingredient) Drug/Non Drug [...] Treatment Pending Test Test Name Order Date 49432 I&D ABSCESS- SIMPLE,SINGLE 021 [id number] I&D ABSCESS- SIMPLE,SINGLE 021 75089 I&D ABSCESS- SIMPLE,SINGLE 022 76301- I&D ABSCESS-COMPLICATED,MULTI 03/2020 61367- I&D ABSCESS-COMPLICATED,MULTI Insurance Providers Payer Name Payer Address Payer Phone Subscriber Number Group Number Insured Name Patient Relationship to Insured Coverage Start Date Coverage End Date Medicare [employer] [address] [place] [address] [id number] Jody Souza Self - patient is the insured Medical (General) History Medical History History ICD Code asthma back pain hip pain knee depression wheezing ingrown toe nail painful nails open sores Surgical History Surgery Date(Month/Year) section 01/29 polyp uteral surgery enmistoste nasal srugery
== END 2025-06-28 11:43 | disposition home or self-care (01) ==
LOC: HO.HWS 11:22
PROVIDERS: PCP Internal Medicine; Visit Provider Obstetrics & Gynecology
DX: Z01.419 Encounter for gynecological examination (general) (routine) without abnormal findings (principal); Z30.433 Encounter for removal and reinsertion of intrauterine contraceptive device
CPT/HCPCS: 58300; 58301; 99396; 99459

== ENCOUNTER 2025-08-10 11:00 | Outpatient (AMB) | payer OTHER, SELFPAY ==
[2025-08-10 11:45] VITALS: BP 122/70
--- NOTE | 2025-08-10 11:45 | A.OFFVIS_ITS ---
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 The patient has no complaints periods are normal, not painful, and flow is normal. [facility] Medical History History of LEEP (loop electrosurgical excision procedure) of cervix complicating Pneumonia Dyspnea on exertion Anemia CPAP (continuous positive airway pressure) dependence Endometriosis Asthma Surgical History History of delivery Family History Other Mental health disorder Substance use disorder Social History Housing: Condominium Alcohol intake: current Alcohol intake frequency: a few times a month Patient Tobacco Use Status: Never used Tobacco e-Cigarette/Vaping Use: Never Used service: No Current occupational status: disabled Cognitive needs: No Hearing needs: No Vision needs: No Female Reproductive History Menstrual Age of Menarche: 10 Review of Systems Const All systems reviewed & are unremarkable except as noted in HPI and below Physical Exam Vital Signs: Last Vital Signs BP 122/70 08/10/25 11:45 General: Yes no CVA tenderness External Female Exam: normal external appearance and normal appearance of the urethra Speculum Exam - Vagina: normal appearance of the vagina, normal palpation, no lesions and no masses Speculum Exam - Cervix: normal appearance of the cervix, normal palpation, no lesions, no masses, nontender and Other cervical findings present (IUD string in place) Bimanual exam- vagina & uterus: normal bimanual exam, normal palpation, uterine size normal, normal palpation, uterine shape normal, No Cervical tenderness present and non-tender Bimanual Exam- Adnexa, other: normal adnexae Back/Spine/Pelvis Back: no CVA tenderness Assessment & Plan Assessment & Plan (1) IUD check up: Code(s): Z30.431 - Encounter for routine checking of intrauterine contraceptive device Category: Medical Plan: UPT done in the office was negative. Discussed with the patient the finding on physical exam, IUD string in place, the patient was reassured. Instructions given to patient to call in case of temperature above 100.4, severe cramping/pelvic pain, abnormal discharge or abnormal uterine bleeding or if she misses her menstrual cycle. Otherwise follow-up at her annual exam appointment. All questions answered, the patient verbalized understanding. Coding Level of Care Code Est Pt Level 3 (36135) Diagnoses IUD check up Z30.431
--- OUTSIDE RECORDS SUMMARY | 2025-08-10 13:45 | XMS_ITS | Data Portability ---
Author Organization [employer] [facility], [facility] Address [address] [place] [address] Care Team Providers Care Service Station Cashier Name Role Phone BAKARI BURGESS Primary Care Provider HIM TRISH OTHER Assessment Encounter Date Assessment Date Assessment LastModified by Organization Details LastModified Time 11/06/2022 11/06/2022 I have reviewed and agree with the assessment and plan as documented by the direct support staff. I provided real time medical direction for this encounter and was immediately available to provide additional phone based assistance as needed. History as noted by direct support staff. Pt reports the onset of frontal headache [...] agrees and plans to drive to the [facility] ED for evaluation. I speak with the ED pharmacist in charge owner at [place] and give expect. btils Not available 11/06/2022 17:09:51 04/15/2023 04/15/2023 I provided real -time medical direction via phone for this encounter, and was available for additional phone based assistance as needed. I have reviewed and agree with the Assessment and Plan as documented by the Parts Remover. Patient given the opportunity to ask questions. [...] Assessment and Plan as documented by the Parts Remover. Patient given the opportunity to ask questions. Our service contacted for an assessment of: sciatica As per above, patient with hx of chronic pain. No new or worsening red S&S. No new bowel/bladder symptoms. No new gait abnl. No new neurological signs, symptoms or deficits. Pain manifests primarily as foot pain Per direct support staff on the scene, VSS, non-toxic. Neuro grossly [...] recorded. [facility] [address] [place] [address], [id number] 3 17:00:43 rapid SARS CoV 2 Ag, QL IA, respiratory [facility] [address] [place] [address], [id number] 3 17:00:43 Referral None recorded. Procedures None recorded. Surgeries None recorded. Imaging None recorded. Medication Orders ketorolac 30 mg/mL injection solution 2024 025 [email or web address] [facility]/Pharmacy #[id number], [address] [facility] [place], [address], 5 16:36:50 ketorolac 30 mg/mL (1 mL) injection solution [...] IA, respiratory specimen negati ve Not Available [facility] ed [address] [place] [address], [id number] 11/06/2022 17:00:19 11/06/19 23 11/06/2022 rapid flu (A+B) Flu negati ve Not Available [facility] ed [address] [place] [address], [id number] 11/06/2022 17:00:17 Result Notes None recorded. Medical Equipment None Reported. Allergies Allergen ID Allergen Name Allergen Category Reaction Reaction Severity Criticality Documentation Date Start Date Code Code System Note Provider Name and Address Organization Details Recorded Time 52991 sulfameth oxazole medicatio n Not available Not available Not available 12/28/2024 76099 RxNorm Not Available [facility] 5 08:44:40 9070 ciproflox acin medicatio n Not available Not available Not available 08/09/2024 2551 RxNorm Not Available [facility] [employer] 4 03:48:55 Medications Name Sig Start Date [...] No t Available Vitals Date Recorded Body temperature Heart rate Oxygen saturation Oxygen saturation in Arterial blood by Pulse oximetry Respiratory rate Heart rate Body temperature Oxygen saturation Oxygen saturation in Arterial blood by Pulse oximetry Respiratory rate Systolic And Diastolic Systolic And Diastolic Provider Name and Address Organization Details Last Updated DateTime 3 98.8 [degF] 80 /min 97 % 97 % 18 /min 80 /min 98.8 [degF] 97 % 97 % 18 /min 164/84 mm[Hg] 164/84 mm[Hg] Not Available [facility] 3 17:10:53 Date Recorded Respiratory rate Body temperature Oxygen saturation Oxygen saturation in Arterial blood by Pulse oximetry Heart rate Systolic And Diastolic Provider Name and Address Organization Details Last Updated DateTime 5 18 /min 98.1 [degF] 99 % 99 % 86 /min 134/86 mm[Hg] Not Available [employer] 5 11:08:49 Date Recorded Heart rate Oxygen saturation Oxygen saturation in Arterial blood by Pulse oximetry Body temperature Respiratory rate Body height Body weight Systolic And Diastolic Provider Name and Address Organization Details Last Updated DateTime 5 65 /min 98 % 98 % 98 [degF] 14 /min 162.56 cm 27908.4 g 150/90 mm[Hg] Not Available [employer] 5 16:31:41 Date Recorded Body weight Body temperature Oxygen saturation Oxygen saturation in Arterial blood by Pulse oximetry Heart rate Respiratory rate Systolic And Diastolic Provider Name and Address Organization Details Last Updated DateTime 3 791507. 488 g 98 [degF] 100 % 100 % 86 /min 18 /min 148/88 mm[Hg] Not Available [facility] 3 20:48:37 Date Recorded Heart rate Body temperature Respiratory rate Oxygen saturation Oxygen saturation in Arterial blood by Pulse oximetry Body weight Systolic And Diastolic Provider Name and Address Organization Details Last Updated DateTime 4 84 /min 97.8 [degF] 16 /min 98 % 98 % 610321. 528 g 138/80 mm[Hg] Not Available [employer] 4 09:35:48 Social History None recorded. Functional Status None recorded. Mental Status None recorded. Family History Nothing Reported. Medical History No medical history recorded. Gynecological HistoryNo gynecological history recorded. Obstetrics History GPAL:G 0 P 0 0 0 0 Past Encounters Encounter ID Performer Location Encounter Start Date Encounter Closed Date Diagnosis/Indication Diagnosis SNOMED-CT Code Diagnosis ICD10 Code Diagnosis IMO Codes Diagnosis Note [id number] Paulo Huber MD [facility] [address] [place] [address] [phone] 11/06/2022 16:44:17 11/10/2022 16:54:50 Headache 77678515 R51.9 [id number] Carri Kerns MD [facility] [address] [place] [address] [id number] 04/15/2023 20:48:35 04/16/2023 10:19:04 Sciatica 14471047 M54.30 [id number] Carri Kerns MD [facility] [address] [place] [address] [id number] 08/12/2024 09:33:07 08/12/2024 12:26:43 Sciatica [id number] M54.30 [id number] Kiya Garcia MD [facility] [address] [place] [address] [id number] 12/28/2024 11:08:42 12/28/2024 22:08:55 Pain of left ankle joint 4615502442 2613932 M25.572 Evaluation in the field was performed by my direct support staff colleague, as noted above, I provided real-time direction and supervisio n for this visit.This is a 39yo F who is p/w 2d of severe atraumatic L ankle pain, swelling up to calf, and warmth to touch. Denies risk factors for septic joint, no hx gout. No fevers. Unable to bear weight 2/2 pain. VS: wnlParamed ic exam: edema and warmth from [...] shortness of breath, cough, chest pain, fever. [id number] Albert Hunyh MD [facility] [address] [place] [id number] 03/02/2025 16:31:39 03/02/2025 16:57:44 Acute sciatica 032715227 M54.30 [id number] Acute on chronic sciatica pain. Has responded well to Toradol in the past. No hx of renal impariment and had labs drawn in the preceding months which were normal. Will give 30mg IM Toradol. Discussed red flag signs for which to seek higher level of care. Health Concerns Section Related Observation LastModified by Organization Detai ls LastModified Time None Recorded Concern Status LastModified by Organization Details LastModified Time None Recorded Advance Directives Directive None Recorded Payers Insurance Date Sequence Insurance Name Policy Number Policy Padilla Covered Member ID Padilla Member ID Guarantor Name 04/15/2023 1 [facility] - DOS PRIOR TO 2023 - DUAL ELIGIBLE (MEDICARE REPLACEMENT/ADV ANTAGE - HMO) Jody Souza [id number] Jody Souza 03/02/2025 1 [facility] - DOS ON OR AFTER 2023 - DUAL ELIGIBLE - [employer] AND ONE CARE (MEDICARE REPLACEMENT/ADV ANTAGE - HMO) Jody Souza [id number] Jody Souza Notes Date Note Type Note Provider Name and Address Organization Details Recorded Time 11/06/2022 text/html ROS as noted in the HPI This was a supervised home visit with direct support staff Brandon Sebastian. CRC Nursing Assessment: Reason For [...] ..................... ..................... ..................... ..................... ..................... ..................... ............... Parts Remover Note: PT complains of 10 out of [...] contacted and advised that PT present to [facility] for a CT scan tonight, PT was appropriate to self present to ED. VG ..................... ..................... ..................... ..................... ..................... ..................... ............... Disposition: Fulfilled Paulo Huber MD [address] [facility],[address], [place], [address], [employer] 11/06/2022 18:58:55 04/15/2023 text/html HPI: Member calling in with c/o right hip and leg pain. Member states she woke up today and started having a shooting in the hip and travels down the leg. Member feels tingling and numbness in her buttocks. Member able to ambulate but its painful. Member taking ibuprofen with little effect. Member has also been icing the hip. Requesting [employer]ly for pain managment ..................... ..................... ..................... ..................... ..................... ..................... ............... CRC Nursing Assessment: Comments: CRC RN DID NOT NEED FURTHE RINFO ..................... ..................... ..................... ..................... ..................... ..................... ............... Parts Remover Note From Matthew Ventura: Pt presents A[employer] warm and dry with clear airway and equal chest rise and fall. Pt c/o lower back/buttock pain going down her leg since this morning. Pt tried ibuprofen with no relief. Pt denies injury or falls/trauma, flank pain, abdominal pain, CP, SOB, fever, nausea, diarrhea or kidney pain or problems. Baseline vitals assessed and recorded. C contacted and 30mg toradol ordered IM . Pt agreed to treatment. Pt educated on signs that would indicate the ER. Pt advised to follow up with PCP Parts Remover Allergies: Ciprofloxacin ..................... ..................... ..................... ..................... ..................... ..................... ............... Disposition: Fulfilled Carri Kerns MD [address] [facility],[address], [place], [address], [employer] [facility] 04/15/2023 20:54:04 08/12/2024 text/html HPI: member called, reports foot pain started last night now pain also goes up her leg and into her hip. Typical of previous sciatica pain, usually gets Toradol injection for pain, Requesting [facility] visit. ..................... ..................... ..................... ..................... ..................... ..................... ............... CRC Nurse Triage Notes (Sachi Oliva): Chief Complaints: Leg pain/swelling PMH: Hypertension, Asthma, Bipolar Disorder, Chronic Back Pain, Anxiety Disorder, Depression, Sleep Apnea, Osteoarthritis Comments: CRC RN did not require any additional information to process this visit. ..................... ..................... ..................... ..................... ..................... ..................... ............... Parts Remover Note From Matthew Ventura: Pt co right [...] on palpation. Neg redness, wounds, or edema. [facility] Saumya contacted and 30mg toradol in left deltoid with 25g needle.Right pt, date, drug, dose and route. Pt education on signs indicating the ER. Pt advised to follow up with PCP. Pt signed consent form via email during visit. ..................... ..................... ..................... ..................... ..................... ..................... ............... [facility] Consulted: Carri Kerns ..................... ..................... ..................... ..................... ..................... ..................... ............... Disposition: Fulfilled Carri Kerns MD [address] [place] [address],[address], [place], [address], [employer] 08/12/2024 10:43:18 12/28/2024 text/html CRC Nurse Triage Notes (Maggie Dowell): Reason For Request: Left foot swollen to double the size, pt cannot walk Denies: Colon Flash, circumferential colon Colon reported with black [...] ..................... ..................... ..................... ..................... ..................... ..................... ............... Parts Remover Note From Darwin Aguilera: Dispatched to the [...] to left ankle/foot with +homans sign, afebrile. C consulted. Pt advised that if she cannot get into the doctors within a day or two she should be seen in the ED for imaging. Pt advised the pain was too bad to wait a couple of days. 911 called on behalf of the Pt. Pt transported to [facility] per her request. ALL times are approx. ..................... ..................... ..................... ..................... ..................... ..................... ............... [facility] Consulted: Kiya Garcia ..................... ..................... ..................... ..................... ..................... ..................... ............... Disposition: Fulfilled Kiya Garcia MD [address] [facility],[address], [place], [address], [facility] 12/28/2024 14:00:16 03/02/2025 text/html ROS as noted in the HPI HPI: Member phoned in stating she is having sciatica pain to her right buttock radiating down her leg. Member states she has been seen by [facility] in the past and has been given Toradol injection until she is able to get a shot to her back for pain management. [facility] request submitted. [facility] request submitted. Member aware and in agreement. ..................... ..................... ..................... ..................... ..................... ..................... ............... CRC Nurse Triage Notes (Adina Rea): Reason For Request: back pain Chief Complaints: Back Pain PMH: Hypertension, Asthma, Bipolar Disorder, Chronic Back Pain, Anxiety Disorder, Depression, Sleep Apnea, Osteoarthritis PMH Reviewed at 03/02/2025:39 Allergies Reviewed at 03/02/2025:39 Comments: HPI reviewed ..................... ..................... ..................... ..................... ..................... ..................... ............... Parts Remover Note From Mihir Lilly: Patient alert and oriented complaints of right side, sciatica, pain, pain at lower back radiates to right lower leg. Patient reports last flare was a year ago for which she received Toradol with good effect. Patient request same today. No bleeding kidney problems or recent use of ibuprofen. Patient denies other pain or complaints. Patient reports 10 out of 10 pain. Patient pink warm, dry, secondary exam unremarkable, good CSMs in all. [facility] orders Toradol 30 mg IM now. Advised to follow up with PCP. Red flags patient in education discussed. Medication administered as ordered without complication using five rights. ..................... ..................... ..................... ..................... ..................... ..................... ............... [facility] Consulted: Zan Huynh ..................... ..................... ..................... ..................... ..................... ..................... ............... Disposition: Fulfilled Albert Huynh MD [address] [place] [address],[address], [place], [address], [facility] 03/02/2025 16:37:28 OBGyn Episode No OBEpisode recorded.
--- OUTSIDE RECORDS SUMMARY | 2025-08-10 13:46 | XMS_ITS | Patient Health Record ---
Author Organization [facility] Address [address] [facility] [place] [address] Care Team Providers Care Dye Stand Loader Name Role Phone Bin RODRIGUEZ, [facility] Primary [facility] Provider Shan Cui Unavailable [phone] Allergies Allergen (clinical drug ingredient) Drug/Non Drug [...] Treatment Pending Test Test Name Order Date [id number] I&D ABSCESS- SIMPLE,SINGLE 021 52125 I&D ABSCESS- SIMPLE,SINGLE 021 63927 I&D ABSCESS- SIMPLE,SINGLE 022 74220- I&D ABSCESS-COMPLICATED,MULTI 03/2020 77433- I&D ABSCESS-COMPLICATED,MULTI Insurance Providers Payer Name Payer Address Payer Phone Subscriber Number Group Number Insured Name Patient Relationship to Insured Coverage Start Date Coverage End Date Medicare [employer] [address] [place] [address] [id number] Jody Souza Self - patient is the insured Medical (General) History Medical History History ICD Code asthma back pain hip pain knee depression wheezing ingrown toe nail painful nails open sores Surgical History Surgery Date(Month/Year) section 01/29 polyp uteral surgery enmistoste nasal srugery
== END 2025-08-10 11:57 | disposition home or self-care (01) ==
LOC: HO.HWS 11:00
PROVIDERS: PCP Internal Medicine; Visit Provider Obstetrics & Gynecology
DX: Z30.431 Encounter for routine checking of intrauterine contraceptive device (principal)
CPT/HCPCS: 99213

== ENCOUNTER → 2025-08-10 11:00 | Outpatient (BNVA) | payer OTHER, SELFPAY | PROVIDERS: PCP Internal Medicine; Visit Provider Obstetrics & Gynecology | DX: Z30.431 Encounter for routine checking of intrauterine contraceptive device (principal) | CPT/HCPCS: 99212 ==

== ENCOUNTER 2025-09-12 09:41 | Outpatient (AMB) | payer OTHER, SELFPAY ==
[2025-09-12 09:47] VITALS: BP 122/72; PULSE 76; O2SAT 95; BMI 42.7
--- NOTE | 2025-09-12 09:47 | A.OFFPC_ITS ---
Vital Signs 09/12/25 09:47 Height 5 ft 1 in Weight 226 lb BMI 42.7 BP 122/72 Blood Pressure Location Lt brachial Position Sitting Pulse 76 Pulse Source Pulse Oximeter Pulse Oximetry (%) 95 Intake Visit Reasons: Annual Pe Allergies carrot (Carrot) Allergy (Mild, Verified 09/12/25 09:49) INDUCES ASTHMA, HIVES Sulfa (Sulfonamide Antibiotics) (Sulfa (Sulfonamides)) Allergy (Mild, Verified 09/12/25 09:49) INDUCES ASTHMA, HIVES, blotchy, asthma flare up ciprofloxacin (Cipro) Adverse Reaction (Unknown, Verified 09/12/25 09:49) joint swelling Medication List - Last Reconciled 09/12/25 by Adrianne Steward MD cariprazine (Vraylar) 6 mg PO DAILY clonidine HCl 0.1 mg PO BID gabapentin 100 mg PO TID PRN levonorgestrel (Mirena) intrauterine trazodone 100 mg PO BEDTIME PRN Tobacco use date assessed: 01/11/25 Dental Screening Dental Screen Date: 01/11/25 HPI HPI Comments History of Present Illness Details History of Present Illness The patient is a 40 year old individual presenting for a physical exam. Anemia: - Laboratory tests in March revealed a he moglobin of 9.7 g/dL, which was ordered by the patient's [employer] SETTING OUT MACHINE OPERATOR due to heavy periods. - The patient has not taken any iron sup plements since the labs were drawn. Prediabetes: - Laboratory tests done in March showed a fasting sugar of 101 mg/dL. - The patient was counseled that once di agnosed as prediabetic, the patient is always considered prediabetic, even if subsequent blood tests are normal with diet control. Dysfunctional Uterine Bleeding and Endometriosis: - The patient has a history of heavy per iods due to endometriosis, for which a Mirena IUD was placed a couple of months ago. - The IUD is intended to remain in place for five years. - The patient is established with an OB/ TOOL AND DIE MAKER for yearly checkups. Right Lumbar Radiculitis: - The patient has a history of right lum bar radiculitis, which is currently stable. - The patient received a cortisone injec tion, which has resulted in significant improvement of the back pain. - The patient is followed by a pain cherry gement specialist at [facility]. Morbid Obesity: - Current weight is 226 lbs, reflecting a loss from 233 lbs in June and 241 lbs around this time last year. - The patient is actively trying to lose weight and now has a stationary bike. - The patient previously tried Zepbound but became ill, though it was concurrent with a stomach infection that required hospitalization and was associated with hepatosplenomegaly. - Given the patient's family history of thyroid cancer, it was decided to avoid Zepbound. Confusion: - The patient reports new episodes of co nfusion for the past couple of months, including forgetting how to get home and an inability to think straight. - The patient initially attributed this to anxiety and sought care at an urgent care facility, where the patient was questioned about drug or alcohol use. - The patient's psychiatric medication suzanne tanner suggested a neurological evaluation. - It was noted that the patient's psychi atric medications could potentially cont ribute to memory problems. Medical History: - Psychiatric disorder, managed with mul tiple medications. - Anemia - Prediabetes - Obstructive sleep apnea - Asthma - Right lumbar radiculitis - Dysfunctional uterine bleeding - Endometriosis - External hemorrhoids - Morbid obesity - Peripheral vascular disease Surgical History: - Mirena IUD placement for endometriosis and dysfunctional uterine bleeding. - Cortisone injection for right lumbar r adiculitis. Social History: - Exercise: The patient has a stationary bike at home. - Weight Management: The patient has ach ieved significant weight loss over the past year. - Substance Use: Denies drug or alcohol use. Family History: - The patient's mother had thyroid cance r. Health Maintenance - Mammogram: Due for a mammogram; an ord er was placed. - Gynecological care: The patient is est ablished with an CR[employer] SETTING OUT MACHINE OPERATOR for yearly checkups and breast exams. - Immunizations: The patient requested a nd will receive a flu vaccine during the visit. - Labs: Repeat labs ordered to check hem oglobin and hemoglobin A1c. [place] of Care - The patient is established with an OB/ TOOL AND DIE MAKER. - The patient sees a pain management spe cialist at [facility]. - The patient sees a psychiatric medicat ion prescriber. - A referral to neurology will be made. Medications - Cariprazine, for a psychiatric conditi on. - Clonidine 0.1 mg BID, for a psychiatri c condition. - Gabapentin 100 mg TID, for a psychiatr ic condition. - Trazodone 100 mg daily, for a psychiat trav condition. - Mirena IUD, for dysfunctional uterine bleeding and endometriosis. [facility] Medical History History of LEEP (loop electrosurgical excision procedure) of cervix complicating Pneumonia Dyspnea on exertion Anemia CPAP (continuous positive airway pressure) dependence Endometriosis Asthma Surgical History History of delivery Family History Other Mental health disorder Substance use disorder Social History Housing: Condominium Alcohol intake: current Alcohol intake frequency: a few times a month Patient Tobacco Use Status: Never used Tobacco e-Cigarette/Vaping Use: Never Used service: No Current occupational status: disabled Cognitive needs: No Hearing needs: No Vision needs: No Female Reproductive History Menstrual Age of Menarche: 10 Questionnaire Thrive Questionnaire Date Thrive assessed: 10/18/24 ELLIS-7 AMB Questionnaire ELLIS-7 Date ELLIS - 7 assessed: 10/18/24 Source: Developed by Drs. Deshaun Hassan, Lucie Hinkle, Mart Carlson and colleagues, with an educational jesus from [employer]. Review of Systems Narrative Review of Systems - General: No fever no chills - Neurological: No headaches no dizziness - Ear nose throat: No sore throat no hearing difficulty no ear pain - Cardiovascular: No syncope, no chest pain, no palpitations - Gastrointestinal: No nausea vomiting or diarrhea - Endocrine: No polyuria polydipsia no heat intolerance - Genitourinary: No dysuria - Skin: No new complaints Physical exam (Primary Care) Vital Signs: Last Vital Signs Pulse 76 09/12/25 09:47 BP 122/72 09/12/25 09:47 Pulse Ox 95 09/12/25 09:47 BMI result Body Mass Index 42.7 Tobacco/Smoking Status: Tobacco use Status Tobacco use date assessed 01/11/25 09/12/25 09:50 Patient Tobacco Use Status Never used Tobacco 09/12/25 09:50 e-Cigarette/Vaping Use Never Used 09/12/25 09:50 Thrive Assessment: Date of Thrive Assessment Date Thrive assessed 10/18/24 09/12/25 09:50 Narrative Diagnostic results - Labs (March): Hemoglobin was 9.7 g/dL. - Labs (March): Electrolytes were within normal limits. - Labs (March): Kidney function was intact. - Labs (March): Fasting glucose was 101 mg/dL. Physical Exam General: Cooperative, healthy appearing, comfortable, no acute distress Orientation: Patient oriented x3, reports episodes of confusion and memory issues Head: Normal to inspection Ears: Within normal limit visually Nose: Normal external nose present Face and sinus: Normal facial exam Eyes: Appearance normal, extraocular movement intact pupils reactive Neck: Normal visual inspection and supple Respiratory: Normal respiratory effort and able to speak in complete sentences. Clear to auscultation, no stridor Cardiovascular: S1 and S2 RRR, blood pressure is 122/72 GI: Normal to inspection. Soft to palpation and nontender Skin: Turgor normal, no acute findings, benign moles noted Neuro: Patient oriented x3, motor sensory intact, balance intact, tandem pass Extremities: Normal to inspection no edema . Office Procedures Flu Questionnaire Does the patient have a severe egg allergy?: No Does the patient have severe life threatening allergies?: No Does the patient have a fever or illness today?: No Has the patient ever had Guillain-Gustine Syndrome?: No Has the patient ever had any past reaction to a flu shot?: No Immunizations Fluarix [id number] (PF) 45 mcg (15 mcg x 3)/0.5 mL IM syringe Performing Provider: Adrianne Steward MD Performing Location: [facility] Administered by: Baldo Caruso CMA on 09/12/25 11:02 Dose Route Admin Location Dispensed Lot Number Expiration Date [employer]ing Supervisor 0.5 mL IM Right Deltoid 0.5 mL 5racy 04/10/26 [id number] [employer] V[employer] Given Date VIS Provided VIS Publication Date 09/12/25 Single Vaccine 24 Eligibility Eligibility Date Funding Source Not [facility] Eligible 09/12/25 Private Coding Level of Care Code Est Pt Level 3 (64987) Est Pt Prev Care 40-64y(43048) Diagnoses Encounter for general adult medical examination with abnormal findings Z00.01 Brain fog R41.89 Iron deficiency anemia due to chronic blood loss D50.0 Anemia type: iron deficiency Iron deficiency anemia type: chronic blood loss Hemorrhoids, external K64.4 Morbid obesity with BMI of 40.0-44.9, adult E66.01; Z68.41 Impaired fasting blood sugar R73.01 Peripheral vascular disease I73.9 Assessment & Plan Assessment & Plan (1) Encounter for general adult medical examination with abnormal findings: Code(s): Z00.01 - Encounter for general adult medical examination with abnormal findings Category: Medical (2) Brain fog: Code(s): R41.89 - Other symptoms and signs involving cognitive functions and awareness Category: Medical (3) Anemia: Code(s): D64.9 - Anemia, unspecified Category: Medical Qualifiers: Anemia type: iron deficiency Iron deficiency anemia type: chronic blood loss Qualified Code(s): D50.0 - Iron deficiency anemia secondary to blood loss (chronic) (4) Hemorrhoids, external: Code(s): K64.4 - Residual hemorrhoidal skin tags Category: Medical (5) Morbid obesity with BMI of 40.0-44.9, adult: Code(s): E66.01 - Morbid (severe) obesity due to excess calories; Z68.41 - Body mass index [BMI] 40.0-44.9, adult Category: Medical (6) Impaired fasting blood sugar: Code(s): R73.01 - Impaired fasting glucose Category: Medical (7) Peripheral vascular disease: Code(s): I73.9 - Peripheral vascular disease, unspecified Category: Medical Plan Patient Instructions - An order for blood tests has been placed. - An appointment with a neurologist will be booked to investigate the episodes of confusion. - An order for a mamm[facility] has been placed[facility] and [facility]. - Continue with your current diet and exercise routine, as you are successfully losing weight. - Do not take Zepbound or similar injections due to potential risks. - If you do not hear from the neurology department within 10 days, please call the office. - You will receive a flu shot today. - Schedule a follow-up appointment in one year for a physical exam. Orders: Orders Complete Blood Count Auto Diff Today D64.9 - Anemia, unspecified, E66.01 - Morbid (severe) obesity due to excess calories, I73.9 - Peripheral vascular disease, unspecified, K64.4 - Residual hemorrhoidal skin tags, R73.01 - Impaired fasting glucose, Z00.01 - Encounter for general adult medical examination with abnormal findings, Z68.41 - Body mass index [BMI] 40.0-44.9, adult MM tomosynthesis screening BI Today Z12.31 - Encounter for screening mammogram for malignant neoplasm of breast Influenza [id number] Immunization Today Z23 - Encounter for immunization Comprehensive Met. Panel Today D64.9 - Anemia, unspecified, E66.01 - Morbid (s evere) obesity due to excess calories, I73.9 - Peripheral vascular disease, unspecified, K64.4 - Residual hemorrhoidal skin tags, R73.01 - Impaired fasting glucose, Z00.01 - Encounter for general adult medical examination with abnormal findings, Z68.41 - Body mass index [BMI] 40.0-44.9, adult Hemoglobin A1c Today D64.9 - Anemia, unspecified, E66.01 - Morbid (severe) obes ity due to excess calories, I73.9 - Peripheral vascular disease, unspecified, K64.4 - Residual hemorrhoidal skin tags, R73.01 - Impaired fasting glucose, Z00.01 - Encounter for general adult medical examination with abnormal findings, Z68.41 - Body mass index [BMI] 40.0-44.9, adult LDL Cholesterol Direct Today D64.9 - Anemia, unspecified, E66.01 - Morbid (severe) obesity due to excess calories, I73.9 - Peripheral vascular disease, unspecified, K64.4 - Residual hemorrhoidal skin tags, R73.01 - Impaired fasting glucose, Z00.01 - Encounter for general adult medical examination with abnormal findings, Z68.41 - Body mass index [BMI] 40.0-44.9, adult TSH reflex Free T4 Today D64.9 - Anemia, unspecified, E66.01 - Morbid (severe) obesity due to excess calories, I73.9 - Peripheral vascular disease, unspecified, K64.4 - Residual hemorrhoidal skin tags, R73.01 - Impaired fasting glucose, Z00.01 - Encounter for general adult medical examination with abnormal findings, Z68.41 - Body mass index [BMI] 40.0-44.9, adult Referrals Neurology Referral R41.89 - Other symptoms and signs involving cognitive functions and awareness
== END 2025-09-12 10:20 | disposition home or self-care (01) ==
LOC: HO.HMCC 09:41
PROVIDERS: PCP Internal Medicine; Visit Provider Internal Medicine
DX: Z00.01 Encounter for general adult medical examination with abnormal findings (principal); R41.89 Other symptoms and signs involving cognitive functions and awareness; E66.01 Morbid (severe) obesity due to excess calories; Z68.41 Body mass index [BMI] 40.0-44.9, adult; D50.0 Iron deficiency anemia secondary to blood loss (chronic); K64.4 Residual hemorrhoidal skin tags; R73.01 Impaired fasting glucose; I73.9 Peripheral vascular disease, unspecified; Z23 Encounter for immunization

== ENCOUNTER → 2025-09-12 09:41 | Outpatient (BNVA) | payer OTHER, SELFPAY | PROVIDERS: PCP Internal Medicine; Visit Provider Internal Medicine | DX: Z00.01 Encounter for general adult medical examination with abnormal findings (principal); M54.16 Radiculopathy, lumbar region; R73.03 Prediabetes; N93.9 Abnormal uterine and vaginal bleeding, unspecified; N80.9 Endometriosis, unspecified; E66.01 Morbid (severe) obesity due to excess calories; R41.0 Disorientation, unspecified; R41.89 Other symptoms and signs involving cognitive functions and awareness; D50.0 Iron deficiency anemia secondary to blood loss (chronic); K64.4 Residual hemorrhoidal skin tags; R73.01 Impaired fasting glucose; I73.9 Peripheral vascular disease, unspecified; Z23 Encounter for immunization; Z68.41 Body mass index [BMI] 40.0-44.9, adult | CPT/HCPCS: 90471; 90656; 99396 ==